=== PATIENT | male | born 1940 | race Caucasian/White ===

== ENCOUNTER 2024-09-07 09:26 | Inpatient (IN) | payer MEDICARE, OTHER, SELFPAY ==
[2024-09-07] VITALS (7 sets, daily range): BP systolic 99–132; BP diastolic 55–73; PULSE 74; O2SAT 100; BMI 19.0; BMI 18.2
--- NOTE | 2024-09-07 00:10 | ED.GENMED ---
History of Present Illness
General
Chief Complaint: Abdominal Symptoms
Time Seen by Provider: 09/07/24 00:09
History of Present Illness
History of Present Illness:
TIME OF INITIAL ENCOUNTER: 12:10 AM
HPI: I spoke to EMS with majority of history. The patient comes in from [facility] as staff at [facility] was concerned about the appearance of the vomitus. They were concerned about the appearance of coffee-ground emesis. He also
reported some vague abdominal discomfort earlier as well. The patient is on baby aspirin and subcu heparin
EXAM:
GENERAL: The patient is somewhat ill-appearing with brown vomitus on his gown, soft brown stool noted within his diaper
HEENT: Slightly dry oral mucosa
CARDIOVASCULAR: No murmurs, normal heart rate, regular rhythm, No chest wall tenderness
PULMONARY: No respiratory distress, breath sounds are clear and equal
ABDOMEN: Soft with no peritoneal signs, minimal distention with no abdominal tenderness
NEUROLOGIC: Fair strength all extremities, no coordination deficits
PSYCHIATRIC: Some mild cognitive deficits noted, reasonable insight and judgement
EXTREMITIES: Fistula noted left upper extremity with excellent thrill
SKIN: Small bandage noted to the left lower quadrant
NUMBER AND COMPLEXITY OF PROBLEMS ADDRESSED AT THE ENCOUNTER
� Chronic conditions affecting care: CKD on HD, atrial fibrillation, diverticular disease
� Acute Exacerbation and/or Progression of Chronic Illness: This is an acute problem
� Differential Diagnosis includes: Upper GI bleed, gastroenteritis, viral syndrome, diverticular disease, GERD
AMOUNT AND/OR COMPLEXITY OF DATA TO BE REVIEWED AND ANALYZED
� I performed an independent evaluation of and my interpretation is:
EKG:
CT: CT shows no clear acute cause for patient's vomiting however increase stool burden is noted. Patchy opacities noted at the left lung base with some concern for aspiration pneumonia
X-rays:
Laboratory Studies: White count 13.4, hemoglobin 9.1, potassium 5.6, creatinine 4.0, lipase 131, LFTs unremarkable
Other:
� Review of other/old records: I reviewed some of the notes from [facility] which indicates that the patient did have a diverticulitis with perforation in the past.
� Clinical information was obtained by an independent historian: I spoke to EMS upon arrival for history
� Prescriptions/Medications Considered but not given:
� Further testing considered but not performed:
RISK OF COMPLICATIONS AND/OR MORBIDITY OR MORTALITY OF PATIENT MANAGEMENT
� Social determinants of health affecting care: Resides at [facility]
� Discussion with other providers: Hospitalist for admission
� Escalation of care including admission/observation vs risk of discharge considered: Leukocytosis noted. He was given Zofran for nausea/vomiting. CT imaging suggest possibility of aspiration pneumonia at the left base. I have
placed him on antibiotics. Given the appearance of the vomitus initially, I did give a one-time dose of Protonix. However the patient has heme-negative brown stool. Given his overall somewhat ill appearance, recommend he stay in the hospital for
further evaluation.
ANY OTHER UPDATES:
Phy Exam
Physical Exam
Physical Exam:
See HPI
Course
Orders/Labs/Results
Orders:
Orders
09/07/24 00:09
Pantoprazole [Protonix IV] 80 mg IV NOW STA
09/07/24 00:16
CT Abd/pel Without Iv Or Oral Urgent
Comment:
Reason For Exam: vomiting; CKD on HD
09/07/24 00:35
CR Chest - 2 Views Urgent
Comment:
Reason For Exam: cough fever
09/07/24 00:40
Type+Screen Urgent
Complete Blood Count/With Diff Urgent
Comprehensive Metabolic Panel Urgent
Lipase Urgent
09/07/24 00:42
Ondansetron Injectable [Zofran] 4 mg .ROUTE .STK-MED ONE
Pantoprazole [Protonix IV] 40 mg .ROUTE .STK-MED ONE
09/07/24 00:44
0.9% Sodium Chloride [Nss (Preservative Free)] 20 ml IV NOW STA
09/07/24 00:45
Ondansetron Injectable [Zofran] 4 mg IV NOW STA
09/07/24 00:52
ABO2 Urgent
BBK Wristband Number:
Associate notified that ABO2 has been ordered: [id number]
Date: 09/07/24
Time: 00:47
Church History Teacher ID: [id number]
09/07/24 02:45
CefTRIAXone [Rocephin] 1,000 mg .ROUTE .STK-MED ONE
09/07/24 02:46
Azithromycin 500 mg/250 ml [Zithromax Infusion] 500 mg in 250 ml .ROUTE .STK-MED
Abnormal Lab Results
09/07/24
00:40
WBC 13.4 H 10^3/uL
(4.8-10.8)
RBC 2.97 L 10^6/uL
(4.70-6.10)
Hgb 9.1 L g/dL
(13.0-18.0)
Hct 27.5 L %
(39.0-52.0)
RDW 15.3 H %
(11.5-14.5)
Abs Immat Gran (auto) 0.1 H 10^3/uL
(0-0.05)
Absolute Neuts (auto) 10.8 H 10^3/uL
(1.4-6.5)
Absolute Monos (auto) 0.8 H 10^3/uL
(0.1-0.6)
Neutrophils % 80.6 H %
(42.2-75.2)
Lymphocytes % 10.6 L %
(20.5-51.1)
Sodium 131 L mmol/L
(135-145)
Potassium 5.6 H mmol/L
(3.5-5.1)
Chloride 91 L mmol/L
(98-107)
BUN 53 H mg/dl
(9-20)
Creatinine 4.0 H mg/dL
(0.7-1.3)
Glucose 118 H mg/dl
(70-99)
09/07/24 00:40
09/07/24 00:40
Vital Signs
Initial and Last Documented VS:
Initial Vital Signs
Temp Pulse Resp BP Pulse Ox
38.1 C H 105 38 125/66 96
09/07/24 00:31 09/07/24 00:31 09/07/24 00:31 09/07/24 00:31 09/07/24 00:31
Last Documented Vital Signs
Temp Pulse Resp BP Pulse Ox
38.1 C H 105 38 125/66 98
09/07/24 00:31 09/07/24 00:31 09/07/24 00:31 09/07/24 00:31 09/07/24 00:57
*Critical Care Note
Total Time (30-74mins, 75-104mins- exclusive of procedures): Not Applicable
ED Attending Note
-
Portions of this chart may have been created with voice recognition software.� Occasional wrong word or��sound alike� substitutions may have occurred due to the inherent limitations of voice recognition software.
Discharge Plan
Departure
Patient Disposition: Admit
Date of Disposition: 09/07/24
Time of Disposition: 04:01
Presentation/result/management discussed w/ accepting MD/DO: Hospitalist
Discharge Problem:
Pneumonia
Referrals:
Babar Bruner MD [Family Provider] -
Interventions
Interventions:
*Neglect/Abuse Screening Last Done: 09/07/24 00:57
ED- Fall Risk Assessment Last Done: 09/07/24 00:57
*ED COVID-19 Vaccine History Last Done: 09/07/24 00:57
CR-Nrbhou-Sfzvphndbg Assessment Last Done: 09/07/24 00:57
ED- Pulmonary Assessment Last Done: 09/07/24 00:57
Discharge Date and Time
Print Language: DANISH
[2024-09-07] MEDS: ZOFRAN 4 MG IV (00:45)
[2024-09-07] MEDS: PROTONIX IV 80 MG IV (00:45)
[2024-09-07 00:50] LABS: % Basophils 0.6 % (0-2); % Eosinophils 2.1 % (0-6); % Immature Granulocytes 0.4 % (0-0.5); % Lymphocytes 10.6 % (20.5-51.1); % Monocytes 5.7 % (1.7-9.3); % Neutrophils 80.6 % (42.2-75.2); Absolute Basophils 0.1 10^3/uL (0-0.2); Absolute Eosinophils 0.3 10^3/uL (0-0.7); Absolute Immature Granulocytes 0.1 10^3/uL (0-0.05); Absolute Lymphocytes 1.4 10^3/uL (1.2-3.4); Absolute Monocytes 0.8 10^3/uL (0.1-0.6); Absolute Neutrophils 10.8 10^3/uL (1.4-6.5); Hematocrit 27.5 % (39.0-52.0); Hemoglobin 9.1 g/dL (13.0-18.0); Mean Corp Hgb Conc. 33.1 g/dL (33.0-37.0); Mean Corpuscular Hgb 30.6 pg (27.0-31.0); Mean Corpuscular Volume 92.6 fL (80.0-94.0); Nucleated Red Blood Cells % 0 % (-); Platelet Count 322 10^3/uL (130-400); Red Blood Cell Count 2.97 10^6/uL (4.70-6.10); Red Cell Dist. Width 15.3 % (11.5-14.5); White Blood Cell Count 13.4 10^3/uL (4.8-10.8)
[2024-09-07] MEDS: NSS (PRESERVATIVE FREE) 20 ML IV (00:53)
[2024-09-07 01:09] LABS: ALT (SGPT) 15 U/L (0-50); AST (SGOT) 19 U/L (17-59); Albumin 4.1 g/dl (3.5-5.0); Alkaline Phosphatase 126 U/L (38-126); Blood Urea Nitrogen 53 mg/dl (9-20); Calcium 9.9 mg/dl (8.4-10.2); Carbon Dioxide 22 mmol/L (22-30); Chloride 91 mmol/L (98-107); Estimated Creatinine Clearance 11 ml/min; Glucose 118 mg/dl (70-99); Lipase 131 U/L (23-300); Potassium 5.6 mmol/L (3.5-5.1); Sodium 131 mmol/L (135-145); Total Bilirubin 0.4 mg/dl (0.2-1.3); Total Protein 6.9 g/dl (6.3-8.2); eGFR 14.15
--- NOTE | 2024-09-07 03:58 | DOWNTIME ---
There was a [employer] Client [employer] Downtime on 09/07/2024 from 0100 to 09/07/2024 at 0350. Downtime documentation of patient's care, including medication administrations, has been reconciled in the electronic record per guidelines. Refer to the
patient's paper chart under the miscellaneous tab to see printed paper medication records and downtime forms.
--- NOTE | 2024-09-07 07:07 | HPS.HSE ---
Family Physician
-
Family Physician: Babar Bruner MD
Chief Complaint
-
Cough, SOB.
History of Present Illness
Patient with episode of nausea vomiting and diarrhea while been coughing since then
This is an 84-year-old who has past medical history significant for end-stage renal disease on hemodialysis Thursday, chronic urinary retention status post suprapubic catheter, anemia, oropharyngeal dysphagia, generalized weakness,
prior diverticulitis with perforation and abscess, atrial fibrillation presenting to the emergency department with cough after having an episode of nausea vomiting and diarrhea today. Apparently ordered and members of the facility had similar
symptoms.
Patient stated that symptoms began today. Apparently after attempting breakfast he vomited and then started coughing. His cough is unable to bring up any sputum. He reports mild shortness of breath. He attempted lunch and he vomited again. It
was nonbloody and nonbilious. There was some concern for coffee-ground's but in the ED noted not to have any coffee-ground's. Patient has not had any measured fevers at home but had a temp of 100.5 in the ED. No further diarrhea thus far. Mild
abdominal discomfort.
T 100.5, BP 100/60. Notable labs in the ED where a white count of 13.4, hemoglobin of 9.1. There was a CT of the abdomen and pelvis without contrast showing prominent stool burden with possible fecal impaction and rectosigmoid dilation, no bowel
obstruction or bowel wall thickening. He has been having BMs in ED.
Medical History
Past Medical History
Past Medical History: Reports Renal Failure (dialysis M/W/F)
Additional Past Medical History:
Chronic urinary retention s/p suprapubic catheter
Dysphagia
AFIB
Past Surgical History: Reports Other
Social History
Tobacco: Non-smoker
Alcohol: None
Drug: None
Living: Snf
Employment: Retired
Family History
Family History: Not pertinent
Allergies / Home Medications
Allergies reflects when Allergies were last updated in [facility].
Home Medications with original date entered in [facility]
Allergy/Medication List:
Allergies
Allergy/AdvReac Type Severity Reaction Status Date / Time
No Known Allergies Allergy Verified 09/07/24 00:43
Home Medications
Zofran ODT 4 mg PO Q8H PRN nausea 09/07/24
aspirin See Rx Instructions .Route .COMPLEX 09/07/24
bisacodyl 10 mg CA DAILY PRN constipation 09/07/24
heparin (porcine) 5,000 unit SC TID 09/07/24
levalbuterol HCl 0.63 mg inhalation Q6H PRN wheezing 09/07/24
midodrine 5 mg tablet See Rx Instructions .Route .COMPLEX 09/07/24
mirtazapine 7.5 mg tablet 7.5 mg PO HS 09/07/24
polyethylene glycol 3350 17 gram oral powder packet (Miralax) 17 g PO HS 09/07/24
vitamin B complex 500 mg PO DAILY 09/07/24
Review of Systems
-
History Source: Patient
Constitutional: Reports No Symptoms
Respiratory: Reports Cough
Cardiac: Reports No Symptoms
Abdomen/GI: Reports Vomiting
: Reports No Symptoms
Musculoskeletal: Reports No Symptoms
Skin: Reports No Symptoms
Neurological: Reports No Symptoms
Endocrine: Reports No Symptoms
Psych: Reports No Symptoms
Physical Exam
Vital Signs
Vital Signs
Temp Pulse Resp BP Pulse Ox
97.8 F 88 19 99/55 98
09/07/24 06:07 09/07/24 06:07 09/07/24 06:07 09/07/24 06:07 09/07/24 06:28
Physical Exam
General: Appears Chronically Ill
HEENT: NormoCephalic, Anicteric, Moist mucous membranes and Atraumatic
Respiratory: Clear
Cardiac: S1/S2, Regular Rhythm and Murmur (high pitched systolic murmur heard throughout the precordium)
Breast: Deferred by me
GI: Soft, Non Tender, Non Distended and Normal Bowel Sounds
Rectal: Deferred by Provider
Genito-urinary: Suprapubic Tube
Musculoskeletal: No Clubbing, No Cyanosis and No Edema
Skin: Warm
Neuro: AO x 3
Hematologic/Lymphatic: No Lymphadenopathy
Psych: Calm
Laboratory Results
-
09/07/24 00:40
09/07/24 00:40
Laboratory Results
Total Bilirubin 0.4 mg/dl (0.2-1.3) 09/07/24 00:40
AST 19 U/L (17-59) 09/07/24 00:40
ALT 15 U/L (0-50) 09/07/24 00:40
Alkaline Phosphatase 126 U/L (38-126) 09/07/24 00:40
Lipase 131 U/L (23-300) 09/07/24 00:40
Data Reviewed
-
Diagnostic Radiology: Image Personally Visualized and interpreted
Medical Tests (Nuc Med, Echo, EKG etc): Image Personally Visualized and interpreted
Lab Data: Labs Reviewed by me
Impression/Plan
-
IMPRESSION:
1. N/V - No obvious peritonitis, cannot rule out diverticulitis entirely but appeared to be related to a communicable infection so likley a viral gastroenteritis. No current diarrhea. HD stable.
- admit to med/surg
- ceftriaxone/flagyl for now
- antiemetics
- given gentle fluids 250 ml bolus in ED
- ppi, diet as tolerated,nectar thickened pureed.
2. Fever - Low grade temps 100.5 with patch LLL opacity concerning for aspiration vs pna.
- check covid/influenza
- check procal
- ceftriaxone/flagyl for now
- respiratory tx and supportive care for the cough
3. ESRD - HD M/W/F. No indiction for acute HD
- plan for HD in am, nephrology consult
DVT PPX heparin sq
Code Status full Code
--- NOTE | 2024-09-07 09:43 | W.PN.HOSP.TC ---
Today's Communication/Plan
-
Renal and ID consult
follow up CXR and obstruction series in AM
Assessment / Plan
Assessment / Plan
1. N/V - No obvious peritonitis, cannot rule out diverticulitis entirely but appeared to be related to a communicable infection so likley a viral gastroenteritis. No current diarrhea. HD stable.
exam appears benign. CT scan, my read with significant stool burden and bowel distention, await radiologist read
- admit to med/surg
- ceftriaxone/flagyl for now
- antiemetics
- given gentle fluids 250 ml bolus in ED
- ppi, diet as tolerated,nectar thickened pureed.
2. Fever - Low grade temps 100.5 with patch LLL opacity concerning for aspiration vs pna.
WBC 13.4k
- check covid/influenza
- check procal
- ceftriaxone/flagyl for now
- respiratory tx and supportive care for the cough
inf disease consult
3. ESRD - HD M/W/F. No indiction for acute HD
- plan for HD in am, nephrology consulted
DVT PPX heparin sq
Code Status full Code
Anticipated Discharge: > 48 hours
Subjective/Interval History
-
Date of Service: September 07, 2024
Appears comfortable
Objective Data
-
Labs:
Laboratory Results
09/07/24
00:40
WBC 13.4 H
Hgb 9.1 L
Hct 27.5 L
Plt Count 322
Sodium 131 L
Potassium 5.6 H
Chloride 91 L
Carbon Dioxide 22
BUN 53 H
Creatinine 4.0 H
Glucose 118 H
Calcium 9.9
Total Bilirubin 0.4
AST 19
ALT 15
Alkaline Phosphatase 126
Vital Signs:
Vital Signs
Temp Pulse Resp BP Pulse Ox
97.8 F 88 19 99/55 98
09/07/24 07:05 09/07/24 07:05 09/07/24 07:05 09/07/24 07:05 09/07/24 07:05
I&O
09/06/24 09/07/24 09/08/24
06:59 06:59 06:59
Intake Total 300 / 300
Output Total 250 / 250
Balance 50 / 50
Review of Systems
-
History Source: Patient and Coordinated Provider
Constitutional: Reports Fever (100.5)
Respiratory: Reports Cough
Cardiac: Reports No Symptoms
Abdomen/GI: Reports Vomiting (prior to admission)
Physical Exam
-
General: Well Developed, Well Nourished, No Apparent Distress and Appears Chronically Ill
HEENT: Normocephalic, Atraumatic and Moist Mucous Membranes
Respiratory: Clear to Auscultation; Negative Wheezes, Rales or Rhonchi
Cardiac: Regular Rhythm and S1/S2
GI: Soft, Nontender, Nondistended and Normal Bowel Sounds
Musculoskeletal: No Clubbing, No Cyanosis and No Edema
Neuro: Awake, Alert and Oriented
--- NOTE | 2024-09-07 10:54 | WOUNDNOTE ---
LEFT LOWER ABDOMEN
--- NOTE | 2024-09-07 11:00 | WOUNDNOTE ---
WON RN note: Patient admitted with pneumonia and vomiting.
See H&P for complete history. From [facility].
PMH: diverticulitis with perforation and abscess,RF-hemodialysis, A Fib, lumbar fractures, ambulatory dysfunction, suprapubic tube, anemia.
Wound Location and type/assessment: Patient admitted with: L lower abdomen full thickness opening, suspect old suprapubic tube site vs developing abscess. Undermines and tunnels with purulent foul smelling drainage. Lateral to opening, skin is red
with a suspected evolving ulcer. Abdominal ulcer is painful to touch, not indurated. CT of Abdomen results pending. Patient has Calvin in use. Turned to sides on own, minimal assist. Mid spine with stage 3 PI, base yellow/ red and blanchable redness
surrounding, scant drainage. Heels are non blanchable red.
Appetite: Poor recently due to nausea and vomiting.
Pressure redistribution devices in place: On Accumax, air overlay added to bed. Air cushion with pillow under calves.
Plan: Discussed the above ulcers with Dr. Guzman who said CT of abdomen pending. Confirmed ok to send wound culture done at bedside, dressings changed. Today Mesalt strips packed into tunnel and undermined area of abdominal wound then dry dressing
and local wound care to back ulcer. Possible surgical consult for abdomen wound depending on results of CT scan per Dr. Guzman. Called [facility] for iodoform packing strips and honey gel.
Confirmed orders with hospitalist and updated nurse Yarelis who will send culture to lab.
Updated care plan and will follow as needed.
Note to case management of equipment requested for discharge:Air mattress
Recommend follow up at wound care center upon discharge.
[2024-09-07] MEDS: LOW STRENGTH ASPIRIN 81 MG PO (11:39)
[2024-09-07] MEDS: ProAmatine 5 MG PO ×2 (11:39→17:14)
--- NOTE | 2024-09-07 11:55 | CON.ID ---
Consultation
-
Date/Time Consultation Requested: 09/07/2024 0946
Date/Time Consultation Performed: 09/07/2024 1151
Requesting Provider: Dr. Guzman
Performing Provider: Dr. Medina
Reason for Consultation: Aspiration pneumonia
Chief Complaint / Past History
History of Present Illness
Rashard Matos is an 84-year-old male being evaluated at the request of Dr. Guzman in regards to suspected aspiration pneumonia. History is obtained from chart review.
The patient presented to [facility] earlier this morning after being sent from the facility where he resides for evaluation of nausea and vomiting.
Per reviewed notes, the patient ate breakfast yesterday and developed coughing with subsequent episode of vomiting. This resolved, but when he ate lunch he again developed coughing, with subsequent emesis. Per EMS report, the admitted to feeling
nauseated all day, although he denied this to me. Additionally, there was some concern for coffee-ground emesis, which appears to have prompted transfer to the hospital for further evaluation.
Workup in the ER revealed leukocytosis, and patient was started on empiric antibiotics.
At present, patient reports improved cough. He denies any nausea. He denies any current sputum production. He denies any abdominal pain.
Past History
Additional Past Medical History:
ESRD�HD
Chronic urinary retention
Anemia
Dysphagia
Diverticulitis
A-fib
Additional Past Surgical History:
Suprapubic catheter
Allergy History:
No Known Allergies Allergy (Verified 09/07/24 00:43)
Medications Reviewed: Yes
Current Antibiotics:
Ceftriaxone 1 g IV every 24 hours
Social History
Tobacco: Non-Smoker
Alcohol: None
Drug: None
Living: Jail
Employment: Not Employed
Family History
Family History: Not Pertinent
Review of Systems
Vital Signs
Temp Pulse Resp BP Pulse Ox
97.8 F 80 16 132/73 98
09/07/24 07:05 09/07/24 11:39 09/07/24 10:54 09/07/24 11:39 09/07/24 10:54
Physical Exam
Physical Exam
Constitutional: No Acute Distress, Comfortable, Chronically Ill, Non-toxic and Cachetic (Mild)
Eyes: Pupils Equal, No Conjunctival Hemorrhage and Sclera Anicteric
Oral: No Thrush and No Ulcers
Cardiovascular: Regular Rate and S1/S2; Negative S3/S4
Pulmonary: Coarse and Non Labored; Negative Wheezes, Rales or Rhonchi
Gastrointestinal: Soft, Non Tender and Non Distended
Extremities: Negative Edema, Cyanosis or Erythema
Neurological: Awake and Alert
Psychological: Calm
Lab / Diagnostic Study Results
09/07/24 00:40
09/07/24 00:40
Abs Immat Gran (auto) 0.1 10^3/uL (0-0.05) H 09/07/24 00:40
Absolute Neuts (auto) 10.8 10^3/uL (1.4-6.5) H 09/07/24 00:40
Absolute Lymphs (auto) 1.4 10^3/uL (1.2-3.4) 09/07/24 00:40
Absolute Monos (auto) 0.8 10^3/uL (0.1-0.6) H 09/07/24 00:40
Absolute Basos (auto) 0.1 10^3/uL (0-0.2) 09/07/24 00:40
Immature Gran % 0.4 % (0-0.5) 09/07/24 00:40
Neutrophils % 80.6 % (42.2-75.2) H 09/07/24 00:40
Lymphocytes % 10.6 % (20.5-51.1) L 09/07/24 00:40
Monocytes % 5.7 % (1.7-9.3) 09/07/24 00:40
Eosinophils % 2.1 % (0-6) 09/07/24 00:40
Basophils % 0.6 % (0-2) 09/07/24 00:40
Microbiology Results
Micro:
09/07/24 06:50 MRSA Screen - Pending
Nose
Imaging:
09/07/2024 CXR (2 view):There is no significant focal parenchymal opacification or vascular congestion. The cardiomediastinal silhouettes are within the limits of normal. Calcific atherosclerotic changes of the thoracic aortic arch are noted. There
is no pneumothorax, pleural effusion or mediastinal shift.
Assessment / Plan
Nausea/vomiting
Leukocytosis
Fever
ESRD�HD
Chronic urinary retention
Anemia
Dysphagia
Diverticulitis
A-fib
Recommendations:
Continue ceftriaxone for today.
Follow CXR, white count and temperature curve.
If no infiltrate develops, and clinical parameters remain normal over next 24 hours, discontinue further antibiotics with close clinical observation.
Care Review
Plan reviewed with: Physician (Hospitalist)
--- NOTE | 2024-09-07 13:03 | W.CON.NEPH ---
Consultation
-
Date/Time Consultation Requested: 09/07/24 0946
Date/Time Consultation Performed: 09/07/24 1500
Requesting Provider: Kofi Varner
Performing Provider: Gerri Hobson
Reason for Consultation: ESRD
Medical History
-
Chief Complaint: cough, sob
History of Present Illness:
84-year-old who has past medical history significant for end-stage renal disease on hemodialysis Thursday at [facility](previously at [facility] for last 8yrs through left UE AVF), chronic urinary retention status post
suprapubic catheter, anemia, oropharyngeal dysphagia, generalized weakness, prior diverticulitis with perforation and abscess, atrial fibrillation on ASA presenting to the emergency department with cough after having an episode of nausea vomiting
and diarrhea yesterday. Apparently members of the facility had similar symptoms. He had poor po tolerance since then. There was question of coffee ground emesis, mild abd discomfort. He has low grade fever 100.5 on admit. K elevated 5.6, sodium
131. BPs are soft. CT abd shows constipation. He is due for HD today.
Reportedly he is [facility] since last 1-2weeks post recent hospitalization which I do not have details currently.
Past Medical History
ESRD
Chronic urinary retention s/p suprapubic catheter
Dysphagia
AFIB
Social History
Tobacco: Non-Smoker
Alcohol: None
Drug: None
Living: Prison
Employment: Retired
Family History
Family History: Not Pertinent
Allergies / Home Medications
Allergy/AdvReac Type Severity Reaction Status Date / Time
No Known Allergies Allergy Verified 09/07/24 00:43
�Medication �Instructions �Recorded �Confirmed �Type
Zofran ODT 4 mg PO Q8H PRN nausea 09/07/24 09/07/24 History
aspirin See Rx Instructions .Route .COMPLEX 09/07/24 09/07/24 History
bisacodyl 10 mg [place] DAILY PRN constipation 09/07/24 09/07/24 History
heparin (porcine) 5,000 unit SC TID 09/07/24 09/07/24 History
levalbuterol HCl 0.63 mg inhalation Q6H PRN wheezing 09/07/24 09/07/24 History
midodrine 5 mg tablet See Rx Instructions .Route .COMPLEX 09/07/24 09/07/24 History
mirtazapine 7.5 mg tablet 7.5 mg PO HS 09/07/24 09/07/24 History
polyethylene glycol 3350 17 gram 17 g PO HS 09/07/24 09/07/24 History
oral powder packet (Miralax)
vitamin B complex 500 mg PO DAILY 09/07/24 09/07/24 History
Review of Systems
-
All complete 12 point ROS have been inquired and found negative other than stated in HPI
Physical Exam
Vital Signs
Vital Signs
Temp Pulse Resp BP Pulse Ox
97.8 F 80 16 132/73 98
09/07/24 07:05 09/07/24 11:39 09/07/24 10:54 09/07/24 11:39 09/07/24 10:54
Lab Results
WBC 13.4 10^3/uL (4.8-10.8) H 09/07/24 00:40
RBC 2.97 10^6/uL (4.70-6.10) L 09/07/24 00:40
Hgb 9.1 g/dL (13.0-18.0) L 09/07/24 00:40
Hct 27.5 % (39.0-52.0) L 09/07/24 00:40
Plt Count 322 10^3/uL (130-400) 09/07/24 00:40
Sodium 131 mmol/L (135-145) L 09/07/24 00:40
Potassium 5.6 mmol/L (3.5-5.1) H 09/07/24 00:40
Chloride 91 mmol/L (98-107) L 09/07/24 00:40
Carbon Dioxide 22 mmol/L (22-30) 09/07/24 00:40
BUN 53 mg/dl (9-20) H 09/07/24 00:40
Creatinine 4.0 mg/dL (0.7-1.3) H 09/07/24 00:40
eGFR 14.15 09/07/24 00:40
Glucose 118 mg/dl (70-99) H 09/07/24 00:40
Calcium 9.9 mg/dl (8.4-10.2) 09/07/24 00:40
Albumin 4.1 g/dl (3.5-5.0) 09/07/24 00:[address]
CT abd/pelvis:
IMPRESSION:
1. Examination significantly limited by artifacts as above.
2. No definitive acute intra-abdominal process identified. There is a large volume of stool within the colon.
3. 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 Very small bilateral pleural effusions.
4. Atrophic of bilateral kidneys. Very small bilateral nephroliths. Mild dilation of the right renal pelvis as above, no obstructing calculus identified.
5. Subacute fracture of left parasymphyseal pubic bone extending into left superior pubic ramus. Subacute fracture left inferior pubic ramus. Bilateral sacral probable insufficiency fractures. Multiple bilateral old rib fractures. Severe chronic
compression deformity L2.
CXR:
No focal parenchymal opacification to suggest pneumonia.
Physical Exam
General: Awake, Alert, Oriented, AOx3, No Distress and Nontoxic
HEENT: EOMI, Anicteric and Conjunctivae Clear
Respiratory: Clear, Normal Excursion and Nonlabored Respirations
Cardiac: S1/S2, Regular Rate/Rhythm and Murmur
Breast: Deferred by me
Abdomen: Soft, Nontender and Nondistended
Musculoskeletal: No Cyanosis and No Edema
Skin: No Rash
Neuro: Nonfocal/Grossly Intact
Psych: Mood/afflect pleasant, Insight/judgement good and Appropriate
Vascular Access: AVF
Assessment/Plan
-
IMP:
N/V/D.
Fever
ESRD - HD M/W/F. kirit mejia, previously [facility] unit at [facility] [place]
Anemia of CKD
Leucocytosis
Hyperkalemia
HYponatremia
Left UE AVF
heart murmur
constipation noted on CT
ON CT :
Subacute fracture of left parasymphyseal pubic bone extending into left superior pubic ramus.
Subacute fracture left inferior pubic ramus.
Bilateral sacral probable insufficiency fractures.
Multiple bilateral old rib fractures.
Severe chronic compression deformity L2.
Plan:
A/w n/v/d. low grade fever -symp resolved
HD today per schedule
midodrine pre HD for soft BPs
JO for anemia
renal diet and FR
surg-no intervention for severe constipation
abx per ID
--- NOTE | 2024-09-07 14:09 | PTOTSP ---
Speech Therapy Evaluation:
Pt exhibits clinical signs of oropharyngeal dysphagia, likely chronic in nature related to modified diet at baseline. Pt also with risks of esophageal dysphagia as characterized by hiatal hernia. Pt demonstrated no overt s/sx of aspiration across
trials of pureed solids and mildly thick liquids. OCEANOGRAPHY PROFESSOR later called Cheri Jacob, who confirmed baseline diet of minced and moist solids and mildly thick liquids, however unable to provide further information if pt still being followed by OCEANOGRAPHY PROFESSOR
services at facility.
Recommend:
1. IDDSI Level 4 (puree) solids and mildly thick liquids
2. Medications whole verus crushed in puree as tolerated
3. General aspiration and reflux precautions
4. Oral care 3x/daily
5. OCEANOGRAPHY PROFESSOR to continue to follow at acute care level to assess ability to upgrade diet and determine if instrumental assessment warranted.
--- NOTE | 2024-09-07 14:23 | CM ---
Reviewed the chart notes and spoke with the patient at the bedside and patient's brother Hubert via telephone. Patient is currently a patient at [facility] where he received HD --. CM spoke with Hattie at [facility]. Per Hattie, the
patient is wheelchair bound and is an assist of one with transfers. Listed in our system, as well as, Hines's patient's insurance is commercial insurance. Patient denies commercial, claims he has Medicare and HOP, patient's brother confirmed and
provided numbers. Patient's insurance cards were lost while hospitalized at [facility].
Medicare A&B # [id number]
HOP # [id number]
Plan: Discharge back to [facility] when medically stable. No precert required.
--- NOTE | 2024-09-07 15:04 | CON.CRS ---
Consultation
-
Date/Time Consultation Requested: 09/07/2024, 12:12
Date/Time Consultation Performed: 09/07/2024, 15:05
Requesting Provider: Kofi Merino MD
Performing Provider: Damion Chris MD
Reason for Consultation: constipation
Medical History
-
Chief Complaint: abdominal pain and vomiting
History of Present Illness:
84-year-old male, with a past medical history of end-stage renal disease on hemodialysis and status post suprapubic catheter, presents to [facility] early this morning complaining of vomiting and abdominal pain. He had a temperature of 100.5
in the emergency department. He has not had any diarrhea. His white count was 13.4 on admission. His vitals have remained otherwise normal. CT of the abdomen and pelvis showed no acute intra-abdominal process identified. There is a large volume
of stool in the colon. Given the above we have been consulted for further surgical recommendation.
Past Medical History
Past Medical History: Other (Renal Failure (dialysis M/W/F))
Past Surgical History: Other (urinary retention, s/p suprapubic catheter , Dysphagia, AFIB )
Social History
Tobacco: Non-Smoker
Alcohol: None
Drug: None
Family History
Family History: Reviewed & Not Pertinent
Allergies / Home Medications
Allergy/AdvReac Type Severity Reaction Status Date / Time
No Known Allergies Allergy Verified 09/07/24 00:43
�Medication �Instructions �Recorded �Confirmed �Type
Zofran ODT 4 mg PO Q8H PRN nausea 09/07/24 09/07/24 History
aspirin See Rx Instructions .Route .COMPLEX 09/07/24 09/07/24 History
bisacodyl 10 mg [place] DAILY PRN constipation 09/07/24 09/07/24 History
heparin (porcine) 5,000 unit SC TID 09/07/24 09/07/24 History
levalbuterol HCl 0.63 mg inhalation Q6H PRN wheezing 09/07/24 09/07/24 History
midodrine 5 mg tablet See Rx Instructions .Route .COMPLEX 09/07/24 09/07/24 History
mirtazapine 7.5 mg tablet 7.5 mg PO HS 09/07/24 09/07/24 History
polyethylene glycol 3350 17 gram 17 g PO HS 09/07/24 09/07/24 History
oral powder packet (Miralax)
vitamin B complex 500 mg PO DAILY 09/07/24 09/07/24 History
Review of Systems
-
History Source: Other (hospital record)
Abdomen/GI: Abdominal Pain and Vomiting
A 10 point review of systems was completed, and was negative except as per HPI.
Physical Exam
Vital Signs
Temp 97.8 F 09/07/24 07:05
Pulse 80 09/07/24 11:39
Resp Rate 16 09/07/24 10:54
Blood pressure 132/73 09/07/24 11:39
SaO2 98 09/07/24 10:54
09/06/24 09/07/24 09/08/24
06:59 06:59 06:59
Actual Weight 52.707 kg
Body Mass Index (BMI) 18.2
Lab Results / Allergies
09/07/24 00:40
09/07/24 00:40
WBC 13.4 10^3/uL (4.8-10.8) H 09/07/24 00:40
Hgb 9.1 g/dL (13.0-18.0) L 09/07/24 00:40
Hct 27.5 % (39.0-52.0) L 09/07/24 00:40
Plt Count 322 10^3/uL (130-400) 09/07/24 00:40
Abs Immat Gran (auto) 0.1 10^3/uL (0-0.05) H 09/07/24 00:40
Neutrophils % 80.6 % (42.2-75.2) H 09/07/24 00:40
Allergy/AdvReac Type Severity Reaction Status Date / Time
No Known Allergies Allergy Verified 09/07/24 00:43
Physical Exam
General: Well Developed, Well Nourished and No Apparent Distress
GI: Soft, Non Distended and Tender (mildly tender)
Rectal: Other (intact but decreased tone, no blood, soft stool in the vault (so disimpaction not possible))
Data Reviewed
-
CT Scan: Image Personally Visualized and interpreted, Report Reviewed by me and Discussed with Patient
Labs: Labs Reviewed by me, Discussed with Physician and Discussed with Patient
Old Records: Reviewed
Assessment / Plan
-
Assessment: 84-year-old male presents to the emergency room with lower abdominal pain and vomiting and found to have severe constipation on CT, disimpaction not possible on exam
Plan:
No plans for surgery at this time. Unable to perform a disimpaction at bedside due to soft stool in the vault. Recommend aggressive bowel regiment.
[2024-09-07] MEDS: HEPARIN 500 UNITS IV (16:35)
[2024-09-07] MEDS: FLEXBUMIN 25% FOR HEMODIALYSIS 12.5 GRAMS IV (16:49)
[2024-09-07] MEDS: MANNITOL 25% 12.5 GRAMS IV (16:49)
--- NOTE | 2024-09-07 17:31 | W.PN.NEPH.HD ---
Assessment
-
pt seen during HD
vitals noted, SBP 86, just got midodrine
ok to use extra dose if needed
no UF at this time
JO for anemia
AVF functions fine
Progress Note - Hemodialysis
-
Date of Service: September 07, 2024
Duration: 30 minutes and 3 hours
Potassium Bath: 2
Calcium Bath: 2.5
Opti-Dialyzer: 160
Ultrafiltration: Other (0)
Blood Flow: 400
Dialysate Flow: 600
Heparin: yesx2
EPO: 6000
[2024-09-07] MEDS: RETACRIT 6000 UNITS IV (18:25)
[2024-09-07] MEDS: HEPARIN 5000 UNITS SC (20:35)
[2024-09-07] MEDS: CITROMA 300 ML PO (20:35)
[2024-09-07] MEDS: MIRALAX 17 GRAMS PO (21:30)
[2024-09-07] MEDS: REMERON 7.5 MG PO (21:30)
[2024-09-08 04:58] VITALS: BMI 19.2
[2024-09-08 06:11] LABS: Hematocrit 23.1 % (39.0-52.0); Hemoglobin 7.4 g/dL (13.0-18.0); Mean Corpuscular Volume 93.5 fL (80.0-94.0); Mean Platelet Volume 9.3 fL (7.4-10.4); Platelet Count 264 10^3/uL (130-400); Red Blood Cell Count 2.47 10^6/uL (4.70-6.10); Red Cell Dist. Width 15.5 % (11.5-14.5)
[2024-09-08 06:42] LABS: Blood Urea Nitrogen 23 mg/dl (9-20); Calcium 9.6 mg/dl (8.4-10.2); Carbon Dioxide 31 mmol/L (22-30); Chloride 96 mmol/L (98-107); Estimated Creatinine Clearance 19 ml/min; Glucose 89 mg/dl (70-99); Potassium 4.2 mmol/L (3.5-5.1); Sodium 136 mmol/L (135-145); eGFR 27.49
[2024-09-08 07:27] VITALS: BP 91/51
[2024-09-08] MEDS: NSS (PRESERVATIVE FREE) 10 ML IV (08:16)
[2024-09-08] MEDS: PROTONIX IV 40 MG IV (08:16)
[2024-09-08] MEDS: B COMPLEX w/VITAMIN C 1 CAPLET PO (08:17)
[2024-09-08] MEDS: HEPARIN 5000 UNITS SC ×2 (08:17→20:10)
[2024-09-08] MEDS: MIRALAX 17 GRAMS PO ×2 (08:17→21:21)
--- NOTE | 2024-09-08 08:32 | PTCARENOTE ---
BP this AM is 91/51, pt resting comfortably in bed at this time. Primary RN made aware.
[2024-09-08] MEDS: STERILE WATER FOR INJECTION 10 ML IV (09:33)
[2024-09-08] MEDS: ROCEPHIN 1000 MG IV (09:34)
--- NOTE | 2024-09-08 10:47 | W.PN.HOSP.TC ---
Today's Communication/Plan
-
recheck Hgb in AM, consider transfusion
Assessment / Plan
Assessment / Plan
1. N/V - No obvious peritonitis, cannot rule out diverticulitis entirely but appeared to be related to a communicable infection so likley a viral gastroenteritis. No current diarrhea. HD stable.
exam appears benign. CT scan of abd:1. Examination significantly limited by artifacts as above.
2. No definitive acute intra-abdominal process identified. There is a large volume of stool within the colon.
3. 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 Very small bilateral pleural effusions.
4. Atrophic of bilateral kidneys. Very small bilateral nephroliths. Mild dilation of the right renal pelvis as above, no obstructing calculus identified.
5. Subacute fracture of left parasymphyseal pubic bone extending into left superior pubic ramus. Subacute fracture left inferior pubic ramus. Bilateral sacral probable insufficiency fractures. Multiple bilateral old rib fractures. Severe chronic
compression deformity L2.
- ceftriaxone for now
ID consult appreciated
- antiemetics
- given gentle fluids 250 ml bolus in ED
- ppi, diet as tolerated,nectar thickened pureed.
Large stool burden
consult placed to CRS, passing frequent stools since laxative regimen started
Abd X-Ray: 09/08 Large amount of fecal material throughout the colon. No evidence of intestinal obstruction. Progressed
Severe bony mineralization. Stable
Severe atherosclerotic vascular disease. Stable
2. Fever - Low grade temps 100.5 with patch LLL opacity concerning for aspiration vs pna.
CXR 09/08: No acute disease of the chest
WBC 13.4k
- check covid/influenza
would be very unlikely, but will check
- ceftriaxone for now
- respiratory tx and supportive care for the cough
inf disease consult
3. ESRD - HD M/W/F. No indiction for acute HD
- plan for HD in am, nephrology consulted
old suprapubic tract noted, draining blood
will request Urology input
Chest congestion most likely aspiration bronchitis
doing better, continue abx
anemia
Hgb 9.1-->7.4
will recheck Hgb and obtain T&S in AM
permission to transfusion obtained from pt and confirmed with PEPE davey by phone, witnessed by KAMILAH Bishop
DVT PPX heparin sq
Code Status full Code
call placed and discussed fully with Hubert davey [phone]
extensive complex visit
Anticipated Discharge: > 48 hours
Subjective/Interval History
-
Date of Service: September 08, 2024
Much more awake, alert, answering basic questions
Objective Data
-
Labs:
Laboratory Results
09/08/24
05:47
WBC 7.0
Hgb 7.4 L
Hct 23.1 L
Plt Count 264
Sodium 136
Potassium 4.2
Chloride 96 L
Carbon Dioxide 31 H
BUN 23 H
Creatinine 2.3 H
Glucose 89
Calcium 9.6
Vital Signs:
Vital Signs
Temp Pulse Resp BP Pulse Ox
97.5 F 80 18 91/51 99
09/08/24 07:27 09/08/24 07:27 09/08/24 07:27 09/08/24 07:27 09/08/24 08:00
I&O
09/07/24 09/08/24 09/09/24
06:59 06:59 06:59
Intake Total 300 / 300 720 / 720
Output Total 250 / 250 1200 / 1200
Balance 50 / 50 -480 / -480
Review of Systems
-
History Source: Patient and Coordinated Provider
Constitutional: Reports Fever (100.5, afebrile >24 hrs)
Respiratory: Reports Cough (better, has lessened)
Cardiac: Reports No Symptoms
Abdomen/GI: Reports Vomiting (prior to admission, none since)
Physical Exam
-
General: Well Developed, Well Nourished, No Apparent Distress and Appears Chronically Ill
HEENT: Normocephalic, Atraumatic and Moist Mucous Membranes
Respiratory: Clear to Auscultation; Negative Wheezes, Rales or Rhonchi
Cardiac: Regular Rhythm, S1/S2 and Murmur (4/6sem)
GI: Soft, Nontender, Nondistended and Normal Bowel Sounds
Musculoskeletal: No Clubbing, No Cyanosis and No Edema
Neuro: Awake, Alert and Oriented
--- NOTE | 2024-09-08 10:52 | PTCARENOTE ---
MD on floor and made aware of BP this AM of 91/51 HR 80; patient resting in bed and states no complaints at this time. No new orders per MD. MD at bedside to assess LLQ wound with moderate amount of sanguinous drainage; wound care provided per order
by this RN, no new orders at this time per MD.
[2024-09-08 12:23] LABS: COVID-19 Antigen Negative (Negative)
[2024-09-08 12:54] VITALS: BP 98/48
--- NOTE | 2024-09-08 13:45 | W.PN.NEPH.PH ---
Addendum entered and electronically signed by Gerri Lakhani MD 09/08/24 15:51:
he has significant murmur-would get echo if possible tomorrow
Original Note:
Today's Communication / Plan
-
HD tomorrow
Assessment/Plan
-
IMP:
N/V/D.
Fever
ESRD - HD M/W/F. kirit mejia, previously [facility] unit at [facility]
Anemia of CKD
Leucocytosis
Hyperkalemia
HYponatremia
Left UE AVF
heart murmur
constipation noted on CT
ON CT :
Subacute fracture of left parasymphyseal pubic bone extending into left superior pubic ramus.
Subacute fracture left inferior pubic ramus.
Bilateral sacral probable insufficiency fractures.
Multiple bilateral old rib fractures.
Severe chronic compression deformity L2.
Plan:
A/w n/v/d. low grade fever -symp resolved
midodrine pre HD for soft BPs
JO for anemia, hb decreasing
renal diet and FR
abx per ID
may need eval for bleeding from SP tract-d/w primary
-
-
Date of Service: September 08, 2024
CC / HPI / ROS
-
Chief Complaint:
ESRD
History of Present Illness:
tolerated HD yesterday
BP soft
hb low 7.4
Review of Systems:
no complaints
sleeping during visit
no fever
Labs
-
Labs:
WBC 7.0 10^3/uL (4.8-10.8) 09/08/24 05:47
RBC 2.47 10^6/uL (4.70-6.10) L 09/08/24 05:47
Hgb 7.4 g/dL (13.0-18.0) L 09/08/24 05:47
Hct 23.1 % (39.0-52.0) L 09/08/24 05:47
Plt Count 264 10^3/uL (130-400) 09/08/24 05:47
Sodium 136 mmol/L (135-145) 09/08/24 05:47
Potassium 4.2 mmol/L (3.5-5.1) 09/08/24 05:47
Chloride 96 mmol/L (98-107) L 09/08/24 05:47
Carbon Dioxide 31 mmol/L (22-30) H 09/08/24 05:47
BUN 23 mg/dl (9-20) H 09/08/24 05:47
Creatinine 2.3 mg/dL (0.7-1.3) H 09/08/24 05:47
eGFR 27.49 09/08/24 05:47
Glucose 89 mg/dl (70-99) 09/08/24 05:47
Calcium 9.6 mg/dl (8.4-10.2) 09/08/24 05:47
Albumin 4.1 g/dl (3.5-5.0) 09/07/24 00:40
Physical Exam
-
Vital Signs:
Vital Signs
Temp Pulse Resp BP Pulse Ox
97.5 F 82 18 98/48 99
09/08/24 07:27 09/08/24 12:54 09/08/24 07:27 09/08/24 12:54 09/08/24 10:43
Cardiovascular:: Regular rate and rhythm
Respiratory:: Bilateral: CTA
Lung Excursion:: Normal
Abdomen:: Nontender and Soft
Extremity Edema:: None: Bilateral:
Calvin Catheter: No
[2024-09-08 15:23] VITALS: BP 118/59
[2024-09-08] MEDS: REMERON 7.5 MG PO (21:21)
[2024-09-08 23:06] VITALS: BP 132/75
[2024-09-09 05:32] VITALS: BMI 19.2
[2024-09-09 06:25] LABS: Hematocrit 24.3 % (39.0-52.0); Hemoglobin 7.9 g/dL (13.0-18.0); Mean Corp Hgb Conc. 32.5 g/dL (33.0-37.0); Mean Corpuscular Hgb 31.1 pg (27.0-31.0); Mean Corpuscular Volume 95.7 fL (80.0-94.0); Mean Platelet Volume 9.3 fL (7.4-10.4); Platelet Count 295 10^3/uL (130-400); Red Blood Cell Count 2.54 10^6/uL (4.70-6.10); Red Cell Dist. Width 15.9 % (11.5-14.5); White Blood Cell Count 7.2 10^3/uL (4.8-10.8)
[2024-09-09 06:56] LABS: Blood Urea Nitrogen 47 mg/dl (9-20); Carbon Dioxide 30 mmol/L (22-30); Chloride 93 mmol/L (98-107); Estimated Creatinine Clearance 13 ml/min; Glucose 89 mg/dl (70-99); Potassium 5.7 mmol/L (3.5-5.1); Sodium 135 mmol/L (135-145)
[2024-09-09 07:35] VITALS: BP 99/52
[2024-09-09] MEDS: HEPARIN 5000 UNITS SC ×2 (07:42→20:56)
[2024-09-09] MEDS: MIRALAX 17 GRAMS PO ×2 (07:42→21:11)
[2024-09-09] MEDS: ProAmatine 5 MG PO ×4 (07:42→17:48)
[2024-09-09] MEDS: PROTONIX IV 40 MG IV (07:42)
[2024-09-09] MEDS: NSS (PRESERVATIVE FREE) 10 ML IV (07:42)
[2024-09-09] MEDS: LOW STRENGTH ASPIRIN 81 MG PO (07:45)
[2024-09-09] MEDS: B COMPLEX w/VITAMIN C 1 CAPLET PO (07:45)
[2024-09-09] MEDS: FLEXBUMIN 25% FOR HEMODIALYSIS 12.5 GRAMS IV ×2 (08:24→10:22)
[2024-09-09] MEDS: MANNITOL 25% 12.5 GRAMS IV ×2 (08:24→10:24)
[2024-09-09] MEDS: RETACRIT 10000 UNITS IV (08:28)
--- NOTE | 2024-09-09 08:40 | W.PN.HOSP.TC ---
Today's Communication/Plan
-
Echocardiogram
dialysis today
continue Rocephin
await culture of suprapubic tract drainage
urology consult
Assessment / Plan
Assessment / Plan
1. N/V stopped- Possibly due to stool burden, has been moving bowels regularly. 2 yesterday, [address] scan of abd:1. Examination significantly limited by artifacts as above.
2. No definitive acute intra-abdominal process identified. There is a large volume of stool within the colon.
3. 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 Very small bilateral pleural effusions.
4. Atrophic of bilateral kidneys. Very small bilateral nephroliths. Mild dilation of the right renal pelvis as above, no obstructing calculus identified.
5. Subacute fracture of left parasymphyseal pubic bone extending into left superior pubic ramus. Subacute fracture left inferior pubic ramus. Bilateral sacral probable insufficiency fractures. Multiple bilateral old rib fractures. Severe chronic
compression deformity L2.
- ceftriaxone for now
ID consult appreciated
- antiemetics
- given gentle fluids 250 ml bolus in ED
- ppi, diet nectar thickened pureed.
Large stool burden
consult placed to CRS, passing frequent stools since laxative regimen started
Abd X-Ray: 09/08 Large amount of fecal material throughout the colon. No evidence of intestinal obstruction. Progressed
Severe bony mineralization. Stable
Severe atherosclerotic vascular disease. Stable
2. Fever - Low grade temps 100.5 with patch LLL opacity concerning for aspiration vs pna on admission. Lungs today significantly clearer. Most consistent with aspiration bronchitis, which appears to be improving
CXR 09/08: No acute disease of the chest
WBC 13.4k
- check covid neg/influenza Neg
- ceftriaxone for now
- respiratory tx and supportive care for the cough
inf disease consult
3. ESRD - HD M/W/F.
- nephrology consulted
old suprapubic tract noted, draining blood yesterday, today with pus. Gm stain WBC no organisms seen
will request Urology input, discussed with Dr. Thomas
Chest congestion most likely aspiration bronchitis
doing better, continue abx
anemia
Hgb 9.1-->7.4-->7.9
discussed with nephro, Dr. Lakhani rec is to hold off on transfusion for now
permission to transfusion obtained from pt and confirmed with PEPE davey by phone, witnessed by KAMILAH Bishop
Systolic murmur noted
consistent with aortic stenosis, nephro requests Echo as may have effect on ability to dialyze adequately
DVT PPX heparin sq
Code Status full Code
call placed and discussed fully with Hubert davey [phone]
Anticipated Discharge: 24 - 48 hours
Subjective/Interval History
-
Date of Service: September 09, 2024
Generally looks better today
Objective Data
-
Labs:
Laboratory Results
09/09/24
05:20
WBC 7.2
Hgb 7.9 L
Hct 24.3 L
Plt Count 295
Sodium 135
Potassium 5.7 H D
Chloride 93 L
Carbon Dioxide 30
BUN 47 H
Creatinine 3.4 H
Glucose 89
Calcium 10.0
Vital Signs:
Vital Signs
Temp Pulse Resp BP Pulse Ox
97.8 F 78 17 99/52 95
09/09/24 07:35 09/09/24 07:42 09/09/24 07:35 09/09/24 07:42 09/09/24 07:35
I&O
09/08/24 09/09/24 09/10/24
06:59 06:59 06:59
Intake Total 720 / 720 1170 / 1170
Output Total 1200 / 1200 1974
Balance -480 / -480 -805 / -805
Review of Systems
-
History Source: Patient and Coordinated Provider (KAMILAH Bishop)
Constitutional: Reports Fever (100.5 on admission, afebrile since)
Respiratory: Reports Cough (better, has lessened, continues to cough on deep breaths)
Cardiac: Reports No Symptoms
Abdomen/GI: Reports Vomiting (prior to admission, none since)
Physical Exam
-
General: Well Developed, Well Nourished, No Apparent Distress and Appears Chronically Ill
HEENT: Normocephalic, Atraumatic and Moist Mucous Membranes
Respiratory: Clear to Auscultation; Negative Wheezes, Rales or Rhonchi
Cardiac: Regular Rhythm, S1/S2 and Murmur (4/6sem)
GI: Soft, Nontender, Nondistended and Normal Bowel Sounds
Musculoskeletal: No Clubbing, No Cyanosis and No Edema
Neuro: Awake, Alert and Oriented
[2024-09-09] MEDS: ROCEPHIN 1000 MG IV (09:51)
[2024-09-09] MEDS: STERILE WATER FOR INJECTION 10 ML IV (09:52)
--- NOTE | 2024-09-09 10:23 | W.PN.NEPH.HD ---
Assessment
-
pt seen during HD
SBP 70-80 despite midodrine, give additional dose
no UF as seem to be non oliguric with pratt
hb relatively stable , high dose JO, prn transfusion
echo pending, also check cortisol level
AVF functions well
d/w pt
Progress Note - Hemodialysis
-
Date of Service: September 09, 2024
Duration: 30 minutes and 3 hours
Potassium Bath: 2
Calcium Bath: 2.5
Opti-Dialyzer: 160
Ultrafiltration: Other (0)
Blood Flow: 400
Dialysate Flow: 600
Heparin: no
EPO: [id number]
--- NOTE | 2024-09-09 10:54 | CM ---
Reviewed the chart notes. Echo pending. Receiving HD today. CM continues to be available to patient/family and is monitoring medical plan for needs at discharge.
Plan: Discharge back to [facility] when medically stable. No precert required.
Call report to: [phone]
Fax report to: [phone]
--- NOTE | 2024-09-09 11:39 | W.PN.ID1 ---
Date of Service
Date of Service: September 09, 2024
Today's Communication
Wound cx's x 2 pending.
Can continue ceftriaxone for now pending cx data.
Assessment / Plan
# LLQ Abd wound with reported pus, present on admission
Review of SNF records, pt with hx diverticulitis with bowel perf s/p surgery 04/2024
Suspect wound is from previous BRIANNA drain site.
CT a/p: no intra-ab abscess.
Wound cx's x 2 pending.
Can continue ceftriaxone for now pending cx data.
#Suspect aspiration pneumonitis without pneumonia
Nausea/vomiting
Leukocytosis - resolved
Fever -resolved
No need for abx.
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
Chronic urinary retention
Anemia
Dysphagia
Diverticulitis
A-fib
Chief Complaint
-: Other (cough)
Subjective / Review of Systems
No coughing at this time.
Vital Signs / Physical Exam
Vital Signs
Vital Signs
Temp Pulse Resp BP Pulse Ox
97.8 F 78 17 87/48 95
09/09/24 07:35 09/09/24 07:42 09/09/24 07:35 09/09/24 09:51 09/09/24 11:15
Physical Exam
Constitutional: No Acute Distress and Comfortable
Cardiovascular: Regular Rate and S1/S2
Pulmonary: Clear
Gastrointestinal: Soft, Non Tender, Non Distended and Normal Bowel Sounds
Genito-Urinary: Calvin; Negative CVA Tenderness
Extremities: Negative Edema
Wound: Other (left lower abdomen wound with packing in place, no surrounding erythema)
Objective Data
Lab Data
Lab Results
09/09/24 05:20
09/09/24 05:20
Estimated Creat Clear 13 ml/min 09/09/24 05:20
Total Bilirubin 0.4 mg/dl (0.2-1.3) 09/07/24 00:40
AST 19 U/L (17-59) 09/07/24 00:40
ALT 15 U/L (0-50) 09/07/24 00:40
Alkaline Phosphatase 126 U/L (38-126) 09/07/24 00:40
Most recent labs reviewed.
Micro Results:
09/09/24 10:17 Wound Culture - Pending
Abdomen Gram Stain - Pending
09/07/24 16:31 Wound Culture - Preliminary
Abdomen Gram Stain - Preliminary
09/08/24 11:46 Influenza Types A & B ([facility]) - Final
Nasal Swab Negative for Influenza A & B, NAAT
Negative results must be combined with clinical observations
and patient history.
Nucleic Acid Amplification test (NAAT)performed on the
[employer] platform.
09/07/24 06:50 MRSA Screen - Final
Nose No Methicillin Resistant Staphylococcus aureus isolated.
Imaging:
09/07/2024 CXR (2 view):There is no significant focal parenchymal opacification or vascular congestion. The cardiomediastinal silhouettes are within the limits of normal. Calcific atherosclerotic changes of the thoracic aortic arch are noted. There
is no pneumothorax, pleural effusion or mediastinal shift.
09/07/2024 CT a/p: Examination significantly limited by artifacts as above. No definitive acute intra-abdominal process identified. There is a large volume of stool within the colon. Changes of bronchiolitis with mild bronchiectasis at bilateral
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 Very small bilateral pleural effusions. Subacute fracture of left parasymphyseal pubic bone extending into left superior pubic ramus. Subacute fracture left inferior pubic ramus.
Bilateral sacral probable insufficiency fractures. Multiple bilateral old rib fractures. Severe chronic compression deformity L2.
--- NOTE | 2024-09-09 12:14 | PN.CDI ---
CDI
- -
CDI:
Physician Documentation Request
Admit Date: 09/07/24 09:26
Dear Doctor Thomas,
Please review the following and provide your response in the progress notes.
Clinical Indicators:
Pt admitted with aspiration pneumonia.
H&P note Atrial Fibrillation in pt's history.
If possible, please provide further specificity regarding atrial fibrillation, such as:
Paroxysmal atrial fibrillation - terminates spontaneously or with intervention within 7 days of onset
Persistent atrial fibrillation - episodes of continuous AF that last more than 7 days and do not self-terminate
Other - please specify
Use of terms such as suspected, likely, concern for, or probable (associated with a specific diagnosis that is being evaluated, monitored, or treated as if it exists) are acceptable and can be coded in the inpatient setting, when documented at the
time of discharge.
Thank you,
Zeynep Martinez RN, BSN
CDI Specialist
Available via [place]
Please use your independent medical judgment in providing your response.
--- NOTE | 2024-09-09 12:20 | PN.CDI ---
CDI
- -
CDI:
Physician Documentation Request
Admit Date: 09/07/24 09:26
Dear Doctor Thomas,
Please review the following and provide your response in the progress notes.
Clinical Indicators:
Pt admitted with aspiration pneumonia.
09/07 Registered Dietitian note: 'RD visited pt and was able to observe appearance of some depression temples (moderate), some protrusion of clavicle (moderate), visible ribs (moderate), calves (moderate).... Due to observations of multiple-site
fat/muscle loss, pt meeting criteria for moderate protein/calorie malnutrition (ASPEN/AND guidelines, chronic illness).'
Based on the above information and your assessment, which of the following most accurately represents the patient's nutritional status?
Moderate Protein Malnutrition (specify if mild, moderate or severe)
Other (please specify)
[place] Criteria (ACP Hospitalist 2017)
2 or more criteria must be present for either
non severe or severe malnutrition
Note that the criteria differs related to the
presence of an acute or chronic illness
Chronic Illness
Energy Intake Non Severe: <75% for >1 month
Severe: <75% for >1 month
Weight Loss Non Severe: 5% over 1 month
7.5% over 3 months
10% over 6 months
20% over 1 year
Severe: >5% over 1 month
>7.5% over 3 months
>10% over 6 months
>20% over 1 year
Body Fat Non Severe: Mild Loss
Severe: Severe Loss
Muscle Mass Non Severe: Mild Loss
Severe: Severe Loss
Additional criteria that can be used to Determine if Mild or Moderate Malnutrition (Merck Manual 2018)
Use of terms such as suspected, likely, concern for, or probable (associated with a specific diagnosis that is being evaluated, monitored, or treated as if it exists) are acceptable and can be coded in the inpatient setting, when documented at the
time of discharge.
Thank you,
Zeynep Martinez RN, BSN
CDI Specialist
Available via [employer]
Please use your independent medical judgment in providing your response.
--- NOTE | 2024-09-09 12:29 | PN.CDI ---
CDI
- -
CDI:
Physician Documentation Request
Admit Date: 09/07/24 09:26
Dear Doctor Thomas,
Please review the following and provide your response in the progress notes.
Clinical Indicators:
Pt admitted with aspiration pneumonia.
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
09/07 WON RN note:'Mid spine with stage 3 PI, base yellow/ red and blanchable redness surrounding, scant drainage. Heels are non blanchable red.'
Physician documentation of the type and location of wounds is required for compliant documentation. Based on the above clinical findings and your assessment, please provide the following in your progress note:
1. Location of the ulcer/wound, including laterality.
2. Type (etiology) of ulcer/wound:
Stage 3 mid spine pressure injury and stage 1 bilateral heels pressure injury POA
Non-pressure wound of the mid spine and bilateral heels
Other
Use of terms such as suspected, likely, concern for, or probable (associated with a specific diagnosis that is being evaluated, monitored, or treated as if it exists) are acceptable and can be coded in the inpatient setting, when documented at the
time of discharge.
Thank you,
Zeynep Martinez RN, BSN
CDI Specialist
Available via [place] Text
Please use your independent medical judgment in providing your response.
*Source: National Pressure Ulcer Advisory Panel (NPUAP)
[2024-09-09 15:00] VITALS: BP 105/53; PULSE 78; O2SAT 100
[2024-09-09 15:25] VITALS: BP 95/49
--- NOTE | 2024-09-09 16:28 | PTOTSP ---
Dysphagia Therapy
Patient appropriate to advance back to reported baseline diet (L5 minced and moist, L2 mildly thick liquid diet.) History of oral/pharyngeal dysphagia noted in H&P. Reason for baseline dysphagia diet unknown. Video swallow study should be
considered to objectively assess swallow function prior to liquid advancement.
Recommend:
1. IDDSI Level 5 (minced) solids and IDDSI Level 2 mildly thick liquids
2. Medications whole or crushed in puree
3. General aspiration and reflux precautions
4. Oral care 3x/daily
5. HYDROCHLORIC AREA SUPERVISOR to continue to follow at acute care level to assess tolerance and determine if instrumental assessment warranted.
[2024-09-09] MEDS: REMERON 7.5 MG PO (21:11)
[2024-09-09 23:09] VITALS: BP 102/54
[2024-09-10 05:43] LABS: % Eosinophils 12.3 % (0-6); % Immature Granulocytes 0.4 % (0-0.5); % Lymphocytes 18.4 % (20.5-51.1); % Monocytes 9.1 % (1.7-9.3); % Neutrophils 58.8 % (42.2-75.2); Absolute Basophils 0.1 10^3/uL (0-0.2); Absolute Eosinophils 0.9 10^3/uL (0-0.7); Absolute Lymphocytes 1.3 10^3/uL (1.2-3.4); Absolute Monocytes 0.6 10^3/uL (0.1-0.6); Absolute Neutrophils 4.1 10^3/uL (1.4-6.5); Hematocrit 24.1 % (39.0-52.0); Hemoglobin 7.8 g/dL (13.0-18.0); Mean Corp Hgb Conc. 32.4 g/dL (33.0-37.0); Mean Corpuscular Volume 95.6 fL (80.0-94.0); Mean Platelet Volume 9.1 fL (7.4-10.4); Nucleated Red Blood Cells % 0 % (-); Platelet Count 280 10^3/uL (130-400); Red Blood Cell Count 2.52 10^6/uL (4.70-6.10); Red Cell Dist. Width 15.9 % (11.5-14.5)
[2024-09-10 05:58] VITALS: BMI 19.4
[2024-09-10 06:01] LABS: Blood Urea Nitrogen 30 mg/dl (9-20); Calcium 9.9 mg/dl (8.4-10.2); Carbon Dioxide 30 mmol/L (22-30); Chloride 94 mmol/L (98-107); Estimated Creatinine Clearance 20 ml/min; Glucose 85 mg/dl (70-99); Potassium 5.8 mmol/L (3.5-5.1); Sodium 135 mmol/L (135-145); eGFR 28.99
[2024-09-10 07:50] VITALS: BP 99/62
--- NOTE | 2024-09-10 08:48 | W.PN.HOSP.TC ---
Today's Communication/Plan
-
cardio consult
continue abx for now
Assessment / Plan
Assessment / Plan
1. N/V stopped- Possibly due to stool burden, has been moving bowels regularly. 2 yesterday, [address] scan of abd:1. Examination significantly limited by artifacts as above.
2. No definitive acute intra-abdominal process identified. There is a large volume of stool within the colon.
3. 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 Very small bilateral pleural effusions.
4. Atrophic of bilateral kidneys. Very small bilateral nephroliths. Mild dilation of the right renal pelvis as above, no obstructing calculus identified.
5. Subacute fracture of left parasymphyseal pubic bone extending into left superior pubic ramus. Subacute fracture left inferior pubic ramus. Bilateral sacral probable insufficiency fractures. Multiple bilateral old rib fractures. Severe chronic
compression deformity L2.
- ceftriaxone for now
ID consult appreciated
- antiemetics
- given gentle fluids 250 ml bolus in ED
- ppi, diet nectar thickened pureed.
Large stool burden
consult placed to CRS, passing frequent stools since laxative regimen started
Abd X-Ray: 09/08 Large amount of fecal material throughout the colon. No evidence of intestinal obstruction. Progressed
Severe bony mineralization. Stable
Severe atherosclerotic vascular disease. Stable
2. Fever - Low grade temps 100.5 with patch LLL opacity concerning for aspiration vs pna on admission. Lungs today significantly clearer. Most consistent with aspiration bronchitis, which appears to be improving
CXR 09/08: No acute disease of the chest
WBC 13.4-->7.0-->7.2-->7.0k
- covid neg/influenza Neg
- ceftriaxone for now
- respiratory tx and supportive care for the cough
inf disease consult
3. ESRD - HD M/W/F.
- nephrology consulted
LLQ abd wound (pt states was never a suprapubic site, also tells me it was not a drain, he believes it just appeared years ago) draining blood originally, then with pus. Drainage has decreased, but not resolved. Gm stain WBC no organisms seen
discussed with Dr. Thomas
Chest congestion most likely aspiration bronchitis
doing markedly better, continue abx
anemia
Hgb 9.1-->7.4-->7.9-->7.8
discussed with nephro, Dr. Lakhani rec is to hold off on transfusion for now
permission to transfusion obtained from pt and confirmed with brothPEPE oscar by phone, witnessed by KAMILAH Bishop
Aortic Stenosis
discussed with nephrology, concern could affect ability to do dialysis. Nephro is requesting cardio input as to options. Pt states never saw cardio in past
Echo: Normal left ventricular size.
Moderate concentric left ventricular hypertrophy.
Hyperdynamic left ventricular systolic function.
LV ejection fraction is 75-80% by Duong's method of discs.
Mitral annular calcification.
Mild mitral stenosis.
Peak/mean gradients across the mitral valve are 10/4 mmHg.
Trace mitral regurgitation.
Thickened aortic valve with restricted leaflet motion.
Severe aortic stenosis.
Peak/mean gradients across the aortic valve are 71/41 mmHg.
The aortic valve by the Continuity equation is calculated at 0.7 cm sq.
Mild tricuspid regurgitation.
Normal pericardium without effusion.
The IVC is of normal size and demonstrates normal respiratory variation.
No prior echocardiogram is available for review
DVT PPX heparin sq
Code Status full Code
call placed and discussed fully with Hubert davey [phone] on 09/08
Anticipated Discharge: > 48 hours
Subjective/Interval History
-
Date of Service: September 10, 2024
Awake, alert, conversant
Objective Data
-
Labs:
Laboratory Results
09/10/24
04:30
WBC 7.0
Hgb 7.8 L
Hct 24.1 L
Plt Count 280
Sodium 135
Potassium 5.8 H
Chloride 94 L
Carbon Dioxide 30
BUN 30 H
Creatinine 2.2 H
Glucose 85
Calcium 9.9
Vital Signs:
Vital Signs
Temp Pulse Resp BP Pulse Ox
97.7 F 78 18 99/62 95
09/10/24 07:50 09/10/24 07:50 09/10/24 07:50 09/10/24 07:50 09/10/24 07:50
I&O
09/09/24 09/10/24 09/11/24
06:59 06:59 06:59
Intake Total 1170 / 1170 1050 / 1050
Output Total 1974 / 1964
Balance -805 / -805 -915 / -915
Review of Systems
-
History Source: Patient
Constitutional: Reports Fever (100.5 on admission, afebrile since)
Respiratory: Reports Cough (better, has lessened, continues to cough on deep breaths); Denies Trouble Breathing
Cardiac: Reports No Symptoms
Abdomen/GI: Reports Vomiting (prior to admission, none since)
Physical Exam
-
General: Well Developed, Well Nourished, No Apparent Distress and Appears Chronically Ill
HEENT: Normocephalic, Atraumatic and Moist Mucous Membranes
Respiratory: Clear to Auscultation; Negative Wheezes, Rales or Rhonchi
Cardiac: Regular Rhythm, S1/S2 and Murmur (4/6sem)
GI: Soft, Nontender, Nondistended and Normal Bowel Sounds
Musculoskeletal: No Clubbing, No Cyanosis and No Edema
Neuro: Awake, Alert and Oriented
[2024-09-10] MEDS: ProAmatine 5 MG PO ×3 (09:02→18:08)
[2024-09-10] MEDS: MIRALAX 17 GRAMS PO ×2 (09:03→21:20)
[2024-09-10] MEDS: STERILE WATER FOR INJECTION 10 ML IV (09:03)
[2024-09-10] MEDS: B COMPLEX w/VITAMIN C 1 CAPLET PO (09:03)
[2024-09-10] MEDS: PROTONIX IV 40 MG IV (09:03)
[2024-09-10] MEDS: ROCEPHIN 1000 MG IV (09:03)
[2024-09-10] MEDS: HEPARIN 5000 UNITS SC ×2 (09:03→20:26)
[2024-09-10] MEDS: NSS (PRESERVATIVE FREE) 10 ML IV (09:04)
--- NOTE | 2024-09-10 10:15 | W.PN.UPDATE ---
Update Note
Progress Note Update
ESRD on HD
Chronic urinary retention - indwelling catheter
LLQ abdominal wound w/ drainage
Exam: LLQ site left of midline not c/w suprapubic catheter insertion site.
Possible prior BRIANNA drain site vs. new drainage site.
Calvin catheter w/ crystal clear UOP.
CT imaging reviewed - Calvin catheter w/n decompressed bladder, enlarged prostate gland, punctate bilateral renal stones, likely chronic mild right UPJ obstruction, no overt hydronephrosis bilaterally.
- LLQ wound site does no appear to be from prior SPT (based on exam and history)
- CT imaging w/o suprapubic or abdominal fluid collection/abscess/fistula
- IV abx and wound Cx per ID
- Wound care per WOCN
Urology will sign off, please call w/ questions.
--- NOTE | 2024-09-10 10:38 | W.PN.NEPH.PH ---
Today's Communication / Plan
-
Dialysis Thursday
Assessment/Plan
-
IMP:
N/V/D.
Fever
ESRD - HD M/W/F. kirit mejia, previously [facility] unit at [facility]
Anemia of CKD
Leucocytosis
Hyperkalemia
HYponatremia
Left UE AVF
heart murmur
constipation noted on CT
ON CT :
Subacute fracture of left parasymphyseal pubic bone extending into left superior pubic ramus.
Subacute fracture left inferior pubic ramus.
Bilateral sacral probable insufficiency fractures.
Multiple bilateral old rib fractures.
Severe chronic compression deformity L2.
Plan:
A/w n/v/d. low grade fever -symp resolved
midodrine pre HD for soft BPs
JO for anemia, hgb decreasing
renal diet and FR
abx per ID
may need evaluation for bleeding from SP tract-d/w primary
Patient with noted significant aortic stenosis on echo
Aortic stenosis likely complicating ultrafiltration on dialysis with hemodynamic collapse
Cardiology will eventually see patient but I am not sure he is a candidate for valve replacement
Patient remains on midodrine [id number] and with extra midodrine provided on dialysis
Next dialysis will be scheduled for Thursday
-
-
Date of Service: September 10, 2024
CC / HPI / ROS
-
Chief Complaint:
ESRD
History of Present Illness:
tolerated HD yesterday
BP soft
hgb low 7.8
Review of Systems:
no complaints
sleeping during visit
no fever
Labs
-
Labs:
WBC 7.0 10^3/uL (4.8-10.8) 09/10/24 04:30
RBC 2.52 10^6/uL (4.70-6.10) L 09/10/24 04:30
Hgb 7.8 g/dL (13.0-18.0) L 09/10/24 04:30
Hct 24.1 % (39.0-52.0) L 09/10/24 04:30
Plt Count 280 10^3/uL (130-400) 09/10/24 04:30
Sodium 135 mmol/L (135-145) 09/10/24 04:30
Potassium 5.8 mmol/L (3.5-5.1) H 09/10/24 04:30
Chloride 94 mmol/L (98-107) L 09/10/24 04:30
Carbon Dioxide 30 mmol/L (22-30) 09/10/24 04:30
BUN 30 mg/dl (9-20) H 09/10/24 04:30
Creatinine 2.2 mg/dL (0.7-1.3) H 09/10/24 04:30
eGFR 28.99 09/10/24 04:30
Glucose 85 mg/dl (70-99) 09/10/24 04:30
Calcium 9.9 mg/dl (8.4-10.2) 09/10/24 04:30
Albumin 4.1 g/dl (3.5-5.0) 09/07/24 00:40
Physical Exam
-
Vital Signs:
Vital Signs
Temp Pulse Resp BP Pulse Ox
97.7 F 78 18 99/62 95
09/10/24 07:50 09/10/24 07:50 09/10/24 07:50 09/10/24 09:02 09/10/24 07:50
Cardiovascular:: Regular rate and rhythm
Respiratory:: Bilateral: CTA
Lung Excursion:: Normal
Abdomen:: Nontender and Soft
Extremity Edema:: None: Bilateral:
Calvin Catheter: Yes
--- NOTE | 2024-09-10 12:08 | CON.CAR ---
Addendum entered and electronically signed by Haily Draper DO 09/10/24 14:16:
I saw and examined the patient.
The Campus Monitor's note was reviewed and I agree with the note.
Comment: I had the pleasure to meet Ross Matos and speak with his brother Kurt. Hawkins is an 84-year-old gentleman who resides at [facility] with a past medical history significant for end-stage renal disease on dialysis
Thursday/Thursday/Thursday, chronic urinary tension with history of suprapubic catheter, chronic anemia, dysphagia, prior diverticulitis with perforation and abscess, reported history of atrial fibrillation on nondaily aspirin, and generalized
weakness/deconditioning. Diagnosis of paroxysmal atrial fibrillation is unclear but he denies a history of prior stroke/TIA. He denies outpatient cardiology care. Ross presented to the emergency department 09/07/2024 with cough, having a few
episodes of nausea and vomiting that occurred after eating. At nursing facility there was also concern for ongoing diarrhea and possible coffee ground emesis with mild abdominal discomfort. Patient was found to have low-grade fever with
leukocytosis with elevated potassium, low sodium on arrival. There was concern of aspiration pneumonia and patient was placed on antibiotics. CT abdomen/ pelvis showedNo acute intra-abdominal process but constipation. Additionally there were
subacute fracture of the left parasymphyseal pubic bone extending into the left superior pubic ramus, subacute fracture of the left inferior pubic ramus, bilateral sacral fractures, multiple bilateral old rib fractures and chronic deformity of L2.
Abdominal aorta was not aneurysmal however had severe calcific atherosclerotic changes.Patient was found to have a significant cardiac murmur on examination and underwent an echocardiogram which showed severe aortic stenosis as well as mild mitral
stenosis. Patient had been having hypotension limiting dialysis and nephrology requesting cardiac consultation regarding if aortic stenosis could be contributing factor.
General: Frail 84-year-old gentleman, room air in no acute distress
Neck: Positive carotid bruit
Heart: Regular. Positive S1. Diminished S2. 3/6 systolic ejection murmur radiates throughout the precordium and in the neck
Lungs: Bronchovesicular breath sounds with coarse rhonchi, decreased at the bases
Abd: Positive BS, NT/ND, neg rebound/rigidity/guarding
Ext: No edema. Left upper extremity AV fistula
Neuro: nonfocal
Echo 09/09/2024: EF 75 to 80%, hyperdynamic LV. Moderate concentric LVH. Mild MS with peak/mean gradient 10/4 mmHg. Severe aortic stenosis with peak/mean gradient 71/41 mmHg. SEBASTIÁN 0.7 cm�. Mild TR.
Plan:
Presented 09/07/2024 with cough, nausea, vomiting and diarrhea.
-CT abdomen pelvis as well as chest/abdomen x-rays noting constipation.
-Antibiotics per ID
Newly recognized severe aortic stenosis
-Discussed aortic stenosis pathophysiology, potential symptoms, natural progression and possible options for replacement including SAVR and TAVR
-Would avoid hypotension. Continue daily midodrine 5 mg 3 times daily with increased dose on dialysis days
-Given comorbidities and frailty he is not a SAVR candidate and I also doubt he is a TAVR candidate.
-Extensive discussion with Ross in his room and later with his brother Hubert over the phone regarding this diagnosis and they are leaning towards a more conservative approach.
-I also initiated end-of-life discussion and he is leaning towards DNR/DNI
End-stage renal disease on hemodialysis Thursday, Thursday, Thursday
-Concern for ongoing hypotension requiring midodrine prior to initiation of dialysis limiting sessions
-Anemia of chronic disease with slowly drifting downward hemoglobin since admission. Nephrology recommending JO for anemia. If patient should become hemodynamically unstable could consider transfusion
Diagnosis of paroxysmal atrial fibrillation noted in patient's chart, Unconfirmed and denied per patient.
-Patient was found to have sinus tachycardia with right bundle branch block on admission EKG. No old EKGs for comparison.
-Patient is not currently on telemetry; will place on telemetry
-Currently not on anticoagulation but is on aspirin 81 mg Thursday, Thursday, Thursday.
Updated nephrology and hospitalist
Original Note:
Consultation
Consultation Request
Date/Time Consultation Requested: 09/10/2024
Date/Time Consultation Performed: 09/10/2024
Requesting Provider: Dr. Guzman
Performing Provider: Luz Elena Kruger PA-C for Dr. Haily Draper
Reason for Consultation: Aortic stenosis
Medical History
-
History of Present Illness:
Patient is an 84-year-old who resides at [facility] with past medical history significant for end-stage renal disease on hemodialysis Thursday, Thursday, Thursday, chronic urinary retention, status post suprapubic catheter, anemia,
oropharyngeal dysphagia, generalized weakness, prior diverticulitis with perforation and abscess, paroxysmal atrial fibrillation who presented to the emergency department 09/07/2024 with cough, having a few episodes of nausea and vomiting that
occurred after eating. At nursing facility there was also concern for ongoing diarrhea and possible coffee ground emesis with mild abdominal discomfort. Patient was found to have low-grade fever with leukocytosis with elevated potassium, low
sodium on arrival. There was concern of aspiration pneumonia and patient was placed on antibiotics. Patient was found to have a significant cardiac murmur on examination and underwent an echocardiogram which showed severe aortic stenosis as well
as mild mitral stenosis. Patient had been having hypotension limiting dialysis and nephrology requesting cardiac consultation regarding if aortic stenosis could be contributing factor.
Patient denies ever having seen a boilermaker welder in the past or having a cardiac history. When asked about atrial fibrillation he denies it but is somewhat poor historian. He is not on any anticoagulation and is maintained on aspirin. His EKG
showed sinus tachycardia on admission. He currently is not on telemetry. Patient reports he is rather nonambulatory but can ambulate with assistance using rolling walker. He notes chronic dyspnea on exertion but denies chest pain.
PMH:
ESRD - HD M/W/F
Anemia of CKD
Aortic stenosis
Mitral stenosis
Chronic urinary retention with suprapubic catheter/Calvin
Dysphagia
RBBB
Paroxysmal atrial fibrillation?
History of diverticulitis with perforation and abscess
Past Medical History
Past Medical History: Other (See HPI)
Past Surgical History: Urological (Suprapubic catheter) and Other (Left upper extremity AV fistula)
Social History
Tobacco: Non-Smoker
Alcohol: None
Drug: None
Living: Intermediate ([facility])
Family History
Family History: Reviewed & Not Pertinent
Allergies / Home Medications
Allergy/AdvReac Type Severity Reaction Status Date / Time
No Known Allergies Allergy Verified 09/07/24 00:43
�Medication �Instructions �Recorded �Confirmed �Type
Zofran ODT 4 mg PO Q8H PRN nausea 09/07/24 09/07/24 History
aspirin See Rx Instructions .Route 09/07/24 09/07/24 History
.COMPLEX Blood Clot Prevention/Tx
bisacodyl 10 mg OR DAILY PRN constipation 09/07/24 09/07/24 History
heparin (porcine) 5,000 unit SC TID Blood Clot 09/07/24 09/07/24 History
Prevention/Tx
levalbuterol HCl 0.63 mg inhalation Q6H PRN wheezing 09/07/24 09/07/24 History
midodrine 5 mg tablet See Rx Instructions .Route 09/07/24 09/07/24 History
.COMPLEX low blood pressure
mirtazapine 7.5 mg tablet 7.5 mg PO HS depression/sleep 09/07/24 09/07/24 History
polyethylene glycol 3350 17 gram 17 g PO HS constipation 09/07/24 09/07/24 History
oral powder packet (Miralax)
vitamin B complex 500 mg PO DAILY Supplement 09/07/24 09/07/24 History
Review of Systems
-
History Source: Patient
All other systems: Negative unless noted
Physical Exam
Vital Signs
Temp Pulse Resp BP Pulse Ox
97.7 F 78 18 99/62 95
09/10/24 07:50 09/10/24 07:50 09/10/24 07:50 09/10/24 09:02 09/10/24 11:21
GEN: No distress, awake, Ox3, lying in bed, chronically ill and thin appearing
HEENT: supple, anicteric, mucous membranes dry
LUNGS: Faint crackles at bases otherwise CTA, no wheezes/rales
CV: Reg, S1/S2, harsh 3/6 radiating murmur
ABD: soft, BS+, NT/ND
EXT: No edema, clubbing or cyanosis
NEURO: Gross non-focal
SKIN: No rash, warm, dry, pink
Lab Results
09/10/24 04:30
09/10/24 04:30
Impression / Plan
-
Family Physician: Babar Bruner MD
Compressor Stations Superintendent: None prior to admission, initial consultation Dr. Haily Draper
Impression:
Presented 09/07/2024 with cough, nausea, vomiting, diarrhea
Fever
Aspiration pneumonia/bronchitis
Hyperkalemia
Hyponatremia
Constipation on CT
RBBB
ESRD - HD M/W/F
Anemia of CKD
Aortic stenosis
Mitral stenosis
Chronic urinary retention with suprapubic catheter/Calvin
Dysphagia
Paroxysmal atrial fibrillation?
History of diverticulitis with perforation and abscess
Echo 09/09/2024: EF 75 to 80%, hyperdynamic LV. Moderate concentric LVH. Mild MS with peak/mean gradient 10/4 mmHg. Severe aortic stenosis with peak/mean gradient 71/41 mmHg. SEBASTIÁN 0.7 cm�. Mild TR.
Plan:
Presented 09/07/2024 with cough, nausea, vomiting and diarrhea.
-Concern for constipation on imaging of abdomen however patient has been passing stool without difficulty.
Patient was found to have low-grade fever and concern for aspiration pneumonia/bronchitis and placed on empiric antibiotics.
-COVID and flu negative
-Leukocytosis has improved with antibiotics
-evaluated by speech ppi, diet nectar thickened pureed.
End-stage renal disease on hemodialysis Thursday, Thursday, Thursday
-Concern for ongoing hypotension requiring midodrine prior to initiation of dialysis limiting sessions
-Now found to have severe aortic stenosis on echocardiogram with concern that aortic stenosis may be complicating ultrafiltration resulting in hemodynamic collapse
-Anemia of chronic disease with slowly drifting downward hemoglobin since admission. Nephrology recommending JO for anemia. If patient should become hemodynamically unstable could consider transfusion
Severe aortic stenosis noted on echocardiogram with peak/mean gradient 71/41 mmHg and SEBASTIÁN 0.7 cm�
-Given gradients and valve area aortic stenosis possibly could be contributing to ongoing hypotension limiting dialysis
-Discussed progression of aortic stenosis with patient. Discussed treatment of aortic stenosis with patient. He is unsure if he would want to move forward with any surgical evaluation. Discussed could consider TAVR which would be less invasive.
Patient would like to think about it. May need to get family involved as patient somewhat poor historian
Diagnosis of paroxysmal atrial fibrillation noted in patient's chart.
-Patient was found to have sinus tachycardia with right bundle branch block on admission EKG. No old EKGs for comparison. Patient currently is not on telemetry.Would monitor on telemetry
-When asked about history of atrial fibrillation patient denied having atrial fibrillation but he is rather poor historian
-Currently not on anticoagulation but is on aspirin 81 mg Thursday, Thursday, Thursday. If patient were found to have atrial fibrillation would need initiation of anticoagulation.
HPI 09/10/2024:
Patient is an 84-year-old who resides at [facility] with past medical history significant for end-stage renal disease on hemodialysis Thursday, Thursday, Thursday, chronic urinary retention, status post suprapubic catheter, anemia,
oropharyngeal dysphagia, generalized weakness, prior diverticulitis with perforation and abscess, paroxysmal atrial fibrillation who presented to the emergency department 09/07/2024 with cough, having a few episodes of nausea and vomiting that
occurred after eating. At nursing facility there was also concern for ongoing diarrhea and possible coffee ground emesis with mild abdominal discomfort. Patient was found to have low-grade fever with leukocytosis with elevated potassium, low
sodium on arrival. There was concern of aspiration pneumonia and patient was placed on antibiotics. Patient was found to have a significant cardiac murmur on examination and underwent an echocardiogram which showed severe aortic stenosis as well
as mild mitral stenosis. Patient had been having hypotension limiting dialysis and nephrology requesting cardiac consultation regarding if aortic stenosis could be contributing factor.
Patient denies ever having seen a boilermaker welder in the past or having a cardiac history. When asked about atrial fibrillation he denies it but is somewhat poor historian. He is not on any anticoagulation and is maintained on aspirin. His EKG
showed sinus tachycardia on admission. He currently is not on telemetry. Patient reports he is rather nonambulatory but can ambulate with assistance using rolling walker. He notes chronic dyspnea on exertion but denies chest pain.
Data Reviewed
-
EKG: Report Reviewed by me, Discussed with Physician and Discussed with Nurse
Radiology: Report Reviewed by me and Discussed with Physician
CT Scan: Report Reviewed by me, Discussed with Physician and Discussed with Patient
Medical Tests (Nuc Med, Echo etc): Report Reviewed by me, Discussed with Physician and Discussed with Patient
Labs: Labs Reviewed by me and Discussed with Physician
[2024-09-10 13:14] VITALS: BP 96/54
[2024-09-10] MEDS: SENOKOT-S 1 TABLET PO (13:18)
[2024-09-10 15:45] VITALS: BP 93/50
[2024-09-10 18:03] VITALS: BP 122/61
[2024-09-10] MEDS: REMERON 7.5 MG PO (21:20)
[2024-09-10 23:11] VITALS: BP 113/76
[2024-09-11 06:00] VITALS: BMI 19.8
[2024-09-11 07:40] VITALS: BP 108/60
--- NOTE | 2024-09-11 08:26 | W.PN.HOSP.TC ---
Today's Communication/Plan
-
await decision on Aortic Stenosis as relates to dialysis
Assessment / Plan
Assessment / Plan
1. N/V stopped- Possibly due to stool burden, has been moving bowels regularly. 2 yesterday, 3 [address] scan of abd:1. Examination significantly limited by artifacts as above.
2. No definitive acute intra-abdominal process identified. There is a large volume of stool within the colon.
3. 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 Very small bilateral pleural effusions.
4. Atrophic of bilateral kidneys. Very small bilateral nephroliths. Mild dilation of the right renal pelvis as above, no obstructing calculus identified.
5. Subacute fracture of left parasymphyseal pubic bone extending into left superior pubic ramus. Subacute fracture left inferior pubic ramus. Bilateral sacral probable insufficiency fractures. Multiple bilateral old rib fractures. Severe chronic
compression deformity L2.
Large stool burden
consult placed to CRS, passing frequent stools since laxative regimen started
Abd X-Ray: 09/08 Large amount of fecal material throughout the colon. No evidence of intestinal obstruction. Progressed
Severe bony mineralization. Stable
Severe atherosclerotic vascular disease. Stable
Obstruction Series 09/10: [facility], severe fecal material throughout colon
- ceftriaxone for now
ID consult appreciated
- antiemetics
- given gentle fluids 250 ml bolus in ED
- ppi, diet nectar thickened Minced and Moist.
2. Fever - Low grade temps 100.5 with patch LLL opacity concerning for aspiration vs pna on admission. Lungs today totally clear. Most consistent with aspiration bronchitis, which appears to be improving
CXR 09/08: No acute disease of the chest
WBC 13.4-->7.0-->7.2-->7.0k
- covid neg/influenza Neg
- ceftriaxone for now
- respiratory tx and supportive care for the cough
inf disease consult, they believe it was pneumonitis, not PNA
3. ESRD - HD M/W/F.
- nephrology consulted. Dialysis will be complicated by Aortic Stenosis
4. LLQ abd wound (pt states was never a suprapubic site, also tells me it was not a drain, he believes it just appeared years ago) draining blood originally, then with pus. Drainage has decreased, but not resolved. Gm stain WBC , most likely
previous BRIANNA drain site
discussed with Dr. Thomas
Culture demonstrates E. Coli, Proteus, Enterococcus and Gm Neg B. Continue Ceftriaxone for now
5.Chest congestion most likely aspiration bronchitis
doing markedly better, continue abx
6.anemia
Hgb 9.1-->7.4-->7.9-->7.8
discussed with nephro, Dr. Lkahani rec is to hold off on transfusion for now
permission to transfusion obtained from pt and confirmed with brother, PEPE by phone, witnessed by KAMILAH Bishop
7.Aortic Stenosis
discussed with nephrology, concern could affect ability to do dialysis. Nephro is requesting cardio input as to options. Pt states never saw cardio in past
Echo: Normal left ventricular size.
Moderate concentric left ventricular hypertrophy.
Hyperdynamic left ventricular systolic function.
LV ejection fraction is 75-80% by Duong's method of discs.
Mitral annular calcification.
Mild mitral stenosis.
Peak/mean gradients across the mitral valve are 10/4 mmHg.
Trace mitral regurgitation.
Thickened aortic valve with restricted leaflet motion.
Severe aortic stenosis.
Peak/mean gradients across the aortic valve are 71/41 mmHg.
The aortic valve by the Continuity equation is calculated at 0.7 cm sq.
Mild tricuspid regurgitation.
Normal pericardium without effusion.
The IVC is of normal size and demonstrates normal respiratory variation.
No prior echocardiogram is available for review
Stage 3 mid spine pressure injury and stage 1 bilateral heels pressure injury POA
Paroxysmal atrial fibrillation
by hx, currently in NSR
Moderate Protein Malnutrition,as per dietary, concern was raised by nutrition, pt admitted with albumin of 4.1, but does have temporal muscle wasting with visible ribs, thus would be considered moderate
DVT PPX heparin sq
Code Status full Code
call placed and discussed fully with brotherHubert [phone] on 09/08
complex situation
Anticipated Discharge: > 48 hours
Subjective/Interval History
-
Date of Service: September 11, 2024
Awake, alert
Objective Data
-
Vital Signs:
Vital Signs
Temp Pulse Resp BP Pulse Ox
97.6 F 75 18 108/60 100
09/11/24 07:40 09/11/24 07:40 09/11/24 07:40 09/11/24 07:40 09/11/24 07:40
I&O
09/10/24 09/11/24 09/12/24
06:59 06:59 06:59
Intake Total 1050 / 1050 1260 / 1260
Output Total 1965 / 1965 1650 / 1650
Balance -915 / -915 -390 / -390
Review of Systems
-
History Source: Patient
Constitutional: Reports Fever (100.5 on admission, afebrile since)
Respiratory: Reports Cough (better, has lessened, continues to cough on deep breaths); Denies Trouble Breathing
Cardiac: Reports No Symptoms
Abdomen/GI: Reports Vomiting (prior to admission, none since)
Physical Exam
-
General: Well Developed, Well Nourished, No Apparent Distress and Appears Chronically Ill
HEENT: Normocephalic, Atraumatic and Moist Mucous Membranes
Respiratory: Clear to Auscultation; Negative Wheezes, Rales or Rhonchi
Cardiac: Regular Rhythm, S1/S2 and Murmur (4/6sem)
GI: Soft, Nontender, Nondistended, Normal Bowel Sounds and Other (leftlower abd with 'tract' still draining serosanginous, but nonbloody)
Musculoskeletal: No Clubbing, No Cyanosis and No Edema
Neuro: Awake, Alert and Oriented
[2024-09-11] MEDS: ProAmatine 5 MG PO ×3 (08:43→17:13)
[2024-09-11] MEDS: HEPARIN 5000 UNITS SC ×2 (08:43→21:58)
[2024-09-11] MEDS: B COMPLEX w/VITAMIN C 1 CAPLET PO (08:43)
[2024-09-11] MEDS: PROTONIX IV 40 MG IV (08:44)
[2024-09-11] MEDS: NSS (PRESERVATIVE FREE) 10 ML IV (08:44)
[2024-09-11] MEDS: MIRALAX 17 GRAMS PO ×2 (08:44→21:36)
[2024-09-11] MEDS: ROCEPHIN 1000 MG IV (08:46)
[2024-09-11] MEDS: STERILE WATER FOR INJECTION 10 ML IV (08:47)
--- NOTE | 2024-09-11 14:13 | W.PN.NEPH.PH ---
Today's Communication / Plan
-
Dialysis tomorrow
Assessment/Plan
-
IMP:
N/V/D.
Fever
ESRD - HD M/W/F. kirit mejia, previously [facility] unit at [facility]
Anemia of CKD
Leucocytosis
Hyperkalemia
HYponatremia
Left UE AVF
heart murmur
constipation noted on CT
ON CT :
Subacute fracture of left parasymphyseal pubic bone extending into left superior pubic ramus.
Subacute fracture left inferior pubic ramus.
Bilateral sacral probable insufficiency fractures.
Multiple bilateral old rib fractures.
Severe chronic compression deformity L2.
Plan:
A/w n/v/d. low grade fever -symp resolved
midodrine pre HD for soft BPs
JO for anemia, hgb decreasing
renal diet and FR
abx per ID
Patient with noted significant aortic stenosis on echo
Aortic stenosis likely complicating ultrafiltration on dialysis with hemodynamic collapse
Cardiology does not think he is a TAVR candidate
Patient remains on midodrine [id number] and with extra midodrine provided on dialysis
Next dialysis will be scheduled for Thursday
-
-
Date of Service: September 11, 2024
CC / HPI / ROS
-
Chief Complaint:
ESRD
History of Present Illness:
tolerated HD yesterday
BP soft
hgb low 7.8
Review of Systems:
no complaints
sleeping during visit
no fever
Weights up 2 kg since Thursday
Labs
-
Labs:
WBC 7.0 10^3/uL (4.8-10.8) 09/10/24 04:30
RBC 2.52 10^6/uL (4.70-6.10) L 09/10/24 04:30
Hgb 7.8 g/dL (13.0-18.0) L 09/10/24 04:30
Hct 24.1 % (39.0-52.0) L 09/10/24 04:30
Plt Count 280 10^3/uL (130-400) 09/10/24 04:30
Sodium 135 mmol/L (135-145) 09/10/24 04:30
Potassium 5.8 mmol/L (3.5-5.1) H 09/10/24 04:30
Chloride 94 mmol/L (98-107) L 09/10/24 04:30
Carbon Dioxide 30 mmol/L (22-30) 09/10/24 04:30
BUN 30 mg/dl (9-20) H 09/10/24 04:30
Creatinine 2.2 mg/dL (0.7-1.3) H 09/10/24 04:30
eGFR 28.99 09/10/24 04:30
Glucose 85 mg/dl (70-99) 09/10/24 04:30
Calcium 9.9 mg/dl (8.4-10.2) 09/10/24 04:30
Albumin 4.1 g/dl (3.5-5.0) 09/07/24 00:40
Physical Exam
-
Vital Signs:
Vital Signs
Temp Pulse Resp BP Pulse Ox
97.6 F 75 18 108/60 100
09/11/24 07:40 09/11/24 07:40 09/11/24 07:40 09/11/24 07:40 09/11/24 07:40
Cardiovascular:: Regular rate and rhythm
Respiratory:: Bilateral: CTA
Lung Excursion:: Normal
Abdomen:: Nontender and Soft
Extremity Edema:: None: Bilateral:
Calvin Catheter: Yes
--- NOTE | 2024-09-11 14:18 | W.PN.ID1 ---
Date of Service
Date of Service: September 11, 2024
Today's Communication
Fever and leukocytosis resolved - stopped systemic antibiotics, can plan topical mupirocin
Assessment / Plan
# LLQ Abd wound with reported pus, present on admission -
Review of SNF records, pt with hx diverticulitis with bowel perf s/p surgery 04/2024
Suspect wound is from previous BRIANNA drain site.
CT a/p: no intra-ab abscess.
Fever and leukocytosis resolved - stopped systemic antibiotics, can plan topical mupirocin
#Suspect aspiration pneumonitis without pneumonia
Nausea/vomiting
Leukocytosis - resolved
Fever -resolved
No need for abx.
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
ESRD�HD
Chronic urinary retention
Anemia
Dysphagia
Diverticulitis
A-fib
Chief Complaint
-: Other (cough)
Subjective / Review of Systems
afebrile
bp stable
no events overnight
Vital Signs / Physical Exam
Vital Signs
Vital Signs
Temp Pulse Resp BP Pulse Ox
97.6 F 75 18 108/60 100
09/11/24 07:40 09/11/24 07:40 09/11/24 07:40 09/11/24 07:40 09/11/24 07:40
Physical Exam
Constitutional: No Acute Distress
Cardiovascular: Regular Rate and S1/S2; Negative Murmur or Rub
Pulmonary: Clear and Symmetric; Negative Wheezes or Rales
Gastrointestinal: Soft, Non Tender, Non Distended and Normal Bowel Sounds
Skin: Warm and Dry; Negative Rash or Jaundice
Wound: Other (drain site with some purulent drainage)
Objective Data
Lab Data
Lab Results
09/10/24 04:30
09/10/24 04:30
Estimated Creat Clear 20 ml/min 09/10/24 04:30
Total Bilirubin 0.4 mg/dl (0.2-1.3) 09/07/24 00:40
AST 19 U/L (17-59) 09/07/24 00:40
ALT 15 U/L (0-50) 09/07/24 00:40
Alkaline Phosphatase 126 U/L (38-126) 09/07/24 00:40
Most recent labs reviewed.
Micro Results:
09/07/24 16:31 Wound Culture - Final
Abdomen Escherichia coli
Proteus mirabilis
Enterococcus species
Gram negative bacilli
Gram Stain - Final
09/09/24 10:17 Wound Culture - Preliminary
Abdomen No growth
Gram Stain - Preliminary
09/08/24 11:46 Influenza Types A & B (CORY) - Final
Nasal Swab Negative for Influenza A & B, NAAT
Negative results must be combined with clinical observations
and patient history.
Nucleic Acid Amplification test (NAAT)performed on the
[employer] platform.
09/07/24 06:50 MRSA Screen - Final
Nose No Methicillin Resistant Staphylococcus aureus isolated.
Imaging:
09/07/2024 CXR (2 view):There is no significant focal parenchymal opacification or vascular congestion. The cardiomediastinal silhouettes are within the limits of normal. Calcific atherosclerotic changes of the thoracic aortic arch are noted. There
is no pneumothorax, pleural effusion or mediastinal shift.
09/07/2024 CT a/p: Examination significantly limited by artifacts as above. No definitive acute intra-abdominal process identified. There is a large volume of stool within the colon. Changes of bronchiolitis with mild bronchiectasis at bilateral
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 Very small bilateral pleural effusions. Subacute fracture of left parasymphyseal pubic bone extending into left superior pubic ramus. Subacute fracture left inferior pubic ramus.
Bilateral sacral probable insufficiency fractures. Multiple bilateral old rib fractures. Severe chronic compression deformity L2.
[2024-09-11 14:25] VITALS: BP 138/65; PULSE 69; O2SAT 100
--- NOTE | 2024-09-11 14:40 | W.PN.CARDCBS ---
Today's Communication / Plan
-
See above plan
Impression / Plan
-
Family Physician: Babar Bruner MD
Customer Sales Consultant: None prior to admission, initial consultation Dr. Haily Draper
Impression:
Presented 09/07/2024 with cough, nausea, vomiting, diarrhea
Fever
Aspiration pneumonia/bronchitis
Hyperkalemia
Hyponatremia
Constipation on CT
RBBB
ESRD - HD M/W/F
Anemia of CKD
Aortic stenosis
Mitral stenosis
Chronic urinary retention with suprapubic catheter/Calvin
Dysphagia
Paroxysmal atrial fibrillation?
History of diverticulitis with perforation and abscess
Echo 09/09/2024: EF 75 to 80%, hyperdynamic LV. Moderate concentric LVH. Mild MS with peak/mean gradient 10/4 mmHg. Severe aortic stenosis with peak/mean gradient 71/41 mmHg. SEBASTIÁN 0.7 cm�. Mild TR.
Plan:
Presented 09/07/2024 with cough, nausea, vomiting and diarrhea.
-CT abdomen pelvis as well as chest/abdomen x-rays noting severe constipation.
-Bowel regimen
-Antibiotics per ID
Newly recognized severe aortic stenosis
-Discussed aortic stenosis pathophysiology, potential symptoms, natural progression and possible options for replacement including SAVR and TAVR
-Would avoid hypotension. Continue daily midodrine 5 mg 3 times daily with increased dose on dialysis days- Next dialysis planned 09/12/2024
-Given comorbidities and frailty he is not a SAVR candidate and I also doubt he is a TAVR candidate with discussions with Ross in his room and his brother Hubert on the phone.
-Ross has stated that he does not wish to proceed with any procedures and would prefer a conservative approach
-I also initiated end-of-life discussion; at this time he is indicated he is full code but I have encouraged him to continue to think and discuss with his brother as he also wishes for more conservative approach
End-stage renal disease on hemodialysis Thursday, Thursday, Thursday
-Concern for ongoing hypotension requiring midodrine prior to initiation of dialysis limiting sessions
-Anemia of chronic disease with JO for anemia. Will discuss with nephrology possible transfusion with dialysis
Diagnosis of paroxysmal atrial fibrillation noted in patient's chart, Unconfirmed and denied per patient.
-Patient was found to have sinus tachycardia with right bundle branch block on admission EKG. No old EKGs for comparison.
-Patient is not currently on telemetry; will place on telemetry
-Currently not on anticoagulation but is on aspirin 81 mg Thursday, Thursday, Thursday.
Updated nephrology and hospitalist
HPI 09/10/2024:
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
suprapubic catheter, anemia, oropharyngeal dysphagia, generalized weakness, prior diverticulitis with perforation and abscess, paroxysmal atrial fibrillation who presented to the emergency department 09/07/2024 with cough, having a few episodes of
nausea and vomiting that occurred after eating. At nursing facility there was also concern for ongoing diarrhea and possible coffee ground emesis with mild abdominal discomfort. Patient was found to have low-grade fever with leukocytosis with
elevated potassium, low sodium on arrival. There was concern of aspiration pneumonia and patient was placed on antibiotics. Patient was found to have a significant cardiac murmur on examination and underwent an echocardiogram which showed severe
aortic stenosis as well as mild mitral stenosis. Patient had been having hypotension limiting dialysis and nephrology requesting cardiac consultation regarding if aortic stenosis could be contributing factor.
Patient denies ever having seen a deputy prosecuting attorney in the past or having a cardiac history. When asked about atrial fibrillation he denies it but is somewhat poor historian. He is not on any anticoagulation and is maintained on aspirin. His EKG
showed sinus tachycardia on admission. He currently is not on telemetry. Patient reports he is rather nonambulatory but can ambulate with assistance using rolling walker. He notes chronic dyspnea on exertion but denies chest pain.
Progress Note - Customer Sales Consultant
Subjective
Date of Service: September 11, 2024
Seen and examined with nursing at bedside. Patient offers no new complaints. Denies chest pain or pressure. No dizziness.
Objective
Labs:
09/10/24 04:30
09/10/24 04:30
Labs
Hgb 7.8 g/dL (13.0-18.0) L 09/10/24 04:30
Hct 24.1 % (39.0-52.0) L 09/10/24 04:30
Plt Count 280 10^3/uL (130-400) 09/10/24 04:30
Sodium 135 mmol/L (135-145) 09/10/24 04:30
Potassium 5.8 mmol/L (3.5-5.1) H 09/10/24 04:30
BUN 30 mg/dl (9-20) H 09/10/24 04:30
Creatinine 2.2 mg/dL (0.7-1.3) H 09/10/24 04:30
Glucose 85 mg/dl (70-99) 09/10/24 04:30
Vital Signs and I&O:
Vital Signs
Temp Pulse Resp BP Pulse Ox
97.6 F 75 18 108/60 100
09/11/24 07:40 09/11/24 07:40 09/11/24 07:40 09/11/24 07:40 09/11/24 07:40
Vital Signs
Temp Pulse Resp BP Pulse Ox
97.6 F 75 18 108/60 100
09/11/24 07:40 09/11/24 07:40 09/11/24 07:40 09/11/24 07:40 09/11/24 07:40
Intake & Output
09/09/24 09/10/24 09/11/24 09/12/24
06:59 06:59 06:59 06:59
Intake Total 1170 / 1170 1050 / 1050 1260 / 1260
Output Total 1974 / 1964 1650 / 1650
Balance -805 / -805 -915 / -915 -390 / -390
Physical Exam
Physical Exam
General: Frail 84-year-old gentleman, room air in no acute distress
Neck: Positive carotid bruit
Heart: Regular. Positive S1. Diminished S2. 3/6 systolic ejection murmur radiates throughout the precordium and in the neck
Lungs: Bronchovesicular breath sounds with coarse rhonchi, decreased at the bases
Abd: Positive BS, NT/ND, neg rebound/rigidity/guarding
Ext: No edema. Left upper extremity AV fistula
Neuro: nonfocal
[2024-09-11 15:40] VITALS: BP 108/65
[2024-09-11] MEDS: BACTROBAN 2% OINTMENT 1 APPLIC TOPICAL ×2 (17:13→21:38)
[2024-09-11] MEDS: REMERON 7.5 MG PO (21:36)
[2024-09-11 23:36] VITALS: BP 115/75
[2024-09-12] MEDS: BENADRYL 25 MG PO (00:02)
[2024-09-12 05:41] VITALS: BMI 19.1
[2024-09-12 06:39] LABS: % Basophils 0.9 % (0-2); % Eosinophils 16.1 % (0-6); % Immature Granulocytes 0.5 % (0-0.5); % Lymphocytes 22.6 % (20.5-51.1); % Monocytes 9.7 % (1.7-9.3); % Neutrophils 50.2 % (42.2-75.2); Absolute Basophils 0.1 10^3/uL (0-0.2); Absolute Eosinophils 0.9 10^3/uL (0-0.7); Absolute Lymphocytes 1.3 10^3/uL (1.2-3.4); Absolute Monocytes 0.5 10^3/uL (0.1-0.6); Absolute Neutrophils 2.8 10^3/uL (1.4-6.5); Hematocrit 25.8 % (39.0-52.0); Hemoglobin 8.4 g/dL (13.0-18.0); Mean Corp Hgb Conc. 32.6 g/dL (33.0-37.0); Mean Corpuscular Hgb 31.3 pg (27.0-31.0); Mean Corpuscular Volume 96.3 fL (80.0-94.0); Mean Platelet Volume 9.3 fL (7.4-10.4); Nucleated Red Blood Cells % 0 % (-); Platelet Count 323 10^3/uL (130-400); Red Blood Cell Count 2.68 10^6/uL (4.70-6.10); Red Cell Dist. Width 15.9 % (11.5-14.5); White Blood Cell Count 5.5 10^3/uL (4.8-10.8)
[2024-09-12 07:04] LABS: Blood Urea Nitrogen 68 mg/dl (9-20); Calcium 10.1 mg/dl (8.4-10.2); Carbon Dioxide 29 mmol/L (22-30); Chloride 92 mmol/L (98-107); Estimated Creatinine Clearance 9 ml/min; Glucose 86 mg/dl (70-99); Potassium 6.4 mmol/L (3.5-5.1); Sodium 135 mmol/L (135-145); eGFR 11.37
[2024-09-12] MEDS: ProAmatine 10 MG PO (07:43)
[2024-09-12] MEDS: ProAmatine 5 MG PO ×2 (07:44→17:18)
[2024-09-12] MEDS: NSS (PRESERVATIVE FREE) 10 ML IV (07:45)
[2024-09-12] MEDS: BACTROBAN 2% OINTMENT 1 APPLIC TOPICAL ×2 (07:46→21:27)
[2024-09-12] MEDS: MIRALAX 17 GRAMS PO ×2 (07:46→21:23)
[2024-09-12] MEDS: PROTONIX IV 40 MG IV (07:46)
[2024-09-12] MEDS: B COMPLEX w/VITAMIN C 1 CAPLET PO (07:47)
[2024-09-12] MEDS: HEPARIN 5000 UNITS SC ×2 (07:47→21:23)
[2024-09-12] MEDS: LOW STRENGTH ASPIRIN 81 MG PO (08:02)
[2024-09-12] MEDS: ProAmatine PO ×2 (08:17→13:27)
[2024-09-12 08:19] VITALS: BP 116/60
--- NOTE | 2024-09-12 08:22 | W.PN.HOSP.TC ---
Addendum entered and electronically signed by Mele Escalona MD 09/12/24 15:37:
Sepsis due to possible gastroenteritis, POA-resolved.
Original Note:
Today's Communication/Plan
-
HD per nephrology. Midodrine.
Assessment / Plan
Assessment / Plan
Physical exam:
General: Chronically ill
HEENT: Normocephalic, Atraumatic and Moist Mucous Membranes
Respiratory: Clear to Auscultation; Negative Wheezes, Rales or Rhonchi
Cardiac: Regular Rhythm and S1/S2, systolic ejection murmur
GI: Soft, Nontender and Nondistended
Musculoskeletal: No Clubbing, No Cyanosis and No Edema. Left upper extremity fistula present
Neuro: Awake, Alert and Oriented
Psych: Calm
A/P:
Fever and nausea and vomiting/abdominal wound:
Antibiotics discontinued
ID on board
Polymicrobial wound cultures from 09/07 and no growth on 09/09
Recommended topical mupirocin by ID
Change Protonix to oral
Aspiration pneumonitis/dysphagia:
No need for antibiotic
Diet per speech therapy
Monitor respiratory status
Hypotension:
Continue on midodrine
Severe aortic stenosis/mild mitral stenosis:
Patient not interested in valve repair but also cardiology noticed poor candidate but will follow-up with cardiology as outpatient
Sinus tachycardia:
Improved
Per cardiology no evidence of A-fib
End-stage renal disease on hemodialysis:
Nephrology following
Hemodialysis per nephrology
Chronic urinary retention:
History of suprapubic catheter in place
Anemia:
No signs of active bleeding
Hemoglobin 8.4 today
Continue to monitor hemoglobin
Constipation:
Continue bowel regimen
Depression:
Continue mirtazapine
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
Moderate protein calorie malnutrition
DVT prophylaxis:
Heparin SQ
CODE STATUS:
Full code
Anticipated Discharge: 24 - 48 hours
Subjective/Interval History
-
Date of Service: September 12, 2024
Patient blood pressure on the soft side with dialysis today. Afebrile
Objective Data
-
Labs:
Laboratory Results
09/12/24
05:18
WBC 5.5
Hgb 8.4 L
Hct 25.8 L
Plt Count 323
Sodium 135
Potassium 6.4 H*
Chloride 92 L
Carbon Dioxide 29
BUN 68 H
Creatinine 4.8 H*
Glucose 86
Calcium 10.1
Vital Signs:
Vital Signs
Temp Pulse Resp BP Pulse Ox
97.5 F 76 16 123/63 99
09/12/24 08:19 09/11/24 23:36 09/11/24 23:36 09/12/24 07:44 09/12/24 08:19
I&O
09/11/24 09/12/24 09/13/24
06:59 06:59 06:59
Intake Total 1260 / 1260 1140 / 1140
Output Total 1650 / 1650 2024
Balance -390 / -390 -885 / -885
[2024-09-12] MEDS: RETACRIT 10000 UNITS IV (09:11)
[2024-09-12] MEDS: MANNITOL 25% 12.5 GRAMS IV (09:11)
[2024-09-12] MEDS: FLEXBUMIN 25% FOR HEMODIALYSIS 12.5 GRAMS IV (09:12)
[2024-09-12] MEDS: FLEXBUMIN 25% FOR HEMODIALYSIS IV (10:53)
--- NOTE | 2024-09-12 10:59 | W.PN.NEPH.HD ---
Assessment
-
pt seen during HD
BPs soft post midodirne
limit UF, below EDW and non oliguric with pratt
reviewed with pt about severe and unlikely candidate for intervention
he understands
k is high persistently-start LOkelam on no HD days
AVF functions well
Progress Note - Hemodialysis
-
Date of Service: September 12, 2024
Duration: 30 minutes and 3 hours
Potassium Bath: 2
Calcium Bath: 2.5
Opti-Dialyzer: 160
Ultrafiltration: Other (0.5kg)
Blood Flow: 400
Dialysate Flow: 600
Heparin: no
EPO: [id number]
--- NOTE | 2024-09-12 11:06 | W.PN.UPDATE ---
Update Note
Progress Note Update
Patient with severe as a new finding this admission. Patient is not interested in any SAVR/TAVR eval. Patient told cardiology he would like to be conservative. From a cardiac standpoint would recommend avoiding hypotension using a higher dose
midodrine started this admission. Will arrange for cardiology f/u as an outpatient. Patient lives at [facility] and they mange his HD schedule on MWF usually.
[2024-09-12 13:27] VITALS: BP 115/58
--- NOTE | 2024-09-12 13:29 | CM ---
Patient seen at bedside.
HD today
LTC resident at [facility]
PLAN: Discharge when medically stable to [facility] LT
--- NOTE | 2024-09-12 14:31 | WOUNDNOTE ---
L LOWER ABDOMEN WITH FLASH LIGHT
--- NOTE | 2024-09-12 14:32 | WOUNDNOTE ---
WON RN NOTE: Asked to see patient by nurse Rodriguez for increased drainage with pus from L abdominal old suspected BRIANNA site. Dressing changed using mupirocin and packing with iodoform strip. Base clean pink, no purulence noted, no odor or complaint of
pain from patient. Increased drainage reported by nursing. Recommend continue same dressing, do BID instead of daily and prn drainage. Reviewed Dr. Alegre's and Dr. Montemayor reports. Middle back PI smaller and healing nicely, will continue honey
gel adaptic and dry dressing. Patient is on an air overlay, palm check done with adequate inflation, patient assists with turns. Repositioned patient onto R semi side lying position. Foam adhesives remain on heels to protect and pillow under calves.
Updated nurse Rodriguez and will update wound care orders.
--- NOTE | 2024-09-12 14:55 | WOUNDNOTE ---
JESIKA RN NOTE ADDENDUM: Clarified with Dr. Montemayor wound care order with mupirocin use, ok to apply bid with iodoform packing. Will update wound care orders and care plan.
--- NOTE | 2024-09-12 15:08 | PN.CDI ---
CDI
- -
CDI:
Physician Documentation Request
Admit Date: 09/07/24 09:26
Dear Doctor Iqra,
Please review the following and provide your response in the progress notes.
Clinical Indicators:
Pt admitted with nausea, vomiting and aspiration pneumonitis.
09/08 Progress note: N/V - No obvious peritonitis, cannot rule out diverticulitis entirely but appeared to be related to a communicable infection so likley a viral gastroenteritis.
Selected Entries
09/07/24
00:31
Temp 100.5 F H
Pulse 105
Resp Rate 38
Laboratory Tests
09/07/24
00:40
WBC 13.4 H
Please clarify which most accurately describes the patient:
Sepsis
Systemic manifestations of infection, with 2 or more SIRS criteria which include:
Fever > 100.4 degrees F or hypothermia < 96.8 degrees F
Leukocytosis - WBC > 12,000 or leukopenia, WBC < 4,000 or > 10% bands
Tachycardia - > 90 beats per minute
Tachypnea - RR > 20 breaths per minute or PaCO2 < 32 mmHg
Source: Merck Manual 2013
Indicate the known or suspected underlying infection, such as UTI, pneumonia or cellulitis
SIRS due to a non-infectious source
Indicate the known or suspected etiology
Gastroenteritis only
Other
Use of terms such as suspected, likely, concern for, or probable (associated with a specific diagnosis that is being evaluated, monitored, or treated as if it exists) are acceptable and can be coded in the inpatient setting, when documented at the
time of discharge.
Thank you,
Zeynep Martinez RN, BSN
CDI Specialist
Available via [place] [facility]
Please use your independent medical judgment in providing your response.
[2024-09-12 15:21] VITALS: BP 113/59
--- NOTE | 2024-09-12 16:17 | W.PN.ID1 ---
Date of Service
Date of Service: September 12, 2024
Today's Communication
Local care to the anterior abdominal wound.
Assessment / Plan
# LLQ Abd wound with reported pus, present on admission -
Review of SNF records, pt with hx diverticulitis with bowel perf s/p surgery 04/2024
Suspect wound is from previous BRIANNA drain site.
CT a/p: no intra-ab abscess.
Fever and leukocytosis resolved - stopped systemic antibiotics, can plan topical mupirocin and local care to the area.
#Suspect aspiration pneumonitis without pneumonia
Nausea/vomiting
Leukocytosis - resolved
Fever -resolved
No need for abx.
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
ESRD�HD
Chronic urinary retention
Anemia
Dysphagia
Diverticulitis
A-fib
Chief Complaint
-: Other (cough)
Subjective / Review of Systems
Review of Systems: No Fever and No Chills
Vital Signs / Physical Exam
Vital Signs
Vital Signs
Temp Pulse Resp BP Pulse Ox
98.1 F 84 18 113/59 98
09/12/24 15:21 09/12/24 15:21 09/12/24 15:21 09/12/24 15:21 09/12/24 15:21
Physical Exam
Constitutional: No Acute Distress
Cardiovascular: Regular Rate and S1/S2
Pulmonary: Clear, Symmetric and Non Labored
Gastrointestinal: Soft, Non Tender, Non Distended and Normal Bowel Sounds
Skin: Warm and Dry; Negative Rash or Jaundice
Wound: Other (Midline lower abdominal wound with packing in place. No periwound erythema.)
Objective Data
Lab Data
Lab Results
09/12/24 05:18
09/12/24 05:18
Estimated Creat Clear 9 ml/min 09/12/24 05:18
Total Bilirubin 0.4 mg/dl (0.2-1.3) 09/07/24 00:40
AST 19 U/L (17-59) 09/07/24 00:40
ALT 15 U/L (0-50) 09/07/24 00:40
Alkaline Phosphatase 126 U/L (38-126) 09/07/24 00:40
Most recent labs reviewed.
Micro Results:
09/09/24 10:17 Wound Culture - Final
Abdomen No growth
Gram Stain - Final
09/07/24 16:31 Wound Culture - Final
Abdomen Escherichia coli
Proteus mirabilis
Enterococcus species
Gram negative bacilli
Gram Stain - Final
09/08/24 11:46 Influenza Types A & B (CORY) - Final
Nasal Swab Negative for Influenza A & B, NAAT
Negative results must be combined with clinical observations
and patient history.
Nucleic Acid Amplification test (NAAT)performed on the
[employer] platform.
09/07/24 06:50 MRSA Screen - Final
Nose No Methicillin Resistant Staphylococcus aureus isolated.
Imaging:
09/07/2024 CXR (2 view):There is no significant focal parenchymal opacification or vascular congestion. The cardiomediastinal silhouettes are within the limits of normal. Calcific atherosclerotic changes of the thoracic aortic arch are noted. There
is no pneumothorax, pleural effusion or mediastinal shift.
09/07/2024 CT a/p: Examination significantly limited by artifacts as above. No definitive acute intra-abdominal process identified. There is a large volume of stool within the colon. Changes of bronchiolitis with mild bronchiectasis at bilateral
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 Very small bilateral pleural effusions. Subacute fracture of left parasymphyseal pubic bone extending into left superior pubic ramus. Subacute fracture left inferior pubic ramus.
Bilateral sacral probable insufficiency fractures. Multiple bilateral old rib fractures. Severe chronic compression deformity L2.
[2024-09-12] MEDS: REMERON 7.5 MG PO (21:23)
[2024-09-12 23:00] VITALS: BP 119/66
[2024-09-13 06:00] VITALS: BMI 19.3
--- NOTE | 2024-09-13 07:40 | W.PN.HOSP.TC ---
Today's Communication/Plan
-
Discharge planning today
Assessment / Plan
Assessment / Plan
Physical exam:
General: Chronically ill
HEENT: Normocephalic, Atraumatic and Moist Mucous Membranes
Respiratory: Clear to Auscultation; Negative Wheezes, Rales or Rhonchi
Cardiac: Regular Rhythm and S1/S2, systolic ejection murmur
GI: Soft, Nontender and Nondistended
Musculoskeletal: No Clubbing, No Cyanosis and No Edema. Left upper extremity fistula present
Neuro: Awake, Alert and Oriented
Psych: Calm
A/P:
Fever and nausea and vomiting/abdominal wound:
Antibiotics discontinued
ID on board
Polymicrobial wound cultures from 09/07 and no growth on 09/09
Recommended topical mupirocin by ID
Change Protonix to oral but can discontinue upon discharge
Plan to discharge today
Aspiration pneumonitis/dysphagia:
No need for antibiotic
Diet per speech therapy
Monitor respiratory status
Hypotension:
Continue on midodrine
Severe aortic stenosis/mild mitral stenosis:
Patient not interested in valve repair but also cardiology noticed poor candidate but will follow-up with cardiology as outpatient
Sinus tachycardia:
Improved
Per cardiology no evidence of A-fib
End-stage renal disease on hemodialysis:
Nephrology following
Hemodialysis per nephrology
Chronic urinary retention:
History of suprapubic catheter in place
Anemia:
No signs of active bleeding
Hemoglobin 8.3 today
Continue to monitor hemoglobin
Constipation:
Continue bowel regimen
Depression:
Continue mirtazapine
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
Moderate protein calorie malnutrition
DVT prophylaxis:
Heparin SQ
CODE STATUS:
Full code
Anticipated Discharge: Today
Subjective/Interval History
-
Date of Service: September 13, 2024
No new complaints
Objective Data
-
Labs:
Laboratory Results
09/13/24
06:25
WBC Pending
Hgb Pending
Hct Pending
Plt Count Pending
Sodium Pending
Potassium Pending
Chloride Pending
Carbon Dioxide Pending
BUN Pending
Creatinine Pending
Glucose Pending
Calcium Pending
Vital Signs:
Vital Signs
Temp Pulse Resp BP Pulse Ox
98.0 F 91 18 119/66 99
09/12/24 23:00 09/12/24 23:00 09/12/24 23:00 09/12/24 23:00 09/13/24 00:07
I&O
09/12/24 09/13/24 09/14/24
06:59 06:59 06:59
Intake Total 1140 / 1140 840 / 840
Output Total 2024 1650 / 1650
Balance -885 / -885 -810 / -810
[2024-09-13 07:50] VITALS: BP 103/62
[2024-09-13] MEDS: B COMPLEX w/VITAMIN C 1 CAPLET PO (07:53)
[2024-09-13] MEDS: ProAmatine 5 MG PO (07:53)
[2024-09-13] MEDS: BACTROBAN 2% OINTMENT 1 APPLIC TOPICAL (07:53)
[2024-09-13] MEDS: PROTONIX 40 MG PO (07:54)
[2024-09-13] MEDS: HEPARIN 5000 UNITS SC (07:54)
[2024-09-13] MEDS: MIRALAX 17 GRAMS PO (07:55)
[2024-09-13 08:28] LABS: Blood Urea Nitrogen 40 mg/dl (9-20); Calcium 9.9 mg/dl (8.4-10.2); Carbon Dioxide 31 mmol/L (22-30); Chloride 94 mmol/L (98-107); Estimated Creatinine Clearance 14 ml/min; Glucose 80 mg/dl (70-99); Potassium 5.2 mmol/L (3.5-5.1); Sodium 136 mmol/L (135-145); eGFR 19.21
[2024-09-13 08:38] LABS: Hemoglobin 8.3 g/dL (13.0-18.0); Mean Corp Hgb Conc. 31.9 g/dL (33.0-37.0); Mean Corpuscular Hgb 31.3 pg (27.0-31.0); Mean Corpuscular Volume 98.1 fL (80.0-94.0); Mean Platelet Volume 9.2 fL (7.4-10.4); Platelet Count 296 10^3/uL (130-400); Red Blood Cell Count 2.65 10^6/uL (4.70-6.10); Red Cell Dist. Width 16.1 % (11.5-14.5); White Blood Cell Count 5.6 10^3/uL (4.8-10.8)
--- NOTE | 2024-09-13 09:42 | CM ---
Addendum entered by Leila Durán RN 09/13/24 15:28:
Left voice message on patient's brother's phone regarding discharge today.
Addendum entered by Leila Durán RN 09/13/24 10:19:
IMM reviewed with the patient.
Original Note:
Reviewed the chart notes. Sent updated clinicals to [facility]. CM continues to be available to patient/family and is monitoring medical plan for needs at discharge.
Plan: Discharge back to [facility] when medically stable. No precert required.
Call report to: [phone]
Fax report to: [phone]
--- NOTE | 2024-09-13 10:00 | W.DCSUMMARY ---
Discharge Summary
Discharge Data
Date of Admission: 09/07/24
Date of Discharge: 09/13/24
-
Pending Results: No
Hospital Course
Patient 83 years old with end-stage renal disease on hemodialysis, chronic urinary retention with suprapubic catheter, anemia, dysphagia, diverticulitis with perforation and abscess in the past, came into the hospital with nausea vomiting and fever
and some discharge secretion from abdominal wound. He was started on broad-spectrum antibiotics. It appears that he had some sepsis that resolved. ID consulted. ID did not recommend to continue antibiotics. ID recommended topical cream and felt
that the wound was probably from prior BRIANNA drain. Patient remained afebrile.
Patient also had some hypotension mainly associated with hemodialysis and also had a murmur for which cardiology was consulted. Echocardiogram revealed severe aortic stenosis. Cardiology evaluated the patient and would like to follow-up with him
as outpatient. He was started on midodrine and he responded well. There was a question if A-fib was present but there was no evidence of A-fib during this hospital stay. Otherwise, patient feels symptomatically back to his baseline and he is
relatively stable for discharge back to skilled facility.
Discharge duration: 34 minutes
Discharge Plan
-
Patient Disposition: [facility]/SNF
Discharge Diagnosis/Procedures: Sepsis, resolved. Abdominal wound likely from drain. Aspiration pneumonitis. Hypotension. End-stage renal disease on hemodialysis. Chronic urinary retention.
Condition: Fair
Diet: Other diet
Additional Diets: Renal diet
Activity: As tolerated
Blood Work: Please PCP to order CBC, BMP within 1 week
Specialty Instructions: Weigh Daily- Call MD for wt gain/loss 3 lbs overnight/5 lbs in 1 week
Activity Restrictions/Additional Instructions:
Wound Care Instructions
L lower Abdomen: clean with saline, 1/2' iodoform packing strips,(*place smear of mupirocin at tail end of strip and place into wound) cover with 2x2 gauze then folded 4x4 gauze and paper tape. Change twice a day and prn drainage.
mid back: clean with saline, skin prep periwound, smear of honey gel, adaptic and silicone foam change q day and prn drainage.
sacrum: clean with soap and water, silicone foam change q 3 days and prn soilage
air mattress if SNF
air chair cushion when sitting
increase protein in diet
Follow up at wound care center call for an appointment.
Referrals:
Babar Bruner MD [Family Provider] - in less than 1 week
Haily Draper DO [Active] - 09/26/24 9:40 am (You have an appt to follow up with the cardiology team at the [place] office on 09/26/24 at 9:40 AM. Please call [phone] if you need to reschedule.)
Gerri Lakhani MD [Active] - in one to two weeks
Prescriptions:
New
mupirocin 2 % Ointment
1 applic topical BID Qty: 15 0RF
Rx Instructions:
Apply to local abdominal area
midodrine 5 mg Tablet
5 mg PO TID@0800,1300,1800 30 Days Qty: 90 0RF
Continued
polyethylene glycol 3350 [Miralax] 17 gram Powder In Packet
17 g PO HS
midodrine 5 mg Tablet
See Rx Instructions .ROUTE .COMPLEX
Rx Instructions:
5 mg orally before dialysis
mirtazapine 7.5 mg Tablet
7.5 mg PO HS
Zofran ODT
4 mg PO Q8H PRN (Reason: nausea)
aspirin
See Rx Instructions .ROUTE .COMPLEX
Rx Instructions:
81 mg orally on dialysis day
bisacodyl
10 mg WI DAILY PRN (Reason: constipation)
heparin (porcine)
5,000 unit SC TID
levalbuterol HCl
0.63 mg inhalation Q6H PRN (Reason: wheezing)
vitamin B complex
500 mg PO DAILY
Discharge Orders:
Discharge Patient (As Directed); Ordered 09/13/24
Ordered By: Mele Escalona
Discharge Date and Time
Discharge Date/Time: 09/13/24 14:07
Print Language: PRYDEINIG
--- NOTE | 2024-09-13 11:41 | W.PN.NEPH.PH ---
Today's Communication / Plan
-
cont midodrine and HD tomorrow
Assessment/Plan
-
IMP:
N/V/D.
Fever
ESRD - HD M/W/F. kirit mejia, previously [facility] unit at [facility]
Anemia of CKD
Leucocytosis
Hyperkalemia
HYponatremia
Left UE AVF
heart murmur
constipation noted on CT
ON CT :
Subacute fracture of left parasymphyseal pubic bone extending into left superior pubic ramus.
Subacute fracture left inferior pubic ramus.
Bilateral sacral probable insufficiency fractures.
Multiple bilateral old rib fractures.
Severe chronic compression deformity L2.
Plan:
A/w n/v/d. low grade fever -symp resolved
midodrine pre HD for soft BPs
JO for anemia, hgb low
hyperkalemia-on lokelma on non HD days
renal diet and FR
pratt catheter and non oliguric fortunately not needing UF with HD
Patient with noted significant aortic stenosis on echo
Aortic stenosis likely complicating with hemodynamic collapse on dialysis
Cardiology does not think he is a TAVR candidate
Patient remains on midodrine [id number] and with extra midodrine provided on dialysis
Next dialysis will be scheduled tomorrow
Pt understands no surgical interventions
-
-
Date of Service: September 13, 2024
CC / HPI / ROS
-
Chief Complaint:
ESRD
History of Present Illness:
tolerated HD yesterday
BP soft
hgb better at 8.3, k high 5.2
Review of Systems:
no complaints
no cp or sob
no n/v
no fever
Labs
-
Labs:
WBC 5.6 10^3/uL (4.8-10.8) 09/13/24 06:25
RBC 2.65 10^6/uL (4.70-6.10) L 09/13/24 06:25
Hgb 8.3 g/dL (13.0-18.0) L 09/13/24 06:25
Hct 26.0 % (39.0-52.0) L 09/13/24 06:25
Plt Count 296 10^3/uL (130-400) 09/13/24 06:25
Sodium 136 mmol/L (135-145) 09/13/24 06:25
Potassium 5.2 mmol/L (3.5-5.1) H 09/13/24 06:25
Chloride 94 mmol/L (98-107) L 09/13/24 06:25
Carbon Dioxide 31 mmol/L (22-30) H 09/13/24 06:25
BUN 40 mg/dl (9-20) H 09/13/24 06:25
Creatinine 3.1 mg/dL (0.7-1.3) H 09/13/24 06:25
eGFR 19.21 09/13/24 06:25
Glucose 80 mg/dl (70-99) 09/13/24 06:25
Calcium 9.9 mg/dl (8.4-10.2) 09/13/24 06:25
Albumin 4.1 g/dl (3.5-5.0) 09/07/24 00:40
Physical Exam
-
Vital Signs:
Vital Signs
Temp Pulse Resp BP Pulse Ox
97.8 F 83 16 103/62 98
09/13/24 07:50 09/13/24 07:53 09/13/24 07:50 09/13/24 07:53 09/13/24 10:17
Cardiovascular:: Regular rate and rhythm (murmur)
Respiratory:: Bilateral: CTA
Lung Excursion:: Normal
Abdomen:: Nontender and Soft
Extremity Edema:: None: Bilateral:
Pratt Catheter: No
[2024-09-13 13:07] VITALS: BP 118/62
--- NOTE | 2024-09-13 13:21 | PTCARENOTE ---
Report called to Cheri Jacob at [phone], no answer, message left with call back number and name/unit of this RN for report.
== END 2024-09-13 14:07 | DRG 871 ==
LOC: 2 NORTH 09:26
PROVIDERS: Internal Medicine; ADMITTING PHYSICIAN Internal Medicine; ATTENDING PHYSICIAN Hospitalist; CONSULT PHYSICIAN Internal Medicine; CONSULT PHYSICIAN Internal Medicine Cardiovascular Disease; CONSULT PHYSICIAN Internal Medicine Infectious Disease; EMERGENCY PHYSICIAN Emergency Medicine; FAMILY PHYSICIAN Internal Medicine; OTHER PHYSICIAN Surgery
DX: A41.9 Sepsis, unspecified organism (principal); J69.0 Pneumonitis due to inhalation of food and vomit; L89.893 Pressure ulcer of other site, stage 3; N18.6 End stage renal disease; E44.0 Moderate protein-calorie malnutrition; Z68.1 Body mass index [BMI] 19.9 or less, adult; R64 Cachexia; I95.9 Hypotension, unspecified; I08.0 Rheumatic disorders of both mitral and aortic valves; Z99.2 Dependence on renal dialysis; L89.611 Pressure ulcer of right heel, stage 1; L89.621 Pressure ulcer of left heel, stage 1; S31.134A Puncture wound of abdominal wall without foreign body, left lower quadrant without penetration into peritoneal cavity, initial encounter; Z11.52 Encounter for screening for COVID-19
CPT/HCPCS: 71046; 74018; 74022; 74176; 80048; 80053; 82533; 83690; 85025; 85027; 86850; 86900; 86901; 87070; 87071; 87077; 87205; 87502; 87811; 92526; 92610; 93005; 93306; 96374; 96375; 97110; 97116; 97162; 97167; 99285; G0257; P9047; Q5106

== ENCOUNTER 2024-12-08 03:42 | Inpatient (IN) | payer MEDICARE, OTHER, SELFPAY ==
[2024-12-08] VITALS (81 sets, daily range): BP systolic 69–135; BP diastolic 41–78; BMI 19.5; BMI 19.8
[2024-12-08 00:41] LABS: % Basophils 0.2 % (0-2); % Eosinophils 0.1 % (0-6); % Immature Granulocytes 0.6 % (0-0.5); % Lymphocytes 4.9 % (20.5-51.1); % Monocytes 3.8 % (1.7-9.3); % Neutrophils 90.4 % (42.2-75.2); Absolute Immature Granulocytes 0.1 10^3/uL (0-0.05); Absolute Lymphocytes 0.6 10^3/uL (1.2-3.4); Absolute Monocytes 0.4 10^3/uL (0.1-0.6); Absolute Neutrophils 10.3 10^3/uL (1.4-6.5); Hematocrit 27.4 % (39.0-52.0); Hemoglobin 9.1 g/dL (13.0-18.0); Mean Corp Hgb Conc. 33.2 g/dL (33.0-37.0); Mean Corpuscular Hgb 31.5 pg (27.0-31.0); Mean Corpuscular Volume 94.8 fL (80.0-94.0); Mean Platelet Volume 9.3 fL (7.4-10.4); Nucleated Red Blood Cells % 0 % (-); Platelet Count 227 10^3/uL (130-400); Red Blood Cell Count 2.89 10^6/uL (4.70-6.10); Red Cell Dist. Width 14.9 % (11.5-14.5); White Blood Cell Count 11.4 10^3/uL (4.8-10.8)
[2024-12-08 00:54] LABS: ALT (SGPT) 12 U/L (0-50); AST (SGOT) 19 U/L (17-59); Albumin 3.1 g/dl (3.5-5.0); Alkaline Phosphatase 85 U/L (38-126); Blood Urea Nitrogen 50 mg/dl (9-20); Calcium 9.4 mg/dl (8.4-10.2); Carbon Dioxide 24 mmol/L (22-30); Chloride 96 mmol/L (98-107); Estimated Creatinine Clearance 15 ml/min; Glucose 122 mg/dl (70-99); Potassium 3.8 mmol/L (3.5-5.1); Sodium 130 mmol/L (135-145); Total Protein 5.4 g/dl (6.3-8.2); eGFR 21.71
[2024-12-08 00:59] LABS: COVID-19 Antigen Negative (Negative)
[2024-12-08] MEDS: TYLENOL 650 MG PO (01:01)
[2024-12-08] MEDS: MAXIPIME 2000 MG IV (01:04)
[2024-12-08 01:06] LABS: Lactic Acid 1.4 mmol/L (0.7-2.0)
[2024-12-08] MEDS: ZOFRAN 4 MG IV (01:27)
[2024-12-08] MEDS: PROTONIX IV 40 MG IV (01:34)
--- NOTE | 2024-12-08 01:51 | ED.GENMED ---
History of Present Illness
General
Chief Complaint: Abdominal Symptoms
Source: patient and ambulance crew
Exam Limitations: dementia
Nursing documentation reviewed up to this point in time: agreed with
History of Present Illness
History of Present Illness:
84-year-old male ESRD chronic Calvin presents with lower abdominal pain fever nausea vomiting decreased urine output for 24 hours,
Blood pressure was in the 80s by EMS given some saline,
Here he is a high fever, occasional cough, lower abdominal pain, appears to have a clogged Calvin
Phy Exam
Physical Exam
Physical Exam:
Physical Exam
General: Ill-appearing male febrile hypotensive
Neck: Dry lip
Heart: tachycardia
Lungs: Crackles at the
Abdomen: Tender in the suprapubic region Calvin with decreased urinary
Neuro: alert and oriented. Globally
Skin: no rash
Psychiatric: Flat affect
Extremities: no edema.
Sepsis
Sepsis Screening
Sepsis Assessment: Sepsis
Sepsis Screen
Sepsis Screen: Sepsis
Date: 12/08/24
Time: :
Course
Orders/Labs/Results
Orders:
Orders
12/08/24 00:23
Electrocardiogram (*1) Urgent
Reason for Study: Other
Other Reason for Exam: Possible Sepsis
Cardiac Monitoring- Treatment ONCE
EKG- Treatment ONCE
IV Insert/Care/Rem.- Treatment PRN
O2 Therapy [RESP] Urgent
Titrate/Wean O2 to maintain O2 sat greater than (%): 93
Special Instructions: TO MAINTAIN CONTINUOUS O2 SATS > OR = 93%
Pulse Ox/cont/shift [RESP] Urgent
Quantity: 1
Special Instructions: CONTINUOUS
12/08/24 00:26
Complete Blood Count/With Diff Urgent
Comprehensive Metabolic Panel Urgent
Lactic Acid Q4H
Comment: ON ICE, CANCEL 2ND ORDER IF FIRST LACTIC ACID LEVEL <2
12/08/24 00:27
COVID-19 Antigen Urgent
Source: Nasal Swab
Influenza A+B Rapid Molecular Urgent
ARIANNA Source: Nasal Swab
Specimen Description:
12/08/24 00:43
Bladder Scan- Treatment ONCE
12/08/24 00:44
Acetaminophen [Tylenol] 650 mg PO NOW STA
Cefepime HCl [Maxipime] 2,000 mg IV NOW STA
12/08/24 00:59
Vancomycin [Vancocin] 1,500 mg 0.9% Sodium Chloride 500 ml [Nss] 500 ml IV NOW
12/08/24 01:14
Ondansetron Injectable [Zofran] 4 mg IV NOW STA
Pantoprazole [Protonix IV] 40 mg IV NOW STA
Chest (PA) Obstruct Series [CR Obstruct Series W/pa Chest] Urgent
Comment:
Reason For Exam: vomiting fever
12/08/24 01:21
Blood Culture Q30M
ARIANNA Source: Blood/Venous
Specimen Description:
12/08/24 01:30
Blood Culture Q30M
ARIANNA Source: Blood/Venous
Specimen Description:
12/08/24 01:34
Calvin Placement- Treatment ONCE
Reason for insertion: Acute Retention
12/08/24 02:00
Urinalysis Reflex To Culture Urgent
Date Specimen was Collected: 12/08/24
Time Specimen was Collected: 01:58
Urine Microscopic Reflex Cult Urgent
Urine Culture Urgent
ARIANNA Source: U
Specimen Description:
Date Specimen was Collected: 12/08/24
Time Specimen was Collected: 01:58
12/08/24 02:19
0.9% Sodium Chloride 1000 ml [Nss] 1,000 ml IV BOLUS
Abnormal Lab Results
12/08/24 12/08/24
00: 02:00
WBC 11.4 H 10^3/uL
(4.8-10.8)
RBC 2.89 L 10^6/uL
(4.70-6.10)
Hgb 9.1 L g/dL
(13.0-18.0)
Hct 27.4 L %
(39.0-52.0)
MCV 94.8 H fL
(80.0-94.0)
MCH 31.5 H pg
(27.0-31.0)
RDW 14.9 H %
(11.5-14.5)
Abs Immat Gran (auto) 0.1 H 10^3/uL
(0-0.05)
Absolute Neuts (auto) 10.3 H 10^3/uL
(1.4-6.5)
Absolute Lymphs (auto) 0.6 L 10^3/uL
(1.2-3.4)
Immature Gran % 0.6 H %
(0-0.5)
Neutrophils % 90.4 H %
(42.2-75.2)
Lymphocytes % 4.9 L %
(20.5-51.1)
Sodium 130 L mmol/L
(135-145)
Chloride 96 L mmol/L
(98-107)
BUN 50 H mg/dl
(9-20)
Creatinine 2.8 H mg/dL
(0.7-1.3)
Glucose 122 H mg/dl
(70-99)
Total Protein 5.4 L g/dl
(6.3-8.2)
Albumin 3.1 L g/dl
(3.5-5.0)
Ur Occult Blood Reflex 4+ A
(Negative)
Leukocyte Esterase Rfl 3+ A
(Negative)
Urine WBC (Reflex) >100 A /HPF
(0-5)
Urine Bacteria (Reflex) Many A
(Negative)
Urine Albumin (Reflex) 3+ A
(Neg - Trace)
12/08/24 00:26
12/08/24 00:26
Vital Signs
Initial and Last Documented VS:
Initial Vital Signs
Temp Pulse Resp BP Pulse Ox
103.2 F H 109 32 83/56 93
12/08/24 00:01 12/08/24 00:01 12/08/24 00:01 12/08/24 00:01 12/08/24 00:01
Last Documented Vital Signs
Temp Pulse Resp BP Pulse Ox
103.2 F H 100 24 103/61 96
12/08/24 00:01 12/08/24 01:45 12/08/24 01:45 12/08/24 01:00 12/08/24 01:45
MDM/Problems Addressed
Differential Diagnosis Includes:
Clogged Calvin urosepsis bacteremia pneumonia aspiration bowel obstruction viral syndrome
MDM/Problems Addressed:
Fever vomiting Calvin catheter
Chronic conditions affecting care:
ESRD
Chronic conditions affecting care: HTN, Neurological disorder and Kidney disease
Acute Exacerbation and/or Progression of Chronic Illness: HTN, Neurological disorder and Kidney disease
*Radiology
Radiology exam reviewed: preliminary read by ED provider
*Pulse Oximetry
Patient hypoxic: no
*EKG
Interpreted by ED Provider?: Yes
Interpretation: abnormal
Comparison EKG: no comparison EKG present
Heart Rate: 78
Rate: normal
Rhythm: sinus
Ischemia: non-specific ST changes
*Cook Apprentice Interpretation
Rate: normal
Interpretation: normal
Heart Rate: 78
Rhythm: sinus
*Critical Care Note
Total Time (30-74mins, 75-104mins- exclusive of procedures): 33
Update Note
Update Note:
Update suspect symptoms related to clogged Calvin urinary retention, UTI possible bacteremia Calvin been replaced by nursing, cultures have been ordered, antibiotics have been ordered obstruction series has been ordered
ED Attending Note
-
Portions of this chart may have been created with voice recognition software.� Occasional wrong word or��sound alike� substitutions may have occurred due to the inherent limitations of voice recognition software.
Discharge Plan
Departure
Patient Disposition: Admit
Date of Disposition: 12/08/24
Time of Disposition: 02:18
Admit to: Med/Surg
Presentation/result/management discussed w/ accepting MD/DO: Hospitalist
Patient with high blood pressure during this ER visit?: No
Condition: Serious
Covid-19: Not Applicable
Discharge Problem:
Sepsis, unspecified organism, End stage renal disease
Prescriptions:
No Action
polyethylene glycol 3350 [Miralax] 17 gram Powder In Packet
17 g PO HS
midodrine 5 mg Tablet
See Rx Instructions .ROUTE .COMPLEX
Rx Instructions:
5 mg orally before dialysis
mirtazapine 7.5 mg Tablet
7.5 mg PO HS
Zofran ODT
4 mg PO Q8H PRN (Reason: nausea)
aspirin
See Rx Instructions .ROUTE .COMPLEX
Rx Instructions:
81 mg orally on dialysis day
bisacodyl
10 mg RI DAILY PRN (Reason: constipation)
heparin (porcine)
5,000 unit SC TID
levalbuterol HCl
0.63 mg inhalation Q6H PRN (Reason: wheezing)
vitamin B complex
500 mg PO DAILY
mupirocin 2 % Ointment
1 applic topical BID Qty: 15 0RF
Rx Instructions:
Apply to local abdominal area
midodrine 5 mg Tablet
5 mg PO TID@0800,1300,1800 30 Days Qty: 90 0RF
Referrals:
Babar Bruner MD [Family Provider] -
Interventions
Interventions:
*Risk Screen - Suicide Last Done: 12/08/24 00:08
*General Assessment Last Done: 12/08/24 00:08
*Neglect/Abuse Screening Last Done: 12/08/24 00:08
ED- Fall Risk Assessment Last Done: 12/08/24 00:20
*ED COVID-19 Vaccine History Last Done: 12/08/24 00:08
QK-Qewwtf-Vfavleqiht Assessment Last Done: 12/08/24 00:10
Discharge Date and Time
Print Language: MALAGASY
[2024-12-08] MEDS: VANCOCIN 530 MG IV (01:53)
[2024-12-08 02:08] LABS: Urine Albumin 3+ (Neg - Trace); Urine Bilirubin Negative (Negative); Urine Color Yellow; Urine Glucose Negative (Negative); Urine Ketone Negative (Negative); Urine Leukocyte 3+ (Negative); Urine Nitrite Negative (Negative); Urine Occult Blood 4+ (Negative); Urine Specific Gravity 1.015 (<1.030); Urine Urobilinogen Negative (Neg - 1+)
[2024-12-08 02:09] LABS: Urine Character Very Cloudy (Clear)
[2024-12-08 02:14] LABS: Urine Mucus Many
[2024-12-08 02:15] LABS: Urine Amorphous Seen; Urine Bacteria Many (Negative); Urine Squamous Cell SEEN /LPF (Few); Urine White Cell >100 /HPF (0-5)
[2024-12-08] MEDS: NSS 1000 IV ×3 (02:37→14:43)
[2024-12-08] MEDS: NSS 600 IV (02:46)
--- NOTE | 2024-12-08 03:25 | HPS.HSE ---
Family Physician
-
Family Physician: Babar Bruner MD
Chief Complaint
-
Fever, Abd Pain
History of Present Illness
Patient is an 84y M with PMH significant for complicated diverticulitis, ESRD on HD and chronic urinary retention who presents to ED for evaluation of abdominal pain, fever and decreased Calvin output. Patient with complaints of abdominal
discomfort for a few days. Today at [place] noted to have fever and decreased urine output and sent to the ED for evaluation.
At the time of my examination in the ED, patent will open eyes to vocal stimuli, but does not answer questions or follow commands.
Calvin was exchanged in the ED for drainage of grossly purulent and then bloody urine.
Medical History
Past Medical History
Past Medical History: Reports Other
Additional Past Medical History:
Complicated Diverticular Disease
Chronic Urinary Retention / Chronic Calvin
ESRD on HD
Severe
Anemia of CKD
Anxiety / Depression
Skin Breakdown
Pelvic Fracture
Chronic Constipation
Past Surgical History: Reports Other
Additional Past Surgical History:
Diverticular Abscess Drainage (04/2024)
Social History
Unable to obtain full social history at this time due to: Patient Non-verbal
Family History
Family History: Unable to Obtain
Allergies / Home Medications
Allergies reflects when Allergies were last updated in [facility].
Home Medications with original date entered in [facility]
Allergy/Medication List:
Allergies
Allergy/AdvReac Type Severity Reaction Status Date / Time
No Known Allergies Allergy Verified 12/08/24 00:07
Home Medications
midodrine 5 mg tablet 5 mg PO TID low blood pressure 09/07/24
mirtazapine 7.5 mg tablet 7.5 mg PO HS depression/sleep 09/07/24
polyethylene glycol 3350 17 gram oral powder packet (Miralax) 17 g PO HS constipation 09/07/24
vitamin B complex 500 mcg PO SUTUTHSA Supplement 09/07/24
mupirocin 2 % topical ointment 1 applic topical BID #15 grams 09/13/24
acetaminophen 325 mg tablet (Tylenol) 650 mg PO Q6H PRN mild pain/temp>100 12/08/24
aspirin 81 mg capsule 81 mg PO MOWEFR 12/08/24
bisacodyl 10 mg rectal suppository 10 mg MD DAILY PRN constipation 12/08/24
calcitriol 0.25 mcg capsule 0.25 mcg PO MOWEFR 12/08/24
levalbuterol HCl 0.63 mg/3 mL solution for nebulization 0.63 mg inhalation Q6HPRN PRN wheezing 12/08/24
ondansetron 4 mg disintegrating tablet 4 mg PO Q8H PRN nausea 12/08/24
sevelamer HCl 800 mg tablet 800 mg PO TID 12/08/24
Review of Systems
-
Unable to obtain full review of systems at this time due to: Patient Non-verbal
Physical Exam
Vital Signs
Vital Signs
Temp Pulse Resp BP Pulse Ox
99.2 F 87 20 85/50 98
12/08/24 03:02 12/08/24 03:00 12/08/24 03:00 12/08/24 03:00 12/08/24 03:00
Physical Exam
General: Other (Frail, ill-appearing 84y M.)
HEENT: Other (Dry MM. Neck supple. Poor dentition.)
Respiratory: Other (Few rales at both bases. No wheezes.)
Cardiac: S1/S2, Regular Rhythm and Murmur (Harsh holosystolic murmur.)
GI: Other (Abdomen is softly distended. Dressing in place over the LLQ without surrounding erythema, bleeding / discharge. Pos tenderness LLQ / suprapubic region.)
Genito-urinary: Other (Calvin in place draining bloody, purulent urine.)
Musculoskeletal: No Clubbing, No Cyanosis and No Edema
Neuro: Other (Sleeping. Responds to voice. Answers some Y/N questions.)
Hematologic/Lymphatic: Other (Left UE AVF)
Laboratory Results
-
12/08/24 00:26
12/08/24 00:26
Laboratory Results
Lactic Acid Cancelled 12/08/24 04:30
Total Bilirubin 1.0 mg/dl (0.2-1.3) 12/08/24 00:26
AST 19 U/L (17-59) 12/08/24 00:26
ALT 12 U/L (0-50) 12/08/24 00:26
Alkaline Phosphatase 85 U/L (38-126) 12/08/24 00:26
Impression/Plan
-
A/P: Patient is an 84y M with PMH significant for ESRD on HD, complicated diverticulitis and chronic urinary retention who presents to ED for evaluation of fever and abdominal pain.
UTI
Septic Shock secondary to the above
- Admit for further evaluation and treatment.
- Patient presents with fever, leukocytosis, tachycardia, tachypnea and UA consistent with infection.
- UTI likely due to obstructed Calvin / malfunction.
- Replaced catheter in the ED for return of grossly purulent urine.
- Continue IV abx dosed for HD patient.
- Maintain Calvin drainage.
- Continue supportive care including antipyretics, IVFs +/- pressors for perfusion.
- Follow-up culture data.
Complicated Diverticulitis
LLQ Wound
- Prior h/o diverticulitis and BRIANNA drain at LLQ - has persistent wound at this site.
- Tenderness appreciated on exam and will check CT A/P to rule out underlying diverticulitis / recurrent abscess / etc.
- IV abx as noted above.
- Local care to persistent drain site. Follow for any changes.
ESRD on HD
Mild Hyponatremia
Chronic Hypotension
- Nephrology evaluation for HD needs during acute stay.
- Continue midodrine TID for hypotension - wean from other pressors as able.
- Follow for improvement in Na levels with adequate HD / UF.
Anemia of Chronic Disease
- Stable. Hgb is at / near known baseline.
- Follow for any changes.
Severe
- Murmur appreciated on exam.
- Patient not a candidate for intervention / replacement.
Skin Breakdown
- Multiple areas of skin breakdown (bilateral heels, sacrum, LLQ wound).
- Wound Care eval for local care recommendations.
DVT Prophylaxis: Subcut Heparin
Code Status: Full
[2024-12-08] MEDS: FLAGYL 500 MG 100 IV ×3 (04:07→20:09)
--- NOTE | 2024-12-08 04:35 | EDRN ---
TT to Анна POMPA to clarify levophed order parameter (sbp>90)
[2024-12-08] MEDS: LEVOPHED 250 IV ×2 (05:26→22:08)
--- NOTE | 2024-12-08 05:57 | EDRN ---
Went to draw morning labs after levophed started and noted second set blood cultures not drawn on previous shift. This RN attempted twice to obtain blood - able to obtain blood cultures (pt has had 3 abx already) but unable to obtain enough blood
for chem/cbc. Will need to be obtained by day shift phlebotomy.
--- NOTE | 2024-12-08 06:59 | W.PN.HOSP.TC ---
Today's Communication/Plan
-
Continue antibiotics, IV fluids, and pressors -- patient worsened this morning requiring increasing pressors and central line
Appreciate Communication Clerk
Assessment / Plan
Assessment / Plan
Physical Exam
General: Other (Frail, ill-appearing 84y M.)
HEENT: Normocephalic
Respiratory: Decreased breath sounds bilaterally
Cardiac: S1/S2, Regular Rhythm and Murmur (Harsh holosystolic murmur.)
GI: Other (Abdomen is softly distended. Dressing in place over the LLQ without surrounding erythema, bleeding / discharge. Pos tenderness LLQ / suprapubic region.)
Genito-urinary: Other (Calvin in place draining bloody, purulent urine.)
Musculoskeletal: No Cyanosis and No Edema
Neuro: Other (Sleeping. Responds to voice. Answers some Y/N questions.)
Hematologic/Lymphatic: Other (Left UE AVF)
Assessment/Plan
84 y/o male with past medical history significant for complicated diverticulitis, ESRD on HD and chronic urinary retention who presented to ED for evaluation of abdominal pain, fever and decreased Calvin output. Patient with complaints of
abdominal discomfort for a few days. On the day of presentation at [place] noted to have fever and decreased urine output and sent to the ED for evaluation. At time of admission in the ED, patient opened eyes to vocal stimuli, but did not answer
questions or follow commands. Calvin was exchanged in the ED for drainage of grossly purulent and then bloody urine.
Presentation with fever, abdominal pain and toxic metabolic encephalopathy
UTI
Septic Shock secondary to the above
- Patient presents with fever, leukocytosis, tachycardia, tachypnea and UA consistent with infection.
- UTI likely due to obstructed Calivn / malfunction.
- Replaced catheter in the ED for return of grossly purulent urine.
- Continue IV abx dosed for HD patient.
- CT Abdomen Pelvis noted
- Maintain Calvin drainage (per report, Calvin Catheter was exchanged in the ER)
- Continue supportive care including antipyretics, IVFs +/- pressors for perfusion.
- Follow-up culture data.
Complicated Diverticulitis
LLQ Wound
- Prior h/o diverticulitis and BRIANNA drain at LLQ - has persistent wound at this site.
- Tenderness appreciated on exam and will check CT A/P to rule out underlying diverticulitis / recurrent abscess / etc.
- IV abx as noted above.
- Local care to persistent drain site. Follow for any changes.
ESRD on HD
Mild Hyponatremia
Chronic Hypotension
- Nephrology evaluation for HD needs during acute stay.
- Continue midodrine TID for hypotension - wean from other pressors as able.
- Follow for improvement in Na levels with adequate HD / UF.
Anemia of Chronic Disease
- Stable. Hgb is at / near known baseline.
- Follow for any changes.
Severe
- Murmur appreciated on exam.
- Patient not a candidate for intervention / replacement.
- There were discussions last admission re: end-of-life / goals of care but patient remains Full Code at present.
Skin Breakdown
- Multiple areas of skin breakdown (bilateral heels, sacrum, LLQ wound).
- Wound Care eval for local care recommendations.
DVT Prophylaxis: Subcut Heparin
Diet/Speech: Swallow eval completed on this pt. On modified diet at baseline. Rec IDDSI Level 5 (minced/moist) and mildly thick liquids. May benefit from
VSE prior to discharge (he has never had one despite being on thickened liquids at baseline), but would wait until medically improved. We will
follow. Thanks
Code Status: Full
Septic shock is a high-risk encounter.
Anticipated Discharge: > 48 hours
Subjective/Interval History
-
Date of Service: December 08, 2024
Patient was seen and examined. He was drowsy but did not report much in the way of complaints. Per nurse, Levophed had to be increased overnight due to worsening blood pressures.
Objective Data
-
Labs:
Laboratory Results
12/08/24 12/08/24
00:26 06:00
WBC 11.4 H Pending
Hgb 9.1 L Pending
Hct 27.4 L Pending
Plt Count 227 Pending
Sodium 130 L Pending
Potassium 3.8 Pending
Chloride 96 L Pending
Carbon Dioxide 24 Pending
BUN 50 H Pending
Creatinine 2.8 H Pending
Glucose 122 H Pending
Calcium 9.4 Pending
Total Bilirubin 1.0
AST 19
ALT 12
Alkaline Phosphatase 85
Vital Signs:
Vital Signs
Temp Pulse Resp BP Pulse Ox
99.2 F 89 17 78/56 95
12/08/24 03:02 12/08/24 06:32 12/08/24 06:32 12/08/24 06:32 12/08/24 06:00
I&O
12/06/24 12/07/24 12/08/24
06:59 06:59 06:59
Intake Total 1730 / 1730
Output Total 425 / 425
Balance 1305 / 1305
--- NOTE | 2024-12-08 07:25 | EDRN ---
Spa Therapist in ED and this RN asked if she can draw blood in room #36 for AM labs.
--- NOTE | 2024-12-08 07:27 | EDRN ---
Rotary Shear Operator in room drawing AM labs.
--- NOTE | 2024-12-08 07:33 | EDRN ---
Dr. Trujillo in to see pt. Pt is at 6 mcg and IMU is maxed at 8 mcg. Pt's IVF and levophed are off during BPs and for blood draws. Pt is full code. This RN requested ICU bed and IRAD for central line. Dr. Monroe agreed and this RN informed
software engineer intern Bernie at this time.
[2024-12-08 07:55] LABS: Hematocrit 26.2 % (39.0-52.0); Hemoglobin 8.4 g/dL (13.0-18.0); Mean Corp Hgb Conc. 32.1 g/dL (33.0-37.0); Mean Corpuscular Hgb 31.2 pg (27.0-31.0); Mean Corpuscular Volume 97.4 fL (80.0-94.0); Mean Platelet Volume 9.3 fL (7.4-10.4); Platelet Count 234 10^3/uL (130-400); Red Blood Cell Count 2.69 10^6/uL (4.70-6.10); Red Cell Dist. Width 15.2 % (11.5-14.5); White Blood Cell Count 12.4 10^3/uL (4.8-10.8)
[2024-12-08 08:03] LABS: Blood Urea Nitrogen 60 mg/dl (9-20); Calcium 9.7 mg/dl (8.4-10.2); Carbon Dioxide 18 mmol/L (22-30); Chloride 99 mmol/L (98-107); Estimated Creatinine Clearance 14 ml/min; Glucose 96 mg/dl (70-99); Magnesium 1.9 mg/dl (1.6-2.3); Phosphorus 3.2 mg/dl (2.5-4.5); Potassium 4.2 mmol/L (3.5-5.1); Sodium 131 mmol/L (135-145); eGFR 19.98
--- NOTE | 2024-12-08 08:14 | CON.INTV ---
Addendum entered and electronically signed by Jay Michael MD 12/09/24 11:55:
Correction: Temperature 103.2 on admission
Original Note:
Consultation
Consultation Request
Date/Time Consultation Requested: 12/08/2024738
Date/Time Consultation Performed: 12/08/2024806
Requesting Provider: Dr. Monroe
Performing Provider: Dr. Michael
Reason for Consultation: Shock
Medical History
-
Chief Complaint: Coffee ground emesis
History of Present Illness:
84-year-old male with a past medical history of ESRD on HD MWF who presented with concern for GI bleed. At dialysis today he had coffee-ground emesis. Also diffuse abdominal pain. He has a history of A-fib but not on anticoagulants although he is
on aspirin M/W/F as an outpatient. Patient is a poor historian due to dementia. At the retirement, patient also was noted to have a fever with reduced urine output. The Calvin was exchanged in the ER for drainage of grossly purulent and then
bloody urine. In the ER he was febrile to 113.2 �F, pulse rate 109, respiratory rate 32, BP low at 83/56 and saturating 93% on room air. Initial labs showed WBC 11.4, Hb 9.1, serum sodium 130, and urinalysis with +3 leukocyte esterase and >100
urine WBC. Blood + urine cultures were collected. Chest/abdomen XR showed patchy bibasilar lung opacities suspicious for pneumonia with no intestinal obstruction or free air. CT abdomen/pelvis showed small bilateral pleural effusions with
bilateral lower lobe consolidations, with a small pericardial effusion and moderate volume widespread colonic stool. He was given cefepime/vancomycin, PPI, Tylenol and Zofran. Given his hypotension with SBP in the 70-80s, he was started on
Levophed and was admitted to the ICU for further care. [employer] Kit Assembler services consulted for additional management/recommendations.
When I saw the patient he was resting in bed in no acute distress. Patient is nonverbal. Currently on 6 of Levophed with BP 120/60, heart rate 85, and saturating 95% on room air.
PMHx: History of complicated diverticulitis, ESRD on HD MWF, chronic urinary retention, severe aortic stenosis, anemia of chronic kidney disease, anxiety/depression, history of pelvic fracture, chronic constipation
PSHx: Diverticular abscess drainage (April 2024)
Past Medical History
Past Medical History: Other (Above as per HPI)
Past Surgical History: Other (Above as per HPI)
Social History
Tobacco: Other (Unable to obtain (patient nonverbal))
Alcohol: Other (Unable to obtain (patient nonverbal))
Drug: Other (Unable to obtain (patient nonverbal))
Living: Prison
Family History
Family History: Unable to Obtain (Patient nonverbal)
Allergies / Home Medications
Allergies
Allergy/AdvReac Type Severity Reaction Status Date / Time
No Known Allergies Allergy Verified 12/08/24 00:07
Home Medications
�Medication �Instructions �Recorded �Confirmed �Last Taken �Type
midodrine 5 mg tablet 5 mg PO MOWEFR@0800,1700 low blood 09/07/24 12/08/24 Unknown History
pressure
mirtazapine 7.5 mg tablet 7.5 mg PO HS depression/sleep 09/07/24 12/08/24 Unknown History
polyethylene glycol 3350 17 gram 17 g PO DAILYPRN PRN constipation 09/07/24 12/08/24 Unknown History
oral powder packet (Miralax)
vitamin B complex 1 tab PO SUTUTHSA@1900 Supplement 09/07/24 12/08/24 Unknown History
##0
mupirocin 2 % topical ointment 1 applic topical BID #15 grams 09/13/24 12/08/24 Unknown Rx
acetaminophen 325 mg tablet 650 mg PO Q6HPRN PRN mild 12/08/24 12/08/24 Unknown History
(Tylenol) pain/temp>100
aspirin 81 mg tablet,delayed 81 mg PO MOWEFR 12/08/24 12/08/24 Unknown History
release
bisacodyl 10 mg rectal suppository 10 mg CO DAILYPRN PRN if no bm 12/08/24 12/08/24 Unknown History
aftr mom
calcitriol 0.25 mcg capsule 0.25 mcg PO MOWEFR 12/08/24 12/08/24 Unknown History
levalbuterol HCl 0.63 mg/3 mL 0.63 mg inhalation R Q6HPRN PRN 12/08/24 12/08/24 Unknown History
solution for nebulization wheezing
midodrine 5 mg tablet 5 mg PO DAILYPRN PRN hypotension 12/08/24 12/08/24 Unknown History
midodrine 5 mg tablet 5 mg PO SUTUTHSA@08,12,19 12/08/24 12/08/24 Unknown History
ondansetron 4 mg disintegrating 4 mg PO Q8HPRN PRN nausea 12/08/24 12/08/24 Unknown History
tablet
sevelamer HCl 800 mg tablet 800 mg PO TID 12/08/24 12/08/24 Unknown History
Review of Systems
-
Unable to Obtain full review of systems at this time due to: Patient Non Verbal
Vitals / Labs / Diagnostic Testing
Vital Signs
Temp Pulse Resp BP Pulse Ox
99.2 F 99 15 98/62 94
12/08/24 03:02 12/08/24 09:15 12/08/24 09:15 12/08/24 09:15 12/08/24 09:15
Lab Data
12/08/24 07:41
12/08/24 07:41
Microbiology
12/08/24 00:27 Nasal Swab Influenza Types A & B (CORY) - Final
Negative for Influenza A & B, NAAT
Negative results must be combined with clinical observations
and patient history.
Nucleic Acid Amplification test (NAAT)performed on the
[employer] platform.
Diagnostic Testing:
Physical Exam
-
HEENT: Normocephalic and Anicteric
Cardiovascular: S1/S2, Murmur (CARYL, grade III/, heard across precordium) and Peripheral Edema (negative)
Respiratory: Wheeze (negative), Rales (Bibasilar), Rhonchi (negative) and Non-Labored Respirations
GI: Soft, Non Distended, Non Tender and Normal Bowel Sounds
Neurology: Awake, Alert and Tremors (negative)
Skin: Warm and Dry
General: Respiratory Distress (negative), Comfortable, Fever (negative), Chills (negative) and Other (Nonverbal elderly male in no acute distress)
Assessment
-
Assessment: 84-year-old male with a past medical history of ESRD on HD MWF who presented with concern for GI bleed. At dialysis today he had coffee-ground emesis. Also diffuse abdominal pain. He has a history of A-fib but not on anticoagulants
although he is on aspirin M/W/ as an outpatient. Patient is a poor historian due to dementia. At the retirement, patient also was noted to have a fever with reduced urine output. The Calvin was exchanged in the ER for drainage of grossly
purulent and then bloody urine. In the ER he was febrile to 113.2 �F, pulse rate 109, respiratory rate 32, BP low at 83/56 and saturating 93% on room air. Initial labs showed WBC 11.4, Hb 9.1, serum sodium 130, and urinalysis with +3 leukocyte
esterase and >100 urine WBC. Blood + urine cultures were collected. Chest/abdomen XR showed patchy bibasilar lung opacities suspicious for pneumonia with no intestinal obstruction or free air. CT abdomen/pelvis showed small bilateral pleural
effusions with bilateral lower lobe consolidations, with a small pericardial effusion and moderate volume widespread colonic stool. He was given cefepime/vancomycin, PPI, Tylenol and Zofran. Given his hypotension with SBP in the 70-80s, he was
started on Levophed and was admitted to the ICU for further care. Deicer Kit Assembler services consulted for additional management/recommendations.
Chronic conditions SLOT OPERATIONS DIRECTOR: History of complicated diverticulitis, ESRD on HD MWF, chronic urinary retention, severe aortic stenosis, anemia of chronic kidney disease, anxiety/depression, history of pelvic fracture, chronic constipation
Impression:
#Septic shock due to UTI +/- bibasilar pneumonia
#Small bilateral lower lobe consolidations with bilateral pleural effusions - due to pneumonia versus compressive atelectasis from bilateral pleural effusions (effusions are chronic)
#Severe aortic stenosis with peak/mean gradients across AV of 71/41 mmHg, respectively via TTE from 09/09/2024
#Acute respiratory failure with hypoxia due to sepsis with acute organ dysfunction
#Anemia
#Hyponatremia
#Metabolic acidosis with increased anion gap
#Chronic constipation
#Chronic bilateral hydroureteronephrosis with renal atrophy
#Dementia/nonverbal
#ESRD on HD MWF
Plan:
- Continue with vasopressors with Levophed to maintain MAP >65 --> wean as tolerated
- Continue with broad-spectrum antibiotics, currently on cefepime + Flagyl
- Follow-up infectious workup, including blood cultures x 2 collected today and urine culture (all shows NGTD)
- Continue with crystalloids with NS 0.9% at 100 cc/h --> would minimize IVF given his small bilateral pleural effusions with history of severe aortic stenosis, as he is at risk of heart failure
- Continue with HD as per nephrology
- Maintain SpO2 >90-94%
- Continue aspiration precautions
- Compared to prior CT abdomen/pelvis from 09/07/2024, his pleural effusions are relatively the same size however he has worsening bibasilar opacification likely due to atelectasis; less likely pneumonia however this is not ruled out and
unfortunately given patient is nonverbal we are unable to assess for symptoms of pneumonia
- Maintain MAP>65
- Replete electrolytes with K>4, Mg>2
- Maintain euglycemia with goal BG 140-180
- Trend H/H and transfuse if needed to keep Hb>7g/dL; keep plt>20k, unless there is concern for bleeding then keep plt>50k
- prn nebulized bronchodilators - not currently bronchospastic
- DVT ppx: HSQ
Continue ICU level care for this critically ill patient.
Critical care statement: A total of 40 minutes of critical care time was provided for this patient today. This includes management of unstable vital signs, evaluation of the patient at bedside, reviewing the patient's pertinent medical records
including radiographs, microbiology, laboratory evaluations, and discussion with primary team, consultants, pharmacy, nutrition, physical therapy, case management, charge nurse, critical care nursing, and respiratory therapy.
--- NOTE | 2024-12-08 08:15 | EDRN ---
Coty Vazquez, Wound dye tub operator, was in to evaluate pt's skin at this time.
--- NOTE | 2024-12-08 08:24 | EDRN ---
IRAD in room placing a central line at this time.
--- NOTE | 2024-12-08 08:28 | EDRN ---
This RN TT'd Dr. Monroe for post insertion portable CXR to confirm placement of central line.
--- NOTE | 2024-12-08 08:43 | EDRN ---
IRAD has finished in room w/ xray called to get post procedural portable CXR.
--- NOTE | 2024-12-08 08:50 | WOUNDNOTE ---
WOC RN note: Patient admitted with sepsis, UTI. [facility] a [facility].
See H&P for complete history.
PMH: complicated diverticulitis with abscess drainage 04/2024, ESRD on HD, urinary retention, Calvin catheter, CKD, anemia, R hip pressure injury, pelvic fracture, constipation.
Wound Location and type/assessment: Patient admitted with: Deep dermal stage 2 R hip pressure injury. Stage 1 sacral/buttocks pressure injury. Mid spine stage 1 pressure injury. R back dry red abrasion. L heel small dry dull red scar suspect from
previous pressure injury. Scrotal redness/MASD. LLQ old drain site opening with moderate-large amount or yellow/valenzuela cloudy drainage. R side of nose dry punctate scabbed ulcer patient stated was from past skin cancer removal, no drainage, no
erythema. L bowen with several small scabbed abrasions.
Appetite: currently NPO. Patient very thin.
Pressure redistribution devices in place: ED stretcher. Patient does not turn self in bed.
Plan: Silicone border foam applied to R hip, spine, sacrum, heels. Air chair cushion placed under sacrum. Patient turned to R semi side lying position with help from [facility] RN assist Lashawn. Heels off bed with pillow.
Will confirm orders with Dr. Monroe and updated ED RN Christen Velásquez stated plan is ICU transfer.
Care plan to be updated and will follow as needed.
Note to case management of equipment requested for discharge: Air mattress at SNF if not already in place.
Recommend follow up with wound toddler caregiver or at wound care center upon discharge.
--- NOTE | 2024-12-08 08:50 | EDRN ---
Portable CXR completed at this time.
--- NOTE | 2024-12-08 08:52 | WOUNDNOTE ---
WO RN note: Patient admitted with sepsis, UTI. Patient resides at a senior care.
See H&P for complete history.
PMH: complicated diverticulitis with abscess drainage 04/2024, ESRD on HD, urinary retention, Calvin catheter, CKD, anemia, R hip pressure injury, pelvic fracture, constipation.
Wound Location and type/assessment: Patient admitted with: Deep dermal stage 2 R hip pressure injury. Stage 1 sacral/buttocks pressure injury. Mid spine stage 1 pressure injury. R back dry red abrasion. L heel dry callus. Scrotal redness/MASD. LLQ
old drain site small opening with moderate-large amount or yellow/valenzuela cloudy drainage.
Appetite: currently NPO. Patient very thin.
Pressure redistribution devices in place: ED stretcher. Patient does not turn self in bed.
Plan: Silicone border foam applied to R hip, spine, sacrum, heels. Air chair cushion placed under sacrum. Patient turned to R semi side lying position with help from [facility] RN miracle Hardin. Heels off bed with pillow.
Will confirm orders with Dr. Monroe and updated ED RN Christen Moura
Care plan to be updated and will follow as needed.
Note to case management of equipment requested for discharge: Air mattress at SNF if not already in place.
Recommend follow up with wound infant caregiver or at wound care center upon discharge.
--- NOTE | 2024-12-08 08:54 | WOUNDNOTE ---
LEFT LOWER ABDOMEN
--- NOTE | 2024-12-08 08:55 | WOUNDNOTE ---
LEFT LOWER ABDOMEN
--- NOTE | 2024-12-08 08:57 | WOUNDNOTE ---
LEFT LOWER ABDOMEN
--- NOTE | 2024-12-08 08:58 | WOUNDNOTE ---
BILATERAL LOWER LEGS
--- NOTE | 2024-12-08 08:59 | WOUNDNOTE ---
LEFT LOWER LEG
--- NOTE | 2024-12-08 09:04 | WOUNDNOTE ---
RIGHT HIP(POSTERIOR)
--- NOTE | 2024-12-08 09:30 | EDRN ---
Dr. Monroe and MANJU have confirmed placement of R Jugular central line at this time and I will transfer IV infusions to this line at this time.
--- NOTE | 2024-12-08 09:37 | EDRN ---
Levophed and IVF infusing through the Proximal lumin of R jugular triple lumen central line at this time.
--- NOTE | 2024-12-08 09:52 | W.CON.NEPH ---
Consultation
-
Date/Time Consultation Requested: 12/08/2024 8 AM
Date/Time Consultation Performed: 12/08/2024 10 AM
Requesting Provider: Dr. Armstrong
Performing Provider: Dr. Coburn
Reason for Consultation: ESRD
Medical History
-
Chief Complaint: Fever abdominal pain
History of Present Illness:
84-year-old who has end-stage renal disease on hemodialysis Thursday at [facility] (previously at [facility] for last 8yrs through left UE AVF), chronic urinary retention with suprapubic catheter, anemia, oropharyngeal
dysphagia, generalized weakness, diverticulitis with perforation and abscess, atrial fibrillation on ASA presenting to the emergency department with fever and abdominal pain over several days. This does not seem to have disrupted his dialysis
schedule. His urine output also decreased recently with worsening fevers and he was sent to the emergency room. In the emergency room Calvin catheter was exchanged with drainage of purulent and bloody urine. He remains lethargic. He was also
hypotensive requiring initiation of pressors. He is currently critically ill. We are asked to assist with management of his ESRD
Past Medical History
ESRD
Chronic urinary retention s/p suprapubic catheter
Dysphagia
AFIB
Left upper extremity AV fistula
Diverticulosis
Pelvic fracture
Diverticular abscess drainage
Social History
Tobacco: Non-Smoker
Alcohol: None
Drug: None
Living: Half-Way
Employment: Retired
Family History
Family History: Not Pertinent
Allergies / Home Medications
Allergy/AdvReac Type Severity Reaction Status Date / Time
No Known Allergies Allergy Verified 12/08/24 00:07
�Medication �Instructions �Recorded �Confirmed �Type
midodrine 5 mg tablet 5 mg PO MOWEFR@0800,1700 low blood 09/07/24 12/08/24 History
pressure
mirtazapine 7.5 mg tablet 7.5 mg PO HS depression/sleep 09/07/24 12/08/24 History
polyethylene glycol 3350 17 gram 17 g PO DAILYPRN PRN constipation 09/07/24 12/08/24 History
oral powder packet (Miralax)
vitamin B complex 1 tab PO SUTUTHSA@1900 Supplement 09/07/24 12/08/24 History
##0
mupirocin 2 % topical ointment 1 applic topical BID #15 grams 09/13/24 12/08/24 Rx
acetaminophen 325 mg tablet 650 mg PO Q6HPRN PRN mild 12/08/24 12/08/24 History
(Tylenol) pain/temp>100
aspirin 81 mg tablet,delayed 81 mg PO MOWEFR 12/08/24 12/08/24 History
release
bisacodyl 10 mg rectal suppository 10 mg MT DAILYPRN PRN if no bm 12/08/24 12/08/24 History
aftr mom
calcitriol 0.25 mcg capsule 0.25 mcg PO MOWEFR 12/08/24 12/08/24 History
levalbuterol HCl 0.63 mg/3 mL 0.63 mg inhalation R Q6HPRN PRN 12/08/24 12/08/24 History
solution for nebulization wheezing
midodrine 5 mg tablet 5 mg PO DAILYPRN PRN hypotension 12/08/24 12/08/24 History
midodrine 5 mg tablet 5 mg PO SUTUTHSA@08,12,19 12/08/24 12/08/24 History
ondansetron 4 mg disintegrating 4 mg PO Q8HPRN PRN nausea 12/08/24 12/08/24 History
tablet
sevelamer HCl 800 mg tablet 800 mg PO TID 12/08/24 12/08/24 History
Review of Systems
-
Unable to obtain full review of systems at this time due to: Patient Non Verbal
All other systems: Negative unless noted
Physical Exam
Vital Signs
Vital Signs
Temp Pulse Resp BP Pulse Ox
99.2 F 99 15 98/62 94
12/08/24 03:02 12/08/24 09:15 12/08/24 09:15 12/08/24 09:15 12/08/24 09:15
Lab Results
WBC 12.4 10^3/uL (4.8-10.8) H 12/08/24 07:41
RBC 2.69 10^6/uL (4.70-6.10) L 12/08/24 07:41
Hgb 8.4 g/dL (13.0-18.0) L 12/08/24 07:41
Hct 26.2 % (39.0-52.0) L 12/08/24 07:41
Plt Count 234 10^3/uL (130-400) 12/08/24 07:41
Sodium 131 mmol/L (135-145) L 12/08/24 07:41
Potassium 4.2 mmol/L (3.5-5.1) 12/08/24 07:41
Chloride 99 mmol/L (98-107) 12/08/24 07:41
Carbon Dioxide 18 mmol/L (22-30) L 12/08/24 07:41
BUN 60 mg/dl (9-20) H 12/08/24 07:41
Creatinine 3.0 mg/dL (0.7-1.3) H 12/08/24 07:41
eGFR 19.98 12/08/24 07:41
Glucose 96 mg/dl (70-99) 12/08/24 07:41
Calcium 9.7 mg/dl (8.4-10.2) 12/08/24 07:41
Phosphorus 3.2 mg/dl (2.5-4.5) 12/08/24 07:41
Albumin 3.1 g/dl (3.5-5.0) L 12/08/24 00:26
Laboratory Tests
09/13/24
06:25
WBC 5.6
Hgb 8.3 L
Carbon Dioxide 31 H
CIMPRESSION:
Small bilateral lower lobe consolidations with air bronchograms which could represent pneumonia and small bilateral pleural effusions.
Small pericardial effusion. Coronary artery calcifications and/or stents.
Moderate volume widespread colonic stool. Markedly limited evaluation of intestinal tract without oral or intravenous contrast, without findings to suggest intestinal obstruction. No free air.
Likely chronic bilateral hydroureteronephrosis with some renal atrophy.
Virtually completely empty/unopacified urinary bladder containing Calvin catheter. If there is a concern for cystitis, suggest correlation with urinalysis.
Old left pelvic fractures and stable chronic-appearing marked L2 vertebral compression fracture.
T abdomen pelvis 12/08/2024
Physical Exam
Patient is unresponsive. Mood and affect could not be assessed, insight and judgment could not be assessed. Pupils are equal round and reactive to light, extraocular movements could not be assessed, sclera were anicteric. Hearing could not be
assessed, ears and nose are intact. Oropharynx was clear. Neck was supple with trachea midline and no thyromegaly. Heart was regular rate and rhythm without rubs. Lower extremities without edema. Lungs were clear to auscultation bilaterally and
with normal excursion. Abdomen was soft, nontender, with normal active bowel sounds, and no hepatosplenomegaly. Skin was without rash and with normal turgor. Left upper extremity AV fistula with good thrill and bruit
Vascular Access: AVF
Data Reviewed
-
Radiology: Image Personally Visualized and interpreted (Chest x-ray 12/08/2024 by reading shows bilateral lower lobe infiltrate)
CT Scan: Report Reviewed by me
Medical Tests (Nuc Med, Echo etc): Image Personally Visualized and interpreted (EKG 12/08/2024 by my reading shows sinus tachycardia right bundle branch block)
Labs: Labs Reviewed by me
Old Records: Reviewed
Assessment/Plan
-
IMP:
Abdominal pain
Fever
ESRD - HD M/W/F. kirit mejia, previously [place] unit at [facility]
Anemia of CKD
Leucocytosis
Urinary tract infection
Left UE AVF
constipation noted on CT
Hypotension
Aortic stenosis not a TAVR candidate
Plan:
Pressors to keep mean arterial pressure greater than 65
Continue midodrine as allowed if oral intake may be maintained
JO for anemia, hgb low
Maintain chronic Calvin not replaced
Plan for dialysis tomorrow
Critical care time spent 31 minutes
[2024-12-08] MEDS: ProAmatine 5 MG PO ×3 (10:16→22:08)
[2024-12-08] MEDS: HEPARIN 5000 UNITS SC ×2 (10:16→20:09)
--- NOTE | 2024-12-08 10:40 | EDRN ---
On administering pt's proamatine w/ water pt had difficulty swallowing and seemed to be choking on pill and water. THis RN TT'd Dr. Monroe at this time to inform him of this and requested speech consult.
--- NOTE | 2024-12-08 10:41 | EDRN ---
Dr. Monroe responded and said will put in speech consult.
--- NOTE | 2024-12-08 11:31 | EDRN ---
Addendum entered by Christen Martinez RN 12/08/24 11:34:
wound on abdomen on L lower abdomen not RLQ.
Original Note:
Pt has foam dressings noted to following areas: R hip (stage 2 area), sacral and mid back redness, abrasion to L back, R Lower abdomen. Pictures were downloaded by Nichol Vazquez RN Wound Ostomy.
--- NOTE | 2024-12-08 12:20 | PTOTSP ---
Speech Language Pathology
Pt seen for clinical bedside swallow evaluation. Pt on diet equivalent to IDDSI Level 6/mildly thick liquids at baseline. No VSE completed at , pt does not believe he had one completed in the past. P.O. trials of puree, regular solids, and
mildly thick liquids provided. Attempted ice chips, but pt stated he does not like ice. Deferred trials of thin liquids given coughing with RN and history of modified diet. Prolonged mastication of regular solids noted with need for liquid wash
to clear residue. No overt signs of aspiration with consistencies trialed.
Recommend:
(1) IDDSI Level 5 (minced/moist) and mildly thick liquids
(2) Aspiration precautions: sit upright, slow rate
(3) Meds crushed in puree (this is pt's baseline per report, unsure if accurate)
(4) Will consider VSE prior to discharge from hospitalization to see if baseline modified diet indicated. Would wait until medically improved
(5) PANEL BUILDER to continue to follow
--- NOTE | 2024-12-08 12:26 | EDRN ---
Speech therapist was in to evaluate pt. Pt takes pills crushed in apple sauce and she will advised thickened liquids.
--- NOTE | 2024-12-08 13:00 | EDRN ---
THis RN TT'd Dr. Monroe at this time as started to slowly wean pt down off levophed. He asked about pt not going to ICU as of yet and this RN explained why as pts who need to transfer cannot get a bed.
--- NOTE | 2024-12-08 13:23 | CM ---
CM confirmed that patient is from [facility]. Patient has HD MWF. Plan to return to [facility] when medically stable.
PLAN: [facility].
--- NOTE | 2024-12-08 13:46 | EDRN ---
Brother in room visiting w/ pt at this time.
--- NOTE | 2024-12-08 14:52 | EDRN ---
Attempted to call report to ICU and RN unavailable to take report at this time.
--- NOTE | 2024-12-08 15:01 | EDRN ---
Attempting to give report again, was advised to ask for conveyor line battery charger to take report and was informed that she is w/ a pt and will call this RN back.
--- NOTE | 2024-12-08 15:29 | EDRN ---
This RN on phone w/ ICU attempting to give report at this time.
--- NOTE | 2024-12-08 15:30 | EDRN ---
Charge nurse in ICU and RN who will care for pt in ICU remain unavailable to take report at this time.
--- NOTE | 2024-12-08 16:13 | EDRN ---
Report called to Vanessa TRIANA in ICU at this time.
--- NOTE | 2024-12-08 18:29 | PTCARENOTE ---
Pt admitted to ICU for UTI sepsis. VSS. Levo off upon admission. NS at 100cc/hr. Pt lethargic but answers questions, KELSEY. Chronic pratt draining blood tinged urine with scant small clots. Wound dressings CDI-see wound RN note. LFA fistula with bruit
and thrill. Tolerated sips and apple sauce.
--- NOTE | 2024-12-08 20:00 | PTCARENOTE ---
Received pt resting in bed, oriented to self and place. Thought it was 2023 and unsure of month. Forgetful at times. Flat affect. COLE but gen. weak. NSR on tele, HR 70s-80s. + murmur. Levophed on and off low dose to maintain MAP>65- see worklist. On
RA. Lungs diminished. Occasional TILE HELPER cough. Hypoactive bowel sounds. NPO. Chronic pratt draining blood tinged urine. LUE fistula + B/T. R IJ TLC with levo and NSS. Turning q2. Call liz in reach
[2024-12-08] MEDS: DESENEX/MITRAZOL/ZEASORB 1 APPLIC TOPICAL (20:09)
[2024-12-09] VITALS (59 sets, daily range): BP systolic 79–110; BP diastolic 46–67; PULSE 96; BMI 19.8
[2024-12-09] MEDS: MAXIPIME 5.65 MG IV
--- NOTE | 2024-12-09 00:16 | PTCARENOTE ---
No changes in assessment. Pt resting. Currently on 2mcg levo.
[2024-12-09] MEDS: FLAGYL 500 MG 100 IV ×2 (04:55→12:15)
[2024-12-09 05:27] LABS: INR 1.41; PT 17.8 Sec (11.4-14.6)
[2024-12-09 05:28] LABS: APTT 40.1 Sec (23.4-35.0)
[2024-12-09] MEDS: ProAmatine 5 MG PO ×3 (07:13→22:30)
[2024-12-09] MEDS: HEPARIN 5000 UNITS SC ×2 (07:13→22:29)
[2024-12-09] MEDS: DESENEX/MITRAZOL/ZEASORB 1 APPLIC TOPICAL ×2 (07:14→22:36)
--- NOTE | 2024-12-09 07:33 | W.PN.INTV ---
Today's Communication / Plan
Recommendations
Antibiotics per ID
Check echo
Follow-up surveillance blood cultures for today
Up OOB as tolerated
Check wound culture from LLQ abdomen and consider surgical consult if blood cultures remain positive
Maintain MAP >65 and wean down off Levophed as tolerated
Continue midodrine
Continue ICU level care for this critically ill patient
Assessment
-
Assessment: 84-year-old male with a past medical history of ESRD on HD MWF who presented with concern for GI bleed. At dialysis today he had coffee-ground emesis. Also diffuse abdominal pain. He has a history of A-fib but not on anticoagulants
although he is on aspirin M/W/F as an outpatient. Patient is a poor historian due to dementia. At the long-term, patient also was noted to have a fever with reduced urine output. The Calvin was exchanged in the ER for drainage of grossly
purulent and then bloody urine. In the ER he was febrile to 103.2 �F, pulse rate 109, respiratory rate 32, BP low at 83/56 and saturating 93% on room air. Initial labs showed WBC 11.4, Hb 9.1, serum sodium 130, and urinalysis with +3 leukocyte
esterase and >100 urine WBC. Blood + urine cultures were collected. Chest/abdomen XR showed patchy bibasilar lung opacities suspicious for pneumonia with no intestinal obstruction or free air. CT abdomen/pelvis showed small bilateral pleural
effusions with bilateral lower lobe consolidations, with a small pericardial effusion and moderate volume widespread colonic stool. He was given cefepime/vancomycin, PPI, Tylenol and Zofran. Given his hypotension with SBP in the 70-80s, he was
started on Levophed and was admitted to the ICU for further care. Dumb Waiter Operator services consulted for additional management/recommendations.
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
Impression:
#Septic shock due to UTI +/- bibasilar pneumonia
#MRSA bacteremia - sources includes MRSA pneumonia vs UTI vs LLQ abdominal wall ulcerative lesion that is leaking pus
#Small bilateral lower lobe consolidations with bilateral pleural effusions - due to pneumonia versus compressive atelectasis from bilateral pleural effusions (effusions are chronic)
#Severe aortic stenosis with peak/mean gradients across AV of 71/41 mmHg, respectively via TTE from 09/09/2024
#Acute respiratory failure with hypoxia due to sepsis with acute organ dysfunction
#Anemia
#Hyponatremia
#Metabolic acidosis with increased anion gap
#Chronic constipation
#Chronic bilateral hydroureteronephrosis with renal atrophy
#Dementia/nonverbal
#ESRD on HD MWF
Plan:
- Continue with vasopressors with Levophed to maintain MAP >65 --> wean as tolerated
- Continue with broad-spectrum antibiotics, currently on cefepime + Flagyl; IV vanco resumed today and flagyl to be DC'd
- Follow-up infectious workup, including blood cultures x 2 collected 12/08 (1 set grew MRSA); follow up urine culture (all shows NGTD); MRSA swab also positive
- ID consulted - defer ABx to them; may need additional workup of his LLQ abdominal ulcer that is leaking pus; may need surgery consult
- Wound care
- Check echo to assess for endocarditis
- Repeat surveillance blood cultures today
- Would minimize IVF given his small bilateral pleural effusions with history of severe aortic stenosis, as he is at risk of heart failure
- Continue with HD as per nephrology
- Maintain SpO2 >90-94%
- Continue aspiration precautions
- Compared to prior CT abdomen/pelvis from 09/07/2024, his pleural effusions are relatively the same size however he has worsening bibasilar opacification likely due to atelectasis; less likely pneumonia however this is not ruled out and
unfortunately given patient is nonverbal we are unable to assess for symptoms of pneumonia
- Maintain MAP>65
- Replete electrolytes with K>4, Mg>2
- Maintain euglycemia with goal BG 140-180
- Trend H/H and transfuse if needed to keep Hb>7g/dL; keep plt>20k, unless there is concern for bleeding then keep plt>50k
- prn nebulized bronchodilators - not currently bronchospastic
- DVT ppx: HSQ
Continue ICU level care for this critically ill patient.
Critical care statement: A total of 38 minutes of critical care time was provided for this patient today. This includes management of unstable vital signs, evaluation of the patient at bedside, reviewing the patient's pertinent medical records
including radiographs, microbiology, laboratory evaluations, and discussion with primary team, consultants, pharmacy, nutrition, physical therapy, case management, charge nurse, critical care nursing, and respiratory therapy.
Subjective Dataa
Subjective Data
Date of Service:
Date of Service: December 09, 2024
Chief Complaint: Dumb Waiter Operator Follow Up
Subjective:
Patient seen and evaluated this morning. Underwent HD this morning and needed Levophed up to 3mcg/min. Blood culture from 12/08 growing MRSA. He is currently on room air, breathing comfortably and saturating 97%. Heart rate 91 and BP 110/56.
Review of Systems
General: Other (Unable to obtain given patient's acute clinical status/dementia)
Objective Data
Data Reviewed
Vital Signs / I&O / Oxygen:
Vital Signs
Temp Pulse Resp BP Pulse Ox
98.7 F 82 19 103/55 98
12/09/24 03:10 12/09/24 07:19 12/09/24 07:19 12/09/24 07:19 12/09/24 07:26
Intake and Output
12/08/24 12/09/24 12/10/24
06:59 06:59 06:59
Intake Total 1730 / 1730 560.2 / 564.0 3.8 / 3.8
Output Total 425 / 425 1625 / 1625
Balance 1305 / 1305 -1064.8 / -1061.0 3.8 / 3.8
SaO2 98
Nasal Cannula flow liters per 1
minute
Physical Exam
General: Respiratory Distress (negative), Comfortable, Chills (negative) and Sweats (negative)
HEENT: Normocephalic and Anicteric
Cardiovascular: S1-S2, Murmur (CARYL heard across precordium) and Peripheral Edema (negative)
Respiratory: Wheeze (negative), Crackles (negative), Rhonchi (negative) and Non-Labored Respirations
GI: Soft, Non Distended, Non Tender and Normal Bowel Sounds
Neurology: Awake, Alert, Tremors (negative) and Non Verbal
Skin: Warm, Dry, Cyanosis (negative), Jaundice (negative) and Other (Ulcerative lesion which is leaking purulent fluid from left lower quadrant of abdomen)
Labs/Micro/Reports
Laboratory Results
12/09/24
04:58
PT 17.8 H
INR 1.41
APTT 40.1 H
Microbiology
12/08/24 05:53 Blood/Venous Blood Culture - Preliminary
No Growth in 24 hours- Final report to follow
12/08/24 01:21 Blood/Venous Blood Culture - Preliminary
No Growth in 24 hours- Final report to follow
12/08/24 00:27 Nasal Swab Influenza Types A & B ([facility]ORY) - Final
Negative for Influenza A & B, NAAT
Negative results must be combined with clinical observations
and patient history.
Nucleic Acid Amplification test (NAAT)performed on the
[employer] platform.
--- NOTE | 2024-12-09 07:37 | PTCARENOTE ---
Assumed care of pt from night patrol inspector RN. AAOx2. Remains disoriented to time. Thought it was July when asked what month we are currently in. NSR on tele, HRs 70-80s. Remains on Levo at 1mcg/min for MAP goal > 65. Weaned off 1L nasal cannula to RA,
SpO2 96% on RA. LUE fistula + B/T. Calvin with maldonado/teal color urine in drainage bag. Oral care provided. Pt remains NPO until assessed by Speech. HD RN at bedside. Call liz in reach. Assessment documented.
--- NOTE | 2024-12-09 08:41 | W.PN.NEPH.HD ---
Assessment
-
Patient seen on dialysis
Systolic blood pressure 99 on Levophed pressor support titrated up on dialysis to support UF
Access left upper extremity AV fistula with good function
Progress Note - Hemodialysis
-
Date of Service: December 09, 2024
Duration: 30 minutes and 3 hours
Potassium Bath: 2
Calcium Bath: 2.5
Opti-Dialyzer: 160
Ultrafiltration: Other (1kg as hemodynamically tolerated)
Blood Flow: 400
Dialysate Flow: 600
Heparin: none
EPO: 10,000
--- NOTE | 2024-12-09 08:48 | W.PN.NEPH.PH ---
Today's Communication / Plan
-
HD
pressors
Assessment/Plan
-
IMP:
Abdominal pain
Fever
ESRD - HD M/W/F. kirit mejia, previously [facility] unit at [facility]
Suprapubic cath
History of diverticulitis with left lower abdominal wound patch
Gram-positive cocci bacteremia
Anemia of CKD
Leucocytosis
Urinary tract infection
Left UE AVF
constipation noted on CT
Atrial fibrillation
Severe aortic stenosis
Hypotension
Aortic stenosis not a TAVR candidate
Plan:
Pressors to keep mean arterial pressure greater than 65, Levophed titrated up to support UF on dialysis
Currently n.p.o.
JO for anemia, hgb low
Maintain chronic Pratt
Dialysis today
Metronidazole cefepime and vancomycin renally dosed for ESRD in setting of suspected pneumonia
Gram-positive cocci in clusters noted on initial blood culture
Patient critically ill with septic shock in setting of gram-positive bacteremia requiring pressor support and dialysis
Critical care time spent 31 minutes
-
-
Date of Service: December 09, 2024
CC / HPI / ROS
-
Chief Complaint:
ESRD Thursday
History of Present Illness:
ESRD Thursday schedule
Hemodynamically unstable on Levophed pressor support in setting of gram-positive bacteremia
Remains on vancomycin metronidazole cefepime for suspected pneumonia
Anemic
Review of Systems:
Complains of pain with breathing
Baseline dementia but does respond to questions
chronic pratt
Labs
-
Labs:
BUN 60 mg/dl (9-20) H 12/08/24 07:41
Creatinine 3.0 mg/dL (0.7-1.3) H 12/08/24 07:41
eGFR 19.98 02/27/25 07:41
Glucose 96 mg/dl (70-99) 12/08/24 07:41
Calcium 9.7 mg/dl (8.4-10.2) 12/08/24 07:41
Phosphorus 3.2 mg/dl (2.5-4.5) 12/08/24 07:41
Albumin 3.1 g/dl (3.5-5.0) L 12/08/24 00:26
Physical Exam
-
Vital Signs:
Vital Signs
Temp Pulse Resp BP Pulse Ox
98.7 F 83 15 99/58 97
12/09/24 03:10 12/09/24 08:30 12/09/24 08:30 12/09/24 08:30 12/09/24 08:30
Cardiovascular:: Irregular rate and rhythm (4 out of 6 systolic ejection murmur at right sternal base)
Respiratory:: Bilateral: Coarse
Lung Excursion:: Normal
Abdomen:: Nontender and Soft
Bowel Sounds:: Normal
Extremity Edema:: None: Bilateral:
Pratt Catheter: Yes
[2024-12-09 09:03] LABS: Carbon Dioxide 16 mmol/L (22-30); Chloride 103 mmol/L (98-107); Potassium 3.5 mmol/L (3.5-5.1); Sodium 131 mmol/L (135-145)
[2024-12-09] MEDS: RETACRIT 10000 UNITS IV (09:16)
[2024-12-09 09:18] LABS: % Basophils 0.6 % (0-2); % Eosinophils 5.2 % (0-6); % Immature Granulocytes 0.4 % (0-0.5); % Lymphocytes 8.1 % (20.5-51.1); % Monocytes 7.1 % (1.7-9.3); % Neutrophils 78.6 % (42.2-75.2); Absolute Basophils 0.1 10^3/uL (0-0.2); Absolute Eosinophils 0.4 10^3/uL (0-0.7); Absolute Lymphocytes 0.7 10^3/uL (1.2-3.4); Absolute Monocytes 0.6 10^3/uL (0.1-0.6); Absolute Neutrophils 6.3 10^3/uL (1.4-6.5); Hematocrit 22.6 % (39.0-52.0); Hemoglobin 7.7 g/dL (13.0-18.0); Mean Corp Hgb Conc. 34.1 g/dL (33.0-37.0); Mean Corpuscular Volume 91.1 fL (80.0-94.0); Mean Platelet Volume 9.5 fL (7.4-10.4); Nucleated Red Blood Cells % 0 % (-); Platelet Count 227 10^3/uL (130-400); Red Blood Cell Count 2.48 10^6/uL (4.70-6.10)
[2024-12-09 10:38] LABS: Hepatitis B Surface Antigen Negative (Negative)
--- NOTE | 2024-12-09 11:01 | PN.CDI ---
CDI
- -
CDI:
Physician Documentation Request
Admit Date: 12/08/24 03:42
Dear Doctor Mabel,
12/08 Wound care note: 'Deep dermal stage 2 R hip pressure injury. Stage 1 sacral/buttocks pressure injury. Mid spine stage 1 pressure injury.'
Physician documentation of the type and location of wounds is required for compliant documentation. Based on the above clinical findings and your assessment, please provide the following in your progress note:
1. Location of the ulcer/wound, including laterality.
2. Type (etiology) of ulcer/wound:
- Diabetic ulcer
- Arterial (ischemic) ulcer
- Traumatic wound
- Venous stasis ulcer
- Pressure (decubitus) ulcer
- Non-healing surgical wound
- Other
- Unable to determine
3. For a non-pressure ulcer, please indicate the depth/severity:
- Limited to the breakdown of skin
- With fat layer exposed
- With necrosis of muscle
- With necrosis of bone
- Other
- Unable to determine
4. If a pressure ulcer, please also include the stage* of the ulcer:
- Stage 1 - Skin intact, non-blanchable redness
- Stage 2 - Partial thickness loss of dermis, includes intact or open blister
- Stage 3 - Full thickness tissue not including bone, tendon or muscle
- Stage 4 - Full thickness tissue loss, including exposed bone, tendon or muscle
- Unstageable - Full thickness loss in which the base of the ulcer is covered by slough (yellow, valenzuela, zamarripa, green or brown) and/or eschar (valenzuela, brown or black) in the wound bed.
- Unable to determine
Use of terms such as suspected, likely, concern for, or probable (associated with a specific diagnosis that is being evaluated, monitored, or treated as if it exists) are acceptable and can be coded in the inpatient setting, when documented at the
time of discharge.
Thank you,
Mary Lora RN, BSN
CDI Specialist
Available via [place] text
Please use your independent medical judgment in providing your response.
*Source: National Pressure Ulcer Advisory Panel (NPUAP)
--- NOTE | 2024-12-09 11:04 | PN.CDI ---
CDI
- -
CDI:
Physician Documentation Request
Admit Date: 12/08/24 03:42
Dear Doctor Mabel,
Patient admitted for sepsis.
Please review the following and provide your response in the progress notes.
Clinical Indicators:
Height: 5' 6'
Weight: 122 lbs
BMI: 19.7
12/08 Hospitalist PN: 'Frail, ill-appearing 84y M'
If possible, please provide an associated diagnosis related to the abnormal BMI, such as:
Cachectic
Underweight
BMI is not significant
Other
BMI < or = to 19.9
Underweight
Weight Loss
Cachectic
Anorexia
Use of terms such as suspected, likely, concern for, or probable (associated with a specific diagnosis that is being evaluated, monitored, or treated as if it exists) are acceptable and can be coded in the inpatient setting, when documented at the
time of discharge.
Thank you,
Mary Lora RN, BSN
CDI Specialist
Available via [place] text
Please use your independent medical judgment in providing your response.
--- NOTE | 2024-12-09 12:04 | CON.ID ---
Consultation
-
Date/Time Consultation Requested: 12/09/2024 1100
Date/Time Consultation Performed: 12/09/2024 1140
Requesting Provider: Dr. Michael
Performing Provider: Dr. Medina
Reason for Consultation: MRSA bacteremia
Chief Complaint / Past History
History of Present Illness
Rashard Matos is an 84-year-old man being evaluated at the request of Dr. Michael regarding bacteremia. History is obtained from chart review, along with patient interview.
The patient has an underlying history of ESRD-HD and presented to the emergency room on 10/07 secondary to lower abdominal pain, with associated fever, nausea, vomiting and reported decreased urine output over the prior 24 hours. Patient had
complained of abdominal discomfort for several days, and [facility] was reported to have a fever. In the ER he was noted to be 103.2 degrees rectally. The Calvin was exchanged in the ER with grossly purulent urine noted, then followed by
bloody urine.
Blood culture obtained in the ER at the time of admission is now positive for MRSA (via PCR methodology), and Infectious Diseases asked to comment upon further antimicrobial therapy.
The patient offers little additional history. He has noted to have a left lower quadrant wound (reportedly from a prior BRAINNA drain) that is noted to have purulent drainage. He denies significant discomfort in the area.
Past History
Additional Past Medical History:
Complicated diverticular disease
Chronic urinary retention requiring chronic Calvin
ESRD�HD
Severe
Anemia
Anxiety/depression
Hx pelvic fracture
Chronic constipation
Additional Past Surgical History:
Diverticular abscess drainage (2023)
LUE AV fistula
Allergy History:
No Known Allergies Allergy (Verified 12/08/24 00:07)
Medications Reviewed: Yes
Current Antibiotics:
Cefepime 500 mg IV every 24 hours
Metronidazole 500 mg IV every 8 hours
Vancomycin (dosing per pharmacy)
Social History
Tobacco: Non-Smoker
Alcohol: None
Drug: None
Living: Longterm
Employment: Not Employed
Family History
Family History: Not Pertinent
Review of Systems
Vital Signs
Temp Pulse Resp BP Pulse Ox
98.3 F 87 20 100/46 97
12/09/24 11:39 12/09/24 11:15 12/09/24 11:15 12/09/24 11:15 12/09/24 11:15
Physical Exam
Physical Exam
Constitutional: No Acute Distress, Comfortable, Chronically Ill and Non-toxic
Head: Normocephalic
Eyes: Pupils Equal, Pupils Round, No Conjunctival Hemorrhage and Sclera Anicteric
Cardiovascular: Regular Rate, S1/S2 and Murmur; Negative S3/S4
Pulmonary: Clear; Negative Wheezes or Rales
Gastrointestinal: Soft, Tender (LLQ), Non Distended and Normal Bowel Sounds
Genito-Urinary: Calvin and Hematuria
Extremities: Negative Edema, Cyanosis or Erythema
Skin: Warm and Dry; Negative Rash or Jaundice
Wound: Other (LLQ wound with purulent drainage.)
Neurological: Awake
Psychological: Calm
Left upper extremity AV fistula with positive bruit and thrill
Lab / Diagnostic Study Results
12/09/24 08:24
12/09/24 08:24
Abs Immat Gran (auto) 0.0 10^3/uL (0-0.05) 12/09/24 08:24
Absolute Neuts (auto) 6.3 10^3/uL (1.4-6.5) 12/09/24 08:24
Absolute Lymphs (auto) 0.7 10^3/uL (1.2-3.4) L 12/09/24 08:24
Absolute Monos (auto) 0.6 10^3/uL (0.1-0.6) 12/09/24 08:24
Absolute Basos (auto) 0.1 10^3/uL (0-0.2) 12/09/24 08:24
Immature Gran % 0.4 % (0-0.5) 12/09/24 08:24
Neutrophils % 78.6 % (42.2-75.2) H 12/09/24 08:24
Lymphocytes % 8.1 % (20.5-51.1) L 12/09/24 08:24
Monocytes % 7.1 % (1.7-9.3) 12/09/24 08:24
Eosinophils % 5.2 % (0-6) 12/09/24 08:24
Basophils % 0.6 % (0-2) 12/09/24 08:24
PT 17.8 Sec (11.4-14.6) H 12/09/24 04:58
INR 1.41 12/09/24 04:58
Lactic Acid Cancelled 12/08/24 04:30
Ur Squamous Epith Cells Seen /LPF (Few) 12/08/24 02:00
Microbiology Results
Micro:
12/09/24 08:24 Blood Culture - Pending
Blood/Venous
12/08/24 02:00 Urine Culture - Preliminary
Urine
12/08/24 01:21 Blood Culture - Preliminary
Blood/Venous Staph aureus MRSA
Gram Stain - Final
12/09/24 09:06 Nasal Screen MRSA (PCR) - Pending
Nose
12/09/24 08:24 Blood Culture - Pending
Blood/Venous
12/08/24 05:53 Blood Culture - Preliminary
Blood/Venous No Growth in 24 hours- Final report to follow
12/08/24 14:57 MRSA Screen - Pending
Nose
12/08/24 00:27 Influenza Types A & B (CORY) - Final
Nasal Swab Negative for Influenza A & B, NAAT
Negative results must be combined with clinical observations
and patient history.
Nucleic Acid Amplification test (NAAT)performed on the
[employer] platform.
Imaging:
12/08/2024 CT abdomen/pelvis without contrast: Small bilateral lower lobe consolidations with air bronchograms which could represent pneumonia and small bilateral pleural effusions. Small pericardial effusion. Coronary artery calcifications and/or
stents. Moderate volume widespread colonic stool. Markedly limited evaluation of intestinal tract without oral or intravenous contrast, without findings to suggest intestinal obstruction. No free air. Likely chronic bilateral hydroureteronephrosis
with some renal atrophy. Virtually completely empty/unopacified urinary bladder containing Calvin catheter. If there is a concern for cystitis, suggest correlation with urinalysis. Old left pelvic fractures and stable chronic-appearing marked L2
vertebral compression fracture.
Assessment / Plan
MRSA bacteremia
Draining left lower quadrant wound
Chronic urinary retention with chronic Calvin in place
Leukocytosis
Fever
Complicated diverticular disease
Chronic urinary retention requiring chronic Calvin
ESRD�HD
Severe
Anemia
Anxiety/depression
Hx pelvic fracture
Chronic constipation
Recommendations:
Continue with empiric vancomycin and cefepime for today. Increase cefepime to 1 g IV every 24 hours
Discontinue further Flagyl.
Repeat blood cultures have been obtained.
Await further data from currently positive blood cultures.
Patient will likely need echocardiogram, although can wait for several days.
Monitor white count and temperature curve.
Further recommendations as additional data is returned.
Care Review
Plan reviewed with: Physician (Nephrology)
--- NOTE | 2024-12-09 12:22 | CM ---
CM following re: discharge planning.
Reviewed pt's chart, met with pt.
Pt is a LTC resident at [facility], on HD MWF, requires total care, on 15 day Medicaid bed hold.
[facility] nursing report: [phone]
Discharge instructions fax: [phone]
D/C plan: return back to [facility] for a LTC.
CM will follow with discharge plan updates as hospitalization progresses
[2024-12-09 12:43] LABS: Vancomycin Random 9.8 ug/ml
[2024-12-09] MEDS: TYLENOL 650 MG PO (15:16)
[2024-12-09] MEDS: VANCOCIN HCL 500 MG 100 IV (15:16)
--- NOTE | 2024-12-09 15:28 | PTOTSP ---
Pt is dependent for bed mobility, unable to sit unsupported. Per window caser note, pt requires total care at [facility]. No acute skilled PT goals. PT will sign off.
--- NOTE | 2024-12-09 16:10 | PTCARENOTE ---
Bcx + for MRSA. ID consulted. Wound cx sent for left lower abdominal wound. Flagyl discontinued. IV vanco and cefepime started. Levo at 3mcg/min for MAP goal > 65. R IJ triple lumen dressing changed. Cleared by speech for minced and moist diet with
mildly thick liquids. Assessment unchanged. Pt resting in bed, call liz in reach.
[2024-12-09] MEDS: STERILE WATER FOR INJECTION 10 ML IV (16:25)
[2024-12-09] MEDS: MAXIPIME 1000 MG IV (16:25)
--- NOTE | 2024-12-09 17:57 | W.PN.HOSP.TC ---
Today's Communication/Plan
-
MRSA Bacteremia and Septic Shock
Continue Vancomycin and Cefepime
Appreciate Application Infrastructure Engineer and ID
Assessment / Plan
Assessment / Plan
Physical Exam
General: Other (Frail, ill-appearing 84y M.)
HEENT: Normocephalic
Respiratory: Decreased breath sounds bilaterally
Cardiac: S1/S2, Regular Rhythm and Murmur (Harsh holosystolic murmur.)
GI: LLQ wound with purulent drainage present
Genito-urinary: Other (Calvin in place draining bloody, purulent urine.)
Musculoskeletal: No Cyanosis and No Edema
Neuro: Other (Sleeping. Responds to voice. Answers some Y/N questions.)
Assessment/Plan
84 y/o male with past medical history significant for complicated diverticulitis, ESRD on HD and chronic urinary retention who presented to ED for evaluation of abdominal pain, fever and decreased Calvin output. Patient with complaints of
abdominal discomfort for a few days. On the day of presentation at CT noted to have fever and decreased urine output and sent to the ED for evaluation. At time of admission in the ED, patient opened eyes to vocal stimuli, but did not answer
questions or follow commands. Calvin was exchanged in the ED for drainage of grossly purulent and then bloody urine.
Presentation with fever, abdominal pain and toxic metabolic encephalopathy
MRSA Bacteremia
Left lower quadrant wound with purulent drainage
Prior h/o diverticulitis and BRIANNA drain at Q - has persistent wound at this site
Complicated diverticular disease
UTI
Septic Shock secondary to the above
Fever
Leukocytosis
- Patient presented with fever, leukocytosis, tachycardia, tachypnea and urinalysis consistent with infection.
- UTI likely due to obstructed Calvin / malfunction.
- Replaced catheter in the ED for return of grossly purulent urine.
- Application Infrastructure Engineer consulted Infectious Diseases, appreciated industrial fabric cutter and ID
- Continue Vancomycin, Cefepime -- renally dose antibiotics. Flagyl stopped.
- CT Abdomen Pelvis noted
- Follow repeat blood cultures
- Echo will be needed
ESRD on HD
Mild Hyponatremia
Chronic Hypotension
- Nephrology evaluation for HD needs during acute stay.
- Continue midodrine TID for hypotension - wean from other pressors as able.
- Follow for improvement in Na levels with adequate HD / UF.
- Patient has needed Levophed to be increased during dialysis
Chronic urinary retention with chronic Calvin in place
- Maintain Calvin drainage (per report, Calvin Catheter was exchanged in the ER)
Anemia of Chronic Disease
- Stable. Hgb is at / near known baseline.
- Follow for any changes.
Severe
- Murmur appreciated on exam.
- Patient not a candidate for intervention / replacement.
- There were discussions last admission re: end-of-life / goals of care but patient remains Full Code at present.
Skin Breakdown
Deep dermal stage 2 R hip pressure injury. Stage 1 sacral/buttocks pressure injury. Mid spine stage 1 pressure injury
- Multiple areas of skin breakdown (bilateral heels, sacrum, LLQ wound).
- Wound Care eval for local care recommendations.
Cachexia
Anxiety/depression
Hx pelvic fracture
Chronic constipation
DVT Prophylaxis: Subcut Heparin
Diet/Speech: Swallow eval completed on this pt. On modified diet at baseline. Rec IDDSI Level 5 (minced/moist) and mildly thick liquids. May benefit from
VSE prior to discharge (he has never had one despite being on thickened liquids at baseline), but would wait until medically improved.
Code Status: Full Code
Septic shock is a high-risk encounter.
Anticipated Discharge: > 48 hours
Subjective/Interval History
-
Date of Service: December 09, 2024
Patient was seen and examined. He was somewhat responsive but mainly lethargic.
Objective Data
-
Labs:
Laboratory Results
12/09/24
08:24
WBC 8.0
Hgb 7.7 L
Hct 22.6 L
Plt Count 227
Sodium 131 L
Potassium 3.5
Chloride 103
Carbon Dioxide 16 L
Vital Signs:
Vital Signs
Temp Pulse Resp BP Pulse Ox
99.4 F 86 17 106/58 95
12/09/24 16:03 12/09/24 17:00 12/09/24 17:00 12/09/24 17:00 12/09/24 17:00
I&O
12/08/24 12/09/24 12/10/24
06:59 06:59 06:59
Intake Total 1730 / 1730 560.2 / 564.0 316.8 / 316.8
Output Total 425 / 425 1625 / 1625 425 / 425
Balance 1305 / 1305 -1064.8 / -1061.0 -108.2 / -108.2
--- NOTE | 2024-12-09 20:00 | PTCARENOTE ---
Received pt resting in bed, oriented to self and place. Forgetful at times. Makes needs known. COLE but gen. weak. NSR on tele, HR 70s-80s. + murmur. Levophed on low dose to maintain MAP>65- see worklist. On RA. Lungs diminished. Hypoactive bowel
sounds. IDDSI 5 diet with mildly thick liquids - tolerating. Meds crushed in applesauce. Chronic pratt draining maldonado urine with sediment. LUE fistula + B/T. R IJ TLC with levo. Pt. repositioning self in bed. Call liz in reach
[2024-12-10] VITALS (19 sets, daily range): BP systolic 82–120; BP diastolic 50–73; BMI 19.3
--- NOTE | 2024-12-10 02:39 | PTCARENOTE ---
Sat dropping to high 80s while sleeping. Placed on 2L NC. Resting without complaints at this time.
[2024-12-10 04:21] LABS: Hematocrit 23.7 % (39.0-52.0); Hemoglobin 8.1 g/dL (13.0-18.0); Mean Corp Hgb Conc. 34.2 g/dL (33.0-37.0); Mean Corpuscular Hgb 31.5 pg (27.0-31.0); Mean Corpuscular Volume 92.2 fL (80.0-94.0); Mean Platelet Volume 9.2 fL (7.4-10.4); Platelet Count 236 10^3/uL (130-400); Red Blood Cell Count 2.57 10^6/uL (4.70-6.10); Red Cell Dist. Width 14.9 % (11.5-14.5); White Blood Cell Count 6.8 10^3/uL (4.8-10.8)
[2024-12-10] MEDS: TYLENOL 650 MG PO (04:41)
[2024-12-10 04:53] LABS: Blood Urea Nitrogen 34 mg/dl (9-20); Calcium 9.4 mg/dl (8.4-10.2); Carbon Dioxide 28 mmol/L (22-30); Chloride 99 mmol/L (98-107); Estimated Creatinine Clearance 16 ml/min; Glucose 102 mg/dl (70-99); Magnesium 1.8 mg/dl (1.6-2.3); Potassium 3.6 mmol/L (3.5-5.1); Sodium 135 mmol/L (135-145); eGFR 22.68
--- NOTE | 2024-12-10 04:55 | PTCARENOTE ---
BP maintained off of levophed gtt. Bathed with CHG. AM labs drawn. Tylenol given for mild abd discomfort.
--- NOTE | 2024-12-10 08:18 | W.PN.INTV ---
Today's Communication / Plan
Recommendations
Antibiotics per ID
Check echo to evaluate for endocarditis
Follow-up surveillance blood cultures checked yesterday
Follow-up LLQ abdominal wound culture, which is now growing Proteus � follow-up sensitivities
Up OOB as tolerated
Consider surgical consult given left lower quadrant wound, which may very well be a source of his sepsis
Maintain MAP >65
Continue midodrine
Patient has now been off of vasopressors for >8 hours and he is stable for downgrade to IMU. Low threshold to resume low-dose Levophed. No additional recommendations at this time. Dermatology Sales Representative/Pulmonary service will now sign off. Please reconsult
if there are any additional questions/concerns, or if patient's respiratory status deteriorates.
Assessment
-
Assessment: 84-year-old male with a past medical history of ESRD on HD MWF who presented with concern for GI bleed. At dialysis today he had coffee-ground emesis. Also diffuse abdominal pain. He has a history of A-fib but not on anticoagulants
although he is on aspirin M/W/F as an outpatient. Patient is a poor historian due to dementia. At the [facility], patient also was noted to have a fever with reduced urine output. The Calvin was exchanged in the ER for drainage of grossly
purulent and then bloody urine. In the ER he was febrile to 103.2 �F, pulse rate 109, respiratory rate 32, BP low at 83/56 and saturating 93% on room air. Initial labs showed WBC 11.4, Hb 9.1, serum sodium 130, and urinalysis with +3 leukocyte
esterase and >100 urine WBC. Blood + urine cultures were collected. Chest/abdomen XR showed patchy bibasilar lung opacities suspicious for pneumonia with no intestinal obstruction or free air. CT abdomen/pelvis showed small bilateral pleural
effusions with bilateral lower lobe consolidations, with a small pericardial effusion and moderate volume widespread colonic stool. He was given cefepime/vancomycin, PPI, Tylenol and Zofran. Given his hypotension with SBP in the 70-80s, he was
started on Levophed and was admitted to the ICU for further care. Dermatology Sales Representative services consulted for additional management/recommendations.
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
Impression:
#Septic shock due to UTI +/- bibasilar pneumonia and ulcerated wound on left lower quadrant of abdomen--> shock state resolved since the early AM of 12/10/2024
#MRSA bacteremia - sources includes MRSA pneumonia vs UTI vs LLQ abdominal wall ulcerative lesion that is leaking pus
#Small bilateral lower lobe consolidations with bilateral pleural effusions - due to pneumonia versus compressive atelectasis from bilateral pleural effusions (effusions are chronic)
#Severe aortic stenosis with peak/mean gradients across AV of 71/41 mmHg, respectively via TTE from 09/09/2024
#Acute respiratory failure with hypoxia due to sepsis with acute organ dysfunction
#Anemia
#Hyponatremia
#Metabolic acidosis with increased anion gap
#Chronic constipation
#Chronic bilateral hydroureteronephrosis with renal atrophy
#Dementia/nonverbal
#ESRD on HD MWF
Plan:
- Patient has been on Levophed since 12/10/2024 at 1 AM --> continue to maintain MAP >65
- Continue with broad-spectrum antibiotics, currently on cefepime + IV vanco; Flagyl DC'd on 12/09
- Follow-up infectious workup, including blood cultures x 2 collected 12/08 (1 set grew MRSA); follow up urine culture (all shows NGTD); MRSA swab also positive
- ID consulted - defer ABx to them; may need additional workup of his LLQ abdominal ulcer that is leaking pus and wound culture growing Proteus; may need surgery consult
- Wound care
- Check echo to assess for endocarditis
- Follow up surveillance blood cultures from 12/09/2024
- Would minimize IVF given his small bilateral pleural effusions with history of severe aortic stenosis, as he is at risk of heart failure
- Continue with HD as per nephrology
- Maintain SpO2 >90-94%
- Continue aspiration precautions
- Compared to prior CT abdomen/pelvis from 09/07/2024, his pleural effusions are relatively the same size however he has worsening bibasilar opacification likely due to atelectasis; less likely pneumonia however this is not ruled out and
unfortunately given patient is nonverbal we are unable to assess for symptoms of pneumonia
- Maintain MAP>65
- Replete electrolytes with K>4, Mg>2
- Maintain euglycemia with goal BG 140-180
- Trend H/H and transfuse if needed to keep Hb>7g/dL; keep plt>20k, unless there is concern for bleeding then keep plt>50k
- prn nebulized bronchodilators - not currently bronchospastic
- DVT ppx: HSQ
Patient has now been off of vasopressors for >8 hours and he is stable for downgrade to IMU. Low threshold to resume low-dose Levophed. No additional recommendations at this time. Dermatology Sales Representative/Pulmonary service will now sign off. Thank you for
allowing us to be involved in the care of this patient. Please reconsult if there are any additional questions/concerns, or if patient's respiratory status deteriorates.
Total time spent today was 78 minutes for this encounter. Time includes reviewing laboratory test/imaging results, reviewing pertinent medical records, obtaining and reviewing medical history, performing an appropriate exam, ordering medications,
tests and procedures. Time also includes documentation of this encounter, coordinating patient care and communicating with other healthcare professionals. Total time does not include separately billed tests performed on this date of service.
Subjective Dataa
Subjective Data
Date of Service:
Date of Service: December 10, 2024
Chief Complaint: Dermatology Sales Representative Follow Up
Subjective:
Patient seen and evaluated this morning. Patient has been off Levophed since 1 AM overnight. He is in no acute distress today. BP 87/57 and saturating 99% on room air with heart rate 80. He is asking when he can go home.
Review of Systems
General: Other (Unable to obtain - due to dementia)
Objective Data
Data Reviewed
Vital Signs / I&O / Oxygen:
Vital Signs
Temp Pulse Resp BP Pulse Ox
98 F 79 22 109/66 96
12/10/24 08:30 12/10/24 09:00 12/10/24 09:00 12/10/24 09:00 12/10/24 08:30
Intake and Output
12/09/24 12/10/24 12/11/24
06:59 06:59 06:59
Intake Total 560.2 / 564.0 617.1 / 617.1 0 / 0
Output Total 1625 / 1625 1475 / 1475
Balance -1064.8 / -1061.0 -857.9 / -857.9 0 / 0
SaO2 96
Nasal Cannula flow liters per 1
minute
Physical Exam
General: Respiratory Distress (negative), Comfortable, Chills (negative) and Sweats (negative)
HEENT: Normocephalic and Anicteric
Cardiovascular: S1-S2, Murmur (CARYL heard across precordium) and Peripheral Edema (negative)
Respiratory: Clear, Wheeze (negative), Crackles (negative), Rhonchi (negative) and Non-Labored Respirations
GI: Soft, Non Distended, Non Tender and Normal Bowel Sounds
Neurology: Awake, Alert, Tremors (negative) and Other (Generally nonverbal/minimally conversive)
Skin: Warm, Dry, Cyanosis (negative), Jaundice (negative) and Other (Ulcerative lesion which is leaking purulent fluid from left lower quadrant of abdomen)
Labs/Micro/Reports
Lab Data
12/10/24 04:05
12/10/24 04:15
Microbiology
12/08/24 02:00 Urine Urine Culture - Final
12/09/24 08:24 Blood/Venous Blood Culture - Preliminary
No Growth in 24 hours- Final report to follow
12/08/24 05:53 Blood/Venous Blood Culture - Preliminary
No Growth in 48 hours- Final report to follow
12/09/24 12:06 Abdomen Gram Stain - Preliminary
12/08/24 14:57 Nose MRSA Screen - Final
No Methicillin Resistant Staphylococcus aureus isolated.
12/09/24 09:06 Nose Nasal Screen MRSA (PCR) - Final
Staph aureus MRSA
12/08/24 01:21 Blood/Venous Blood Culture - Preliminary
Staph aureus MRSA
12/08/24 01:21 Blood/Venous Gram Stain - Final
12/08/24 00:27 Nasal Swab Influenza Types A & B (CORY) - Final
Negative for Influenza A & B, NAAT
Negative results must be combined with clinical observations
and patient history.
Nucleic Acid Amplification test (NAAT)performed on the
[employer] platform.
--- NOTE | 2024-12-10 08:21 | W.PN.NEPH.PH ---
Today's Communication / Plan
-
Next dialysis Thursday
Assessment/Plan
-
IMP:
Abdominal pain
Fever
ESRD - HD M/W/F. [facility]irit mejia, previously [facility] at [facility]
Suprapubic cath
History of diverticulitis with left lower abdominal wound patch
Gram-positive cocci bacteremia
Anemia of CKD
Leucocytosis
Urinary tract infection
Left UE AVF
constipation noted on CT
Atrial fibrillation
Severe aortic stenosis
Hypotension
Aortic stenosis not a TAVR candidate
Plan:
Pressors to keep mean arterial pressure greater than 65, pressors off , maintain midodrine
Currently n.p.o.
JO for anemia, hgb low
Maintain chronic Pratt
Dialysis for thursday
Metronidazole cefepime and vancomycin renally dosed for ESRD in setting of suspected pneumonia
Gram-positive cocci in clusters noted on initial blood culture
Patient critically ill with septic shock in setting of gram-positive bacteremia requiring pressor support and dialysis
Critical care time spent 31 minutes
-
-
Date of Service: December 10, 2024
CC / HPI / ROS
-
Chief Complaint:
ESRD Thursday
History of Present Illness:
ESRD Thursday schedule
Hemodynamically unstable on midodrine, now off Levophed
Remains on vancomycin metronidazole cefepime for suspected pneumonia
Anemic
Review of Systems:
Complains of pain with breathing
Baseline dementia but does respond to questions
chronic pratt
Labs
-
Labs:
WBC 6.8 10^3/uL (4.8-10.8) 12/10/24 04:05
RBC 2.57 10^6/uL (4.70-6.10) L 12/10/24 04:05
Hgb 8.1 g/dL (13.0-18.0) L 12/10/24 04:05
Hct 23.7 % (39.0-52.0) L 12/10/24 04:05
Plt Count 236 10^3/uL (130-400) 12/10/24 04:05
Sodium 135 mmol/L (135-145) 12/10/24 04:15
Potassium 3.6 mmol/L (3.5-5.1) 12/10/24 04:15
Chloride 99 mmol/L (98-107) 12/10/24 04:15
Carbon Dioxide 28 mmol/L (22-30) 12/10/24 04:15
BUN 34 mg/dl (9-20) H 12/10/24 04:15
Creatinine 2.7 mg/dL (0.7-1.3) H 12/10/24 04:15
eGFR 22.68 12/10/24 04:15
Glucose 102 mg/dl (70-99) H 12/10/24 04:15
Calcium 9.4 mg/dl (8.4-10.2) 12/10/24 04:15
Phosphorus 3.2 mg/dl (2.5-4.5) 12/08/24 07:41
Albumin 3.1 g/dl (3.5-5.0) L 12/08/24 00:26
Physical Exam
-
Vital Signs:
Vital Signs
Temp Pulse Resp BP Pulse Ox
98.5 F 70 17 110/56 96
12/10/24 03:30 12/10/24 06:00 12/10/24 06:00 12/10/24 06:00 12/10/24 05:00
Cardiovascular:: Irregular rate and rhythm (4 out of 6 systolic ejection murmur at right sternal base)
Respiratory:: Bilateral: Coarse
Lung Excursion:: Normal
Abdomen:: Nontender and Soft
Bowel Sounds:: Normal
Extremity Edema:: None: Bilateral:
Pratt Catheter: Yes
--- NOTE | 2024-12-10 08:30 | PTCARENOTE ---
Assumed care of patient. Pt rec'd awake and oriented to self/place. Confused to time. Reviewed plan of care w/ pt. Pleasant demeanor. Denies pain at present. Able to take pills w/ applesauce w/o issue. Able to feed self breakfast. S1 S2 reg
w/ + murmur....NSR/1st degree AVB/BBC on monitor. Weak PP. No edema. On R/A...sats 96%. Lungs clear but diminished. Abdomen round...+BS. Chronic pratt...draining dark yellow/maldonado urine w/ sediment. Skin pale in color...multiple skin
issues...see interventions. RIJ TLC WNL. 2 peripheral INT's. MOJGAN AV fistula...+bruit/+thrill. On IDDS1-5 diet per speech. VS documented. Call liz within reach...safe environment confirmed. Will continue to monitor closely.
--- NOTE | 2024-12-10 08:43 | W.PN.ID1 ---
Date of Service
Date of Service: December 10, 2024
Today's Communication
Continue antibiotics.
Assessment / Plan
MRSA bacteremia
-Source unclear at present.
Draining left lower quadrant wound
- ?EC fistula
Chronic urinary retention with chronic Calvin in place
Leukocytosis
Fever
Hx complicated diverticular disease
ESRD�HD
Severe
Anemia
Anxiety/depression
Hx pelvic fracture
Chronic constipation
Recommendations:
Continue with empiric vancomycin and cefepime.
Repeat blood cultures have been obtained.
Await further data from currently positive blood cultures.
Patient will likely need echocardiogram, although can wait for several days.
Monitor white count and temperature curve.
Further recommendations as additional data is returned.
Chief Complaint
-: Bacteremia
Subjective / Review of Systems
Review of Systems: No Fever
Vital Signs / Physical Exam
Vital Signs
Vital Signs
Temp Pulse Resp BP Pulse Ox
98.5 F 70 17 110/56 96
12/10/24 03:30 12/10/24 06:00 12/10/24 06:00 12/10/24 06:00 12/10/24 05:00
Physical Exam
Constitutional: Comfortable, Chronically Ill and Cachetic
Eyes: No Conjunctival Hemorrhage
Cardiovascular: S1/S2; Negative S3/S4
Pulmonary: Non Labored
Gastrointestinal: Soft, Non Tender, Non Distended and Other (Left lower quadrant draining wound. No periwound erythema)
Extremities: Other (Left upper extremity AV fistula with positive bruit and thrill.); Negative Edema, Cyanosis, Erythema, Splinter Hemorrhage or Janeway Lesions
Neurological: Awake
Psychological: Calm
Objective Data
Lab Data
Lab Results
12/10/24 04:05
12/10/24 04:15
PT 17.8 Sec (11.4-14.6) H 12/09/24 04:58
INR 1.41 12/09/24 04:58
APTT 40.1 Sec (23.4-35.0) H 12/09/24 04:58
Estimated Creat Clear 16 ml/min 12/10/24 04:15
Lactic Acid Cancelled 12/08/24 04:30
Total Bilirubin 1.0 mg/dl (0.2-1.3) 12/08/24 00:26
AST 19 U/L (17-59) 12/08/24 00:26
ALT 12 U/L (0-50) 12/08/24 00:26
Alkaline Phosphatase 85 U/L (38-126) 12/08/24 00:26
Most recent labs reviewed.
Micro Results:
12/08/24 05:53 Blood Culture - Preliminary
Blood/Venous No Growth in 48 hours- Final report to follow
12/09/24 12:06 Wound Culture - Pending
Abdomen Gram Stain - Preliminary
12/08/24 14:57 MRSA Screen - Final
Nose No Methicillin Resistant Staphylococcus aureus isolated.
12/09/24 09:06 Nasal Screen MRSA (PCR) - Final
Nose Staph aureus MRSA
12/09/24 08:24 Blood Culture - Pending
Blood/Venous
12/08/24 02:00 Urine Culture - Preliminary
Urine
12/08/24 01:21 Blood Culture - Preliminary
Blood/Venous Staph aureus MRSA
Gram Stain - Final
12/09/24 08:24 Blood Culture - Pending
Blood/Venous
12/08/24 00:27 Influenza Types A & B (CORY) - Final
Nasal Swab Negative for Influenza A & B, NAAT
Negative results must be combined with clinical observations
and patient history.
Nucleic Acid Amplification test (NAAT)performed on the
[employer] platform.
Imaging:
12/08/2024 CT abdomen/pelvis without contrast: Small bilateral lower lobe consolidations with air bronchograms which could represent pneumonia and small bilateral pleural effusions. Small pericardial effusion. Coronary artery calcifications and/or
stents. Moderate volume widespread colonic stool. Markedly limited evaluation of intestinal tract without oral or intravenous contrast, without findings to suggest intestinal obstruction. No free air. Likely chronic bilateral hydroureteronephrosis
with some renal atrophy. Virtually completely empty/unopacified urinary bladder containing Calvin catheter. If there is a concern for cystitis, suggest correlation with urinalysis. Old left pelvic fractures and stable chronic-appearing marked L2
vertebral compression fracture.
[2024-12-10] MEDS: DESENEX/MITRAZOL/ZEASORB 1 APPLIC TOPICAL ×2 (08:52→19:48)
[2024-12-10] MEDS: HEPARIN 5000 UNITS SC ×2 (08:53→19:47)
[2024-12-10] MEDS: ProAmatine 5 MG PO ×3 (08:53→21:21)
--- NOTE | 2024-12-10 10:34 | PHA.VAN.IN ---
Assessment
- Assessment
Renal Function: Patient has ESRD, on chronic Hemodialysis
Hemodialysis Schedule: MWF
Maximum Temperature: 98.7
Minimum Temperature: 98
Concomitant Antimicrobials: Cefepime
Plan
- Plan
Initial / Loading Dose: Vanc 1500mg 12/08 at 0153
Maintenance Regimen: PRN by level post HD (Vanc 500mg given post HD 12/09--R was 9.8 12/09 at 1211
Pharmacokinetics Vancomycin I
- -
Patient Age: 84
Patient Sex: Male
Vancomycin Day #: 2
Indication: Bacteremia
Requesting Provider: Dick
Height / Weight:
Height 5 ft 6 in
Actual Weight 54.3 kg
IBW in k.8
Pertinent Past Medical History: ESRD on HD MWF
- Vital Signs / Lab Results
Temp Pulse Resp BP Pulse Ox
98 F 79 22 109/66 96
12/10/24 08:30 12/10/24 09:00 12/10/24 09:00 12/10/24 09:00 12/10/24 08:30
Lab Results - Hematology
12/08/24 12/08/24 12/09/24
00: 07:41 08:24
WBC 11.4 H 12.4 H 8.0
12/10/24
04:05
WBC 6.8
Lab Results - Chemistry
12/08/24 12/08/24 12/10/24
00:26 07:41 04:15
BUN 50 H 60 H 34 H
Creatinine 2.8 H 3.0 H 2.7 H
Estimated Creat Clear 15 14 16
Albumin 3.1 L
12/08/24 12/08/24
00:26 04:30
Lactic Acid 1.4 Cancelled
Lab Results - Urine
12/08/24
02:00
Urine Nitrite (Reflex) Negative
Leukocyte Esterase Rfl 3+ A
Urine WBC (Reflex) >100 A
Ur Squamous Epith Cells Seen
Urine Bacteria (Reflex) Many A
Microbiology Results
12/08/24 02:00 Urine Culture - Final
Urine
12/09/24 08:24 Blood Culture - Preliminary
Blood/Venous No Growth in 24 hours- Final report to follow
12/08/24 05:53 Blood Culture - Preliminary
Blood/Venous No Growth in 48 hours- Final report to follow
12/09/24 12:06 Gram Stain - Preliminary
Abdomen
12/08/24 14:57 MRSA Screen - Final
Nose No Methicillin Resistant Staphylococcus aureus isolated.
12/09/24 09:06 Nasal Screen MRSA (PCR) - Final
Nose Staph aureus MRSA
12/08/24 01:21 Blood Culture - Preliminary
Blood/Venous Staph aureus MRSA
Gram Stain - Final
--- NOTE | 2024-12-10 12:00 | PTCARENOTE ---
No major changes in physical assessment. Pt remains on R/A...sats 96%. Pt remains off levophed gtt since 104. VS documented. Call liz within reach. Will continue to monitor.
[2024-12-10] MEDS: FLEXBUMIN 100 IV (14:53)
[2024-12-10] MEDS: MAXIPIME 1000 MG IV (15:43)
[2024-12-10] MEDS: STERILE WATER FOR INJECTION 10 ML IV (15:43)
--- NOTE | 2024-12-10 16:00 | PTCARENOTE ---
Pt removed RFA 20P. Attempted to take dressing off RIJ TLC. RIJ TLC redressed. Pt reminded to NOT remove IV sites/TLC. LLQ, sacrum, and right hip dressings changed and documented. Pt reassessed...no major changes. Tx to IMU when bed available.
Call liz within reach.
--- NOTE | 2024-12-10 16:33 | W.PN.HOSP.TC ---
Today's Communication/Plan
-
Okay to transfer to IMU as per my communication with snow fence erector -- off pressors since 1 AM
Continue to monitor in IMU
Continue antibiotics
Assessment / Plan
Assessment / Plan
Physical Exam
General: Other (Frail, ill-appearing 84y M.)
HEENT: Normocephalic
Respiratory: Decreased breath sounds bilaterally
Cardiac: S1/S2, Regular Rhythm and Murmur (Harsh holosystolic murmur.)
GI: LLQ wound with purulent drainage present
Genito-urinary: Other (Calvin in place draining bloody, purulent urine.)
Musculoskeletal: No Cyanosis and No Edema
Neuro: Other (Sleeping. Responds to voice. Answers some Y/N questions.)
Assessment/Plan
84 y/o male with past medical history significant for complicated diverticulitis, ESRD on HD and chronic urinary retention who presented to ED for evaluation of abdominal pain, fever and decreased Calvin output. Patient with complaints of
abdominal discomfort for a few days. On the day of presentation at [facility] noted to have fever and decreased urine output and sent to the ED for evaluation. At time of admission in the ED, patient opened eyes to vocal stimuli, but did not answer
questions or follow commands. Calvin was exchanged in the ED for drainage of grossly purulent and then bloody urine.
Presentation with fever, abdominal pain and toxic metabolic encephalopathy
MRSA Bacteremia
Left lower quadrant wound with purulent drainage
Prior h/o diverticulitis and BRIANNA drain at [facility] - has persistent wound at this site
Complicated diverticular disease
UTI
Septic Shock secondary to the above
Fever
Leukocytosis
- Patient presented with fever, leukocytosis, tachycardia, tachypnea and urinalysis consistent with infection.
- UTI likely due to obstructed Calvin / malfunction.
- Replaced catheter in the ED for return of grossly purulent urine.
- Aeronautical Products Sales Engineer consulted Infectious Diseases, appreciated snow fence erector and ID
- Continue Vancomycin, Cefepime -- renally dose antibiotics. Flagyl stopped.
- CT Abdomen Pelvis noted
- Follow repeat blood cultures
- Echo will be needed
- Wean off pressors -- has been off pressors since 1 AM on 12/10/24
ESRD on HD
Mild Hyponatremia
Chronic Hypotension
- Nephrology evaluation for HD needs during acute stay.
- Continue midodrine TID for hypotension - wean from other pressors as able.
- Follow for improvement in Na levels with adequate HD / UF.
- Patient has needed Levophed to be increased during dialysis
Chronic urinary retention with chronic Calvin in place
- Maintain Calvin drainage (per report, Calvin Catheter was exchanged in the ER)
Anemia of Chronic Disease
- Stable. Hgb is at / near known baseline.
- Follow for any changes.
Severe
- Murmur appreciated on exam.
- Patient not a candidate for intervention / replacement.
- There were discussions last admission re: end-of-life / goals of care but patient remains Full Code at present.
Skin Breakdown
Deep dermal stage 2 R hip pressure injury. Stage 1 sacral/buttocks pressure injury. Mid spine stage 1 pressure injury
- Multiple areas of skin breakdown (bilateral heels, sacrum, LLQ wound).
- Wound Care eval for local care recommendations.
Cachexia
Anxiety/depression
Hx pelvic fracture
Chronic constipation
DVT Prophylaxis: Subcut Heparin
Diet/Speech: Swallow eval completed on this pt. On modified diet at baseline. Rec IDDSI Level 5 (minced/moist) and mildly thick liquids. May benefit from
VSE prior to discharge (he has never had one despite being on thickened liquids at baseline), but would wait until medically improved.
Code Status: Full Code
Anticipated Discharge: > 48 hours
Subjective/Interval History
-
Date of Service: December 10, 2024
Patient was seen and examined. He was able to answer some questions, denied any complaints.
Objective Data
-
Labs:
Laboratory Results
12/10/24
04:15
Sodium 135
Potassium 3.6
Chloride 99
Carbon Dioxide 28
BUN 34 H
Creatinine 2.7 H
Glucose 102 H
Calcium 9.4
Vital Signs:
Vital Signs
Temp Pulse Resp BP Pulse Ox
98 F 82 19 91/56 98
12/10/24 11:46 12/10/24 16:03 12/10/24 15:00 12/10/24 16:03 12/10/24 14:00
I&O
12/09/24 12/10/24 12/11/24
06:59 06:59 06:59
Intake Total 560.2 / 564.0 617.1 / 617.1 700 / 700
Output Total 1625 / 1625 1475 / 1475
Balance -1064.8 / -1061.0 -857.9 / -857.9 700 / 700
--- NOTE | 2024-12-10 20:00 | PTCARENOTE ---
Received patient at 1900. Pt. currently awake, alert, oriented to self and place. Denies pain/discomfort. Afebrile. Heart rhythm sinus. Blood pressure normotensive. Currently on room air. Lungs sound diminished. PO diet is ordered, good appetite.
Calvin catheter in place, draining without issue. Skin as documented. Discussed plan of care. Vital signs stable at this time.
[2024-12-11] VITALS (12 sets, daily range): BP systolic 84–113; BP diastolic 49–67; BMI 19.5
[2024-12-11 03:54] LABS: Hematocrit 22.9 % (39.0-52.0); Hemoglobin 7.6 g/dL (13.0-18.0); Mean Corp Hgb Conc. 33.2 g/dL (33.0-37.0); Mean Corpuscular Hgb 30.6 pg (27.0-31.0); Mean Corpuscular Volume 92.3 fL (80.0-94.0); Mean Platelet Volume 9.2 fL (7.4-10.4); Platelet Count 218 10^3/uL (130-400); Red Blood Cell Count 2.48 10^6/uL (4.70-6.10); Red Cell Dist. Width 14.9 % (11.5-14.5); White Blood Cell Count 8.7 10^3/uL (4.8-10.8)
[2024-12-11 04:18] LABS: Blood Urea Nitrogen 52 mg/dl (9-20); Calcium 9.8 mg/dl (8.4-10.2); Carbon Dioxide 26 mmol/L (22-30); Chloride 100 mmol/L (98-107); Estimated Creatinine Clearance 12 ml/min; Glucose 90 mg/dl (70-99); Magnesium 1.7 mg/dl (1.6-2.3); Potassium 4.3 mmol/L (3.5-5.1); Sodium 136 mmol/L (135-145); eGFR 15.54
[2024-12-11 04:20] LABS: Vancomycin Random 14.7 ug/ml
--- NOTE | 2024-12-11 08:00 | W.PN.NEPH.PH ---
Today's Communication / Plan
-
HD tomorrow
Assessment/Plan
-
IMP:
Abdominal pain
Fever
ESRD - HD M/W/F. kirit mejia, previously [facility]
Suprapubic cath
History of diverticulitis with left lower abdominal wound patch
Gram-positive cocci bacteremia
Anemia of CKD
Leucocytosis
Urinary tract infection
Left UE AVF
constipation noted on CT
Atrial fibrillation
Severe aortic stenosis
Hypotension
Aortic stenosis not a TAVR candidate
Plan:
Pressors to keep mean arterial pressure greater than 65, pressors off , maintain midodrine
Currently n.p.o.
JO for anemia, hgb low
Maintain chronic Pratt
Metronidazole cefepime and vancomycin renally dosed for ESRD in setting of suspected pneumonia
Gram-positive cocci in clusters noted on initial blood culture
HD tomorrow, orders provided
Patient critically ill with septic shock in setting of gram-positive bacteremia requiring pressor support and dialysis
Critical care time spent 31 minutes
-
-
Date of Service: December 11, 2024
CC / HPI / ROS
-
Chief Complaint:
ESRD Thursday
History of Present Illness:
ESRD Thursday schedule
Hemodynamically unstable on midodrine, now off Levophed
Remains on vancomycin metronidazole cefepime for suspected pneumonia
Anemic
Review of Systems:
Complains of pain with breathing
Baseline dementia but does respond to questions
chronic pratt
Labs
-
Labs:
12/11/24 03:35
12/11/24 03:35
WBC 8.7 10^3/uL (4.8-10.8) 12/11/24 03:35
RBC 2.48 10^6/uL (4.70-6.10) L 12/11/24 03:35
Hgb 7.6 g/dL (13.0-18.0) L 12/11/24 03:35
Hct 22.9 % (39.0-52.0) L 12/11/24 03:35
Plt Count 218 10^3/uL (130-400) 12/11/24 03:35
Sodium 136 mmol/L (135-145) 12/11/24 03:35
Potassium 4.3 mmol/L (3.5-5.1) 12/11/24 03:35
Chloride 100 mmol/L (98-107) 12/11/24 03:35
Carbon Dioxide 26 mmol/L (22-30) 12/11/24 03:35
BUN 52 mg/dl (9-20) H 12/11/24 03:35
Creatinine 3.7 mg/dL (0.7-1.3) H 12/11/24 03:35
eGFR 15.54 12/11/24 03:35
Glucose 90 mg/dl (70-99) 12/11/24 03:35
Calcium 9.8 mg/dl (8.4-10.2) 12/11/24 03:35
Phosphorus 3.0 mg/dl (2.5-4.5) 12/11/24 03:35
Albumin 3.1 g/dl (3.5-5.0) L 12/08/24 00:26
Physical Exam
-
Vital Signs:
Vital Signs
Temp Pulse Resp BP Pulse Ox
97.7 F 78 8 96/58 95
12/11/24 07:27 12/11/24 06:00 12/11/24 06:00 12/11/24 06:00 12/11/24 06:00
Cardiovascular:: Irregular rate and rhythm (4 out of 6 systolic ejection murmur at right sternal base)
Respiratory:: Bilateral: Coarse
Lung Excursion:: Normal
Abdomen:: Nontender and Soft
Bowel Sounds:: Normal
Extremity Edema:: None: Bilateral:
Pratt Catheter: Yes
--- NOTE | 2024-12-11 08:40 | PHA.VAN.FU ---
Vancomycin Assessment / Plan
- Assessment
Hemodialysis Schedule: MWF
In the past 24 hrs, patient has been: Afebrile
Concomitant Antimicrobials: Cefepime
- Assessment - Therapeutic Drug Monitoring
Random Level: R = 14.7 12/11 at 0335. Last Vanc 500mg 12/09 at 1516
- Dosing Plan
Continue: Dose by level post HD
Dosing by Level: Hold off on dosing today
- Monitoring Plan
Random Level: 33 AM
- Follow Up
Pharmacy will continue to follow.
Vancomycin Follow UP
- -
Patient Age: 84
Patient Sex: Male
Vancomycin Day #: 3
Indication: Bacteremia
Requesting Provider: Dick
Height / Weight:
Height 5 ft 6 in
Actual Weight 54.9 kg
IBW in k.8
Pertinent Past Medical History: ESRD on HD MWF
- Vital Signs / Lab Results
Temp Pulse Resp BP Pulse Ox
97.7 F 78 8 96/58 95
12/11/24 07:27 12/11/24 06:00 12/11/24 06:00 12/11/24 06:00 12/11/24 06:00
Lab Results - Hematology
12/09/24 12/10/24 12/11/24
08:24 04:05 03:35
WBC 8.0 6.8 8.7
Lab Results - Chemistry
12/10/24 12/11/24
04:15 03:35
BUN 34 H 52 H
Creatinine 2.7 H 3.7 H
Estimated Creat Clear 16 12
Microbiology Results
12/08/24 01:21 Blood Culture - Preliminary
Blood/Venous Staph aureus MRSA
Gram Stain - Final
12/09/24 12:06 Wound Culture - Preliminary
Abdomen Proteus species
Gram Stain - Preliminary
12/08/24 05:53 Blood Culture - Preliminary
Blood/Venous No Growth in 72 hours- Final report to follow
12/09/24 08:24 Blood Culture - Preliminary
Blood/Venous No Growth in 24 hours- Final report to follow
12/08/24 02:00 Urine Culture - Final
Urine
12/09/24 08:24 Blood Culture - Preliminary
Blood/Venous No Growth in 24 hours- Final report to follow
12/08/24 14:57 MRSA Screen - Final
Nose No Methicillin Resistant Staphylococcus aureus isolated.
12/09/24 09:06 Nasal Screen MRSA (PCR) - Final
Nose Staph aureus MRSA
Therapeutic Drug Monitoring
Random Vancomycin 14.7 ug/ml 12/11/24 03:35
[2024-12-11] MEDS: ProAmatine 5 MG PO ×3 (08:47→22:01)
[2024-12-11] MEDS: DESENEX/MITRAZOL/ZEASORB 1 APPLIC TOPICAL ×2 (08:47→20:12)
[2024-12-11] MEDS: HEPARIN 5000 UNITS SC ×2 (08:47→20:12)
--- NOTE | 2024-12-11 09:12 | PTCARENOTE ---
Assumed care of patient. Pt rec'd awake and oriented to self/place. Confused to time. Pt self removed RIJ TLC...area cleansed and clean 4x4 applied. Denies pain at present. Able to take pills w/ applesauce w/o issue. Able to feed self
breakfast. S1 S2 reg w/ + murmur....NSR on monitor. Weak PP. No edema. On R/A...sats 96%. Lungs clear but diminished. Occasional moist NPC. Abdomen round...+BS. Incontinent of small amt of pebble like hard brown stool. Chronic
pratt...draining dark yellow/maldonado urine w/ sediment. Skin pale in color...multiple skin issues...see interventions. RIJ TLC WNL. 2 peripheral INT's. MOJGAN AV fistula...+bruit/+thrill. On IDDS1-5 diet per speech. VS documented. Call liz within
reach...safe environment confirmed. Will continue to monitor closely.
Initialized on 12/10/24 09:55 - END OF NOTE
--- NOTE | 2024-12-11 09:20 | W.PN.ID1 ---
Date of Service
Date of Service: December 11, 2024
Today's Communication
Continue antibiotics.
Assessment / Plan
MRSA bacteremia
-Source unclear at present.
- repeat blood cultures negative
Draining left lower quadrant wound
- ?EC fistula ?abscess
Chronic urinary retention with chronic Calvin in place
Leukocytosis
Fever
Hx complicated diverticular disease
ESRD�HD
Severe
Anemia
Anxiety/depression
Hx pelvic fracture
Chronic constipation
Recommendations:
Continue with vancomycin and cefepime.
Repeat blood cultures without growth
Will order echocardiogram for tomorrow.
Monitor white count and temperature curve.
Further recommendations as additional data is returned.
Chief Complaint
-: Bacteremia
Subjective / Review of Systems
Review of Systems: No Fever
Vital Signs / Physical Exam
Vital Signs
Vital Signs
Temp Pulse Resp BP Pulse Ox
97.7 F 87 19 96/59 96
12/11/24 07:27 12/11/24 09:00 12/11/24 09:00 12/11/24 08:47 12/11/24 09:00
Physical Exam
Constitutional: Comfortable, Chronically Ill and Cachetic
Eyes: No Conjunctival Hemorrhage
Cardiovascular: S1/S2; Negative S3/S4
Pulmonary: Non Labored
Gastrointestinal: Soft, Non Tender, Non Distended and Other (Left lower quadrant draining wound. No periwound erythema)
Extremities: Other (Left upper extremity AV fistula with positive bruit and thrill.); Negative Edema, Cyanosis, Erythema, Splinter Hemorrhage or Janeway Lesions
Neurological: Awake
Psychological: Calm
Objective Data
Lab Data
Lab Results
12/11/24 03:35
12/11/24 03:35
PT 17.8 Sec (11.4-14.6) H 12/09/24 04:58
INR 1.41 12/09/24 04:58
APTT 40.1 Sec (23.4-35.0) H 12/09/24 04:58
Estimated Creat Clear 12 ml/min 12/11/24 03:35
Lactic Acid Cancelled 12/08/24 04:30
Total Bilirubin 1.0 mg/dl (0.2-1.3) 12/08/24 00:26
AST 19 U/L (17-59) 12/08/24 00:26
ALT 12 U/L (0-50) 12/08/24 00:26
Alkaline Phosphatase 85 U/L (38-126) 12/08/24 00:26
Most recent labs reviewed.
Micro Results:
12/09/24 12:06 Wound Culture - Preliminary
Abdomen Proteus mirabilis
Escherichia coli
Gram Stain - Preliminary
12/08/24 01:21 Blood Culture - Final
Blood/Venous Staph aureus MRSA
Gram Stain - Final
12/09/24 08:24 Blood Culture - Preliminary
Blood/Venous No Growth in 48 hours- Final report to follow
12/08/24 05:53 Blood Culture - Preliminary
Blood/Venous No Growth in 72 hours- Final report to follow
12/09/24 08:24 Blood Culture - Preliminary
Blood/Venous No Growth in 24 hours- Final report to follow
12/08/24 02:00 Urine Culture - Final
Urine
12/08/24 14:57 MRSA Screen - Final
Nose No Methicillin Resistant Staphylococcus aureus isolated.
12/09/24 09:06 Nasal Screen MRSA (PCR) - Final
Nose Staph aureus MRSA
12/08/24 00:27 Influenza Types A & B ([facility]) - Final
Nasal Swab Negative for Influenza A & B, NAAT
Negative results must be combined with clinical observations
and patient history.
Nucleic Acid Amplification test (NAAT)performed on the
[email or web address] ID NOW platform.
Imaging:
12/08/2024 CT abdomen/pelvis without contrast: Small bilateral lower lobe consolidations with air bronchograms which could represent pneumonia and small bilateral pleural effusions. Small pericardial effusion. Coronary artery calcifications and/or
stents. Moderate volume widespread colonic stool. Markedly limited evaluation of intestinal tract without oral or intravenous contrast, without findings to suggest intestinal obstruction. No free air. Likely chronic bilateral hydroureteronephrosis
with some renal atrophy. Virtually completely empty/unopacified urinary bladder containing Calvin catheter. If there is a concern for cystitis, suggest correlation with urinalysis. Old left pelvic fractures and stable chronic-appearing marked L2
vertebral compression fracture.
--- NOTE | 2024-12-11 14:46 | W.PN.HOSP.TC ---
Today's Communication/Plan
-
Continue Vancomycin and Cefepime
Echocardiogram tomorrow
Assessment / Plan
Assessment / Plan
Physical Exam
General: Other (Frail, ill-appearing 84y M.)
HEENT: Normocephalic
Respiratory: Decreased breath sounds bilaterally
Cardiac: S1/S2, Regular Rhythm and Murmur (Harsh holosystolic murmur.)
GI: LLQ wound with purulent drainage present
Genito-urinary: Other (Calvin in place draining bloody, purulent urine.)
Musculoskeletal: No Cyanosis and No Edema
Neuro: Other (Sleeping. Responds to voice. Answers some Y/N questions.)
Assessment/Plan
84 y/o male with past medical history significant for complicated diverticulitis, ESRD on HD and chronic urinary retention who presented to ED for evaluation of abdominal pain, fever and decreased Calvin output. Patient with complaints of
abdominal discomfort for a few days. On the day of presentation at [facility] noted to have fever and decreased urine output and sent to the ED for evaluation. At time of admission in the ED, patient opened eyes to vocal stimuli, but did not answer
questions or follow commands. Calvin was exchanged in the ED for drainage of grossly purulent and then bloody urine.
Presentation with fever, abdominal pain and toxic metabolic encephalopathy
MRSA Bacteremia
Left lower quadrant wound with purulent drainage
Prior h/o diverticulitis and BRIANNA drain at [facility] - has persistent wound at this site
Complicated diverticular disease
UTI
Septic Shock secondary to the above
Fever
Leukocytosis
- Patient presented with fever, leukocytosis, tachycardia, tachypnea and urinalysis consistent with infection.
- UTI likely due to obstructed Calvin / malfunction.
- Replaced catheter in the ED for return of grossly purulent urine.
- Ventilated Rib Fitter consulted Infectious Diseases, appreciated lead simulation modeling engineer and ID
- Continue Vancomycin and Cefepime -- renally dose antibiotics. Flagyl previously stopped.
- CT Abdomen Pelvis noted
- Follow repeat blood cultures
- Echo for tomorrow has been ordered
- Wean off pressors -- has been off pressors since 1 AM on 12/10/24
ESRD on HD
Mild Hyponatremia
Chronic Hypotension
- Nephrology evaluation for HD needs during acute stay.
- Continue midodrine TID for hypotension - wean from other pressors as able.
- Follow for improvement in Na levels with adequate HD / UF.
- Patient has needed Levophed to be increased during dialysis
Chronic urinary retention with chronic Calvin in place
- Maintain Calvin drainage (per report, Calvin Catheter was exchanged in the ER)
Anemia of Chronic Disease
- Stable. Hgb is at / near known baseline.
- Follow for any changes.
Severe
- Murmur appreciated on exam.
- Patient not a candidate for intervention / replacement.
- There were discussions last admission re: end-of-life / goals of care but patient remains Full Code at present.
Skin Breakdown
Deep dermal stage 2 R hip pressure injury. Stage 1 sacral/buttocks pressure injury. Mid spine stage 1 pressure injury
- Multiple areas of skin breakdown (bilateral heels, sacrum, LLQ wound).
- Wound Care eval for local care recommendations.
Cachexia
Anxiety/depression
Hx pelvic fracture
Chronic constipation
DVT Prophylaxis: Subcut Heparin
Diet/Speech: On modified diet at baseline. Rec IDDSI Level 5 (minced/moist) and mildly thick liquids. May benefit from
VSE prior to discharge (he has never had one despite being on thickened liquids at baseline), but would wait until medically improved.
Code Status: Full Code
Anticipated Discharge: > 48 hours
Subjective/Interval History
-
Date of Service: December 11, 2024
Patient was seen and examined. He denied any new symptoms or complaints.
Objective Data
-
Labs:
Laboratory Results
12/11/24
03:35
WBC 8.7
Hgb 7.6 L
Hct 22.9 L
Plt Count 218
Sodium 136
Potassium 4.3
Chloride 100
Carbon Dioxide 26
BUN 52 H
Creatinine 3.7 H
Glucose 90
Calcium 9.8
Vital Signs:
Vital Signs
Temp Pulse Resp BP Pulse Ox
98.4 F 87 19 96/59 94
12/11/24 11:58 12/11/24 09:00 12/11/24 09:00 12/11/24 08:47 12/11/24 11:54
I&O
12/10/24 12/11/24 12/12/24
06:59 06:59 06:59
Intake Total 617.1 / 617.1 700 / 700 360 / 360
Output Total 1475 / 1475 925 / 925
Balance -857.9 / -857.9 -225 / -225 360 / 360
[2024-12-11] MEDS: STERILE WATER FOR INJECTION 10 ML IV (16:32)
[2024-12-11] MEDS: MAXIPIME 1000 MG IV (16:32)
--- NOTE | 2024-12-11 16:45 | PTCARENOTE ---
Pt incontinent for moderate amt of soft brown stool. Sacral optifoam changed. Scheduled for echo and HD tmr. Call liz within reach.
--- NOTE | 2024-12-11 20:00 | PTCARENOTE ---
Rec'd pt resting in bed, oriented toperson, needs reorientation to time/place, cooperative, follows commands,bed alarm on,SR w/ BBB, weak distal pulses, RA, lungs decr in bases, sat 97, + bowel sounds, inc loose soft brown stool, no n/v, pratt
draining yellow urine w/ sediment
--- NOTE | 2024-12-11 23:40 | PTCARENOTE ---
Resting comf, no changes
[2024-12-12] VITALS (38 sets, daily range): BP systolic 72–131; BP diastolic 47–88; BMI 19.7; BMI 19.0
--- NOTE | 2024-12-12 00:05 | PTCARENOTE ---
CHG bath done, linens changed
[2024-12-12 03:43] LABS: Hematocrit 24.3 % (39.0-52.0); Mean Corp Hgb Conc. 32.9 g/dL (33.0-37.0); Mean Corpuscular Hgb 30.9 pg (27.0-31.0); Mean Corpuscular Volume 93.8 fL (80.0-94.0); Mean Platelet Volume 9.4 fL (7.4-10.4); Platelet Count 225 10^3/uL (130-400); Red Blood Cell Count 2.59 10^6/uL (4.70-6.10); Red Cell Dist. Width 14.8 % (11.5-14.5); White Blood Cell Count 9.6 10^3/uL (4.8-10.8)
[2024-12-12 04:11] LABS: Vancomycin Random 13.2 ug/ml
[2024-12-12 04:17] LABS: Blood Urea Nitrogen 62 mg/dl (9-20); Carbon Dioxide 27 mmol/L (22-30); Chloride 98 mmol/L (98-107); Estimated Creatinine Clearance 9 ml/min; Glucose 111 mg/dl (70-99); Magnesium 1.7 mg/dl (1.6-2.3); Phosphorus 3.1 mg/dl (2.5-4.5); Sodium 134 mmol/L (135-145); eGFR 11.66
--- NOTE | 2024-12-12 04:29 | PTCARENOTE ---
resting comf, no changes
--- NOTE | 2024-12-12 07:10 | W.PN.HOSP.TC ---
Today's Communication/Plan
-
Can go to tele after HD
f/w echo
Assessment / Plan
Assessment / Plan
Physical Exam
General: Other (Frail, ill-appearing 84y M.)
HEENT: Normocephalic
Respiratory: Decreased breath sounds bilaterally
Cardiac: S1/S2, murmur.
GI: LLQ wound with purulent drainage present
Genito-urinary: Other (Calvin in place)
Musculoskeletal: No joint swelling
Neuro: Awake,, alert and oriented to self and surroundings
Psych: calm
84 y/o male presented to ED for evaluation of abdominal pain, fever and decreased Calvin output.
Presentation with fever, abdominal pain and toxic metabolic encephalopathy
MRSA Bacteremia
Left lower quadrant wound with purulent drainage
Prior h/o diverticulitis and BRIANNA drain at [facility] - has persistent wound at this site
Complicated diverticular disease
UTI
Septic Shock POA secondary to the above
Fever
Leukocytosis
- Patient presented with fever, leukocytosis, tachycardia, tachypnea and urinalysis consistent with infection.
- UTI likely due to obstructed Calvin / malfunction.
- Replaced catheter in the ED for return of grossly purulent urine.
- Continue Vancomycin and Cefepime -- renally dose antibiotics. Flagyl previously stopped.
- CT Abdomen Pelvis noted
- Repeat blood culture no growth
- Echo today
- Weaned off pressors -- has been off pressors since 12/10/24
#ESRD on HD
Mild Hyponatremia
Chronic Hypotension
Nephrology evaluation for HD needs during acute stay.
- Continue midodrine TID for hypotension - wean from other pressors as able.
- Follow for improvement in Na levels with adequate HD / UF.
# Hyponatremia, mild
#Chronic urinary retention with chronic Calvin in place
- Maintain Calvin drainage (per report, Calvin Catheter was exchanged in the ER)
#Anemia of Chronic Disease
- Stable. Hgb is at / near known baseline.
- Follow for any changes.
#Severe
- Patient not a candidate for intervention / replacement.
- There were discussions last admission re: end-of-life / goals of care but patient remains Full Code at present.
#Skin Breakdown
Deep dermal stage 2 R hip pressure injury. Stage 1 sacral/buttocks pressure injury. Mid spine stage 1 pressure injury
- Multiple areas of skin breakdown (bilateral heels, sacrum, LLQ wound).
- Wound Care eval for local care recommendations.
#Cachexia
# Anxiety/depression
Hx pelvic fracture
Chronic constipation
DVT Prophylaxis: Subcut Heparin
Diet/Speech: On modified diet at baseline. Rec IDDSI Level 5 (minced/moist) and mildly thick liquids. May benefit from
VSE prior to discharge (he has never had one despite being on thickened liquids at baseline), but would wait until medically improved.
Code Status: Full Code
Total time spent to see the patient, examine the patient, review data and lab results, discuss treatment plan with patient and nursing staff around 55 minutes
Anticipated Discharge: 24 - 48 hours
Subjective/Interval History
-
Date of Service: December 12, 2024
No chest pain
No sob
No fevers
Objective Data
-
Labs:
Laboratory Results
12/12/24
03:12
WBC 9.6
Hgb 8.0 L
Hct 24.3 L
Plt Count 225
Sodium 134 L
Potassium 5.0
Chloride 98
Carbon Dioxide 27
BUN 62 H
Creatinine 4.7 H*
Glucose 111 H
Calcium 10.0
Vital Signs:
Vital Signs
Temp Pulse Resp BP Pulse Ox
98.8 F 75 15 110/51 96
12/12/24 04:00 12/12/24 06:00 12/12/24 06:00 12/12/24 06:00 12/12/24 06:00
I&O
12/11/24 12/12/24 12/13/24
06:59 06:59 06:59
Intake Total 700 / 700 600 / 600
Output Total 925 / 925 1500 / 1500
Balance -225 / -225 -900 / -900
[2024-12-12] MEDS: ProAmatine 5 MG PO ×4 (07:48→22:01)
[2024-12-12] MEDS: DESENEX/MITRAZOL/ZEASORB 1 APPLIC TOPICAL ×2 (07:51→22:02)
[2024-12-12] MEDS: HEPARIN 5000 UNITS SC ×2 (07:51→21:57)
[2024-12-12] MEDS: RETACRIT 12000 UNITS IV (08:14)
--- NOTE | 2024-12-12 09:15 | W.PN.NEPH.HD ---
Assessment
-
Seen on HD. no complaints. VSS, BP low, midodrine with HD. access ok
Progress Note - Hemodialysis
-
Date of Service: December 12, 2024
Duration: 30 minutes and 3 hours
Potassium Bath: 2
Calcium Bath: 2.5
Opti-Dialyzer: 160
Ultrafiltration: Other (kg)
Blood Flow: 400
Dialysate Flow: 600
Heparin: no
EPO: 03328 units
--- NOTE | 2024-12-12 10:08 | W.PN.ID1 ---
Date of Service
Date of Service: December 12, 2024
Today's Communication
Continue antibiotics.
Assessment / Plan
MRSA bacteremia (2 of 2 bottles from 12/08/2024 @ 0121
- Source unclear at present.
- Other set from same day and repeat blood cultures negative
Draining left lower quadrant wound
- ?EC fistula ?abscess
Chronic urinary retention with chronic Calvin in place
Leukocytosis
Fever
Hx complicated diverticular disease
ESRD�HD
Severe
Anemia
Anxiety/depression
Hx pelvic fracture
Chronic constipation
Recommendations:
Continue with vancomycin and cefepime.
Repeat blood cultures without growth
Echocardiogram pending.
Monitor white count and temperature curve.
Further recommendations as additional data is returned.
����������������������������������������������������������
Chief Complaint
-: Bacteremia
Subjective / Review of Systems
Patient seen and examined while on dialysis. Denies complaints. Denies fever. Denies pain.
Vital Signs / Physical Exam
Vital Signs
Vital Signs
Temp Pulse Resp BP Pulse Ox
97.8 F 84 19 96/52 97
12/12/24 07:00 12/12/24 09:30 12/12/24 09:30 12/12/24 09:30 12/12/24 09:30
Physical Exam
Constitutional: Comfortable, Chronically Ill and Cachetic
Eyes: No Conjunctival Hemorrhage
Cardiovascular: S1/S2 and Murmur; Negative S3/S4
Pulmonary: Clear and Non Labored; Negative Wheezes or Rales
Gastrointestinal: Soft, Non Tender, Non Distended and Other (Left lower quadrant draining wound. No periwound erythema)
Extremities: Other (Left upper extremity AV fistula with positive bruit and thrill.); Negative Edema, Cyanosis, Erythema, Splinter Hemorrhage or Janeway Lesions
Neurological: Awake
Psychological: Calm
Objective Data
Lab Data
Lab Results
12/12/24 03:12
12/12/24 03:12
PT 17.8 Sec (11.4-14.6) H 12/09/24 04:58
INR 1.41 12/09/24 04:58
APTT 40.1 Sec (23.4-35.0) H 12/09/24 04:58
Estimated Creat Clear 9 ml/min 12/12/24 03:12
Lactic Acid Cancelled 12/08/24 04:30
Total Bilirubin 1.0 mg/dl (0.2-1.3) 12/08/24 00:26
AST 19 U/L (17-59) 12/08/24 00:26
ALT 12 U/L (0-50) 12/08/24 00:26
Alkaline Phosphatase 85 U/L (38-126) 12/08/24 00:26
Most recent labs reviewed.
Micro Results:
12/09/24 12:06 Wound Culture - Preliminary
Abdomen Proteus mirabilis
Escherichia coli
Rare Proteus mirabilis
Rare Presumptive Escherichia coli
Organism 1 Proteus mirabilis
1. Proteus mirabilis
M.I.C. RX
--------- ---
Amoxicillin/Potas. Clavulanate <=8/4 S
Ampicillin <=8 S
Ampicillin/Sulbactam <=4/2 S
Aztreonam <=4 S
Cefazolin <=2 S
Ertapenem <=0.5 S
Ciprofloxacin <=0.25 S
Gentamicin <=2 S
Meropenem <=1 S
Piperacillin/Tazobactam <=8 S
Tetracycline >8 R
Tobramycin <=2 S
Trimethoprim/Sulfamethoxazole <=2/38 S
12/09/24 08:24 Blood Culture - Preliminary
Blood/Venous No Growth in 72 hours- Final report to follow
12/08/24 05:53 Blood Culture - Preliminary
Blood/Venous No Growth in 4 days- Final report to follow
12/09/24 08:24 Blood Culture - Preliminary
Blood/Venous No Growth in 48 hours- Final report to follow
12/08/24 01:21 Blood Culture - Final
Blood/Venous Staph aureus MRSA 2 of 2 bottles
Gram Stain - Final
12/08/24 02:00 Urine Culture - Final
Urine
12/08/24 14:57 MRSA Screen - Final
Nose No Methicillin Resistant Staphylococcus aureus isolated.
12/09/24 09:06 Nasal Screen MRSA (PCR) - Final
Nose Staph aureus MRSA
12/08/24 00:27 Influenza Types A & B ([facility]) - Final
Nasal Swab Negative for Influenza A & B, NAAT
Negative results must be combined with clinical observations
and patient history.
Nucleic Acid Amplification test (NAAT)performed on the
[employer] platform.
Imaging:
12/08/2024 CT abdomen/pelvis without contrast: Small bilateral lower lobe consolidations with air bronchograms which could represent pneumonia and small bilateral pleural effusions. Small pericardial effusion. Coronary artery calcifications and/or
stents. Moderate volume widespread colonic stool. Markedly limited evaluation of intestinal tract without oral or intravenous contrast, without findings to suggest intestinal obstruction. No free air. Likely chronic bilateral hydroureteronephrosis
with some renal atrophy. Virtually completely empty/unopacified urinary bladder containing Calvin catheter. If there is a concern for cystitis, suggest correlation with urinalysis. Old left pelvic fractures and stable chronic-appearing marked L2
vertebral compression fracture.
Care Review
Plan reviewed with: Physician (Critical Care)
--- NOTE | 2024-12-12 10:40 | PHA.VAN.FU ---
Vancomycin Assessment / Plan
- Assessment
Renal Function: SCR Increasing (4.7)
Hemodialysis Schedule: MWF
WBC's are: WNL
In the past 24 hrs, patient has been: Afebrile
Concomitant Antimicrobials: CEFEPIME
- Assessment - Therapeutic Drug Monitoring
Random Level: R=13.2
- Dosing Plan
Dosing by Level: Re-dose today (vancomycin 500 mg x 1 post HD)
- Monitoring Plan
Random Level: 3/5 @0600
- Follow Up
Pharmacy will continue to follow.
Vancomycin Follow UP
- -
Patient Age: 84
Patient Sex: Male
Vancomycin Day #: 4
Indication: Bacteremia
Requesting Provider: Dick
Height / Weight:
Height 5 ft 6 in
Actual Weight 55.4 kg
IBW in k.8
Pertinent Past Medical History: ESRD on HD MWF
- Vital Signs / Lab Results
Temp Pulse Resp BP Pulse Ox
97.8 F 84 19 96/52 97
12/12/24 07:00 12/12/24 09:30 12/12/24 09:30 12/12/24 09:30 12/12/24 09:30
Lab Results - Hematology
12/10/24 12/11/24 12/12/24
04:05 03:35 03:12
WBC 6.8 8.7 9.6
Lab Results - Chemistry
12/10/24 12/11/24 12/12/24
04:15 03:35 03:12
BUN 34 H 52 H 62 H
Creatinine 2.7 H 3.7 H 4.7 H*
Estimated Creat Clear 16 12 9
Microbiology Results
12/09/24 12:06 Wound Culture - Preliminary
Abdomen Proteus mirabilis
Escherichia coli
Gram Stain - Preliminary
12/09/24 08:24 Blood Culture - Preliminary
Blood/Venous No Growth in 72 hours- Final report to follow
12/08/24 05:53 Blood Culture - Preliminary
Blood/Venous No Growth in 4 days- Final report to follow
12/09/24 08:24 Blood Culture - Preliminary
Blood/Venous No Growth in 48 hours- Final report to follow
12/08/24 01:21 Blood Culture - Final
Blood/Venous Staph aureus MRSA
Gram Stain - Final
12/08/24 02:00 Urine Culture - Final
Urine
Therapeutic Drug Monitoring
Random Vancomycin 13.2 ug/ml 12/12/24 03:12
[2024-12-12] MEDS: MANNITOL 25% 12.5 GRAMS IV (11:38)
[2024-12-12] MEDS: MANNITOL 25% IV (11:38)
[2024-12-12] MEDS: VANCOCIN HCL 500 MG 100 IV (11:59)
--- NOTE | 2024-12-12 14:04 | PTCARENOTE ---
VSS post HD. Ate 100% of lunch. Hygiene and repositioning provided. Per Dr. Soto, patient okay to downgrade to telemetry, awaiting orders.
[2024-12-12] MEDS: MAXIPIME 1000 MG IV (16:12)
[2024-12-12] MEDS: STERILE WATER FOR INJECTION 10 ML IV (16:12)
--- NOTE | 2024-12-12 16:48 | PTCARENOTE ---
Pt. received as transfer from ICU. VSS. Pt. assessed and oriented to unit. AAO X2-disoriented to place. Plan of care ongoing.
[2024-12-13 03:00] VITALS: BP 95/47
[2024-12-13 06:00] VITALS: BMI 18.1
[2024-12-13 06:35] LABS: Hematocrit 25.6 % (39.0-52.0); Hemoglobin 8.5 g/dL (13.0-18.0); Mean Corp Hgb Conc. 33.2 g/dL (33.0-37.0); Mean Corpuscular Hgb 31.6 pg (27.0-31.0); Mean Corpuscular Volume 95.2 fL (80.0-94.0); Mean Platelet Volume 9.7 fL (7.4-10.4); Platelet Count 250 10^3/uL (130-400); Red Blood Cell Count 2.69 10^6/uL (4.70-6.10); Red Cell Dist. Width 14.8 % (11.5-14.5); White Blood Cell Count 7.3 10^3/uL (4.8-10.8)
[2024-12-13 06:58] LABS: Blood Urea Nitrogen 25 mg/dl (9-20); Calcium 9.9 mg/dl (8.4-10.2); Carbon Dioxide 30 mmol/L (22-30); Chloride 100 mmol/L (98-107); Estimated Creatinine Clearance 17 ml/min; Glucose 90 mg/dl (70-99); Magnesium 1.8 mg/dl (1.6-2.3); Potassium 4.2 mmol/L (3.5-5.1); Sodium 136 mmol/L (135-145); eGFR 22.68
[2024-12-13 07:48] VITALS: BP 118/70
[2024-12-13] MEDS: DESENEX/MITRAZOL/ZEASORB 1 APPLIC TOPICAL ×2 (08:08→20:27)
[2024-12-13] MEDS: ProAmatine 5 MG PO ×3 (08:08→22:00)
[2024-12-13] MEDS: HEPARIN 5000 UNITS SC ×2 (08:10→20:26)
--- NOTE | 2024-12-13 10:05 | W.PN.HOSP.TC ---
Today's Communication/Plan
-
f/w ID recommendations
Assessment / Plan
Assessment / Plan
Physical Exam
General: Other (Frail, ill-appearing 84y M.)
HEENT: Normocephalic
Respiratory: Decreased breath sounds bilaterally
Cardiac: S1/S2, murmur.
GI: LLQ wound with purulent drainage present
Genito-urinary: Other (Calvin in place)
Musculoskeletal: No joint swelling
Neuro: Awake,, alert and oriented to self and surroundings but forgetful, he follows simple commands.
Psych: calm
84 y/o male presented to ED for evaluation of abdominal pain, fever and decreased Calvin output.
Presentation with fever, abdominal pain and toxic metabolic encephalopathy
MRSA Bacteremia
Left lower quadrant wound with purulent drainage
Prior h/o diverticulitis and BRIANNA drain at LLQ - has persistent wound at this site
Complicated diverticular disease
UTI
Septic Shock POA secondary to the above
Fever
Leukocytosis
- Patient presented with fever, leukocytosis, tachycardia, tachypnea and urinalysis consistent with infection.
- UTI likely due to obstructed Calvin / malfunction.
- Replaced catheter in the ED for return of grossly purulent urine.
- Continue Vancomycin and Cefepime -- renally dose antibiotics. Flagyl previously stopped.
- CT Abdomen Pelvis noted
- Repeat blood culture no growth
- Echo no TTE evidence of vegetation
- Weaned off pressors -- has been off pressors since 12/10/24
#ESRD on HD
Mild Hyponatremia
Chronic Hypotension
Nephrology evaluation for HD needs during acute stay.
- Continue midodrine TID for hypotension - wean from other pressors as able.
- Follow for improvement in Na levels with adequate HD / UF.
# Hyponatremia, mild
#Chronic urinary retention with chronic Calvin in place
- Maintain Calvin drainage (per report, Calvin Catheter was exchanged in the ER)
#Anemia of Chronic Disease
- Stable. Hgb is at / near known baseline.
- Follow for any changes.
#Severe
- Patient not a candidate for intervention / replacement.
- There were discussions last admission re: end-of-life / goals of care but patient remains Full Code at present.
#Skin Breakdown
Deep dermal stage 2 R hip pressure injury. Stage 1 sacral/buttocks pressure injury. Mid spine stage 1 pressure injury
- Multiple areas of skin breakdown (bilateral heels, sacrum, LLQ wound).
- Wound Care eval for local care recommendations.
#Cachexia
# Anxiety/depression
Hx pelvic fracture
Chronic constipation
DVT Prophylaxis: Subcut Heparin
Diet/Speech: On modified diet at baseline. Rec IDDSI Level 5 (minced/moist) and mildly thick liquids. May benefit from
VSE prior to discharge (he has never had one despite being on thickened liquids at baseline), but would wait until medically improved.
Code Status: Full Code
Total time spent to see the patient, examine the patient, review data and lab results, discuss treatment plan with patient and nursing staff around 55 minutes
Anticipated Discharge: Within 24 hours
Subjective/Interval History
-
Date of Service: December 13, 2024
No chest pain
No sob
No fevers
Clear urine in catheter
Objective Data
-
Labs:
Laboratory Results
12/13/24
05:46
WBC 7.3
Hgb 8.5 L
Hct 25.6 L
Plt Count 250
Sodium 136
Potassium 4.2
Chloride 100
Carbon Dioxide 30
BUN 25 H
Creatinine 2.7 H
Glucose 90
Calcium 9.9
Vital Signs:
Vital Signs
Temp Pulse Resp BP Pulse Ox
97.4 F 86 16 118/70 99
12/13/24 07:48 03/04/25 07:48 12/13/24 07:48 12/13/24 07:48 12/13/24 07:48
I&O
12/12/24 12/13/24 12/14/24
06:59 06:59 06:59
Intake Total 600 / 600 120 / 120
Output Total 1500 / 1500 550 / 550 800 / 800
Balance -900 / -900 -550 / -550 -680 / -680
[2024-12-13 11:00] VITALS: BP 109/51
--- NOTE | 2024-12-13 11:19 | PHA.VAN.FU ---
Vancomycin Assessment / Plan
- Assessment
Hemodialysis Schedule: MWF
Last Hemodialysis performed: ThursdayDecember 12
WBC's are: WNL
In the past 24 hrs, patient has been: Afebrile
Concomitant Antimicrobials: cefepime
- Dosing Plan
Dosing by Level: Hold off on dosing today
- Monitoring Plan
Random Level: 12/14 0600
- Follow Up
Pharmacy will continue to follow.
Vancomycin Follow UP
- -
Patient Age: 84
Patient Sex: Male
Vancomycin Day #: 5
Indication: Bacteremia
Requesting Provider: Dr. Monroe
Pertinent Antimicrobial Allergies:
NKDA
Height / Weight:
Height 5 ft 8 in
Actual Weight 53.932 kg
IBW in k.8
Pertinent Past Medical History: ESRD on HD MWF, BMI ~18.1
- Vital Signs / Lab Results
Temp Pulse Resp BP Pulse Ox
97.6 F 94 16 109/51 98
12/13/24 11:00 12/13/24 11:00 12/13/24 11:00 12/13/24 11:00 12/13/24 11:00
Lab Results - Hematology
12/11/24 12/12/24 12/13/24
03:35 03:12 05:46
WBC 8.7 9.6 7.3
Lab Results - Chemistry
12/11/24 12/12/24 12/13/24
03:35 03:12 05:46
BUN 52 H 62 H 25 H
Creatinine 3.7 H 4.7 H* 2.7 H
Estimated Creat Clear 12 9 17
Microbiology Results
12/09/24 08:24 Blood Culture - Preliminary
Blood/Venous No Growth in 4 days- Final report to follow
12/09/24 08:24 Blood Culture - Preliminary
Blood/Venous No Growth in 4 days- Final report to follow
12/08/24 05:53 Blood Culture - Final
Blood/Venous No Growth - Final Report
12/09/24 12:06 Wound Culture - Preliminary
Abdomen Proteus mirabilis
Escherichia coli
Gram Stain - Preliminary
12/08/24 01:21 Blood Culture - Final
Blood/Venous Staph aureus MRSA
Gram Stain - Final
Therapeutic Drug Monitoring
Random Vancomycin 13.2 ug/ml 12/12/24 03:12
--- NOTE | 2024-12-13 14:55 | W.PN.ID1 ---
Date of Service
Date of Service: December 13, 2024
Today's Communication
Continue with vancomycin. Transition cefepime to cephalexin.
Assessment / Plan
MRSA bacteremia (2 of 2 bottles from 12/08/2024 @ 0121
- Source unclear at present.
- Other set from same day and repeat blood cultures negative
Draining left lower quadrant wound
- ?EC fistula ?abscess
Chronic urinary retention with chronic Calvin in place
Leukocytosis
Fever
Hx complicated diverticular disease
ESRD�HD
Severe
Anemia
Anxiety/depression
Hx pelvic fracture
Chronic constipation
Recommendations:
Repeat blood cultures without growth. Echocardiogram without vegetation
Continue with vancomycin through 12/23/24. D/C further cefepime and transition to keflex.
If LE drainage persists, may need further eval by surgery as an outpatient.
Monitor white count and temperature curve.
����������������������������������������������������������
Chief Complaint
-: Bacteremia
Subjective / Review of Systems
Review of Systems: No Fever and No Chills
Vital Signs / Physical Exam
Vital Signs
Vital Signs
Temp Pulse Resp BP Pulse Ox
97.6 F 94 16 109/51 98
12/13/24 11:00 12/13/24 11:00 12/13/24 11:00 12/13/24 11:00 12/13/24 11:00
Physical Exam
Constitutional: Comfortable, Chronically Ill and Cachetic
Eyes: No Conjunctival Hemorrhage
Cardiovascular: S1/S2 and Murmur; Negative S3/S4
Pulmonary: Clear and Non Labored; Negative Wheezes or Rales
Gastrointestinal: Soft, Non Tender, Non Distended and Other (Left lower quadrant draining wound. No periwound erythema)
Extremities: Other (Left upper extremity AV fistula with positive bruit and thrill.); Negative Edema, Cyanosis, Erythema, Splinter Hemorrhage or Janeway Lesions
Psychological: Calm
Objective Data
Lab Data
Lab Results
12/13/24 05:46
12/13/24 05:46
PT 17.8 Sec (11.4-14.6) H 12/09/24 04:58
INR 1.41 12/09/24 04:58
APTT 40.1 Sec (23.4-35.0) H 12/09/24 04:58
Estimated Creat Clear 17 ml/min 12/13/24 05:46
Lactic Acid Cancelled 12/08/24 04:30
Total Bilirubin 1.0 mg/dl (0.2-1.3) 12/08/24 00:26
AST 19 U/L (17-59) 12/08/24 00:26
ALT 12 U/L (0-50) 12/08/24 00:26
Alkaline Phosphatase 85 U/L (38-126) 12/08/24 00:26
Most recent labs reviewed.
Micro Results:
12/09/24 12:06 Wound Culture - Preliminary
Abdomen Proteus mirabilis
Escherichia coli
Gram Stain - Preliminary
12/09/24 08:24 Blood Culture - Preliminary
Blood/Venous No Growth in 4 days- Final report to follow
12/09/24 08:24 Blood Culture - Preliminary
Blood/Venous No Growth in 4 days- Final report to follow
12/08/24 05:53 Blood Culture - Final
Blood/Venous No Growth - Final Report
12/08/24 01:21 Blood Culture - Final
Blood/Venous Staph aureus MRSA
Gram Stain - Final
12/08/24 02:00 Urine Culture - Final
Urine
12/08/24 14:57 MRSA Screen - Final
Nose No Methicillin Resistant Staphylococcus aureus isolated.
12/09/24 09:06 Nasal Screen MRSA (PCR) - Final
Nose Staph aureus MRSA
12/08/24 00:27 Influenza Types A & B ([facility]) - Final
Nasal Swab Negative for Influenza A & B, NAAT
Negative results must be combined with clinical observations
and patient history.
Nucleic Acid Amplification test (NAAT)performed on the
[employer] platform.
Imaging:
12/08/2024 CT abdomen/pelvis without contrast: Small bilateral lower lobe consolidations with air bronchograms which could represent pneumonia and small bilateral pleural effusions. Small pericardial effusion. Coronary artery calcifications and/or
stents. Moderate volume widespread colonic stool. Markedly limited evaluation of intestinal tract without oral or intravenous contrast, without findings to suggest intestinal obstruction. No free air. Likely chronic bilateral hydroureteronephrosis
with some renal atrophy. Virtually completely empty/unopacified urinary bladder containing Calvin catheter. If there is a concern for cystitis, suggest correlation with urinalysis. Old left pelvic fractures and stable chronic-appearing marked L2
vertebral compression fracture.
[2024-12-13 14:59] VITALS: BP 100/55
--- NOTE | 2024-12-13 17:58 | W.PN.NEPH.PH ---
Today's Communication / Plan
-
HD tomorrow
Assessment/Plan
-
IMP:
Abdominal pain
Fever
ESRD - HD M/W/F. kirit mejia, previously [facility] at [facility]
Suprapubic cath
History of diverticulitis with left lower abdominal wound patch
Gram-positive cocci bacteremia
Anemia of CKD
Leucocytosis
Urinary tract infection
Left UE AVF
constipation noted on CT
Atrial fibrillation
Severe aortic stenosis
Hypotension
Aortic stenosis not a TAVR candidate
Plan:
HD plan tomorrow through AVF
BPs table on midodrine
JO for anemia, hgb low but stable
Maintain chronic Pratt
MRSA bacteremia-abx per ID-dose renally
-
-
Date of Service: December 13, 2024
CC / HPI / ROS
-
Chief Complaint:
ESRD Thursday
History of Present Illness:
ESRD Thursday schedule
Hemodynamically stable on midodrine,
Remains on vancomycin for MRSA in blood
Review of Systems:
no cp or sob at rest
Baseline dementia but does respond to questions
chronic pratt
Labs
-
Labs:
WBC 7.3 10^3/uL (4.8-10.8) 12/13/24 05:46
RBC 2.69 10^6/uL (4.70-6.10) L 12/13/24 05:46
Hgb 8.5 g/dL (13.0-18.0) L 12/13/24 05:46
Hct 25.6 % (39.0-52.0) L 12/13/24 05:46
Plt Count 250 10^3/uL (130-400) 12/13/24 05:46
Sodium 136 mmol/L (135-145) 12/13/24 05:46
Potassium 4.2 mmol/L (3.5-5.1) 12/13/24 05:46
Chloride 100 mmol/L (98-107) 12/13/24 05:46
Carbon Dioxide 30 mmol/L (22-30) 12/13/24 05:46
BUN 25 mg/dl (9-20) H 12/13/24 05:46
Creatinine 2.7 mg/dL (0.7-1.3) H 12/13/24 05:46
eGFR 22.68 12/13/24 05:46
Glucose 90 mg/dl (70-99) 12/13/24 05:46
Calcium 9.9 mg/dl (8.4-10.2) 12/13/24 05:46
Phosphorus 3.0 mg/dl (2.5-4.5) 12/13/24 05:46
Albumin 3.1 g/dl (3.5-5.0) L 12/08/24 00:26
Physical Exam
-
Vital Signs:
Vital Signs
Temp Pulse Resp BP Pulse Ox
97.9 F 87 16 100/55 98
12/13/24 14:59 12/13/24 14:59 12/13/24 14:59 12/13/24 14:59 12/13/24 14:59
Cardiovascular:: Irregular rate and rhythm (4 out of 6 systolic ejection murmur at right sternal base)
Respiratory:: Bilateral: CTA
Lung Excursion:: Normal
Abdomen:: Nontender and Soft
Bowel Sounds:: Normal
Extremity Edema:: None: Bilateral:
Pratt Catheter: Yes
[2024-12-13 19:00] VITALS: BP 98/64
[2024-12-13 23:00] VITALS: BP 108/59
[2024-12-14 03:00] VITALS: BP 98/54
[2024-12-14 05:59] VITALS: BMI 17.9
[2024-12-14 07:21] VITALS: BP 134/62
[2024-12-14] MEDS: DESENEX/MITRAZOL/ZEASORB 1 APPLIC TOPICAL ×2 (08:06→20:30)
[2024-12-14] MEDS: HEPARIN 5000 UNITS SC ×2 (08:11→20:27)
[2024-12-14] MEDS: KEFLEX 500 MG PO (08:11)
[2024-12-14] MEDS: ProAmatine 5 MG PO ×4 (08:11→21:11)
[2024-12-14 10:27] LABS: Hematocrit 25.7 % (39.0-52.0); Hemoglobin 8.5 g/dL (13.0-18.0); Mean Corp Hgb Conc. 33.1 g/dL (33.0-37.0); Mean Corpuscular Hgb 31.4 pg (27.0-31.0); Mean Corpuscular Volume 94.8 fL (80.0-94.0); Mean Platelet Volume 9.6 fL (7.4-10.4); Platelet Count 293 10^3/uL (130-400); Red Blood Cell Count 2.71 10^6/uL (4.70-6.10); Red Cell Dist. Width 15.3 % (11.5-14.5); White Blood Cell Count 7.6 10^3/uL (4.8-10.8)
[2024-12-14] MEDS: FLEXBUMIN 25% FOR HEMODIALYSIS 12.5 GRAMS IV ×2 (10:38→11:21)
--- NOTE | 2024-12-14 10:43 | WOUNDNOTE ---
WOC RN note: Jose Dumont re: recommend an air mattress at SNF if not already in place. He has a R hip stage 2 and a sacral stage 1 pressure injury.
[2024-12-14] MEDS: MANNITOL 25% 12.5 GRAMS IV ×2 (10:50→11:37)
--- NOTE | 2024-12-14 10:54 | W.PN.HOSP.TC ---
Today's Communication/Plan
-
dc planning
Will need vancomycin IV
Assessment / Plan
Assessment / Plan
Physical Exam
General: Other (Frail, ill-appearing 84y M.)
HEENT: Normocephalic
Respiratory: Decreased breath sounds bilaterally
Cardiac: S1/S2, murmur.
GI: LLQ wound with purulent drainage present
Genito-urinary: Other (Calvin in place)
Musculoskeletal: No joint swelling
Neuro: Awake,, alert and oriented to self and surroundings but forgetful, he follows simple commands.
Psych: calm
84 y/o male presented to ED for evaluation of abdominal pain, fever and decreased Calvin output.
Presentation with fever, abdominal pain and toxic metabolic encephalopathy
MRSA Bacteremia
Left lower quadrant wound with purulent drainage
Prior h/o diverticulitis and BRIANNA drain at LLQ - has persistent wound at this site
Complicated diverticular disease
UTI
Septic Shock POA secondary to the above
Fever
Leukocytosis
- Patient presented with fever, leukocytosis, tachycardia, tachypnea and urinalysis consistent with infection.
- UTI likely due to obstructed Calvin / malfunction.
- Replaced catheter in the ED for return of grossly purulent urine.
- s/p Vancomycin and Cefepime -- now on Keflex and Vancomycin. renally dose antibiotics. Flagyl previously stopped.
- CT Abdomen Pelvis noted
- Repeat blood culture no growth
- Echo no TTE evidence of vegetation
- Weaned off pressors -- has been off pressors since 12/10/24
Appreciate ID help
#ESRD on HD
Mild Hyponatremia
Chronic Hypotension
- Continue midodrine TID for hypotension - wean from other pressors as able.
- Follow for improvement in Na levels with adequate HD / UF.
# Hyponatremia, mild
#Chronic urinary retention with chronic Calvin in place
- Maintain Calvin drainage (per report, Calvin Catheter was exchanged in the ER)
#Anemia of Chronic Disease
- Stable. Hgb is at / near known baseline.
- Follow for any changes.
#Severe
- Patient not a candidate for intervention / replacement.
- There were discussions last admission re: end-of-life / goals of care but patient remains Full Code at present.
#Skin Breakdown
Deep dermal stage 2 R hip pressure injury. Stage 1 sacral/buttocks pressure injury. Mid spine stage 1 pressure injury
- Multiple areas of skin breakdown (bilateral heels, sacrum, LLQ wound).
- Wound Care eval for local care recommendations.
#Cachexia/ Moderate protein calorie malnutrition
# Anxiety/depression
Hx pelvic fracture
Chronic constipation
DVT Prophylaxis: Subcut Heparin
Diet/Speech: On modified diet at baseline. Rec IDDSI Level 5 (minced/moist) and mildly thick liquids. May benefit from
VSE prior to discharge (he has never had one despite being on thickened liquids at baseline), but would wait until medically improved.
Code Status: Full Code
Total time spent to see the patient, examine the patient, review data and lab results, discuss treatment plan with patient and nursing staff around 55 minutes
Anticipated Discharge: Within 24 hours
Subjective/Interval History
-
Date of Service: December 14, 2024
Objective Data
-
Labs:
Laboratory Results
12/14/24
10:18
WBC 7.6
Hgb 8.5 L
Hct 25.7 L
Plt Count 293
Sodium Pending
Potassium Pending
Chloride Pending
Carbon Dioxide Pending
BUN Pending
Creatinine Pending
Glucose Pending
Calcium Pending
Vital Signs:
Vital Signs
Temp Pulse Resp BP Pulse Ox
97.6 F 82 24 85/45 100
12/14/24 07:21 12/14/24 07:21 12/14/24 07:21 12/14/24 10:51 12/14/24 07:21
I&O
12/13/24 12/14/24 12/15/24
06:59 06:59 06:59
Intake Total 820 / 820
Output Total 550 / 550 2100 / 2100
Balance -550 / -550 -1280 / -1280
[2024-12-14 10:57] LABS: Blood Urea Nitrogen 37 mg/dl (9-20); Carbon Dioxide 25 mmol/L (22-30); Chloride 97 mmol/L (98-107); Estimated Creatinine Clearance 11 ml/min; Glucose 129 mg/dl (70-99); Magnesium 1.7 mg/dl (1.6-2.3); Phosphorus 3.6 mg/dl (2.5-4.5); Potassium 4.7 mmol/L (3.5-5.1); Sodium 133 mmol/L (135-145); eGFR 14.59
[2024-12-14 11:09] LABS: Vancomycin Random 9.1 ug/ml
[2024-12-14] MEDS: RETACRIT 10000 UNITS IV (11:13)
[2024-12-14 11:20] VITALS: BP 140/60
--- NOTE | 2024-12-14 12:01 | W.PN.ID1 ---
Date of Service
Date of Service: December 14, 2024
Today's Communication
Continue antibiotics. See below�
Assessment / Plan
MRSA bacteremia (2 of 2 bottles from 12/08/2024 @ 0121
- Source unclear at present.
- Other set from same day and repeat blood cultures negative
Draining left lower quadrant wound
- ?EC fistula ?abscess
Chronic urinary retention with chronic Calvin in place
Leukocytosis
Fever
Hx complicated diverticular disease
ESRD�HD
Severe
Anemia
Anxiety/depression
Hx pelvic fracture
Chronic constipation
Recommendations:
Repeat blood cultures without growth. Echocardiogram without vegetation
Continue with vancomycin through 12/23/24. Vanco may be administered on HD.
Continue keflex for an additional 7 days.
If LLQ drainage persists, may need further eval by surgery as an outpatient.
Monitor white count and temperature curve.
����������������������������������������������������������
Chief Complaint
-: Bacteremia
Subjective / Review of Systems
Review of Systems: No Fever and No Chills
Vital Signs / Physical Exam
Vital Signs
Vital Signs
Temp Pulse Resp BP Pulse Ox
97.8 F 74 16 140/60 97
12/14/24 11:20 12/14/24 11:20 12/14/24 11:20 12/14/24 11:20 12/14/24 11:20
Physical Exam
Constitutional: Comfortable, Chronically Ill and Cachetic
Eyes: No Conjunctival Hemorrhage
Cardiovascular: S1/S2 and Murmur; Negative S3/S4
Pulmonary: Clear and Non Labored; Negative Wheezes or Rales
Gastrointestinal: Soft, Non Tender, Non Distended and Other (Left lower quadrant draining wound. No periwound erythema)
Extremities: Other (Left upper extremity AV fistula with positive bruit and thrill.); Negative Edema, Cyanosis, Erythema, Splinter Hemorrhage or Janeway Lesions
Neurological: Awake and Alert
Psychological: Calm
Objective Data
Lab Data
Lab Results
12/14/24 10:18
12/14/24 10:18
PT 17.8 Sec (11.4-14.6) H 12/09/24 04:58
INR 1.41 12/09/24 04:58
APTT 40.1 Sec (23.4-35.0) H 12/09/24 04:58
Estimated Creat Clear 11 ml/min 12/14/24 10:18
Lactic Acid Cancelled 12/08/24 04:30
Total Bilirubin 1.0 mg/dl (0.2-1.3) 12/08/24 00:26
AST 19 U/L (17-59) 12/08/24 00:26
ALT 12 U/L (0-50) 12/08/24 00:26
Alkaline Phosphatase 85 U/L (38-126) 12/08/24 00:26
Most recent labs reviewed.
Micro Results:
12/09/24 08:24 Blood Culture - Final
Blood/Venous No Growth - Final Report
12/09/24 08:24 Blood Culture - Final
Blood/Venous No Growth - Final Report
12/09/24 12:06 Wound Culture - Final
Abdomen Proteus mirabilis
Escherichia coli - ESBL
Gram Stain - Final
12/08/24 05:53 Blood Culture - Final
Blood/Venous No Growth - Final Report
12/08/24 01:21 Blood Culture - Final
Blood/Venous Staph aureus MRSA
Gram Stain - Final
12/08/24 02:00 Urine Culture - Final
Urine
12/08/24 14:57 MRSA Screen - Final
Nose No Methicillin Resistant Staphylococcus aureus isolated.
12/09/24 09:06 Nasal Screen MRSA (PCR) - Final
Nose Staph aureus MRSA
12/08/24 00:27 Influenza Types A & B ([facility]) - Final
Nasal Swab Negative for Influenza A & B, NAAT
Negative results must be combined with clinical observations
and patient history.
Nucleic Acid Amplification test (NAAT)performed on the
[employer] platform.
Imaging:
12/08/2024 CT abdomen/pelvis without contrast: Small bilateral lower lobe consolidations with air bronchograms which could represent pneumonia and small bilateral pleural effusions. Small pericardial effusion. Coronary artery calcifications and/or
stents. Moderate volume widespread colonic stool. Markedly limited evaluation of intestinal tract without oral or intravenous contrast, without findings to suggest intestinal obstruction. No free air. Likely chronic bilateral hydroureteronephrosis
with some renal atrophy. Virtually completely empty/unopacified urinary bladder containing Calvin catheter. If there is a concern for cystitis, suggest correlation with urinalysis. Old left pelvic fractures and stable chronic-appearing marked L2
vertebral compression fracture.
--- NOTE | 2024-12-14 12:18 | PHA.VAN.FU ---
Vancomycin Assessment / Plan
- Assessment
Hemodialysis Schedule: MWF
Last Hemodialysis performed: Tuesday 12/12
Concomitant Antimicrobials: cephalexin
- Assessment - Therapeutic Drug Monitoring
Random Level: pre-HD = 9.1 (previous dose 500mg)
- Dosing Plan
Dosing by Level: Re-dose today (Vanc 750mg)
Dosing Comments: increase dosing
- Monitoring Plan
No level(s) ordered at this time: consider pre-HD level for Thursday, if remains admitted
- Follow Up
Pharmacy will continue to follow.
Vancomycin Follow UP
- -
Patient Age: 84
Patient Sex: Male
Vancomycin Day #: 6
Indication: Bacteremia
Requesting Provider: Dr. Monroe / Adam
Pertinent Antimicrobial Allergies:
NKDA
Height / Weight:
Height 5 ft 8 in
Actual Weight 53.342 kg
IBW in k.8
Pertinent Past Medical History: ESRD on HD MWF, BMI ~18.1
- Vital Signs / Lab Results
Temp Pulse Resp BP Pulse Ox
97.8 F 74 16 140/60 97
12/14/24 11:20 12/14/24 11:20 12/14/24 11:20 12/14/24 11:20 12/14/24 11:20
Lab Results - Hematology
12/12/24 12/13/24 12/14/24
03:12 05:46 10:18
WBC 9.6 7.3 7.6
Lab Results - Chemistry
12/12/24 12/13/24 12/14/24
03:12 05:46 10:18
BUN 62 H 25 H 37 H
Creatinine 4.7 H* 2.7 H 3.9 H
Estimated Creat Clear 9 17 11
Microbiology Results
12/09/24 08:24 Blood Culture - Final
Blood/Venous No Growth - Final Report
12/09/24 08:24 Blood Culture - Final
Blood/Venous No Growth - Final Report
12/09/24 12:06 Wound Culture - Final
Abdomen Proteus mirabilis
Escherichia coli - ESBL
Gram Stain - Final
12/08/24 05:53 Blood Culture - Final
Blood/Venous No Growth - Final Report
Therapeutic Drug Monitoring
Random Vancomycin 9.1 ug/ml 12/14/24 10:32
--- NOTE | 2024-12-14 12:56 | W.PN.NEPH.HD ---
Assessment
-
Patient seen on dialysis
Systolic blood pressure dropped to 114, UF was decreased to 0.5 kg
Progress Note - Hemodialysis
-
Date of Service: December 14, 2024
Duration: 30 minutes
Potassium Bath: 2
Calcium Bath: 2.5
Opti-Dialyzer: 160
Ultrafiltration: Other (0.5 kg as tolerated blood pressure has been dropping despite mannitol and albumin)
Blood Flow: 400
Dialysate Flow: 600
Heparin: None
EPO: 10,000
--- NOTE | 2024-12-14 13:05 | CM ---
Patient seen at bedside. Patient from [facility], CM sent updated clinicals to Liaison. CM will continue to follow for discharge planning needs.
Plan; return to SNF
[2024-12-14] MEDS: VANCOCIN 150 IV (14:06)
[2024-12-14 15:03] VITALS: BP 115/64
[2024-12-14 16:25] VITALS: BMI 17.9
[2024-12-14 19:00] VITALS: BP 110/61
[2024-12-14 23:00] VITALS: BP 107/61
[2024-12-15 03:00] VITALS: BP 114/67
[2024-12-15 06:00] VITALS: BMI 17.6
[2024-12-15 07:55] VITALS: BP 115/62
[2024-12-15] MEDS: DESENEX/MITRAZOL/ZEASORB 1 APPLIC TOPICAL ×2 (08:23→20:50)
[2024-12-15] MEDS: KEFLEX 500 MG PO (08:24)
[2024-12-15] MEDS: ProAmatine 5 MG PO ×2 (08:24→21:07)
[2024-12-15] MEDS: HEPARIN 5000 UNITS SC ×2 (08:24→20:49)
--- NOTE | 2024-12-15 09:25 | W.PN.HOSP.TC ---
Addendum entered and electronically signed by Glenys Soto MD 12/15/24 12:45:
Addendum
talked with brother Hubert (POA), pt is DNR, no heroic measure if arrest
also explained about wound and further testing, he verbalized understanding, will update him as I get more informations.
End
Addendum entered and electronically signed by Glenys Soto MD 12/15/24 11:21:
Addendum
Discussed with radiology, will order Fluoroscope exam to look into the wound, possible fistula.
End
Original Note:
Today's Communication/Plan
-
Will d/w IR
Possible discharge today
Assessment / Plan
Assessment / Plan
Physical Exam
General: Other (Frail, ill-appearing 84y M.)
HEENT: Normocephalic
Respiratory: Decreased breath sounds bilaterally
Cardiac: S1/S2, murmur.
GI: LLQ wound with purulent drainage present
Genito-urinary: Other (Calvin in place)
Musculoskeletal: No joint swelling
Neuro: Awake,, alert and oriented to self and surroundings but forgetful, he follows simple commands.
Psych: calm
84 y/o male presented to ED for evaluation of abdominal pain, fever and decreased Calvin output.
Presentation with fever, abdominal pain and toxic metabolic encephalopathy
MRSA Bacteremia
Left lower quadrant wound with purulent drainage
Prior h/o diverticulitis and BRIANNA drain at LLQ - has persistent wound at this site
Complicated diverticular disease
UTI
Septic Shock POA secondary to the above
Fever
Leukocytosis
- Patient presented with fever, leukocytosis, tachycardia, tachypnea and urinalysis consistent with infection.
- UTI likely due to obstructed Calvin / malfunction.
- Replaced catheter in the ED for return of grossly purulent urine.
- s/p Vancomycin and Cefepime -- now on Keflex and Vancomycin. renally dose antibiotics. Flagyl previously stopped.
- CT Abdomen Pelvis noted
- Repeat blood culture no growth
- Echo no TTE evidence of vegetation
- Weaned off pressors -- has been off pressors since 12/10/24
Appreciate ID help
# left lower abdominal wound
Chronic, on and off drainage
Will reach out to IR to ask if fistulogram is possible
#ESRD on HD
Mild Hyponatremia
Chronic Hypotension
- Continue midodrine TID for hypotension - wean from other pressors as able.
- Follow for improvement in Na levels with adequate HD / UF.
# Hyponatremia, mild
#Chronic urinary retention with chronic Calvin in place
- Maintain Calvin drainage (per report, Calvin Catheter was exchanged in the ER)
#Anemia of Chronic Disease
- Stable. Hgb is at / near known baseline.
- Follow for any changes.
#Severe
- Patient not a candidate for intervention / replacement.
- There were discussions last admission re: end-of-life / goals of care but patient remains Full Code at present.
#Skin Breakdown
Deep dermal stage 2 R hip pressure injury. Stage 1 sacral/buttocks pressure injury. Mid spine stage 1 pressure injury
- Multiple areas of skin breakdown (bilateral heels, sacrum, LLQ wound).
- Wound Care eval for local care recommendations.
#Cachexia/ Moderate protein calorie malnutrition
# Anxiety/depression
Hx pelvic fracture
Chronic constipation
DVT Prophylaxis: Subcut Heparin
Diet/Speech: On modified diet at baseline. Rec IDDSI Level 5 (minced/moist) and mildly thick liquids. May benefit from
VSE prior to discharge (he has never had one despite being on thickened liquids at baseline), but would wait until medically improved.
Code Status: Full Code
Total time spent to see the patient, examine the patient, review data and lab results, discuss treatment plan with patient and nursing staff around 55 minutes
Anticipated Discharge: Within 24 hours
Subjective/Interval History
-
Date of Service: December 15, 2024
No complaints
Feels ready to leave hospital
Objective Data
-
Vital Signs:
Vital Signs
Temp Pulse Resp BP Pulse Ox
97.7 F 88 17 115/62 98
12/15/24 07:55 12/15/24 08:24 12/15/24 07:55 12/15/24 08:24 12/15/24 07:55
I&O
12/14/24 12/15/24 12/16/24
06:59 06:59 06:59
Intake Total 820 / 820
Output Total 2099 / 2099
Balance -1280 / -1280 -2049
--- NOTE | 2024-12-15 10:42 | PN.CDI ---
Addendum entered and electronically signed by Glenys Soto MD 12/15/24 11:24:
Moderate protein calorie malnutrition'
Original Note:
CDI
- -
CDI:
Physician Documentation Request
Admit Date: 12/08/24 03:42
Dear Doctor Charles,
Patient admitted with sepsis.
Documentation includes the diagnosis of malnutrition. Other clinical indicators are:
12/15 Hospitalist PN: 'Frail, ill-appearing 84y M...Cachexia/ Moderate protein calorie malnutrition'
BMI: 17.6
To ensure the quality of the medical record, based on the above information and the recognized standards for malnutrition , could you please verify in your progress notes which of the following responses best reflects the patient's nutritional
status:
Moderate protein calorie malnutrition is/was present and is a clinical diagnosis (please provide additional support in the medical record)
Other level of malnutrition is present (Mild, Moderate or Severe)
No nutritional deficiency
Other (please specify)
[place] Criteria ([facility] Hospitalist 2017)
2 or more criteria must be present for either
non severe or severe malnutrition
Note that the criteria differs related to the
presence of an acute or chronic illness
Acute Illness Chronic Illness
Energy Intake Non Severe: <75% for >7 days Non Severe: <75% for >1 month
Severe: <50% for >5 days Severe: <75% for >1 month
Weight Loss Non Severe: 1-2% over 1 week Non Severe: 5% over 1 month
5% over 1 month 7.5% over 3 months
7.5% over 3 months 10% over 6 months
1 year N/A 20% over 1 year
Severe: >2% over 1 week Severe: >5% over 1 month
>5% over 1 month >7.5% over 3 months
>7.5% over 3 months >10% over 6 months
1 year N/A >20% over 1 year
Body Fat Non Severe: Mild Decrease Non Severe: Mild Loss
Severe: Moderate Decrease Severe: Severe Loss
Muscle Mass Non Severe: Mild Decrease Non Severe: Mild Loss
Severe: Moderate Decrease Severe: Severe Loss
Fluid Accumulation Non Severe: Mild Accumulation Non Severe: Mild Accumulation
Severe: Moderate to severe Severe: Moderate to severe
accumulation accumulation
Reduced Machine Wiper Strength Non Severe: N/A Non Severe: N/A
Severe: Measurably reduced Severe: Measurably reduced
Additional criteria that can be used to Determine if Mild or Moderate Malnutrition (Merck Manual 2018)
Mild Moderate Severe
Albumin gm/dl <3.0 gm/dl <2.5 gm/dl <2.0 gm/dl
Pre Albumin mg/dl <15 gm/dl <10 mg/dl <5.0 mg/dl
BMI <18.5 <17 <16
Use of terms such as suspected, likely, concern for, or probable (associated with a specific diagnosis that is being evaluated, monitored, or treated as if it exists) are acceptable and can be coded in the inpatient setting, when documented at the
time of discharge.
Thank you,
Mary Lora RN, BSN
CDI Specialist
Available via [place] text
Please use your independent medical judgment in providing your response.
[2024-12-15 11:36] VITALS: BP 113/59
--- NOTE | 2024-12-15 12:55 | CM ---
Patient for return to SNF when medically appropriate. CM will continue to follow for discharge planning needs.
Plan; return to SNF when medically appropriate.
--- NOTE | 2024-12-15 13:28 | PHA.VAN.FU ---
Vancomycin Assessment / Plan
- Assessment
Hemodialysis Schedule: MWF
WBC's are: WNL
In the past 24 hrs, patient has been: Afebrile
- Dosing Plan
Dosing by Level: Hold off on dosing today (Will re-dose after dialysis tomorrow)
- Monitoring Plan
Random Level: Pre-HD tomorrow 12/16
- Follow Up
Pharmacy will continue to follow.
Vancomycin Follow UP
- -
Patient Age: 84
Patient Sex: Male
Vancomycin Day #: 7
Indication: Bacteremia
Requesting Provider: Dr. Monroe / Adam
Pertinent Antimicrobial Allergies:
NKDA
Height / Weight:
Height 5 ft 8 in
Actual Weight 52.362 kg
IBW in k.8
Pertinent Past Medical History: ESRD on HD MWF, BMI ~18.1
- Vital Signs / Lab Results
Temp Pulse Resp BP Pulse Ox
97.8 F 84 16 113/59 98
12/15/24 11:36 12/15/24 11:36 12/15/24 11:36 12/15/24 11:36 12/15/24 11:36
Lab Results - Hematology
12/13/24 12/14/24
05:46 10:18
WBC 7.3 7.6
Lab Results - Chemistry
12/13/24 12/14/24
05:46 10:18
BUN 25 H 37 H
Creatinine 2.7 H 3.9 H
Estimated Creat Clear 17 11
Microbiology Results
12/09/24 08:24 Blood Culture - Final
Blood/Venous No Growth - Final Report
12/09/24 08:24 Blood Culture - Final
Blood/Venous No Growth - Final Report
12/09/24 12:06 Wound Culture - Final
Abdomen Proteus mirabilis
Escherichia coli - ESBL
Gram Stain - Final
Therapeutic Drug Monitoring
Random Vancomycin 9.1 ug/ml 12/14/24 10:32
--- NOTE | 2024-12-15 13:30 | WOUNDNOTE ---
WO RN note: Patient moving better and reports a good appetite. Sacral redness resolving. R hip stage 2 ulcer healed. LLQ dressing changed, moderate valenzuela/yellow mucoid drainage. Patient for a fistulogram today as per KAMLIAH Cortes. Patient incontinent of
small loose dark brown stool. Lana care given. Patient instructed pressure injury prevention measures. Protective foam dressing changed on heels. Heels intact without redness. Heels off bed with a pillow. Air chair cushion given. Discussed with PCT
Janette and KAMILAH Cortes. Will follow peripherally as needed.
--- NOTE | 2024-12-15 13:30 | WOUNDNOTE ---
LLQ near groin
--- NOTE | 2024-12-15 15:30 | W.PN.NEPH.PH ---
Today's Communication / Plan
-
Dialysis tomorrow
Assessment/Plan
-
IMP:
Abdominal pain
Fever
ESRD - HD M/W/F. kirit mejia, previously [facility] unit at [facility]
Suprapubic cath
History of diverticulitis with left lower abdominal wound patch
Gram-positive cocci bacteremia
Anemia of CKD
Leucocytosis
Urinary tract infection
Left UE AVF
constipation noted on CT
Atrial fibrillation
Severe aortic stenosis
Hypotension
Aortic stenosis not a TAVR candidate
Plan:
HD plan tomorrow through AVF
BPs table on midodrine
JO for anemia, hgb low but stable
Maintain chronic Pratt
MRSA bacteremia-abx per ID-dose renally
For imaging of abdominal fistulae
-
-
Date of Service: December 15, 2024
CC / HPI / ROS
-
Chief Complaint:
ESRD Thursday
History of Present Illness:
ESRD Thursday schedule
Hemodynamically stable on midodrine,
Remains on vancomycin for MRSA in blood
Review of Systems:
no cp or sob at rest
Baseline dementia but does respond to questions
chronic pratt
Labs
-
Labs:
WBC 7.6 10^3/uL (4.8-10.8) 12/14/24 10:18
RBC 2.71 10^6/uL (4.70-6.10) L 12/14/24 10:18
Hgb 8.5 g/dL (13.0-18.0) L 12/14/24 10:18
Hct 25.7 % (39.0-52.0) L 12/14/24 10:18
Plt Count 293 10^3/uL (130-400) 12/14/24 10:18
Sodium 133 mmol/L (135-145) L 12/14/24 10:18
Potassium 4.7 mmol/L (3.5-5.1) 12/14/24 10:18
Chloride 97 mmol/L (98-107) L 12/14/24 10:18
Carbon Dioxide 25 mmol/L (22-30) 12/14/24 10:18
BUN 37 mg/dl (9-20) H 12/14/24 10:18
Creatinine 3.9 mg/dL (0.7-1.3) H 12/14/24 10:18
eGFR 14.59 12/14/24 10:18
Glucose 129 mg/dl (70-99) H 12/14/24 10:18
Calcium 10.0 mg/dl (8.4-10.2) 12/14/24 10:18
Phosphorus 3.6 mg/dl (2.5-4.5) 12/14/24 10:18
Albumin 3.1 g/dl (3.5-5.0) L 12/08/24 00:26
Physical Exam
-
Vital Signs:
Vital Signs
Temp Pulse Resp BP Pulse Ox
97.8 F 84 16 113/59 98
12/15/24 11:36 12/15/24 11:36 12/15/24 11:36 12/15/24 11:36 12/15/24 11:36
Cardiovascular:: Irregular rate and rhythm (4 out of 6 systolic ejection murmur at right sternal base)
Respiratory:: Bilateral: CTA
Lung Excursion:: Normal
Abdomen:: Nontender and Soft
Bowel Sounds:: Normal
Extremity Edema:: None: Bilateral:
Pratt Catheter: Yes
--- NOTE | 2024-12-15 15:52 | W.PN.ID1 ---
Date of Service
Date of Service: December 15, 2024
Today's Communication
Continue current antibiotics.
Assessment / Plan
MRSA bacteremia (2 of 2 bottles from 12/08/2024 @ 0121
- Source unclear
- Other set from same day and repeat blood cultures negative
Draining left lower quadrant wound
- ?EC fistula ?abscess
Chronic urinary retention with chronic Calvin in place
Leukocytosis
Fever
Hx complicated diverticular disease
ESRD�HD
Severe
Anemia
Anxiety/depression
Hx pelvic fracture
Chronic constipation
Recommendations:
Repeat blood cultures without growth. Echocardiogram without vegetation
Continue with vancomycin through 12/23/24. Vanco may be administered on HD.
Continue keflex for an additional 6 days.
If LLQ drainage persists, may need further eval by surgery as an outpatient. Drainage has been minimal at present.
����������������������������������������������������������
Chief Complaint
-: Bacteremia
Subjective / Review of Systems
Review of Systems: No Fever and No Chills
Vital Signs / Physical Exam
Vital Signs
Vital Signs
Temp Pulse Resp BP Pulse Ox
97.8 F 84 16 113/59 98
12/15/24 11:36 12/15/24 11:36 12/15/24 11:36 12/15/24 11:36 12/15/24 11:36
Physical Exam
Constitutional: Comfortable, Chronically Ill and Cachetic
Eyes: No Conjunctival Hemorrhage
Cardiovascular: S1/S2 and Murmur; Negative S3/S4
Pulmonary: Clear and Non Labored; Negative Wheezes or Rales
Gastrointestinal: Soft, Non Tender, Non Distended and Other (Left lower quadrant draining wound. No periwound erythema)
Extremities: Other (Left upper extremity AV fistula with positive bruit and thrill.); Negative Edema, Cyanosis, Erythema, Splinter Hemorrhage or Janeway Lesions
Neurological: Awake and Alert
Psychological: Calm
Objective Data
Lab Data
Lab Results
12/14/24 10:18
12/14/24 10:18
PT 17.8 Sec (11.4-14.6) H 12/09/24 04:58
INR 1.41 12/09/24 04:58
APTT 40.1 Sec (23.4-35.0) H 12/09/24 04:58
Estimated Creat Clear 11 ml/min 12/14/24 10:18
Lactic Acid Cancelled 12/08/24 04:30
Total Bilirubin 1.0 mg/dl (0.2-1.3) 12/08/24 00:26
AST 19 U/L (17-59) 12/08/24 00:26
ALT 12 U/L (0-50) 12/08/24 00:26
Alkaline Phosphatase 85 U/L (38-126) 12/08/24 00:26
Most recent labs reviewed.
Micro Results:
12/09/24 08:24 Blood Culture - Final
Blood/Venous No Growth - Final Report
12/09/24 08:24 Blood Culture - Final
Blood/Venous No Growth - Final Report
12/09/24 12:06 Wound Culture - Final
Abdomen Proteus mirabilis
Escherichia coli - ESBL
Gram Stain - Final
12/08/24 05:53 Blood Culture - Final
Blood/Venous No Growth - Final Report
12/08/24 01:21 Blood Culture - Final
Blood/Venous Staph aureus MRSA
Gram Stain - Final
12/08/24 02:00 Urine Culture - Final
Urine
12/08/24 14:57 MRSA Screen - Final
Nose No Methicillin Resistant Staphylococcus aureus isolated.
12/09/24 09:06 Nasal Screen MRSA (PCR) - Final
Nose Staph aureus MRSA
12/08/24 00:27 Influenza Types A & B (CORY) - Final
Nasal Swab Negative for Influenza A & B, NAAT
Negative results must be combined with clinical observations
and patient history.
Nucleic Acid Amplification test (NAAT)performed on the
[employer] platform.
Imaging:
12/08/2024 CT abdomen/pelvis without contrast: Small bilateral lower lobe consolidations with air bronchograms which could represent pneumonia and small bilateral pleural effusions. Small pericardial effusion. Coronary artery calcifications and/or
stents. Moderate volume widespread colonic stool. Markedly limited evaluation of intestinal tract without oral or intravenous contrast, without findings to suggest intestinal obstruction. No free air. Likely chronic bilateral hydroureteronephrosis
with some renal atrophy. Virtually completely empty/unopacified urinary bladder containing Calvin catheter. If there is a concern for cystitis, suggest correlation with urinalysis. Old left pelvic fractures and stable chronic-appearing marked L2
vertebral compression fracture.
Care Review
Plan reviewed with: Physician (Hospitalist)
[2024-12-15 15:58] VITALS: BP 163/71
[2024-12-15] MEDS: ProAmatine PO (17:28)
[2024-12-15 18:43] VITALS: BP 133/72
[2024-12-16] VITALS (7 sets, daily range): BP systolic 96–125; BP diastolic 51–74; BMI 17.7
[2024-12-16] MEDS: ZOFRAN 4 MG IV (00:36)
--- NOTE | 2024-12-16 02:55 | PTCARENOTE ---
Pt w/ loose stools and vomited a small amount of bile. CONSULTING PROJECT DIRECTOR notified, 1x dose zofran ordered and given, and norovirus stool test ordered. Stool study sent. Plan of care ongoing.
[2024-12-16] MEDS: MANNITOL 25% 12.5 GRAMS IV ×2 (08:15→10:25)
[2024-12-16 08:20] LABS: Hematocrit 24.7 % (39.0-52.0); Hemoglobin 8.2 g/dL (13.0-18.0)
[2024-12-16] MEDS: FLEXBUMIN 25% FOR HEMODIALYSIS 12.5 GRAMS IV ×2 (08:20→10:25)
[2024-12-16 08:28] LABS: Carbon Dioxide 26 mmol/L (22-30); Chloride 97 mmol/L (98-107); Potassium 5.5 mmol/L (3.5-5.1); Sodium 132 mmol/L (135-145)
[2024-12-16 08:38] LABS: Vancomycin Random 16.2 ug/ml
--- NOTE | 2024-12-16 08:50 | PHA.VAN.FU ---
Vancomycin Assessment / Plan
- Assessment
Hemodialysis Schedule: MWF
Last Hemodialysis performed: 12/14
WBC's are: WNL
In the past 24 hrs, patient has been: Afebrile
Concomitant Antimicrobials: cephalexin
- Assessment - Therapeutic Drug Monitoring
Random Level: pre-HD = 16.2
- Dosing Plan
Adjust Regimen to: Vanc 750mg HD MWF
- Monitoring Plan
No level(s) ordered at this time: consider repeat random for Thursday prior to HD
Note: due to prolonged half-life with ESRD on HD, patient may not fully be at steady state and may require further dose adjustment
- Follow Up
Pharmacy will continue to follow.
Vancomycin Follow UP
- -
Patient Age: 84
Patient Sex: Male
Vancomycin Day #: 8
Indication: Bacteremia
Requesting Provider: Dr. Monroe / Adam
Pertinent Antimicrobial Allergies:
NKDA
Height / Weight:
Height 5 ft 8 in
Actual Weight 52.844 kg
IBW in k.8
Pertinent Past Medical History: ESRD on HD MWF, BMI ~18.1
- Vital Signs / Lab Results
Temp Pulse Resp BP Pulse Ox
97.9 F 91 18 113/60 98
12/16/24 07:28 12/16/24 07:28 12/16/24 07:28 12/16/24 07:28 12/16/24 07:28
Lab Results - Hematology
12/14/24
10:18
WBC 7.6
Lab Results - Chemistry
12/14/24
10:18
BUN 37 H
Creatinine 3.9 H
Estimated Creat Clear 11
Microbiology Results
12/09/24 08:24 Blood Culture - Final
Blood/Venous No Growth - Final Report
12/09/24 08:24 Blood Culture - Final
Blood/Venous No Growth - Final Report
12/09/24 12:06 Wound Culture - Final
Abdomen Proteus mirabilis
Escherichia coli - ESBL
Gram Stain - Final
Therapeutic Drug Monitoring
Random Vancomycin 16.2 ug/ml 12/16/24 07:40
[2024-12-16] MEDS: RETACRIT 10000 UNITS IV (09:12)
--- NOTE | 2024-12-16 10:00 | W.PN.NEPH.HD ---
Assessment
-
pt seen during HD
BP soft, no UF done
AVF functions well
abx per ID
Progress Note - Hemodialysis
-
Date of Service: December 16, 2024
Duration: 30 minutes and 3 hours
Potassium Bath: 2
Calcium Bath: 2.5
Opti-Dialyzer: 160
Ultrafiltration: Other (0)
Blood Flow: 350
Dialysate Flow: 600
Heparin: no
EPO: 33705
--- NOTE | 2024-12-16 10:18 | CM ---
Patient seen at bedside. Patient with HD currently and per nursing patient for CT scan today. Per chart review IV antibiotics through 12/23/24. CM will send updated clinicals to SNF. CM will continue to follow for discharge planning needs.
Plan; return to SNF; [facility]
[2024-12-16] MEDS: VANCOCIN 150 IV (10:44)
[2024-12-16] MEDS: OMNIPAQUE 50 ML PO (11:58)
[2024-12-16] MEDS: DESENEX/MITRAZOL/ZEASORB 1 APPLIC TOPICAL ×2 (12:01→20:28)
[2024-12-16] MEDS: KEFLEX 500 MG PO (12:01)
--- NOTE | 2024-12-16 13:40 | W.PN.HOSP.TC ---
Today's Communication/Plan
-
Plan for CT study with IV & Oral contrast
Assessment / Plan
Assessment / Plan
Physical Exam
General: Other (Frail, ill-appearing 84y M.)
HEENT: Normocephalic
Respiratory: Decreased breath sounds bilaterally
Cardiac: S1/S2, murmur.
GI: LLQ wound with purulent drainage present
Genito-urinary: Other (Calvin in place)
Musculoskeletal: No joint swelling
Neuro: Awake,, alert and oriented to self and surroundings but forgetful, he follows simple commands.
Psych: calm
84 y/o male presented to ED for evaluation of abdominal pain, fever and decreased Calvin output.
Presentation with fever, abdominal pain and toxic metabolic encephalopathy
MRSA Bacteremia
Left lower quadrant wound with purulent drainage, fistulogram no definitive conclusion, will do CT with oral and IV contrast
Prior h/o diverticulitis and BRIANNA drain at LLQ - has persistent wound at this site
Complicated diverticular disease
UTI
Septic Shock POA secondary to the above
Fever
Leukocytosis
- Patient presented with fever, leukocytosis, tachycardia, tachypnea and urinalysis consistent with infection.
- UTI likely due to obstructed Calvin / malfunction.
- Replaced catheter in the ED for return of grossly purulent urine.
- s/p Vancomycin and Cefepime -- now on Keflex and Vancomycin. renally dose antibiotics. Flagyl previously stopped.
- CT Abdomen Pelvis noted
- Repeat blood culture no growth
- Echo no TTE evidence of vegetation
- Weaned off pressors -- has been off pressors since 12/10/24
Appreciate ID help
# left lower abdominal wound
Chronic, on and off drainage
Will reach out to IR to ask if fistulogram is possible
#ESRD on HD
Mild Hyponatremia
Chronic Hypotension
- Continue midodrine TID for hypotension - wean from other pressors as able.
- Follow for improvement in Na levels with adequate HD / UF.
# Hyponatremia, mild
#Chronic urinary retention with chronic Calvin in place
- Maintain Calvin drainage (per report, Calvin Catheter was exchanged in the ER)
#Anemia of Chronic Disease
- Stable. Hgb is at / near known baseline.
- Follow for any changes.
#Severe
- Patient not a candidate for intervention / replacement.
- There were discussions last admission re: end-of-life / goals of care but patient remains Full Code at present.
#Skin Breakdown
Deep dermal stage 2 R hip pressure injury. Stage 1 sacral/buttocks pressure injury. Mid spine stage 1 pressure injury
- Multiple areas of skin breakdown (bilateral heels, sacrum, LLQ wound).
- Wound Care eval for local care recommendations.
#Cachexia/ Moderate protein calorie malnutrition
# Anxiety/depression
Hx pelvic fracture
Chronic constipation
DVT Prophylaxis: Subcut Heparin
Diet/Speech: On modified diet at baseline. Rec IDDSI Level 5 (minced/moist) and mildly thick liquids. May benefit from
VSE prior to discharge (he has never had one despite being on thickened liquids at baseline), but would wait until medically improved.
Code Status: d/w pt and brother, DNR
Total time spent to see the patient, examine the patient, review data and lab results, discuss treatment plan with patient and nursing staff around 55 minutes
Anticipated Discharge: Within 24 hours
Subjective/Interval History
-
Date of Service: December 16, 2024
No pain issues
Objective Data
-
Labs:
Laboratory Results
12/16/24
07:40
Hgb 8.2 L
Hct 24.7 L
Sodium 132 L
Potassium 5.5 H
Chloride 97 L
Carbon Dioxide 26
Vital Signs:
Vital Signs
Temp Pulse Resp BP Pulse Ox
97.6 F 80 18 101/59 99
12/16/24 10:46 12/16/24 10:46 12/16/24 10:46 12/16/24 10:46 12/16/24 10:46
I&O
12/15/24 12/16/24 12/17/24
06:59 06:59 06:59
Intake Total 540 / 540
Output Total 2049 / 2049 1600 / 1600
Balance -2049 / -2049 -0 / -0
[2024-12-16] MEDS: ProAmatine PO (15:58)
[2024-12-16] MEDS: HEPARIN SC (15:58)
[2024-12-16] MEDS: ProAmatine 5 MG PO ×2 (17:23→22:29)
[2024-12-16] MEDS: HEPARIN 5000 UNITS SC (20:26)
[2024-12-17 03:30] VITALS: BP 94/53
[2024-12-17 06:00] VITALS: BMI 17.7
[2024-12-17 07:45] VITALS: BP 94/49
[2024-12-17] MEDS: ProAmatine 5 MG PO ×2 (09:25→17:05)
[2024-12-17] MEDS: DULCOLAX 10 MG PO (09:25)
[2024-12-17] MEDS: KEFLEX 500 MG PO (09:33)
[2024-12-17] MEDS: HEPARIN 5000 UNITS SC (09:35)
[2024-12-17] MEDS: DESENEX/MITRAZOL/ZEASORB 1 APPLIC TOPICAL (09:36)
--- NOTE | 2024-12-17 09:37 | PHA.VAN.FU ---
Vancomycin Assessment / Plan
- Assessment
Hemodialysis Schedule: MWF
Last Hemodialysis performed: Thursday12/16/24
WBC's are: WNL
In the past 24 hrs, patient has been: Afebrile
Concomitant Antimicrobials: Cephalexin
- Dosing Plan
Continue: Vanco 750mg HD MWF
- Monitoring Plan
No level(s) ordered at this time: Consider repeat random level for Thursday (12/19/24) prior to HD
Due to prolonged half-life with ESRD on HD, patient may not fully be at steady state and may require further dose adjustment
- Follow Up
Pharmacy will continue to follow.
Vancomycin Follow UP
- -
Patient Age: 84
Patient Sex: Male
Vancomycin Day #: 9
Indication: Bacteremia
Requesting Provider: Dr. Monroe / Adam
Pertinent Antimicrobial Allergies:
NKDA
Height / Weight:
Height 5 ft 8 in
Actual Weight 52.815 kg
IBW in k.8
Pertinent Past Medical History: ESRD on HD MWF, BMI ~18.1
- Vital Signs / Lab Results
Temp Pulse Resp BP Pulse Ox
99.0 F 80 16 94/49 98
12/17/24 07:45 12/17/24 07:45 12/17/24 07:45 12/17/24 07:45 12/17/24 07:45
Lab Results - Hematology
12/14/24
10:18
WBC 7.6
Lab Results - Chemistry
12/14/24
10:18
BUN 37 H
Creatinine 3.9 H
Estimated Creat Clear 11
Microbiology Results
12/16/24 00:33 - Final
Feces/Stool Negative for Norovirus GI and GII.
Therapeutic Drug Monitoring
Random Vancomycin 16.2 ug/ml 12/16/24 07:40
--- NOTE | 2024-12-17 11:24 | W.PN.HOSP.TC ---
Today's Communication/Plan
-
Discharge
Assessment / Plan
Assessment / Plan
Physical Exam
General: Other (Frail, ill-appearing 84y M.)
HEENT: Normocephalic
Respiratory: Decreased breath sounds bilaterally
Cardiac: S1/S2, murmur.
GI: LLQ wound with no purulent drainage present
Genito-urinary: Other (Calvin in place)
Musculoskeletal: No joint swelling
Neuro: Awake,, alert and oriented to self and surroundings but forgetful, he follows simple commands.
Psych: calm
84 y/o male presented to ED for evaluation of abdominal pain, fever and decreased Calvin output.
Presentation with fever, abdominal pain and toxic metabolic encephalopathy
MRSA Bacteremia
Left lower quadrant wound with purulent drainage, fistulogram no definitive conclusion, will do CT with oral and IV contrast
Prior h/o diverticulitis and BRIANNA drain at LLQ - has persistent wound at this site
Complicated diverticular disease
UTI
Septic Shock POA secondary to the above
Fever
Leukocytosis
- Patient presented with fever, leukocytosis, tachycardia, tachypnea and urinalysis consistent with infection.
- UTI likely due to obstructed Calvin / malfunction.
- Replaced catheter in the ED for return of grossly purulent urine.
- s/p Vancomycin and Cefepime -- now on Keflex and Vancomycin. renally dose antibiotics. Flagyl previously stopped.
- CT Abdomen Pelvis noted
- Repeat blood culture no growth
- Echo no TTE evidence of vegetation
- Weaned off pressors -- has been off pressors since 12/10/24
Appreciate ID help
# left lower abdominal wound
Chronic, on and off drainage
fistulogram & CT A/P with IV & oral contrast could not confirm the presence of fistula.
#ESRD on HD
Mild Hyponatremia
Chronic Hypotension
- Continue midodrine TID for hypotension - wean from other pressors as able.
- Follow for improvement in Na levels with adequate HD / UF.
# Hyponatremia, mild
#Chronic urinary retention with chronic Calvin in place
- Maintain Calvin drainage (per report, Calvin Catheter was exchanged in the ER)
#Anemia of Chronic Disease
- Stable. Hgb is at / near known baseline.
- Follow for any changes.
#Severe
- Patient not a candidate for intervention / replacement.
- There were discussions last admission re: end-of-life / goals of care but patient remains Full Code at present.
#Skin Breakdown
Deep dermal stage 2 R hip pressure injury. Stage 1 sacral/buttocks pressure injury. Mid spine stage 1 pressure injury
- Multiple areas of skin breakdown (bilateral heels, sacrum, LLQ wound).
- Wound Care eval for local care recommendations.
#Cachexia/ Moderate protein calorie malnutrition
# Anxiety/depression
Hx pelvic fracture
Chronic constipation
DVT Prophylaxis: Subcut Heparin
Diet/Speech: On modified diet at baseline. Rec IDDSI Level 5 (minced/moist) and mildly thick liquids. May benefit from
VSE prior to discharge (he has never had one despite being on thickened liquids at baseline), but would wait until medically improved.
Code Status: d/w pt and brother, DNR
Total time spent to see the patient, examine the patient, review data and lab results, discuss treatment plan with patient and nursing staff around 55 minutes
Anticipated Discharge: Today
Subjective/Interval History
-
Date of Service: December 17, 2024
No pain in chest or abdomen
Objective Data
-
Vital Signs:
Vital Signs
Temp Pulse Resp BP Pulse Ox
99.0 F 80 16 94/49 98
12/17/24 07:45 12/17/24 07:45 12/17/24 07:45 12/17/24 09:25 12/17/24 07:45
I&O
0312/17/24 12/18/24
06:59 06:59 07:59
Intake Total 540 / 540 240 / 240
Output Total 1600 / 1600 1500 / 1500
Balance -1060 / -1060 -1260 / -1260
[2024-12-17 11:50] VITALS: BP 91/57
--- NOTE | 2024-12-17 12:07 | CM ---
Received notification that patient is medically cleared for discharge. Placed a call to patient's brother, left message to update. Met with patient who is agreeable to discharge. IMM reviewed. It is on chart.
Placed a call to [facility] and spoke with Jaspreet URIOSTEGUI, who confirmed that patient can return today. # For report [phone] fax [phone]
Completed medical necessity and transfer sheet for [facility] community engagement coordinator who arranged for transport.
Plan: Case management will continue to follow and assist with discharge planning. Back to [facility].
--- NOTE | 2024-12-17 14:00 | W.DCSUMMARY ---
Discharge Summary
Discharge Data
Date of Admission: 12/08/24
Date of Discharge: 12/17/24
-
Pending Results: No
Hospital Course
84 years old male was sent from residential for evaluation of fever, weakness and abdominal pain. Patient met the criteria of sepsis with fever, leukocytosis, tachycardia and abnormal urine. Patient was initially diagnosed with urosepsis
secondary to chronic indwelling catheter. Patient was admitted to the hospital. He received intravenous antibiotics. Interventional radiologist was consulted for central line using right internal jugular vein access. Chest radiography did not
show bibasilar opacities. Scan of the abdomen and pelvis showed small bilateral lower lobe consolidation suggesting pneumonia, moderate volume widespread colonic stool, chronic bilateral hydroureteronephrosis with renal atrophy, old left pelvic
fractures and stable chronic appearing marked L2 compression fracture. Patient had positive blood culture with MRSA bacteremia. ID doctor was consulted. Patient was treated with intravenous vancomycin. echocardiogram showed LVEF 70 to 75% with
mild mitral regurgitation, severe aortic stenosis. Echo showed peak/mean gradients are 75/44 mmHg. The valve area by continuity equation is
0.9 cm sq, using a LVOT of 2.0 cm, trace aortic insufficiency. Patient was diagnosed with complicated diverticular disease and chronic draining left lower quadrant abdominal wall. Imaging studies for the wound including fistulogram and repeat CAT
scan with IV and oral contrast did not confirm presence of colonic-cutaneous fistula. Repeat blood culture showed resolution of bacteremia. patient was followed by light armored reconnaissance officer and hemodialysis. Patient has history of anemia of chronic disease,
failure to thrive. CODE STATUS discussed with the patient and later with his brother, and CODE STATUS was changed to DNR/ DNI. ID doctor recommended to finish course of antibiotic with oral Keflex and IV vancomycin through hemodialysis upon
discharge. Overall, patient was able to tolerate diet. He remained hemodynamically stable and was discharged back to residential.
Discharge Plan
-
Patient Disposition: Skilled Nursing/SNF
Discharge Diagnosis/Procedures: -MRSA bacteremia/Septic Shock POA : Source unclear. Repeat blood culture remained negative.
-Draining left lower quadrant wound status post fistulogram and CAT scan with IV and oral contrast, no definitive conclusion to confirm colocutaneous fistula, continue wound care.
Code status: DNR/DNI
Diet: As tolerated
Activity Restrictions/Additional Instructions:
Wound Care Instructions
LLQ-clean with saline or soap and water, gauze pads, cover with silicone border foam or ABD pad, change daily and prn drainage.
R posterior hip ulcer-clean with saline or soap and water, silicone border foam, change q 2 days and prn drainage.
Spine/R back, sacrum-clean with saline, silicone border foam, change q 3 days and prn loosened dressing.
Air mattress
Turning schedule
Elevate heels off bed with pillow/s; soft heel relief boots if needed (i.e. Foot Waffle or TruVue lite boots).
Pressure redistributing chair cushion (i.e. Roho, Air chair cushion).
Follow up with a wound day care center director or at wound care center call for an appointment.
Referrals:
Babar Bruner MD [Family Provider] -
Prescriptions:
New
cephalexin 500 mg Capsule
500 mg PO DAILY Qty: 4 0RF
vancomycin in 0.9 % sodium chl 750 mg/150 mL Piggyback
750 mg IV HD-MOWEFR Qty: 3 0RF
Rx Instructions:
Continue with vancomycin through 12/23/24.
Continued
polyethylene glycol 3350 [Miralax] 17 gram Powder In Packet
17 g PO DAILYPRN PRN (Reason: constipation)
midodrine 5 mg Tablet
5 mg PO MOWEFR@0800,1700
Rx Instructions:
5 mg orally before dialysis Thursday, Thursday, Thursday; hold for sbp >160
vitamin B complex Tablet
1 tab PO SUTUTHSA@1900 Qty: 0
mirtazapine 7.5 mg Tablet
7.5 mg PO HS
acetaminophen [Tylenol] 325 mg Tablet
650 mg PO Q6HPRN PRN (Reason: mild pain/temp>100)
levalbuterol HCl 0.63 mg/3 mL Solution For Nebulization
0.63 mg INHALATION R Q6HPRN PRN (Reason: wheezing)
sevelamer HCl 800 mg Tablet
800 mg PO TID
bisacodyl 10 mg Suppository
10 mg MO DAILYPRN PRN (Reason: if no bm after mom)
calcitriol 0.25 mcg Capsule
0.25 mcg PO MOWEFR
ondansetron 4 mg Tablet,Disintegrating
4 mg PO Q8HPRN PRN (Reason: nausea)
midodrine 5 mg Tablet
5 mg PO SUTUTHSA@,,
midodrine 5 mg Tablet
5 mg PO DAILYPRN PRN (Reason: low blood pressure)
aspirin 81 mg Tablet,Delayed Release (Dr/Ec)
81 mg PO MOWEFR
Discontinued
mupirocin 2 % Ointment
1 applic topical BID Qty: 15 0RF
Rx Instructions:
Apply to local abdominal area
Discharge Orders:
Discharge Patient (As Directed); Ordered 12/17/24
Ordered By: Glenys Soto
Discharge Date and Time
Print Language: MALAY
--- NOTE | 2024-12-17 15:25 | PTCARENOTE ---
patient disoriented to time and forgetful, comfortable, tolerating diet, turns with assist x2, vss, for discharge back to [facility] today, will continue to monitor.
[2024-12-17 16:00] VITALS: BP 107/56
--- NOTE | 2024-12-17 17:12 | W.PN.NEPH.PH ---
Today's Communication / Plan
-
ok for d/c
Assessment/Plan
-
IMP:
Abdominal pain
Fever
ESRD - HD M/W/[facility]. [facility], previously [facility] unit at [facility] [place]
Suprapubic cath
History of diverticulitis with left lower abdominal wound patch
Gram-positive cocci bacteremia
Anemia of CKD
Leucocytosis
Urinary tract infection
Left UE AVF
constipation noted on CT
Atrial fibrillation
Severe aortic stenosis
Hypotension
Aortic stenosis not a TAVR candidate
Plan:
BPs table on midodrine
Maintain chronic Pratt
MRSA bacteremia-abx per ID
for d/c today to [facility]
-
-
Date of Service: December 17, 2024
CC / HPI / ROS
-
Chief Complaint:
ESRD Thursday
History of Present Illness:
ESRD Thursday schedule, tolerated yesterday
Hemodynamically stable on midodrine,
Remains on vancomycin for MRSA in blood
Review of Systems:
no cp or sob at rest
Baseline dementia but does respond to questions
chronic pratt
Labs
-
Labs:
WBC 7.6 10^3/uL (4.8-10.8) 12/14/24 10:18
RBC 2.71 10^6/uL (4.70-6.10) L 12/14/24 10:18
Hgb 8.2 g/dL (13.0-18.0) L 12/16/24 07:40
Hct 24.7 % (39.0-52.0) L 12/16/24 07:40
Plt Count 293 10^3/uL (130-400) 12/14/24 10:18
Sodium 132 mmol/L (135-145) L 12/16/24 07:40
Potassium 5.5 mmol/L (3.5-5.1) H 12/16/24 07:40
Chloride 97 mmol/L (98-107) L 12/16/24 07:40
Carbon Dioxide 26 mmol/L (22-30) 12/16/24 07:40
BUN 37 mg/dl (9-20) H 12/14/24 10:18
Creatinine 3.9 mg/dL (0.7-1.3) H 12/14/24 10:18
eGFR 14.59 12/14/24 10:18
Glucose 129 mg/dl (70-99) H 12/14/24 10:18
Calcium 10.0 mg/dl (8.4-10.2) 12/14/24 10:18
Phosphorus 3.6 mg/dl (2.5-4.5) 12/14/24 10:18
Albumin 3.1 g/dl (3.5-5.0) L 12/08/24 00:26
Physical Exam
-
Vital Signs:
Vital Signs
Temp Pulse Resp BP Pulse Ox
97.9 F 84 18 107/56 98
12/17/24 16:00 12/17/24 16:00 12/17/24 16:00 12/17/24 17:05 12/17/24 16:00
Cardiovascular:: Irregular rate and rhythm (4 out of 6 systolic ejection murmur at right sternal base)
Respiratory:: Bilateral: CTA
Lung Excursion:: Normal
Abdomen:: Nontender and Soft
Bowel Sounds:: Normal
Extremity Edema:: None: Bilateral:
Pratt Catheter: Yes
== END 2024-12-17 17:35 | DRG 698 ==
LOC: 3 WEST ACU 03:42
PROVIDERS: Hospitalist; Internal Medicine; Nurse Practitioner Primary Care; Radiology Diagnostic Radiology; Specialist; ADMITTING PHYSICIAN Hospitalist; ATTENDING PHYSICIAN Internal Medicine; CONSULT PHYSICIAN Internal Medicine Critical Care Medicine; CONSULT PHYSICIAN Internal Medicine Infectious Disease; CONSULT PHYSICIAN Specialist; EMERGENCY PHYSICIAN Emergency Medicine; FAMILY PHYSICIAN Internal Medicine
PROC: 02HV33Z Insertion of Infusion Device into Superior Vena Cava, Percutaneous Approach (ICD-10-PCS; 2024-12-08)
PROC: 5A1D70Z Performance of Urinary Filtration, Intermittent, Less than 6 Hours Per Day (ICD-10-PCS; 2024-12-09)
DX: T83.091A Other mechanical complication of indwelling urethral catheter, initial encounter (principal); A41.02 Sepsis due to Methicillin resistant Staphylococcus aureus; G92.8 Other toxic encephalopathy; J18.9 Pneumonia, unspecified organism; R65.21 Severe sepsis with septic shock; N18.6 End stage renal disease; J96.01 Acute respiratory failure with hypoxia; N13.6 Pyonephrosis; E87.1 Hypo-osmolality and hyponatremia; J90 Pleural effusion, not elsewhere classified; I31.39 Other pericardial effusion (noninflammatory); K57.20 Diverticulitis of large intestine with perforation and abscess without bleeding; F03.94 Unspecified dementia, unspecified severity, with anxiety; F03.93 Unspecified dementia, unspecified severity, with mood disturbance; E87.20 Acidosis, unspecified; R64 Cachexia; Z68.1 Body mass index [BMI] 19.9 or less, adult; E44.0 Moderate protein-calorie malnutrition; Z11.52 Encounter for screening for COVID-19; Y73.8 Miscellaneous gastroenterology and urology devices associated with adverse incidents, not elsewhere classified; Z99.2 Dependence on renal dialysis; I95.89 Other hypotension; I08.0 Rheumatic disorders of both mitral and aortic valves; D63.1 Anemia in chronic kidney disease; F32.A Depression, unspecified; K59.09 Other constipation; I48.91 Unspecified atrial fibrillation; Z66 Do not resuscitate; Z79.82 Long term (current) use of aspirin; Z79.899 Other long term (current) drug therapy; L89.212 Pressure ulcer of right hip, stage 2; L89.151 Pressure ulcer of sacral region, stage 1; L89.101 Pressure ulcer of unspecified part of back, stage 1; R62.7 Adult failure to thrive
CPT/HCPCS: 20501; 36556; 51702; 51798; 71045; 74022; 74176; 74177; 76080; 76937; 80048; 80051; 80053; 80202; 81003; 81015; 83605; 83735; 84100; 85014; 85018; 85025; 85027; 85610; 85730; 87040; 87070; 87077; 87086; 87150; 87186; 87205; 87340; 87502; 87641; 87798; 87811; 92526; 92610; 93005; 93306; 96365; 96366; 96367; 96375; 97163; 97167; 99291; G0257; P9047; Q5106; Q9967

== ENCOUNTER 2025-01-01 23:55 | Inpatient (IN) | payer MEDICARE, OTHER, SELFPAY ==
[2025-01-01] VITALS (9 sets, daily range): BP systolic 90–121; BP diastolic 59–78; BMI 19.0
--- NOTE | 2025-01-01 19:51 | ED.GENMED ---
History of Present Illness
General
Chief Complaint: Abdominal Symptoms
Source: patient
Time Seen by Provider: 01/01/25 19:44
History of Present Illness
History of Present Illness:
84-year-old Thursday dialysis patient on Eliquis presents complaining of abdominal pain from [facility]. Staff at [facility] noticed stool coming from a wound in his abdomen. No recent surgeries. Patient does not recall ever
having an ostomy. He does have a remote history of bowel perforation and sepsis. He has been vomiting as well.
Phy Exam
Physical Exam
Physical Exam:
General: Chronically ill-appearing male no acute respiratory distress
HEENT: Normocephalic mucosa dry neck is supple
Heart: Regular rate and rhythm
Lungs: Clear no wheeze
Abdomen slightly firm tender to the touch diffusely. There are 2 small wounds of the left lower quadrant that seem to be leaking stool.
Extremities: No cyanosis
Course
Orders/Labs/Results
Orders:
Orders
01/01/25 19:50
CT Abd/pelvis W Iv Cont Urgent
Comment:
Reason For Exam: abdominal pain, possible fistula, vomiting
01/01/25 19:53
Ondansetron Injectable [Zofran] 4 mg IV NOW STA
01/01/25 19:59
Complete Blood Count/With Diff Urgent
Comprehensive Metabolic Panel Urgent
Lactic Acid Urgent
Lipase Urgent
01/01/25 21:22
0.9% Sodium Chloride 1000 ml [Nss] 1,000 ml IV BOLUS
01/01/25 22:54
Piperacillin/Tazo 3.375 Gram [Zosyn] 3.375 gram in 50 ml IV NOW
Abnormal Lab Results
01/01/25
19:59
WBC 14.3 H 10^3/uL
(4.8-10.8)
RBC 2.99 L 10^6/uL
(4.70-6.10)
Hgb 9.6 L g/dL
(13.0-18.0)
Hct 29.6 L %
(39.0-52.0)
MCV 99.0 H fL
(80.0-94.0)
MCH 32.1 H pg
(27.0-31.0)
MCHC 32.4 L g/dL
(33.0-37.0)
RDW 16.1 H %
(11.5-14.5)
Abs Immat Gran (auto) 0.1 H 10^3/uL
(0-0.05)
Absolute Neuts (auto) 11.8 H 10^3/uL
(1.4-6.5)
Absolute Monos (auto) 0.9 H 10^3/uL
(0.1-0.6)
Immature Gran % 0.6 H %
(0-0.5)
Neutrophils % 82.7 H %
(42.2-75.2)
Lymphocytes % 9.6 L %
(20.5-51.1)
Sodium 132 L mmol/L
(135-145)
Chloride 90 L mmol/L
(98-107)
BUN 62 H mg/dl
(9-20)
Creatinine 4.1 H* mg/dL
(0.7-1.3)
Glucose 116 H mg/dl
(70-99)
Lactic Acid 2.4 H mmol/L
(0.7-2.0)
Calcium 10.5 H mg/dl
(8.4-10.2)
01/01/25 19:59
01/01/25 19:59
Vital Signs
Initial and Last Documented VS:
Initial Vital Signs
Temp Pulse Resp BP Pulse Ox
98.6 F 115 20 111/70 93
01/01/25 19:33 01/01/25 19:33 01/01/25 19:33 01/01/25 19:33 01/01/25 19:33
Last Documented Vital Signs
Temp Pulse Resp BP Pulse Ox
97.5 F 94 15 114/67 100
01/01/25 22:30 01/01/25 22:30 01/01/25 22:30 01/01/25 22:30 01/01/25 21:45
MDM/Problems Addressed
Differential Diagnosis Includes:
Abdominal pain with vomiting as well as stool leaking from the abdominal wall question possible enterocutaneous fistula. Patient does have a remote history of bowel perforation. Will check labs including lactic acid. CT pending. Patient is
vomiting he will not tolerate oral contrast
*Critical Care Note
Total Time (30-74mins, 75-104mins- exclusive of procedures): Not Applicable
Update Note
Update Note:
CT reviewed. larger collection in left lower abdomen. WBC is 14.3. Concern for infected collection in the left lower abdomen. Will order zosyn. Admit to hospital.
ED Attending Note
-
Portions of this chart may have been created with voice recognition software.� Occasional wrong word or��sound alike� substitutions may have occurred due to the inherent limitations of voice recognition software.
Discharge Plan
Departure
Patient Disposition: Admit
Date of Disposition: 01/01/25
Time of Disposition: 22:58
Presentation/result/management discussed w/ accepting MD/DO: Hospitalist
Discharge Problem:
Abdominal pain
Prescriptions:
No Action
polyethylene glycol 3350 [Miralax] 17 gram Powder In Packet
17 g PO DAILYPRN PRN (Reason: constipation)
midodrine 5 mg Tablet
5 mg PO MOWEFR@0800,1700
Rx Instructions:
5 mg orally before dialysis Thursday, Thursday, Thursday; hold for sbp >160
vitamin B complex Tablet
1 tab PO SUTUTHSA@1900 Qty: 0
mirtazapine 7.5 mg Tablet
7.5 mg PO HS
acetaminophen [Tylenol] 325 mg Tablet
650 mg PO Q6HPRN PRN (Reason: mild pain/temp>100)
levalbuterol HCl 0.63 mg/3 mL Solution For Nebulization
0.63 mg INHALATION R Q6HPRN PRN (Reason: wheezing)
sevelamer HCl 800 mg Tablet
800 mg PO TID
bisacodyl 10 mg Suppository
10 mg SC DAILYPRN PRN (Reason: if no bm after mom)
calcitriol 0.25 mcg Capsule
0.25 mcg PO MOWEFR
ondansetron 4 mg Tablet,Disintegrating
4 mg PO Q8HPRN PRN (Reason: nausea)
midodrine 5 mg Tablet
5 mg PO SUTUTHSA@,,
midodrine 5 mg Tablet
5 mg PO DAILYPRN PRN (Reason: low blood pressure)
aspirin 81 mg Tablet,Delayed Release (Dr/Ec)
81 mg PO MOWEFR
cephalexin 500 mg Capsule
500 mg PO DAILY Qty: 4 0RF
vancomycin in 0.9 % sodium chl 750 mg/150 mL Piggyback
750 mg IV HD-MOWEFR Qty: 3 0RF
Rx Instructions:
Continue with vancomycin through 12/23/24.
Referrals:
Babar Bruner MD [Family Provider] -
Interventions
Interventions:
*Risk Screen - Suicide Last Done: 01/01/25 19:43
*General Assessment Last Done: 01/01/25 19:56
*Neglect/Abuse Screening Last Done: 01/01/25 19:43
*ED- Fall Risk Assessment Last Done: 01/01/25 19:43
*ED COVID-19 Vaccine History Last Done: 01/01/25 19:43
JJ-Qslpft-Ytqgohgbhc Assessment Last Done: 01/01/25 19:43
Discharge Date and Time
Print Language: IRAQI
[2025-01-01] MEDS: ZOFRAN 4 MG IV (20:03)
[2025-01-01 20:06] LABS: % Basophils 0.4 % (0-2); % Eosinophils 0.8 % (0-6); % Immature Granulocytes 0.6 % (0-0.5); % Lymphocytes 9.6 % (20.5-51.1); % Monocytes 5.9 % (1.7-9.3); % Neutrophils 82.7 % (42.2-75.2); Absolute Basophils 0.1 10^3/uL (0-0.2); Absolute Eosinophils 0.1 10^3/uL (0-0.7); Absolute Immature Granulocytes 0.1 10^3/uL (0-0.05); Absolute Lymphocytes 1.4 10^3/uL (1.2-3.4); Absolute Monocytes 0.9 10^3/uL (0.1-0.6); Absolute Neutrophils 11.8 10^3/uL (1.4-6.5); Hematocrit 29.6 % (39.0-52.0); Hemoglobin 9.6 g/dL (13.0-18.0); Mean Corp Hgb Conc. 32.4 g/dL (33.0-37.0); Mean Corpuscular Hgb 32.1 pg (27.0-31.0); Mean Platelet Volume 9.3 fL (7.4-10.4); Nucleated Red Blood Cells % 0 % (-); Platelet Count 296 10^3/uL (130-400); Red Blood Cell Count 2.99 10^6/uL (4.70-6.10); Red Cell Dist. Width 16.1 % (11.5-14.5); White Blood Cell Count 14.3 10^3/uL (4.8-10.8)
[2025-01-01 20:19] LABS: Lactic Acid 2.4 mmol/L (0.7-2.0)
[2025-01-01 20:29] LABS: ALT (SGPT) 11 U/L (0-50); AST (SGOT) 18 U/L (17-59); Albumin 4.2 g/dl (3.5-5.0); Alkaline Phosphatase 97 U/L (38-126); Blood Urea Nitrogen 62 mg/dl (9-20); Calcium 10.5 mg/dl (8.4-10.2); Carbon Dioxide 26 mmol/L (22-30); Chloride 90 mmol/L (98-107); Estimated Creatinine Clearance 12 ml/min; Glucose 116 mg/dl (70-99); Lipase 72 U/L (23-300); Potassium 4.8 mmol/L (3.5-5.1); Sodium 132 mmol/L (135-145); Total Bilirubin 0.6 mg/dl (0.2-1.3); Total Protein 6.8 g/dl (6.3-8.2); eGFR 13.74
[2025-01-01] MEDS: NSS 1000 IV (21:41)
--- NOTE | 2025-01-01 23:57 | HPS.HSE ---
Family Physician
-
Family Physician: Babar Bruner MD
Chief Complaint
-
N/V, Abdominal Drainage
History of Present Illness
Patient is an 84y M with PMH significant for ESRD on HD and complicated diverticulitis who presents to ED from local [place] for evaluation of N/V and abdominal drainage. Patient had episode of nausea / 'spitting up' while at [facility] this evening. He
complained of some abdominal discomfort and staff noted drainage from his chronic LLQ wound which appeared consistent with stool. Patient was sent to the ED for further evaluation. Patient states that he has started with cough and mucus production
- it is unclear when this began and no mention of this was in [facility] record. He denies any fevers / chills, chest pain, etc.
He has had a chronic LLQ wound from prior BRIANNA drain placement - unclear when or where this initial episode took place.
He was evaluated during a prior stay here (12/08 - 12/17) for possible colocutaneous fistula and evaluation did not seem to suggest such.
Patient was treated for MRSA bacteremia during that stay.
Medical History
Past Medical History
Past Medical History: Reports Other
Additional Past Medical History:
Complicated Diverticular Disease
Chronic Urinary Retention / Chronic Calvin
ESRD on HD
Severe
Anemia of CKD
Anxiety / Depression
Skin Breakdown
Pelvic Fracture
Chronic Constipation
Past Surgical History: Reports Other
Additional Past Surgical History:
Diverticular Abscess Drainage (04/2024)
Social History
Tobacco: Non-smoker
Alcohol: None
Drug: None
Living: Intermediate
Family History
Family History: Not pertinent
Allergies / Home Medications
Allergies reflects when Allergies were last updated in [employer].
Home Medications with original date entered in [employer]
Allergy/Medication List:
Allergies
Allergy/AdvReac Type Severity Reaction Status Date / Time
No Known Allergies Allergy Verified 01/01/25 20:33
Home Medications
midodrine 5 mg tablet 5 mg PO MOWEFR@0800,1700 low blood pressure 09/07/24
mirtazapine 7.5 mg tablet 7.5 mg PO HS depression/sleep 09/07/24
polyethylene glycol 3350 17 gram oral powder packet (Miralax) 17 g PO DAILYPRN PRN constipation 09/07/24
vitamin B complex 1 tab PO SUTUTHSA@1900 Supplement ##0 09/07/24
acetaminophen 325 mg tablet (Tylenol) 650 mg PO Q6HPRN PRN mild pain/temp>100 12/08/24
aspirin 81 mg tablet,delayed release 81 mg PO Blood Clot Prevention/Tx 12/08/24
bisacodyl 10 mg rectal suppository 10 mg MI DAILYPRN PRN if no bm after mom 12/08/24
calcitriol 0.25 mcg capsule 0.25 mcg PO WEFR Kidney Disease 12/08/24
levalbuterol HCl 0.63 mg/3 mL solution for nebulization 0.63 mg inhalation R Q6HPRN PRN wheezing 12/08/24
midodrine 5 mg tablet 5 mg PO DAILYPRN PRN low blood pressure 12/08/24
midodrine 5 mg tablet 5 mg PO SUTUTHSA@08,12,19 low blood pressure 12/08/24
ondansetron 4 mg disintegrating tablet 4 mg PO Q8HPRN PRN nausea 12/08/24
sevelamer HCl 800 mg tablet 800 mg PO TID Kidney Disease 12/08/24
Review of Systems
-
History Source: Patient
A 12 point ROS was completed and negative except as noted: Yes
Constitutional: Reports Fatigue; Denies Fever or Chills
Respiratory: Reports Cough; Denies Trouble Breathing
Cardiac: Denies Chest Pain or Palpitations
Abdomen/GI: Reports Abdominal Pain, Nausea, Vomiting and Other (Fecal incontinence)
: Reports Calvin
Musculoskeletal: Denies Joint Pain or Edema
Neurological: Denies Dizzy or Headache
Psych: Denies Depression or Anxiety
Physical Exam
Vital Signs
Vital Signs
Temp Pulse Resp BP Pulse Ox
97.5 F 103 30 121/78 100
01/01/25 22:30 01/01/25 23:00 01/01/25 23:00 01/01/25 23:00 01/01/25 23:00
Physical Exam
General: Other (Frail, elderly 84y M with harsh / hacking cough productive of white mucus.)
HEENT: Moist mucous membranes and PERRLA
Respiratory: Other (Scattered coarse breath sounds - improves with cough. No rales / wheezing.)
Cardiac: S1/S2, Regular Rhythm and Murmur (III/ CARYL)
GI: Other (Abdomen is softly distended. Mildly / diffusely tender. Pos bowel sounds. LLQ wound with mild surrounding erythema. Pos malodorous flatus / bowel sounds from the wound with abdominal palpiation.)
Genito-urinary: Other (Calvin in place)
Musculoskeletal: No Clubbing, No Cyanosis and No Edema
Neuro: Awake, Alert and Nonfocal/grossly intact
Hematologic/Lymphatic: Other (LUE AVF with pos thrill / bruit.)
Laboratory Results
-
01/01/25 19:59
01/01/25 19:59
Laboratory Results
Lactic Acid 2.4 mmol/L (0.7-2.0) H 01/01/25 19:59
Total Bilirubin 0.6 mg/dl (0.2-1.3) 01/01/25 19:59
AST 18 U/L (17-59) 01/01/25 19:59
ALT 11 U/L (0-50) 01/01/25 19:59
Alkaline Phosphatase 97 U/L (38-126) 01/01/25 19:59
Lipase 72 U/L (23-300) 01/01/25 19:59
Impression/Plan
-
A/P: Patient is an 84y M with PMH significant for complicated diverticulitis, ESRD on HD and recent MRSA bacteremia who presents from [place] with cough, N/V and abdominal drainage.
Sepsis
- Admit for further evaluation and treatment.
- Patient presents with leukocytosis, tachycardia and tachypnea with potential pulmonary or intra-abdominal sources.
- IV abx with Zosyn and Vancomycin given recent MRSA bacteremia.
- Follow-up culture data and adjust as needed.
- Evaluate specific issues as noted below.
- BP mildly low in the ED - but consistent with patient's known baseline / on chronic midodrine.
- Follow for clinical improvement.
Cough / URI
- Check CXR, COVID, Flu now.
- Patient with harsh cough on exam with mucus production - seems his primary complaint at present.
- ? aspiration event given reported N/V at [place] prior to presentation?
- IV abx as noted above.
- Speech evaluation.
- Supportive care, O2, nebs, etc.
LLQ Wound
Complicated Diverticulitis
Stercoral Colitis
- CT results reviewed - some increase in size of LLQ collection - but still no definitive evidence of fistula.
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
- IV abx as noted above.
- Colorectal Surgery evaluation for additional recommendations.
- Rectal exam in the ED with only soft / liquid stool. Stool ball seen on CT too proximal for manual disimpaction.
- Bowel regimen and follow for results.
ESRD on HD
Mild Hyponatremia
Chronic Hypotension
- Nephrology evaluation for HD needs during acute stay.
- Continue midodrine for hypotension.
- Continue Sevelamer, calcitriol, etc.
Anemia of Chronic Disease
- Stable. Hgb is at / near known baseline.
- Follow for any changes.
Severe
- Murmur appreciated on exam.
- Patient not a candidate for intervention / replacement.
Skin Breakdown
- Multiple areas of skin breakdown (bilateral heels, sacrum, LLQ wound).
- Wound Care eval for local care recommendations.
DVT Prophylaxis: Subcut Heparin
Code Status: DNR
[2025-01-02] VITALS (7 sets, daily range): BP systolic 98–112; BP diastolic 56–70; BMI 16.6; BMI 16.7
[2025-01-02] MEDS: ZOSYN 50 IV ×3 (00:11→21:24)
[2025-01-02 01:21] LABS: COVID-19 Antigen Negative (Negative)
[2025-01-02] MEDS: VANCOCIN 530 MG IV (04:02)
--- NOTE | 2025-01-02 05:01 | PTCARENOTE ---
Patient arrived from the ED via stretcher at approximately 0130. Patient pulled over from stretcher to bed x3 assist. Patient AAOx2 - disoriented to time, [place]. Forgetful/mildly confused @ times. VSS as documented. Assessment as documented. Bed alarm
in place for patient safety. Patient oriented to room. Bed in lowest position. Call liz within reach.
[2025-01-02 08:23] LABS: Hematocrit 23.8 % (39.0-52.0); Mean Corp Hgb Conc. 33.6 g/dL (33.0-37.0); Mean Corpuscular Hgb 32.3 pg (27.0-31.0); Mean Platelet Volume 9.7 fL (7.4-10.4); Platelet Count 246 10^3/uL (130-400); Red Blood Cell Count 2.48 10^6/uL (4.70-6.10); Red Cell Dist. Width 16.3 % (11.5-14.5); White Blood Cell Count 9.6 10^3/uL (4.8-10.8)
[2025-01-02] MEDS: RENVELA PO ×3 (08:36→21:25)
[2025-01-02] MEDS: HEPARIN 5000 UNITS SC ×2 (08:54→21:23)
[2025-01-02 08:58] LABS: Blood Urea Nitrogen 69 mg/dl (9-20); Calcium 9.5 mg/dl (8.4-10.2); Carbon Dioxide 21 mmol/L (22-30); Chloride 95 mmol/L (98-107); Estimated Creatinine Clearance 10 ml/min; Glucose 80 mg/dl (70-99); Magnesium 1.9 mg/dl (1.6-2.3); Phosphorus 4.7 mg/dl (2.5-4.5); Potassium 4.6 mmol/L (3.5-5.1); Sodium 133 mmol/L (135-145); eGFR 12.97
--- NOTE | 2025-01-02 09:39 | PTOTSP ---
Speech Therapy Evaluation:
Pt with baseline diet of IDDSI Level 6/mildly thick liquids. No documented VSE. Pt accepted PO trials of ice chips, thin liquids via cup, mildly thick liquids, and puree. Oral phase appeared grossly WFL with trials assessed. No overt s/sx of
aspiration across trials, however cannot rule out silent aspiration given as reason for current modified diet including mildly thick liquid. Pt expressed dislike of thickened liquids. Given CXR from previous admission on 12/08 that revealed bibasilar
opacities suggesting PNA and current CXR with moderate RLL and mild LLL consolidations that suggest PNA, pt would benefit from instrumental assessment to further assess oropharyngeal swallow function and determine if baseline diet indicated. Pt in
verbal agreement, however not appropriate on this date given ongoing abdominal pain and likely HD (M,W,F). Given bedside performance, would initiate cautious oral diet with low threshold for NPO.
Recommend:
1. CAUTIOUS IDDSI Level 5 (minced and moist) solids and mildly thick liquids. Low threshold NPO if concerned for aspiration
2. Aspiration precautions: sit upright, slow rate
3. Meds crushed in puree (this is pt's baseline per report, unsure if accurate)
4. Will consider VSE prior to discharge from hospitalization to see if baseline modified diet indicated. Would wait until medically improved
5. SKID STRAPPER to continue to follow to monitor tolerance of diet and determine when pt appropriate for VSE
[2025-01-02] MEDS: ProAmatine 5 MG PO ×3 (10:03→17:08)
--- NOTE | 2025-01-02 10:44 | WOUNDNOTE ---
[facility] RN note: Patient admitted with sepsis, abdominal wound. Patient admitted from SNF.
See H&P for complete history.
PMH: ESRD on HD, diverticular abscess drainage 04/2024, LLQ wound from prior BRIANNA drain, Calvin for retention, anxiety, depression, pelvic fracture, constipation.
Wound Location and type/assessment: Patient admitted with: L anterior thigh red rash like skin with scabbed ulcers suspect from previous stat lock (KAMILAH Rodriguez stated the same stat lock was on his L thigh since discharge). LLQ fistula appearing
opening, moderate valenzuela cloudy drainage. Colorectal surgeon on consult.
Appetite: poor. ST saw patient.
Pressure redistribution devices in place: Waffle air overlay. He can turn self in bed.
Plan: Patient incontinent of large amount loose brown stool. Lana care given with help from KAMILAH Rodriguez and [facility] Ded[facility]. Protective foam maintained on R hip. Protective foam changed on heels and silicone border foam applied to sacrum. Heels off bed
with air chair cushion. Dressing changed on L thigh and LLQ.
Dr. Mendosa approved local wound care and was in during visit and discussed with KAMILAH Rodriguez.
Care plan to be updated and will follow as needed.
Note to case management of equipment requested for discharge:Air mattress if not already in place.
--- NOTE | 2025-01-02 12:12 | PHA.VAN.IN ---
Assessment
- Assessment
Renal Function: Patient has ESRD, on chronic Hemodialysis
Hemodialysis Schedule: MWF
Concomitant Antimicrobials: piperacillin/tazobactam
Plan
- Plan
Initial / Loading Dose: 1500mg - 01/02 04:02
Maintenance Regimen: dosing by level - HD planned for today
Monitoring: random 01/03 to ensure maintaing level post HD
Pharmacokinetics Vancomycin I
- -
Patient Age: 84
Patient Sex: Male
Vancomycin Day #: 1
Indication: Bacteremia
Requesting Provider: Dr. Armstrong
Pertinent Antimicrobial Allergies:
NKDA
Height / Weight:
Height 5 ft 10 in
Actual Weight 52.662 kg
IBW in k
Pertinent Past Medical History: BMI ~16.7, ESRD on HD MWF
- Vital Signs / Lab Results
Temp Pulse Resp BP Pulse Ox
98.0 F 84 16 109/60 98
01/02/25 11:48 01/02/25 11:48 01/02/25 11:48 01/02/25 11:48 01/02/25 11:48
Lab Results - Hematology
01/01/25 01/02/25
19:59 06:43
WBC 14.3 H 9.6
Lab Results - Chemistry
01/01/25 01/02/25
19:59 06:43
BUN 62 H 69 H
Creatinine 4.1 H* 4.3 H*
Estimated Creat Clear 12 10
Albumin 4.2
01/01/25
19:59
Lactic Acid 2.4 H
Microbiology Results
01/02/25 00:49 Influenza Types A & B ([facility]) - Final
Nasal Swab Negative for Influenza A & B, NAAT
Negative results must be combined with clinical observations
and patient history.
Nucleic Acid Amplification test (NAAT)performed on the
[employer] platform.
--- NOTE | 2025-01-02 12:38 | W.PN.HOSP.TC ---
Today's Communication/Plan
-
Continue with bowel regimen
Colorectal surgery evaluation
Restart modified diet
Continue with broad-spectrum antibiotics for now
Monitor blood pressure
Assessment / Plan
Assessment / Plan
General: Other (Frail, elderly 84y M with harsh / hacking cough productive of white mucus.)
HEENT: Moist mucous membranes and PERRLA
Respiratory: Other (Scattered coarse breath sounds - improves with cough. No rales / wheezing.)
Cardiac: S1/S2, Regular Rhythm and Murmur (III/ CARYL)
GI: Other (Abdomen is softly distended. Mildly / diffusely tender. Pos bowel sounds. LLQ wound with mild surrounding erythema. Pos malodorous flatus / bowel sounds from the wound with abdominal palpiation.)
Genito-urinary: Other (Calvin in place)
Musculoskeletal: No Clubbing, No Cyanosis and No Edema
Neuro: Awake, Alert and Nonfocal/grossly intact
Hematologic/Lymphatic: Other (LUE AVF with pos thrill / bruit.)
A/P: Patient is an 84y M with PMH significant for complicated diverticulitis, ESRD on HD and recent MRSA bacteremia who presents from [place] with cough, N/V and abdominal drainage.
Sepsis likely 2/2 mild stercoral colitis
- Patient presents with leukocytosis, tachycardia and tachypnea
- IV abx with Zosyn and Vancomycin given recent MRSA bacteremia.
- Follow-up culture data and adjust as needed.
- Evaluate specific issues as noted below.
- BP mildly low in the ED - but consistent with patient's known baseline / on chronic midodrine.
- Follow for clinical improvement.
Cough / URI
- Negative for influenza and COVID.
- ? aspiration event given reported N/V at [place] prior to presentation?
- IV abx as noted above.
- Speech evaluation.�Recommend to continue with modified diet. Can eventually consider VSE.
- Supportive care, O2, nebs, etc.
LLQ Wound
Complicated Diverticulitis
Stercoral Colitis
- CT results reviewed - some increase in size of LLQ collection - but still no definitive evidence of fistula.
- Seems evident that there is colocutaneous fistula? on exam with flatus and feculent material from LLQ wound appreciated.
- IV abx as noted above.
- Colorectal Surgery evaluation for additional recommendations.
- Bowel regimen and follow for results.
ESRD on HD
Mild Hyponatremia
Chronic Hypotension
- Nephrology evaluation for HD needs during acute stay.
- Continue midodrine for hypotension.
- Continue Sevelamer, calcitriol, etc.
Anemia of Chronic Disease
- Stable. Hgb is at / near known baseline.
- Follow for any changes.
Severe
- Murmur appreciated on exam.
- Patient not a candidate for intervention / replacement.
Skin Breakdown
- Multiple areas of skin breakdown (bilateral heels, sacrum, LLQ wound).
- Wound Care eval for local care recommendations.
DVT Prophylaxis: Subcut Heparin
Code Status: DNR
Anticipated Discharge: > 48 hours
Subjective/Interval History
-
Date of Service: January 02, 2025
states of abd discomfort
having bm
having drainage from LLQ -serosanginous and brown in color
Objective Data
-
Labs:
Laboratory Results
01/02/25
06:43
WBC 9.6
Hgb 8.0 L
Hct 23.8 L
Plt Count 246
Sodium 133 L
Potassium 4.6
Chloride 95 L
Carbon Dioxide 21 L
BUN 69 H
Creatinine 4.3 H*
Glucose 80
Calcium 9.5
Vital Signs:
Vital Signs
Temp Pulse Resp BP Pulse Ox
98.0 F 84 16 109/60 98
01/02/25 11:48 01/02/25 11:48 01/02/25 11:48 01/02/25 11:48 01/02/25 11:48
I&O
01/01/25 01/02/25 01/03/25
06:59 06:59 06:59
Intake Total 500 / 500
Output Total 650 / 650
Balance -150 / -150
Data Reviewed
-
Total Time Spent with Patient (in minutes): 55
--- NOTE | 2025-01-02 13:14 | CON.CRS ---
Consultation
-
Date/Time Consultation Requested: 01/02/2025, 01:24
Date/Time Consultation Performed: 01/02/2025, 10:30
Requesting Provider: Ton Armstrong DO
Performing Provider: Damion Chris MD
Reason for Consultation: constipation
Medical History
-
Chief Complaint: vomiting/constipation/wound drainage
History of Present Illness:
84-year-old male with a past medical history of end-stage renal disease on hemodialysis, atrial fibrillation, and severe aortic stenosis, custodial patient due to dementia, presents to [facility] due to left lower quadrant wound drainage,
vomiting, and constipation. The patient had stated last night per records that he had abdominal pain as well as cough and mucus. He had been recently admitted to [facility] from 12/08/2024 to 12/17/2024 due to MRSA bacteremia (no source found)
he as well as coffee-ground emesis. Prior to this he was here back in August 2024 due to constipation when he was seen in consult by colorectal surgery. There is no intervention at that time besides MiraLAX and magnesium citrate.
On arrival to the ER his WBC was 14.3 and is 9.6 today. He was placed on IV antibiotics. Workup was negative for influenza and COVID. CT of the abdomen and pelvis showed bilateral pleural effusions, a large amount of stool throughout the colon
with rectal distention and stool. Mild perirectal edema suggesting mild sterile coral colitis. No evidence of perforation or free air. There is a collection left lower anterior wall/groin that contains fluid and air and has a slightly increased
in size since December 16, 2024. Concern is raised for fistula.
I spoke to the patient's power of compliance attorney, his brother Hubert, who stated the patient never had a surgical drain nor has he ever had colorectal surgery. He states he believes that wound has been around for about 2 years and recently has actually
improved. He is not sure on a prior colonoscopy. There is no colonoscopy in our system. The only blood thinner the patient is on is an aspirin at this time. Given the above CT findings, we have been consulted for our surgical opinion.
Past Medical History
Past Medical History: Other (Chronic urinary retention, chronic Calvin, end-stage renal disease on hemodialysis, aortic stenosis, atrial fibrillation, CKD, anxiety, depression, history of a pelvic fracture, chronic constipation, dementia)
Past Surgical History: Other (unknown)
Social History
Tobacco: Non-Smoker
Alcohol: None
Living: [facility]
Family History
Family History: Reviewed & Noncontributory
Allergies / Home Medications
Allergy/AdvReac Type Severity Reaction Status Date / Time
No Known Allergies Allergy Verified 01/01/25 20:33
�Medication �Instructions �Recorded �Confirmed �Type
midodrine 5 mg tablet 5 mg PO MOWEFR@0800,1700 low blood 09/07/24 01/01/25 History
pressure
mirtazapine 7.5 mg tablet 7.5 mg PO HS depression/sleep 09/07/24 01/01/25 History
polyethylene glycol 3350 17 gram 17 g PO DAILYPRN PRN constipation 09/07/24 01/01/25 History
oral powder packet (Miralax)
vitamin B complex 1 tab PO SUTUTHSA@1900 Supplement 09/07/24 01/01/25 History
##0
acetaminophen 325 mg tablet 650 mg PO Q6HPRN PRN mild 12/08/24 01/01/25 History
(Tylenol) pain/temp>100
aspirin 81 mg tablet,delayed 81 mg PO MOWEFR Blood Clot 12/08/24 01/01/25 History
release Prevention/Tx
bisacodyl 10 mg rectal suppository 10 mg GA DAILYPRN PRN if no bm 12/08/24 01/01/25 History
after mom
calcitriol 0.25 mcg capsule 0.25 mcg PO MOWEFR Kidney Disease 12/08/24 01/01/25 History
levalbuterol HCl 0.63 mg/3 mL 0.63 mg inhalation R Q6HPRN PRN 12/08/24 01/01/25 History
solution for nebulization wheezing
midodrine 5 mg tablet 5 mg PO DAILYPRN PRN low blood 12/08/24 01/01/25 History
pressure
midodrine 5 mg tablet 5 mg PO SUTUTHSA@08,12,19 low 12/08/24 01/01/25 History
blood pressure
ondansetron 4 mg disintegrating 4 mg PO Q8HPRN PRN nausea 12/08/24 01/01/25 History
tablet
sevelamer HCl 800 mg tablet 800 mg PO TID Kidney Disease 12/08/24 01/01/25 History
Review of Systems
-
History Source: Patient, Family, [facility] and Transfer Record
Abdomen/GI: Nausea, Vomiting and Constipated
Skin: Other (drainage from LLQ wound)
A 10 point review of systems was completed, and was negative except as per HPI.
Physical Exam
Vital Signs
Temp 98.0 F 01/02/25 11:48
Pulse 84 01/02/25 11:48
Resp Rate 16 01/02/25 11:48
Blood pressure 109/60 01/02/25 11:48
SaO2 98 01/02/25 11:48
01/01/25 01/02/25 01/03/25
06:59 06:59 06:59
Actual Weight 52.662 kg
Body Mass Index (BMI) 16.7
Lab Results / Allergies
01/02/25 06:43
01/02/25 06:43
WBC 9.6 10^3/uL (4.8-10.8) 01/02/25 06:43
Hgb 8.0 g/dL (13.0-18.0) L 01/02/25 06:43
Hct 23.8 % (39.0-52.0) L 01/02/25 06:43
Plt Count 246 10^3/uL (130-400) 01/02/25 06:43
Abs Immat Gran (auto) 0.1 10^3/uL (0-0.05) H 01/01/25 19:59
Neutrophils % 82.7 % (42.2-75.2) H 01/01/25 19:59
Allergy/AdvReac Type Severity Reaction Status Date / Time
No Known Allergies Allergy Verified 01/01/25 20:33
Physical Exam
General: Well Developed, Well Nourished, No Apparent Distress and Comfortable
GI: Soft, Non Tender, Non Distended and Other (LLQ wound, small amount of valenzuela drainage - q tip placed underneath, bright red blood mixed with valenzuela drainage, covered with bandage)
Rectal: Other (stool in rectal vault, disimpacted at bedside, no gross blood)
Skin: Warm and Dry
Neuro: Awake and Alert
Psych: Calm
Data Reviewed
-
CT Scan: Image Personally Visualized and interpreted, Report Reviewed by me and Discussed with Patient
Labs: Labs Reviewed by me, Discussed with Physician and Discussed with Patient
Old Records: Reviewed
Assessment / Plan
-
Assessment:84-year-old male with a past medical history of dementia, end-stage renal disease on dialysis, chronic constipation, atrial fibrillation, and aortic stenosis presents to [facility] after complaining of abdominal pain, vomiting,
constipation, and left lower quadrant drainage from his abdominal wound. CT shows a large amount of constipation with mild stercoral colitis and a left lower quadrant wall and groin collection
Plan:
-Recommend NPO while nauseous
-Miralax increased to BID
-Disimpacted at bedside
-Spoke with brother, Hubert CANTU, who stated to me that patient is not interested in any surgery
-Daily wound dressing changes and as needed
-Wound RN consult
-No plans for surgery at this time
--- NOTE | 2025-01-02 13:39 | W.CON.NEPH ---
Consultation
-
Date/Time Consultation Requested: 01/02/25 0124
Date/Time Consultation Performed: 01/02/25 1300
Requesting Provider: Ton Bess
Performing Provider: Gerri Hobson
Reason for Consultation: ESRD
Medical History
-
Chief Complaint: n/v, abd drainage
History of Present Illness:
84-year-old who has end-stage renal disease [facility] at [facility] for last 8yrs through left UE AVF), chronic urinary retention with suprapubic catheter, anemia, oropharyngeal
dysphagia, generalized weakness, diverticulitis with perforation and abscess, atrial fibrillation on ASA who was evaluated during a prior stay here (12/08 - 12/17) for possible colocutaneous fistula and evaluation did not seem to suggest such. He was
treated for MRSA bacteremia presents to ED from local [place] for evaluation of N/V and abdominal drainage. Patient had episode of nausea / 'spitting up' while at [place] He complained of some abdominal discomfort and staff noted drainage from his
chronic LLQ wound which appeared consistent with stool. Patient was sent to the ED for further evaluation. Pt also had cough and mucus production, denies any fever or sob. No CP too. We are asked to assist with management of his ESR. He is
currently NPO and offers no active n/v. Abd pain and distension improving.
Past Medical History
ESRD
Chronic urinary retention s/p suprapubic catheter
Dysphagia
AFIB
Left upper extremity AV fistula
Diverticulosis
Pelvic fracture
Diverticular abscess drainage
Social History
Tobacco: Non-Smoker
Alcohol: None
Drug: None
Living: Alf
Employment: Retired
Family History
Family History: Not Pertinent
Allergies / Home Medications
Allergy/AdvReac Type Severity Reaction Status Date / Time
No Known Allergies Allergy Verified 01/01/25 20:33
�Medication �Instructions �Recorded �Confirmed �Type
midodrine 5 mg tablet 5 mg PO MOWEFR@0800,1700 low blood 09/07/24 01/01/25 History
pressure
mirtazapine 7.5 mg tablet 7.5 mg PO HS depression/sleep 09/07/24 01/01/25 History
polyethylene glycol 3350 17 gram 17 g PO DAILYPRN PRN constipation 09/07/24 01/01/25 History
oral powder packet (Miralax)
vitamin B complex 1 tab PO SUTUTHSA@1900 Supplement 09/07/24 01/01/25 History
##0
acetaminophen 325 mg tablet 650 mg PO Q6HPRN PRN mild 12/08/24 01/01/25 History
(Tylenol) pain/temp>100
aspirin 81 mg tablet,delayed 81 mg PO MOWEFR Blood Clot 12/08/24 01/01/25 History
release Prevention/Tx
bisacodyl 10 mg rectal suppository 10 mg NC DAILYPRN PRN if no bm 12/08/24 01/01/25 History
after mom
calcitriol 0.25 mcg capsule 0.25 mcg PO MOWEFR Kidney Disease 12/08/24 01/01/25 History
levalbuterol HCl 0.63 mg/3 mL 0.63 mg inhalation R Q6HPRN PRN 12/08/24 01/01/25 History
solution for nebulization wheezing
midodrine 5 mg tablet 5 mg PO DAILYPRN PRN low blood 12/08/24 01/01/25 History
pressure
midodrine 5 mg tablet 5 mg PO SUTUTHSA@08,12,19 low 12/08/24 01/01/25 History
blood pressure
ondansetron 4 mg disintegrating 4 mg PO Q8HPRN PRN nausea 12/08/24 01/01/25 History
tablet
sevelamer HCl 800 mg tablet 800 mg PO TID Kidney Disease 12/08/24 01/01/25 History
Review of Systems
-
All other systems: Negative unless noted
Physical Exam
Vital Signs
Vital Signs
Temp Pulse Resp BP Pulse Ox
98.0 F 84 16 109/60 98
01/02/25 11:48 01/02/25 11:48 01/02/25 11:48 01/02/25 11:48 01/02/25 11:48
Lab Results
WBC 9.6 10^3/uL (4.8-10.8) 01/02/25 06:43
RBC 2.48 10^6/uL (4.70-6.10) L 01/02/25 06:43
Hgb 8.0 g/dL (13.0-18.0) L 01/02/25 06:43
Hct 23.8 % (39.0-52.0) L 01/02/25 06:43
Plt Count 246 10^3/uL (130-400) 01/02/25 06:43
Sodium 133 mmol/L (135-145) L 01/02/25 06:43
Potassium 4.6 mmol/L (3.5-5.1) 01/02/25 06:43
Chloride 95 mmol/L (98-107) L 01/02/25 06:43
Carbon Dioxide 21 mmol/L (22-30) L 01/02/25 06:43
BUN 69 mg/dl (9-20) H 01/02/25 06:43
Creatinine 4.3 mg/dL (0.7-1.3) H* 01/02/25 06:43
eGFR 12.97 01/02/25 06:43
Glucose 80 mg/dl (70-99) 01/02/25 06:43
Calcium 9.5 mg/dl (8.4-10.2) 01/02/25 06:43
Phosphorus 4.7 mg/dl (2.5-4.5) H 01/02/25 06:43
Albumin 4.2 g/dl (3.5-5.0) 01/01/25 19:59
Physical Exam
General: Awake, Alert, Oriented, No Distress and Nontoxic
HEENT: EOMI, Anicteric, Conjunctivae Clear and Trachea Midline
Respiratory: Clear, Normal Excursion and Nonlabored Respirations
Cardiac: S1/S2 and Regular Rate/Rhythm
Breast: Deferred by me
Abdomen: Soft, Nontender and Nondistended
Genito-urinary: Clear Urine
Musculoskeletal: No Cyanosis and No Edema
Skin: No Rash
Neuro: Nonfocal/Grossly Intact
Psych: Appropriate
Vascular Access: AVF
Data Reviewed
-
Radiology: Image Personally Visualized and interpreted
Labs: Labs Reviewed by me and Discussed with Patient
Assessment/Plan
-
IMP:
Sepsis likely 2/2 mild stercoral colitis
Cough / URI
LLQ Wound
h/o Complicated Diverticulitis
Stercoral Colitis
ESRD - HD M/W/F. kirit mejia, previously [facility] unit at [facility]
Suprapubic cath
History of diverticulitis with left lower abdominal wound patch
Mild Hyponatremia
Chronic Hypotension
Anemia of Chronic Disease
Skin Breakdown
Anemia of CKD
Left UE AVF
Atrial fibrillation
Aortic stenosis not a TAVR candidate
Plan:
A/w n/v, abd drainage
for HD today per schedule
BPs table on midodrine
Maintain chronic Calvin
abx per primary, await surg eval
JO for anemia
CXR shows mild pulm edema but no sig change from old imaging
UF as tolerated
d/w pt
--- NOTE | 2025-01-02 13:42 | CM ---
Reviewed the chart notes and spoke with the patient at the bedside. 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 The patient is full care. Patient receives HD --. CM continues to be
available to patient/family and is monitoring medical plan for needs at discharge.
Plan: Discharge back to [facility] when medically stable.
[2025-01-02 16:14] LABS: Hepatitis B Surface Antigen Negative (Negative)
[2025-01-02 16:32] LABS: Hepatitis B Surface Antibody Negative
[2025-01-02] MEDS: MANNITOL 25% 12.5 GRAMS IV (18:34)
[2025-01-02] MEDS: FLEXBUMIN 25% FOR HEMODIALYSIS 12.5 GRAMS IV (18:53)
[2025-01-02] MEDS: RETACRIT 10000 UNITS IV (18:53)
--- NOTE | 2025-01-02 19:00 | W.PN.NEPH.HD ---
Assessment
-
pt evaluated during hd
vitals stable, soft leila
limited uf
avf funcrions fine
Progress Note - Hemodialysis
-
Date of Service: January 02, 2025
Duration: 3 hours
Potassium Bath: 3
Calcium Bath: 2.5
Opti-Dialyzer: 160
Ultrafiltration: Other (05kg)
Blood Flow: 400
Dialysate Flow: 600
Heparin: no
EPO: 62051
[2025-01-03] VITALS (7 sets, daily range): BP systolic 73–140; BP diastolic 39–65; BMI 16.5
[2025-01-03] MEDS: RENVELA PO (07:54)
[2025-01-03 08:25] LABS: Vancomycin Random 14.2 ug/ml
--- NOTE | 2025-01-03 08:56 | PHA.VAN.FU ---
Vancomycin Assessment / Plan
- Assessment
Hemodialysis Schedule: MWF
Last Hemodialysis performed: 01/02
WBC's are: WNL
In the past 24 hrs, patient has been: Afebrile
Concomitant Antimicrobials: piperacillin/tazobactam
- Assessment - Therapeutic Drug Monitoring
Random Level: 14.2 - received HD in between 1500mg dose and level
- Dosing Plan
Dosing by Level: Hold off on dosing today
Dosing Comments: appropriate for re-dosing tomorrow
- Monitoring Plan
No level(s) ordered at this time: will follow HD schedule
- Follow Up
Pharmacy will continue to follow.
Vancomycin Follow UP
- -
Patient Age: 84
Patient Sex: Male
Vancomycin Day #: 2
Indication: Bacteremia
Requesting Provider: Dr. Armstrong
Pertinent Antimicrobial Allergies:
NKDA
Height / Weight:
Height 5 ft 10 in
Actual Weight 52.2 kg
IBW in k
Pertinent Past Medical History: BMI ~16.7, ESRD on HD MWF
- Vital Signs / Lab Results
Temp Pulse Resp BP Pulse Ox
98.4 F 78 16 93/59 100
01/03/25 08:00 01/03/25 08:00 01/03/25 08:00 01/03/25 08:00 01/03/25 08:00
Lab Results - Hematology
01/01/25 01/02/25
19:59 06:43
WBC 14.3 H 9.6
Lab Results - Chemistry
01/01/25 01/02/25
19:59 06:43
BUN 62 H 69 H
Creatinine 4.1 H* 4.3 H*
Estimated Creat Clear 12 10
Albumin 4.2
01/01/25
19:59
Lactic Acid 2.4 H
Microbiology Results
01/02/25 00:49 Influenza Types A & B (CORY) - Final
Nasal Swab Negative for Influenza A & B, NAAT
Negative results must be combined with clinical observations
and patient history.
Nucleic Acid Amplification test (NAAT)performed on the
[employer] platform.
Therapeutic Drug Monitoring
Random Vancomycin 14.2 ug/ml 01/03/25 07:43
[2025-01-03] MEDS: RENVELA 800 MG PO ×3 (08:57→21:01)
[2025-01-03] MEDS: ZOSYN 50 IV (08:57)
[2025-01-03] MEDS: HEPARIN 5000 UNITS SC ×2 (08:57→21:01)
[2025-01-03] MEDS: ProAmatine 5 MG PO ×3 (08:57→15:52)
--- NOTE | 2025-01-03 10:46 | W.PN.HOSP.TC ---
Today's Communication/Plan
-
speech recs
HD per nephro
narrow abx
Assessment / Plan
Assessment / Plan
General: frail, not in distress
HEENT: Moist mucous membranes
Respiratory: Other (Scattered coarse breath sounds - improves with cough. No rales / wheezing.)
Cardiac: S1/S2, Regular Rhythm and Murmur (III/ CARYL)
GI: Other (Abdomen is soft. non tender, Pos bowel sounds. LLQ wound with mild surrounding erythema. Pos malodorous flatus / bowel sounds from the wound with abdominal palpation.)
Genito-urinary: Other (Calvin in place)
Musculoskeletal: No Clubbing, No Cyanosis and No Edema
Neuro: Awake, Alert and Nonfocal/grossly intact
Hematologic/Lymphatic: Other (LUE AVF with pos thrill / bruit.)
A/P: Patient is an 84y M with PMH significant for complicated diverticulitis, ESRD on HD and recent MRSA bacteremia who presents from [place] with cough, N/V and abdominal drainage.
Sepsis likely 2/2 mild stercoral colitis vs.possibility of aspiration pneumonia
- Patient presents with leukocytosis, tachycardia and tachypnea
- narrow abx to Unasyn. DC vancomycin/zosyn.
- BP mildly low in the ED - but consistent with patient's known baseline / on chronic midodrine.
- Follow for clinical improvement.
- Having bm. abdomen is soft.
Cough / URI
- Negative for influenza and COVID.
- ? aspiration event given reported N/V at [place] prior to presentation?
- IV abx as noted above.
- Speech evaluation.�Recommend to continue with modified diet. Can eventually consider VSE.
- Supportive care, O2, nebs, etc.
LLQ Wound
Complicated Diverticulitis
Stercoral Colitis
- CT results reviewed - some increase in size of LLQ collection - but still no definitive evidence of fistula.
- Seems evident that there is colocutaneous fistula? on exam with flatus and feculent material from LLQ wound appreciated.
- IV abx as noted above.
- Colorectal Surgery evaluation for additional recommendations. CRS D/W WITH POA-Plan for no surgery and conservative management.
- Bowel regimen and follow for results.
ESRD on HD
Mild Hyponatremia
Chronic Hypotension
Mild cardiogenic pulmonary edema
- Nephrology evaluation for HD needs during acute stay.
- Continue midodrine for hypotension.
- Continue Sevelamer, calcitriol, etc.
- Volume removal via HD should help. stable on room air.
Anemia of Chronic Disease
- Stable. Hgb is at / near known baseline.
- Follow for any changes.
Severe
- Murmur appreciated on exam.
- Patient not a candidate for intervention / replacement.
Skin Breakdown
- Multiple areas of skin breakdown (bilateral heels, sacrum, LLQ wound).
- Wound Care eval for local care recommendations.
DVT Prophylaxis: Subcut Heparin
Code Status: DNR
Anticipated Discharge: Within 24 hours
Subjective/Interval History
-
Date of Service: January 03, 2025
denies abd pain this morning
hungry and wants to eat
no nausea or vomiting
Objective Data
-
Vital Signs:
Vital Signs
Temp Pulse Resp BP Pulse Ox
98.4 F 78 16 93/59 100
01/03/25 08:00 01/03/25 08:57 01/03/25 08:00 01/03/25 08:57 01/03/25 08:00
I&O
01/02/25 01/03/25 01/04/25
06:59 06:59 06:59
Intake Total 500 / 500 80 / 80
Output Total 650 / 650 800 / 800
Balance -150 / -150 -720 / -720
Data Reviewed
-
Total Time Spent with Patient (in minutes): 55
--- NOTE | 2025-01-03 10:56 | CM ---
Reviewed the chart notes. CM continues to be available to patient/family and is monitoring medical plan for needs at discharge.
Plan: Discharge back to [facility] when medically stable. No precert required.
Call report to: [phone]
Fax report to: [phone]
--- NOTE | 2025-01-03 12:00 | PTOTSP ---
Speech Language Pathology
VIDEOFLUOROSCOPIC SWALLOWING EXAMINATION (VSE) completed. Pt presents with mod pharyngeal dysphagia with penetration/aspiration noted at times. Of note, aspiration was silent. Trace to moderate pharyngeal residue. Unknown etiology of dysphagia,
but suspect chronic.
Recommend:
(1) GOC discussion
(2) NPO vs IDDSI Level 6 (soft/bite-sized) solids and thin liquids if pt choosing diet with known aspiration risk
(3) Oral care 4x/day with suctioning as needed
(4) Meds whole with liquid
(5) CHILDREN'S TUTOR to continue to follow
[2025-01-03] MEDS: UNASYN IV ×2 (13:34→23:13)
--- NOTE | 2025-01-03 16:42 | PTCARENOTE ---
Addendum entered by Kaylee Chan RN 01/03/25 19:54:
Repeat BP taken for scheduled 10 mg midodrine at 1815 97/59 HR 80. Patient changed for mod loose brown BM, administered medications crushed in applesauce. Patient tolerating ordered diet, denies nausea or abd pain, states no concerns at this time.
Original Note:
Patient's BP at 1100 83/44, MD made aware, scheduled dose of 5 mg midodrine given, recheck by this RN one hour later 112/65. BP at 1500 83/47 HR 70, patient laying in bed stating no complaints. MD made aware, one time dose of 5 mg midodrine ordered,
scheduled midodrine dosing increased to 10 mg per MD. Patient on static overlay, bed alarm in place but patient ringing appropriately. Calvin draining cloudy yellow urine, patient inc of mod loose BM this shift. Bed bath provided, call liz within
reach.
--- NOTE | 2025-01-03 17:23 | W.PN.NEPH.PH ---
Today's Communication / Plan
-
HD tomorrow
Assessment/Plan
-
IMP:
Sepsis likely 2/2 mild stercoral colitis
Cough / URI
LLQ Wound
h/o Complicated Diverticulitis
Stercoral Colitis
ESRD - HD M/W/F. kirit mejia, previously [facility] unit at [facility]
Suprapubic cath
History of diverticulitis with left lower abdominal wound patch
Mild Hyponatremia
Chronic Hypotension
Anemia of Chronic Disease
Skin Breakdown
Anemia of CKD
Left UE AVF
Atrial fibrillation
Aortic stenosis not a TAVR candidate
Plan:
A/w n/v, abd drainage
for HD tomorrow
BPs soft on high dose of midodrine
Maintain chronic Pratt
abx per primary,no surg intervention
JO for anemia
Due to his severe he is at risk failing HD with poor hemodynamics
poor prgonosis
d/w pt
-
-
Date of Service: January 03, 2025
CC / HPI / ROS
-
Chief Complaint:
ESRD
History of Present Illness:
BP marginal
no fever
non oliguric with pratt
Review of Systems:
no cp or sob
Labs
-
Labs:
WBC 9.6 10^3/uL (4.8-10.8) 01/02/25 06:43
RBC 2.48 10^6/uL (4.70-6.10) L 01/02/25 06:43
Hgb 8.0 g/dL (13.0-18.0) L 01/02/25 06:43
Hct 23.8 % (39.0-52.0) L 01/02/25 06:43
Plt Count 246 10^3/uL (130-400) 01/02/25 06:43
Sodium 133 mmol/L (135-145) L 01/02/25 06:43
Potassium 4.6 mmol/L (3.5-5.1) 01/02/25 06:43
Chloride 95 mmol/L (98-107) L 01/02/25 06:43
Carbon Dioxide 21 mmol/L (22-30) L 01/02/25 06:43
BUN 69 mg/dl (9-20) H 01/02/25 06:43
Creatinine 4.3 mg/dL (0.7-1.3) H* 01/02/25 06:43
eGFR 12.97 01/02/25 06:43
Glucose 80 mg/dl (70-99) 01/02/25 06:43
Calcium 9.5 mg/dl (8.4-10.2) 01/02/25 06:43
Phosphorus 4.7 mg/dl (2.5-4.5) H 01/02/25 06:43
Albumin 4.2 g/dl (3.5-5.0) 01/01/25 19:59
Physical Exam
-
Vital Signs:
Vital Signs
Temp Pulse Resp BP Pulse Ox
97.8 F 70 20 83/47 100
01/03/25 15:00 01/03/25 15:52 01/03/25 15:00 01/03/25 15:52 01/03/25 15:00
Cardiovascular:: Regular rate and rhythm (murmur)
Lung Excursion:: Normal (decreased)
Abdomen:: Nontender and Soft
Extremity Edema:: None: Bilateral:
Pratt Catheter: Yes
[2025-01-03] MEDS: B COMPLEX w/VITAMIN C 1 CAPLET PO (18:07)
[2025-01-03] MEDS: ProAmatine 10 MG PO (18:07)
[2025-01-03] MEDS: ZOFRAN 4 MG IV (23:21)
[2025-01-04 03:36] VITALS: BP 117/78
[2025-01-04 04:57] VITALS: BMI 16.8
[2025-01-04 06:47] LABS: % Basophils 0.6 % (0-2); % Eosinophils 19.2 % (0-6); % Immature Granulocytes 0.5 % (0-0.5); % Lymphocytes 13.6 % (20.5-51.1); % Monocytes 6.3 % (1.7-9.3); % Neutrophils 59.8 % (42.2-75.2); Absolute Eosinophils 1.2 10^3/uL (0-0.7); Absolute Lymphocytes 0.8 10^3/uL (1.2-3.4); Absolute Monocytes 0.4 10^3/uL (0.1-0.6); Absolute Neutrophils 3.7 10^3/uL (1.4-6.5); Hemoglobin 8.2 g/dL (13.0-18.0); Mean Corp Hgb Conc. 32.8 g/dL (33.0-37.0); Mean Corpuscular Volume 97.7 fL (80.0-94.0); Mean Platelet Volume 9.3 fL (7.4-10.4); Nucleated Red Blood Cells % 0 % (-); Platelet Count 225 10^3/uL (130-400); Red Blood Cell Count 2.56 10^6/uL (4.70-6.10); Red Cell Dist. Width 16.2 % (11.5-14.5); White Blood Cell Count 6.2 10^3/uL (4.8-10.8)
[2025-01-04 06:55] LABS: Blood Urea Nitrogen 53 mg/dl (9-20); Calcium 9.7 mg/dl (8.4-10.2); Carbon Dioxide 26 mmol/L (22-30); Chloride 100 mmol/L (98-107); Estimated Creatinine Clearance 12 ml/min; Glucose 92 mg/dl (70-99); Potassium 3.9 mmol/L (3.5-5.1); Sodium 139 mmol/L (135-145)
[2025-01-04 07:45] VITALS: BP 95/55
[2025-01-04] MEDS: RENVELA 800 MG PO ×3 (08:18→21:49)
[2025-01-04] MEDS: ProAmatine 5 MG PO ×3 (08:19→16:26)
[2025-01-04] MEDS: HEPARIN 5000 UNITS SC ×2 (08:19→21:49)
[2025-01-04] MEDS: ASPIR LOW (ENTERIC COATED) 81 MG PO (08:22)
[2025-01-04] MEDS: ROCALTROL 0.25 MCG PO (08:24)
--- NOTE | 2025-01-04 09:51 | PN.CDI ---
CDI
- -
CDI:
Physician Documentation Request
Admit Date: 01/01/25 23:55
Dear Doctor Deondre,
Please review the following and provide your response in the progress notes.
Clinical Indicators:
Pt admitted with sepsis 2/2 stercoral colitis with colocutaneous fistula?/Aspiration Pneumonia
Documented per nutrition consult 01/02, ' Per current clinical data at admission pt with no weight loss; review of records shows weight of 116 lbs 7 oz from 12-17-2024; current wt 116 lbs 1.6 oz on 01-02-25 (no noted changes within this month).
Previous weights from records appear variable; 123 lbs 1.6 oz on 09-13-2024; 120 lbs 9.486 oz on 12-08-24. Using 123 lbs 1.6 oz (09-13-24) and current wt of 116 lbs 1.6 oz (01-02-25), pt appears to have lost 7 lbs (5.69% wt change, ~3.5 months)-not
significant however will monitor. With RN present, RD able to observe pt while resting to have appearance of fat/muscle loss including severe depression temples, orbital, clavicle, ribs, calves. Pt currently meeting criteria due to multiple-site
observations for severe protein/calorie malnutrition (ASPEN/AND guidelines, chronic illness). Follow-up planned per level of care during hospitalization....Assessment Subcutaneous loss over orbital severity Severe, rib cage Severity Severe ,
assessment muscle loss over calf severity severe ,clavicle severe,temporal severe ...'
BMI 16.5
Based on the above information and your assessment, which of the following most accurately represents the patient's nutritional status?
Severe Protein Calorie malnutrition
Other (please specify)
[place] Criteria (ACP Hospitalist 2017)
2 or more criteria must be present for either
non severe or severe malnutrition
Note that the criteria differs related to the
presence of an acute or chronic illness
Acute Illness Chronic Illness
Energy Intake Non Severe: <75% for >7 days Non Severe: <75% for >1 month
Severe: <50% for >5 days Severe: <75% for >1 month
Weight Loss Non Severe: 1-2% over 1 week Non Severe: 5% over 1 month
5% over 1 month 7.5% over 3 months
7.5% over 3 months 10% over 6 months
1 year N/A 20% over 1 year
Severe: >2% over 1 week Severe: >5% over 1 month
>5% over 1 month >7.5% over 3 months
>7.5% over 3 months >10% over 6 months
1 year N/A >20% over 1 year
Body Fat Non Severe: Mild Decrease Non Severe: Mild Loss
Severe: Moderate Decrease Severe: Severe Loss
Muscle Mass Non Severe: Mild Decrease Non Severe: Mild Loss
Severe: Moderate Decrease Severe: Severe Loss
Fluid Accumulation Non Severe: Mild Accumulation Non Severe: Mild Accumulation
Severe: Moderate to severe Severe: Moderate to severe
accumulation accumulation
Reduced Research And Development Researcher Strength Non Severe: N/A Non Severe: N/A
Severe: Measurably reduced Severe: Measurably reduced
Use of terms such as suspected, likely, concern for, or probable (associated with a specific diagnosis that is being evaluated, monitored, or treated as if it exists) are acceptable and can be coded in the inpatient setting, when documented at the
time of discharge.
Thank you,
Xin Hansen RN
CDI Specialist
[place] [facility]
Please use your independent medical judgment in providing your response.
--- NOTE | 2025-01-04 10:01 | PN.CDI ---
CDI
- -
CDI:
Physician Documentation Request
Admit Date: 01/01/25 23:55
Dear Doctor Deondre,
Please review the following and provide your response in the progress notes.
Clinical Indicators:
Pt admitted with sepsis 2/2 stercoral colitis with colocutaneous fistula?/Aspiration Pneumonia
Progress note 01/03, ' ESRD on HD...Mild cardiogenic pulmonary edema ... Volume removal via HD should help...'
CXR on admit, ' Mild acute interstitial cardiogenic pulmonary edema...'
Please Clarify which of the following accurately represents the acuity of the (Mild cardiogenic pulmonary edema ):
Acute Cardiogenic pulmonary edema
Acute on Chronic cardiogenic pulmonary edema
Chronic cardiogenic pulmonary edema
Other ( please specify)
Use of terms such as suspected, likely, concern for, or probable (associated with a specific diagnosis that is being evaluated, monitored, or treated as if it exists) are acceptable and can be coded in the inpatient setting, when documented at the
time of discharge.
Thank you,
Xin Hansen RN
CDI Specialist
[place] [facility]
Please use your independent medical judgment in providing your response.
[2025-01-04 11:03] VITALS: BP 99/53
--- NOTE | 2025-01-04 12:24 | W.CON.PAL ---
Consultation
-
Date/Time Consultation Requested: 01/03/2025
Date/Time Consultation Performed: 01/04/2025
Reason for Consult: Goals of Care Discussion
Primary Diagnosis: ESRD, Chronic wound
Consult Requested By: Patient's Physician
Reason for Admission
Illness Course/HPI
Euebe us a 84 y/o male with ESRD on HD, , Anemia, Chronic LLQ wound from prior BRIANNA drain who was readmitted to hospital with wound drainaige. palliative care consulted to discuss goals
Patient denied symptoms when asked. reports abdominal symptoms have resolved
Phone call to brother - await call back.
total floor time 40 mins
Functional Status
lives at [facility] now for skilled nursing
Goals of Care Discussion
Patient Goals
patient is able to participate in some discussion today
Reports his brother is his medical poa
confirms that he is not interested in surgical intervention for wound. He would want to continue treatments, antibiotics, and dialysis at this time.
Pain & Symptom Assessment
-
denies symptoms
Objective Data
-
Objective Data:
Vital Signs
Temp Pulse Resp BP Pulse Ox
98.3 F 77 16 99/53 100
01/04/25 11:03 01/04/25 12:09 01/04/25 11:03 01/04/25 12:09 01/04/25 11:03
Laboratory Results
01/04/25 05:55
01/04/25 05:55
Total Protein 6.8 g/dl (6.3-8.2) 01/01/25 19:59
Albumin 4.2 g/dl (3.5-5.0) 01/01/25 19:59
Palliative Performance Scale
Palliative Performance Scale:
PPS Level Ambulation Activity & Evidence of Disease Self Care Intake Conscious Level
100% Full Normal Activity & Work; Full Intake Full
No Evidence of Disease
90% Full Normal Activity & Work; Full Normal Full
Some Evidence of Disease
80% Full Normal Activity with Effort Full Normal or Full
Some Evidence of Disease Reduced
70% Reduced Unable Normal Job/Work Full Normal or Full
Significant Disease Reduced
60% Reduced Unable Hobby/Housework Occasional Normal or Full or Confusion
Significant Disease Assistance Reduced
50% Mainly Sit/Lie Unable to do Any Work Considerable Normal or Full or Confusion
Extensive Disease Assistance Req'd Reduced
40% Mainly in Bed Unable to do Most Activity Mainly Assistance Normal or Full or Drowsy;
Extensive Disease Reduced +/- Confusion
30% Totally Bed Unable to do Any Activity Total Care Normal or Full or Drowsy;
Bound Extensive Disease Reduced +/- Confusion
20% Totally Bed Bound Unable to do Any Activity Total Care Minimal to Full or Drowsy;
Extensive Disease Sips +/- Confusion
10% Totally Bed Bound Unable to do Any Activity Total Care Mouth Care Drowsy or Coma;
Extensive Disease Only +/- Confusion
0%
PPS Score Level:
Palliative Performance Score Response
Palliative Performance Score Response: 40%
Physical Exam
-
General: No Apparent Distress and Comfortable
Neuro: Awake and Alert
Psych: Calm
Assessment / Plan
-
Assessment/Plan:
Patient declines surgical interventions, but would want to continue medical management.
DNR code status noted.
patient high likliehood for readmission. recommend wound care follow up on discharge.
[2025-01-04] MEDS: HEPARIN 500 UNITS IV ×2 (12:25→13:25)
[2025-01-04] MEDS: MANNITOL 25% 12.5 GRAMS IV (12:41)
[2025-01-04] MEDS: FLEXBUMIN 25% FOR HEMODIALYSIS 12.5 GRAMS IV (12:41)
[2025-01-04] MEDS: RETACRIT 10000 UNITS IV (12:42)
--- NOTE | 2025-01-04 12:49 | CM ---
Addendum entered by Leila Durán RN 01/04/25 15:50:
IMM reviewed.
Original Note:
Reviewed the chart notes. Patient receiving HD today. CM continues to be available to patient/family and is monitoring medical plan for needs at discharge.
Plan: Discharge back to [facility] when medically stable. No precert required.
--- NOTE | 2025-01-04 13:35 | W.PN.HOSP.TC ---
Today's Communication/Plan
-
Palliative care eval
HD today
monitor BP
Po abx on dc
prognosis poor
start dispo to NH
Assessment / Plan
Assessment / Plan
General: frail, not in distress
HEENT: Moist mucous membranes
Respiratory: Other (Scattered coarse breath sounds - improves with cough. No rales / wheezing.)
Cardiac: S1/S2, Regular Rhythm and Murmur (III/ CARYL)
GI: Other (Abdomen is soft. non tender, Pos bowel sounds. LLQ wound with mild surrounding erythema. Pos malodorous flatus / bowel sounds from the wound with abdominal palpation.)
Genito-urinary: Other (Calvin in place)
Musculoskeletal: No Clubbing, No Cyanosis and No Edema
Neuro: Awake, Alert and Nonfocal/grossly intact
Hematologic/Lymphatic: Other (LUE AVF with pos thrill / bruit.)
A/P: Patient is an 84y M with PMH significant for complicated diverticulitis, ESRD on HD and recent MRSA bacteremia who presents from [place] with cough, N/V and abdominal drainage.
Sepsis likely 2/2 mild stercoral colitis vs.possibility of aspiration pneumonia
- Patient presents with leukocytosis, tachycardia and tachypnea
- narrow abx to Unasyn. DC vancomycin/zosyn.
- BP mildly low in the ED - but consistent with patient's known baseline / on chronic midodrine.
- Follow for clinical improvement.
- Having bm. abdomen is soft.
Cough / URI
- Negative for influenza and COVID.
- ? aspiration event given reported N/V at [place] prior to presentation?
- IV abx as noted above.
- Speech evaluation.�Recommend to continue with modified diet. Can eventually consider VSE.
- Supportive care, O2, nebs, etc.
LLQ Wound
Complicated Diverticulitis
Stercoral Colitis
- CT results reviewed - some increase in size of LLQ collection - but still no definitive evidence of fistula.
- Seems evident that there is colocutaneous fistula? on exam with flatus and feculent material from LLQ wound appreciated.
- IV abx as noted above.
- Colorectal Surgery evaluation for additional recommendations. CRS D/W WITH POA-Plan for no surgery and conservative management.
- Bowel regimen and follow for results.
ESRD on HD
Mild Hyponatremia
Chronic Hypotension
Mild acute cardiogenic pulmonary edema
- Nephrology evaluation for HD needs during acute stay.
- Continue midodrine for hypotension.
- Continue Sevelamer, calcitriol, etc.
- Volume removal via HD should help. stable on room air.
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
Anemia of Chronic Disease
- Stable. Hgb is at / near known baseline.
- Follow for any changes.
Severe
- Murmur appreciated on exam.
- Patient not a candidate for intervention / replacement.
Skin Breakdown
- Multiple areas of skin breakdown (bilateral heels, sacrum, LLQ wound).
- Wound Care eval for local care recommendations.
Severe protein calorie malnutrition
DVT Prophylaxis: Subcut Heparin
Code Status: DNR
Anticipated Discharge: Within 24 hours
Subjective/Interval History
-
Date of Service: January 04, 2025
Having bm
tolerating diet
Soft BP and midodrine increased
Objective Data
-
Labs:
Laboratory Results
01/04/25
05:55
WBC 6.2
Hgb 8.2 L
Hct 25.0 L
Plt Count 225
Sodium 139
Potassium 3.9
Chloride 100
Carbon Dioxide 26
BUN 53 H
Creatinine 3.4 H
Glucose 92
Calcium 9.7
Vital Signs:
Vital Signs
Temp Pulse Resp BP Pulse Ox
98.3 F 77 16 99/53 100
01/04/25 11:03 01/04/25 12:09 01/04/25 11:03 01/04/25 12:09 01/04/25 11:03
I&O
01/03/25 01/04/25 01/05/25
06:59 06:59 06:59
Intake Total 80 / 80 820 / 820
Output Total 800 / 800 1100 / 1100
Balance -720 / -720 -280 / -280
Data Reviewed
-
Total Time Spent with Patient (in minutes): 55
--- NOTE | 2025-01-04 14:07 | W.PN.NEPH.HD ---
Assessment
-
Seen on dialysis moderate hypotension ultrafiltration just 500 ml planned.
Progress Note - Hemodialysis
-
Date of Service: January 04, 2025
Duration: 3 hours
Potassium Bath: 3
Calcium Bath: 2.5
Opti-Dialyzer: 160
Ultrafiltration: Other (05kg)
Blood Flow: 400
Dialysate Flow: 600
Heparin: no
EPO: 53351
[2025-01-04] MEDS: UNASYN IV (15:00)
[2025-01-04 16:23] VITALS: BP 106/66
[2025-01-04] MEDS: AUGMENTIN 500 MG/125 MG 1 TABLET PO (17:20)
[2025-01-04 19:15] VITALS: BP 130/48
[2025-01-04 23:40] VITALS: BP 130/75
[2025-01-05 03:10] VITALS: BP 128/47
[2025-01-05 06:00] VITALS: BMI 16.2
[2025-01-05 07:36] VITALS: BP 94/55
[2025-01-05] MEDS: RENVELA 800 MG PO (08:32)
[2025-01-05] MEDS: HEPARIN 5000 UNITS SC (08:33)
[2025-01-05] MEDS: ProAmatine 10 MG PO ×2 (08:35→14:24)
--- NOTE | 2025-01-05 08:41 | CM ---
Reviewed the chart notes. CM continues to be available to patient/family and is monitoring medical plan for needs at discharge.
Plan: Discharge back to [facility] when medically stable. No precert required.
Call report to: [phone]
Fax report to: [phone]
Medical necessity and transport forms on chart.
--- NOTE | 2025-01-05 10:51 | W.PN.HOSP.TC ---
Today's Communication/Plan
-
DC to [facility]
Assessment / Plan
Assessment / Plan
General: frail, not in distress
HEENT: Moist mucous membranes
Respiratory: Other (Scattered coarse breath sounds - improves with cough. No rales / wheezing.)
Cardiac: S1/S2, Regular Rhythm and Murmur (III/ CARYL)
GI: Other (Abdomen is soft. non tender, Pos bowel sounds. LLQ wound with mild surrounding erythema. Pos malodorous flatus / bowel sounds from the wound with abdominal palpation.)
Genito-urinary: Other (Calvin in place)
Musculoskeletal: No Clubbing, No Cyanosis and No Edema
Neuro: Awake, Alert and Nonfocal/grossly intact
Hematologic/Lymphatic: Other (LUE AVF with pos thrill / bruit.)
A/P: Patient is an 84y M with PMH significant for complicated diverticulitis, ESRD on HD and recent MRSA bacteremia who presents from [place] with cough, N/V and abdominal drainage.
Sepsis likely 2/2 mild stercoral colitis vs.possibility of aspiration pneumonia
- Patient presents with leukocytosis, tachycardia and tachypnea
- narrow abx to Unasyn. DC vancomycin/zosyn. Transition to p.o. Augmentin on discharge.
- BP mildly low in the ED - but consistent with patient's known baseline / on chronic midodrine.
- Follow for clinical improvement.
- Having bm. abdomen is soft.
Cough / URI
- Negative for influenza and COVID.
- ? aspiration event given reported N/V at [place] prior to presentation?
- IV abx as noted above.
- Speech evaluation.�Recommend to continue with modified diet. Can eventually consider VSE.
- Supportive care, O2, nebs, etc.
LLQ Wound
Complicated Diverticulitis
Stercoral Colitis
- CT results reviewed - some increase in size of LLQ collection - but still no definitive evidence of fistula.
- Seems evident that there is colocutaneous fistula? on exam with flatus and feculent material from LLQ wound appreciated.
- IV abx as noted above.
- Colorectal Surgery evaluation for additional recommendations. CRS D/W WITH POA-Plan for no surgery and conservative management.
- Bowel regimen and follow for results.
ESRD on HD
Mild Hyponatremia
Chronic Hypotension midodrine dose adjusted
Mild acute cardiogenic pulmonary edema
- Nephrology evaluation for HD needs during acute stay.
- Continue midodrine for hypotension.
- Continue Sevelamer, calcitriol, etc.
- Volume removal via HD should help. stable on room air.
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
Anemia of Chronic Disease
- Stable. Hgb is at / near known baseline.
- Follow for any changes.
Severe
- Murmur appreciated on exam.
- Patient not a candidate for intervention / replacement.
Skin Breakdown
- Multiple areas of skin breakdown (bilateral heels, sacrum, LLQ wound).
- Wound Care eval for local care recommendations.
Severe protein calorie malnutrition
DVT Prophylaxis: Subcut Heparin
Code Status: DNR
update brother over the phone in details. Discussed about hospice as patient is approaching end-stage ESRD with soft BP, multiple hospitalization, severe protein nutrition, aspiration suspected EC fistula-prognosis poor. Brother to think about it
not ready to make decision.
More than 30 minutes spent in discharge including
Final examination of the patient
Summarizing hospital stay
Instructions for continuing care to all relevant caregivers
Preparation of discharge records, prescriptions, and referral forms
Total time spent (in minutes): 55
Anticipated Discharge: Today
Subjective/Interval History
-
Date of Service: January 05, 2025
tolerating diet
having bm
Objective Data
-
Vital Signs:
Vital Signs
Temp Pulse Resp BP Pulse Ox
98.3 F 74 16 94/55 99
01/05/25 07:36 01/05/25 08:35 01/05/25 07:36 01/05/25 08:35 01/05/25 07:36
I&O
01/04/25 01/05/25 01/06/25
06:59 06:59 06:59
Intake Total 820 / 820 720 / 720
Output Total 1100 / 1100 875 / 875
Balance -280 / -280 -155 / -155
--- NOTE | 2025-01-05 10:58 | W.DCSUMMARY ---
Discharge Summary
Discharge Data
Date of Admission: 01/01/25
Date of Discharge: 01/05/25
-
Pending Results: No
Hospital Course
84y M with PMH significant for complicated diverticulitis, ESRD on HD and recent MRSA bacteremia, anemia of chronic disease, severe aortic stenosis, severe protein caloric malnutrition who presents from [place] with cough, N/V and abdominal drainage.
Patient was evaluated by colorectal surgery. Surgery discussed with POA who stated patient does not want surgery and aggressive measures and recommended with conservative management. Patient on the CAT scan was also found to have a severe
stercoral colitis. Also with concern for aspiration pneumonia. IV Zosyn was transitioned to Unasyn to p.o. Augmentin. Patient was started on aggressive bowel regimen. Patient was having formed bowel movements. Patient abdominal distention
significantly improved. Patient was tolerating diet. Patient with dysphagia and underwent video swallow evaluation. Patient with risk of aspiration as a result patient was continued on IDDS5 diet for now. Patient underwent regularly scheduled
hemodialysis. Blood pressure was soft multiple times and midodrine dose was increased to 10 mg 3 times daily. Hypotension being the limiting factor during hemodialysis. Patient case was discussed with medical POA and explained patient multiple
comorbidities with poor prognosis and hospice was recommended. They want to continue with current management. Patient will be discharged back to [facility].
Discharge Plan
-
Patient Disposition: Snf/SNF
Discharge Diagnosis/Procedures: Sepsis likely 2/2 mild stercoral colitis vs.possibility of aspiration pneumonia
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
Dysphagia
Chronic hypo tension
Condition: Fair
Diet: 2 Gram Sodium, Restrict fluids to 48 oz and Other diet
Additional Diets: Recommend:
1. CAUTIOUS IDDSI Level 5 (minced and moist) solids and mildly thick liquids. Low threshold NPO if concerned for aspiration
2. Aspiration precautions: sit upright, slow rate
3. Meds crushed in puree (this is pt's baseline per report, unsure if accurate)
Activity: As tolerated
Driving Restrictions: Not until seen by your Dr
Activity Restrictions/Additional Instructions:
Wound Care Instructions
L anterior thigh-clean with saline, silicone border foam, change q 3 days and prn loosened dressing.
LLQ-clean with saline or soap and water, apply dry gauze pads, abd pad, change daily and prn drainage.
air mattress
turning schedule
Elevate heels off bed with pillow,s and/or air chair cushion
Pressure redistributing chair cushion (i.e. Air chair cushion)
Consider follow up with a wire strander for nose skin lesion.
Follow up at wound care center if needed call for an appointment.
Referrals:
Babar Bruner MD [Family Provider] - in less than 1 week
Prescriptions:
New
amoxicillin-pot clavulanate 500-125 mg Tablet
1 tab PO DAILY@1800 3 Days Qty: 3 0RF
Continued
vitamin B complex Tablet
1 tab PO SUTUTHSA@1900 Qty: 0
mirtazapine 7.5 mg Tablet
7.5 mg PO HS
acetaminophen [Tylenol] 325 mg Tablet
650 mg PO Q6HPRN PRN (Reason: mild pain/temp>100)
levalbuterol HCl 0.63 mg/3 mL Solution For Nebulization
0.63 mg INHALATION R Q6HPRN PRN (Reason: wheezing)
sevelamer HCl 800 mg Tablet
800 mg PO TID
bisacodyl 10 mg Suppository
[address] DAILYPRN PRN (Reason: if no bm after mom)
calcitriol 0.25 mcg Capsule
0.25 mcg PO MOWEFR
ondansetron 4 mg Tablet,Disintegrating
4 mg PO Q8HPRN PRN (Reason: nausea)
midodrine 5 mg Tablet
5 mg PO DAILYPRN PRN (Reason: low blood pressure)
aspirin 81 mg Tablet,Delayed Release (Dr/Ec)
81 mg PO MOWEFR
Changed
polyethylene glycol 3350 [Miralax] 17 gram Powder In Packet
17 g PO DAILY Qty: 0 0RF
midodrine 5 mg Tablet
10 mg PO 0800,1300,1900 Qty: 0 0RF
Discontinued
midodrine 5 mg Tablet
5 mg PO MOWEFR@0800,1700
Rx Instructions:
5 mg orally before dialysis Thursday, Thursday, Thursday; hold for sbp >160
Discharge Orders:
Discharge Patient (As Directed); Ordered 01/05/25
Ordered By: Roland Mendosa
Discharge Date and Time
Print Language: BRITISH
[2025-01-05 11:33] VITALS: BP 93/54
[2025-01-05] MEDS: FLUAD (65 yr+) 2024-2025 FORMULA 0.5 ML IM (14:25)
--- NOTE | 2025-01-05 15:00 | PTOTSP ---
Speech Language Pathology
Pt seen for dysphagia tx. Reviewed results/recommendations from VSE with aspiration at times. Discussed option of continuing P.O. diet with accepting risks vs NPO. Pt wants to continue eating/drinking despite risks. Discussed that if this is the
case, IDDSI Level 6/thin liquids would be recommendation. Wet voice noted at rest, which pt was able to clear with a cued throat clear/reswallow. Trialed puree, regular solids, and thin liquids. Slightly prolonged mastication noted, but this was
functional given additional time. Wet voice noted at times with P.O. intake, similar to at rest. Unsure if related to P.O. intake or not. Pt would like upgraded diet. He is to discharge back to SNF within 1 hour. Included VSE report in
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
Recommend:
(1) IDDSI Level 6 (soft/bite-sized) solids and thin liquids with pt choosing diet with known aspiration risk
(2) Oral care 4x/day with suctioning as needed
(3) Meds whole with liquid
(4) [employer]AC[employer] DEVEL[employer] to continue to follow while hospitalized
(5) [employer] DEVELOPER follow up after discharge at facility
--- NOTE | 2025-01-05 15:15 | W.PN.NEPH.PH ---
Today's Communication / Plan
-
Dialysis tomorrow outpatient
Assessment/Plan
-
IMP:
Sepsis likely 2/2 mild stercoral colitis
Cough / URI
LLQ Wound
h/o Complicated Diverticulitis
Stercoral Colitis
ESRD - HD M/W/F. kirit mejia, previously [facility] unit [facility]
Suprapubic cath
History of diverticulitis with left lower abdominal wound patch
Mild Hyponatremia
Chronic Hypotension
Anemia of Chronic Disease
Skin Breakdown
Anemia of CKD
Left UE AVF
Atrial fibrillation
Aortic stenosis not a TAVR candidate
Plan:
A/w n/v, abd drainage
for HD tomorrow
BPs soft on high dose of midodrine
Maintain chronic Pratt
abx per primary,no surg intervention
JO for anemia
Due to his severe he is at risk failing HD with poor hemodynamics
Patient will be discharged today with dialysis outpatient
poor prgonosis
d/w pt
-
-
Date of Service: January 05, 2025
CC / HPI / ROS
-
Chief Complaint:
ESRD
History of Present Illness:
BP marginal
no fever
non oliguric with pratt
Review of Systems:
no cp or sob
Labs
-
Labs:
WBC 6.2 10^3/uL (4.8-10.8) 01/04/25 05:55
RBC 2.56 10^6/uL (4.70-6.10) L 01/04/25 05:55
Hgb 8.2 g/dL (13.0-18.0) L 01/04/25 05:55
Hct 25.0 % (39.0-52.0) L 01/04/25 05:55
Plt Count 225 10^3/uL (130-400) 01/04/25 05:55
Sodium 139 mmol/L (135-145) 01/04/25 05:55
Potassium 3.9 mmol/L (3.5-5.1) 01/04/25 05:55
Chloride 100 mmol/L (98-107) 01/04/25 05:55
Carbon Dioxide 26 mmol/L (22-30) 01/04/25 05:55
BUN 53 mg/dl (9-20) H 01/04/25 05:55
Creatinine 3.4 mg/dL (0.7-1.3) H 01/04/25 05:55
eGFR 17.20 01/04/25 05:55
Glucose 92 mg/dl (70-99) 01/04/25 05:55
Calcium 9.7 mg/dl (8.4-10.2) 01/04/25 05:55
Phosphorus 4.7 mg/dl (2.5-4.5) H 01/02/25 06:43
Albumin 4.2 g/dl (3.5-5.0) 01/01/25 19:59
Physical Exam
-
Vital Signs:
Vital Signs
Temp Pulse Resp BP Pulse Ox
98.0 F 82 16 93/54 99
01/05/25 11:33 01/05/25 14:24 01/05/25 11:33 01/05/25 14:24 01/05/25 11:33
Cardiovascular:: Regular rate and rhythm (murmur)
Respiratory:: Bilateral: CTA
Lung Excursion:: Normal (decreased)
Abdomen:: Nontender and Soft
Extremity Edema:: None: Bilateral:
Pratt Catheter: Yes
[2025-01-05 15:29] VITALS: BP 98/44
== END 2025-01-05 16:59 | DRG 871 ==
LOC: 2 NORTH 23:55
PROVIDERS: Internal Medicine Nephrology; Physician Assistant; ADMITTING PHYSICIAN Hospitalist; ATTENDING PHYSICIAN Hospitalist; CONSULT PHYSICIAN Internal Medicine Hospice and Palliative Medicine; EMERGENCY PHYSICIAN Emergency Medicine; FAMILY PHYSICIAN Internal Medicine; OTHER PHYSICIAN Internal Medicine; OTHER PHYSICIAN Surgery
PROC: 5A1D70Z Performance of Urinary Filtration, Intermittent, Less than 6 Hours Per Day (ICD-10-PCS; 2025-01-02)
PROC: 3E02340 Introduction of Influenza Vaccine into Muscle, Percutaneous Approach (ICD-10-PCS; 2025-01-05)
DX: A41.9 Sepsis, unspecified organism (principal); E43 Unspecified severe protein-calorie malnutrition; N18.6 End stage renal disease; J69.0 Pneumonitis due to inhalation of food and vomit; E87.1 Hypo-osmolality and hyponatremia; K57.20 Diverticulitis of large intestine with perforation and abscess without bleeding; Z68.1 Body mass index [BMI] 19.9 or less, adult; K63.2 Fistula of intestine; Z99.2 Dependence on renal dialysis; I95.89 Other hypotension; I35.0 Nonrheumatic aortic (valve) stenosis; Z66 Do not resuscitate; K52.89 Other specified noninfective gastroenteritis and colitis; Z11.52 Encounter for screening for COVID-19; D63.1 Anemia in chronic kidney disease; I48.91 Unspecified atrial fibrillation; Z51.5 Encounter for palliative care; L98.8 Other specified disorders of the skin and subcutaneous tissue; Z23 Encounter for immunization; Z79.899 Other long term (current) drug therapy; Z86.14 Personal history of Methicillin resistant Staphylococcus aureus infection
CPT/HCPCS: 71046; 74177; 74230; 80048; 80053; 80202; 83605; 83690; 83735; 84100; 85025; 85027; 86706; 87340; 87502; 87811; 90662; 92526; 92610; 92611; 94667; 94668; 96361; 96374; 96375; 99285; G0008; G0257; P9047; Q5106; Q9967

== ENCOUNTER 2025-04-27 03:02 | Inpatient (IN) | payer MEDICARE, OTHER, SELFPAY ==
[2025-04-26] VITALS (9 sets, daily range): BP systolic 101–134; BP diastolic 55–68
[2025-04-26 16:16] LABS: Urine Character Slightly Cloudy (Clear)
[2025-04-26 16:28] LABS: Urine Red Blood Cell 80-90 /HPF (0-2); Urine Squamous Cell 0-2 /LPF (Few); Urine White Cell 50-60 /HPF (0-5)
--- NOTE | 2025-04-26 19:39 | ED.GENMED ---
History of Present Illness
General
Chief Complaint: Abdominal Symptoms
Source: patient
Time Seen by Provider: 04/26/25 15:51
History of Present Illness
History of Present Illness:
Note:
CHIEF COMPLAINT(S)
Urinary retention.
HISTORY OF PRESENT ILLNESS
The patient is an 85-year-old male who presented with urinary retention. Attempts to insert a urinary catheter were unsuccessful at the nursing facility. The patient has a significant medical history that includes interstitial pulmonary disease,
Methicillin-Resistant Staphylococcus aureus (MRSA) infection, atrial fibrillation, chronic kidney disease requiring dialysis, and adrenal disease. The patient attended dialysis today and is still able to produce urine.
PHYSICAL EXAM
General: Alert, awake, and oriented. Temporal wasting is noted.
Head: Normocephalic, atraumatic.
Respiratory: No respiratory distress.
Gastrointestinal: Abdomen is soft, non-tender, and non-distended.
Cardiovascular: A.V. fistula is present in the left upper extremity with a normal thrill; normal perfusion bilaterally in the upper extremities.
PROBLEM LIST
- Acute urinary retention
- Chronic conditions including interstitial pulmonary disease, MRSA, atrial fibrillation, and chronic kidney disease requiring dialysis
DIFFERENTIAL DIAGNOSIS
The Differential Diagnosis includes, in no particular order and is not limited to:
- Benign prostatic hyperplasia
- Bladder obstruction
- Neurologic disorders affecting bladder function
- Bladder stones
- Urinary tract infection
- Urethral stricture
- Medications causing urinary retention
- Prostate cancer
- Severe constipation impacting bladder function
- Post-operative effects related to anesthesia or surgical intervention
Disposition:
SUMMARY OF ENCOUNTER
The patient, an 85-year-old male on dialysis, presented with urinary retention. He has a significant medical history including interstitial pulmonary disease, Methicillin-Resistant Staphylococcus aureus (MRSA) infection, atrial fibrillation, chronic
kidney disease requiring dialysis, and adrenal disease. A urinalysis was performed which noted blood in the urine and the presence of leukocytes. Upon reassessment, the patient reported feeling better. Old records were reviewed, revealing previous
microbiological findings of Proteus and E. coli, and a urine culture from November 2024 showed mixed wiley but was negative for acute infection. The pratt catheter will be irrigated, and the patient will be discharged with a follow-up recommendation
for outpatient dialysis and urology.
DISPOSITION
Admit
REASSESSMENT
The patient reported feeling much better upon reassessment.
PLAN
Irrigate the pratt catheter. Discharge the patient with instructions to follow up with urology and continue outpatient dialysis. Await results from urine cultures. Advise the patient to return for any signs of infection, such as fever or changes in
urination.
PATIENT EDUCATION AND COUNSELING
The patient was educated on the symptoms to watch for, including signs of infection such as fever or changes in urination. They were advised to follow up with urology and to continue with outpatient dialysis.
FOLLOW-UP INSTRUCTIONS
The patient is advised to schedule a follow-up appointment with urology and to continue dialysis sessions as planned. Return to the emergency department if symptoms worsen or new symptoms arise.
MEDICAL DECISION MAKING
-Complexity of Data Reviewed: Chronic conditions affecting care including interstitial pulmonary disease, MRSA, atrial fibrillation, and chronic kidney disease requiring dialysis. Differential diagnosis includes benign prostatic hyperplasia, bladder
obstruction, neurologic disorders affecting bladder function, bladder stones, urinary tract infection, urethral stricture, medications causing urinary retention, prostate cancer, severe constipation impacting bladder function, and post-operative
effects related to anesthesia or surgical intervention.
-Data:
Category 1
Tests and documents reviewed: Urinalysis indicated blood and leukocytes. Old records reviewed included prior microbiology showing Proteus and E. coli, and a urine culture from November 2024 showing mixed wiley without acute infection.
-Risk:
Consideration of Admission/Observation: Escalation of care including admission/observation was considered given the complexity and risk of the patients presenting complaint, exam findings, and/or their underlying comorbidities. Given the
persistence of hematuria and findings, start CBI. Check labs. Plan for admission
DIAGNOSIS
- Urinary retention (R33.8)
- Chronic kidney disease (N18.9)
0010 update: Patient has had persistent hematuria. Await labs. Anticipate admission for continued monitoring and urology evaluation. Will place three-way and start CBI. Initially had punch colored urine and was hoping for outpatient management
but given the persistence of hematuria despite irrigation, admit
Phy Exam
Physical Exam
Physical Exam:
.
Course
Orders/Labs/Results
Orders:
Orders
04/26/25 16:07
Urinalysis Reflex To Culture Urgent
Date Specimen was Collected: 04/26/25
Time Specimen was Collected: 16:05
Urine Microscopic Reflex Cult Urgent
Urine Culture Urgent
ARIANNA Source: U
Specimen Description:
Date Specimen was Collected: 04/26/25
Time Specimen was Collected: 16:05
04/26/25 23:48
Complete Blood Count/With Diff Urgent
PTT Urgent
Prothrombin Time Urgent
04/26/25 23:51
BMP [Basic Metabolic Panel] Urgent
Comment: .
04/27/25 00:24
CBI- Treatment PRN
Solution: sterile water
Irrigate to Clear?: Yes
Abnormal Lab Results
04/26/25 04/27/25
16:07 00:00
RBC 3.48 L 10^6/uL
(4.70-6.10)
Hgb 10.8 L g/dL
(13.0-18.0)
Hct 32.5 L %
(39.0-52.0)
RDW 15.5 H %
(11.5-14.5)
Absolute Neuts (auto) 7.9 H 10^3/uL
(1.4-6.5)
Absolute Lymphs (auto) 1.1 L 10^3/uL
(1.2-3.4)
Neutrophils % 81.0 H %
(42.2-75.2)
Lymphocytes % 11.0 L %
(20.5-51.1)
PT 15.8 H Sec
(11.4-14.6)
APTT 46.0 H Sec
(23.4-35.0)
Ur Occult Blood Reflex 4+ A
(Negative)
Leukocyte Esterase Rfl 3+ A
(Negative)
Urine RBC 80-90 A /HPF
(0-2)
Urine WBC (Reflex) 50-60 A /HPF
(0-5)
Urine Bacteria (Reflex) Few A
(Negative)
Urine Albumin (Reflex) 3+ A
(Neg - Trace)
04/27/25 00:00
Vital Signs
Initial and Last Documented VS:
Initial Vital Signs
Temp Pulse Resp BP Pulse Ox
98.5 F 86 16 134/68 99
04/26/25 15:44 04/26/25 15:44 04/26/25 15:44 04/26/25 15:44 04/26/25 15:44
Last Documented Vital Signs
Temp Pulse Resp BP Pulse Ox
98.4 F 85 20 105/65 98
04/26/25 16:13 04/26/25 23:00 04/26/25 23:00 04/26/25 23:00 04/26/25 23:00
*Pulse Oximetry
SaO2: 98
Oxygen Mode of Delivery: Room air
Patient hypoxic: no
*Critical Care Note
Total Time (30-74mins, 75-104mins- exclusive of procedures): Not Applicable
Update Note
Update Note:
Hold off on antibiotics pending cultures. Hemoglobin above baseline. Continue to monitor. CBI to be initiated
ED Attending Note
-
Portions of this chart may have been created with voice recognition software.� Occasional wrong word or��sound alike� substitutions may have occurred due to the inherent limitations of voice recognition software.
Discharge Plan
Departure
Patient Disposition: Admit
Date of Disposition: 04/26/25
Time of Disposition: 19:43
Admit to: Med/Surg
Presentation/result/management discussed w/ accepting MD/DO: Hospitalist
Patient with high blood pressure during this ER visit?: No
Discharge Problem:
Acute urinary retention, Chronic renal failure, Hematuria
Prescriptions:
No Action
vitamin B complex Tablet
1 tab PO SUTUTHSA@1900 Qty: 0
mirtazapine 7.5 mg Tablet
7.5 mg PO HS
acetaminophen [Tylenol] 325 mg Tablet
650 mg PO Q6HPRN PRN (Reason: mild pain/temp>100)
levalbuterol HCl 0.63 mg/3 mL Solution For Nebulization
0.63 mg INHALATION R Q6HPRN PRN (Reason: wheezing)
sevelamer HCl 800 mg Tablet
800 mg PO TID
bisacodyl 10 mg Suppository
10 mg CA DAILYPRN PRN (Reason: if no bm after mom)
calcitriol 0.25 mcg Capsule
0.25 mcg PO MOWEFR
ondansetron 4 mg Tablet,Disintegrating
4 mg PO Q8HPRN PRN (Reason: nausea)
midodrine 5 mg Tablet
5 mg PO DAILYPRN PRN (Reason: low blood pressure)
aspirin 81 mg Tablet,Delayed Release (Dr/Ec)
81 mg PO MOWEFR
polyethylene glycol 3350 [Miralax] 17 gram Powder In Packet
17 g PO DAILY Qty: 0 0RF
amoxicillin-pot clavulanate 500-125 mg Tablet
1 tab PO DAILY@1800 3 Days Qty: 3 0RF
midodrine 5 mg Tablet
10 mg PO 0800,1300,1900 Qty: 0 0RF
Referrals:
Babar Bruner MD [Family Provider]
Sekou Kearney Jr., MD [Active, Urology]
Interventions
Interventions:
*Risk Screen - Suicide Last Done: 04/26/25 15:44
*General Assessment Last Done: 04/26/25 16:04
*Neglect/Abuse Screening Last Done: 04/26/25 15:44
*ED- Fall Risk Assessment Last Done: 04/26/25 16:04
*ED COVID-19 Vaccine History Last Done: 04/26/25 16:04
BQ-Pvcckl-Snnqgxlgji Assessment Last Done: 04/26/25 16:04
Discharge Date and Time
Print Language: VIETNAMESE
[2025-04-27] VITALS (7 sets, daily range): BP systolic 98–144; BP diastolic 57–86; BMI 16.9
[2025-04-27 00:11] LABS: Hematocrit 32.5 % (39.0-52.0); Hemoglobin 10.8 g/dL (13.0-18.0); Mean Corp Hgb Conc. 33.2 g/dL (33.0-37.0); Mean Corpuscular Volume 93.4 fL (80.0-94.0); Nucleated Red Blood Cells % 0 % (-); Platelet Count 225 10^3/uL (130-400); Red Cell Dist. Width 15.5 % (11.5-14.5)
[2025-04-27 00:19] LABS: INR 1.20; PT 15.8 Sec (11.4-14.6)
[2025-04-27 00:20] LABS: APTT 46.0 Sec (23.4-35.0)
[2025-04-27 00:32] LABS: Blood Urea Nitrogen 24 mg/dl (9-20); Calcium 10.5 mg/dl (8.4-10.2); Carbon Dioxide 27 mmol/L (22-30); Chloride 101 mmol/L (98-107); Glucose 98 mg/dl (70-99); Potassium 4.6 mmol/L (3.5-5.1); Sodium 131 mmol/L (135-145); eGFR 25.96
--- NOTE | 2025-04-27 02:36 | HPS.HSE ---
Family Physician
-
Family Physician: Babar Bruner MD
Chief Complaint
-
Hematuria
History of Present Illness
Patient is an 85y M with PMH significant for ESRD on HD and complicated diverticulitis who presents to ED complaining of gross hematuria. Patient has a chronic indwelling Calvin catheter. He produced urine despite being HD dependent. Patient
states that he has had bleeding from the catheter for the past 2 days or so. Staff has been flushing the catheter at the [facility], but today had difficulty doing so and patient was sent to the ED for further evaluation. Patient reports some mild lower
abdominal pressure intermittently. He has a chronic, loose, 'hacking' cough. He denies any chest pain or dyspnea.
Medical History
Past Medical History
Past Medical History: Reports Other
Additional Past Medical History:
Complicated Diverticular Disease
Chronic Urinary Retention / Chronic Calvin
ESRD on HD
Severe
Anemia of CKD
Anxiety / Depression
Skin Breakdown
Pelvic Fracture
Chronic Constipation
Past Surgical History: Reports Other
Additional Past Surgical History:
Diverticular Abscess Drainage (04/2024)
Social History
Tobacco: Non-smoker
Alcohol: None
Drug: None
Living: [facility]
Family History
Family History: Not pertinent
Allergies / Home Medications
Allergies reflects when Allergies were last updated in [facility].
Home Medications with original date entered in [facility]
Allergy/Medication List:
Allergies
Allergy/AdvReac Type Severity Reaction Status Date / Time
No Known Allergies Allergy Verified 04/26/25 15:48
Home Medications
mirtazapine 7.5 mg tablet 7.5 mg PO HS depression/sleep 09/07/24
vitamin B complex 1 tab PO SUTUTHSA@1900 Supplement ##0 09/07/24
acetaminophen 325 mg tablet (Tylenol) 650 mg PO Q6HPRN PRN mild pain/temp>100 12/08/24
aspirin 81 mg tablet,delayed release 81 mg PO MOWEFR Blood Clot Prevention/Tx 12/08/24
bisacodyl 10 mg rectal suppository 10 mg AK DAILYPRN PRN if no bm after mom 12/08/24
calcitriol 0.25 mcg capsule 0.25 mcg PO MOWEFR Kidney Disease 12/08/24
levalbuterol HCl 0.63 mg/3 mL solution for nebulization 0.63 mg inhalation R Q6HPRN PRN wheezing 12/08/24
midodrine 5 mg tablet 5 mg PO DAILYPRN PRN low blood pressure 12/08/24
ondansetron 4 mg disintegrating tablet 4 mg PO Q8HPRN PRN nausea 12/08/24
sevelamer HCl 800 mg tablet 800 mg PO TID Kidney Disease 12/08/24
polyethylene glycol 3350 17 gram oral powder packet (Miralax) 17 g PO DAILY constipation #0 ea 01/04/25
amoxicillin 500 mg-potassium clavulanate 125 mg tablet 1 tab PO DAILY@1800 3 days #3 tabs 01/05/25
midodrine 5 mg tablet 10 mg (2 x 5 mg) PO 0800,1300,1900 low blood pressure #0 tabs 01/05/25
Review of Systems
-
History Source: Patient
A 12 point ROS was completed and negative except as noted: Yes
Constitutional: Denies Fever or Chills
Respiratory: Reports Cough; Denies Trouble Breathing
Cardiac: Denies Chest Pain or Palpitations
Abdomen/GI: Reports Abdominal Pain; Denies Nausea, Vomiting or Diarrhea
: Reports Bleeding
Neurological: Denies Dizzy or Headache
Psych: Denies Depression or Anxiety
Physical Exam
Vital Signs
Vital Signs
Temp Pulse Resp BP Pulse Ox
98.4 F 85 20 105/65 98
04/26/25 16:13 04/26/25 23:00 04/26/25 23:00 04/26/25 23:00 04/26/25 23:00
Physical Exam
General: Other (85y M in no acute distress.)
HEENT: PERRLA and Other (Dry MM. Neck supple.)
Respiratory: Other (Coarse breath sounds that improve with cough. No wheezing / rales.)
Cardiac: S1/S2, Regular Rhythm and Murmur (III/ CARYL)
GI: Soft, Non Tender, Non Distended, Normal Bowel Sounds and Other (LLQ wound with dressing in place. No bleeding or discharge at present.)
Genito-urinary: Other (Calvin in place (3-way inserted in the ED) draining grossly bloody urine.)
Musculoskeletal: No Edema
Neuro: AO x 3
Hematologic/Lymphatic: Other (LUE AVF with pos thrill / bruit.)
Laboratory Results
-
04/27/25 00:00
04/27/25 00:00
Laboratory Results
PT 15.8 Sec (11.4-14.6) H 04/27/25 00:00
INR 1.20 04/27/25 00:00
APTT 46.0 Sec (23.4-35.0) H 04/27/25 00:00
Impression/Plan
-
A/P: Patient is an 85y M with PMH significant for ESRD on HD, chronic indwelling Calvin and chronic LLQ wound / fistula who presents to ED for evaluation of hematuria.
Gross Hematuria
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
- Admit for further evaluation and treatment.
- Unclear etiology at present.
- Maintain Calvin / CBI and adjust fluid to keep free of clots.
- Patient is on no anticoagulants per his most recent available med list (sent to [facility] for updated / current list).
- Follow H&H for any changes (currently higher than baseline).
- Urology consulted for additional recommendations.
- Cover with ceftriaxone for now pending urine culture.
ESRD on HD
- Stable. Patient receives HD -.
- Nephrology consulted for HD needs during acute stay.
Complicated Diverticulitis
Chronic LLQ Fistula / Wound
- Stable. Continue local care.
- Wound care evaluation.
Severe
Anemia of CKD
Anxiety / Depression
DVT Prophylaxis: SCDs
Code Status: DNR
[2025-04-27] MEDS: STERILE WATER FOR INJECTION 10 ML IV (05:22)
[2025-04-27] MEDS: ROCEPHIN 1000 MG IV (05:22)
--- NOTE | 2025-04-27 06:00 | PTCARENOTE ---
0407 Pt received from ED via stretcher; [employer] orders- VSS. No c/o pain. AAOx1 confused and forgetful, GULKANA. CBI bag #1 infusing with punch colored urine output.; Pt tolerating. Calvin care performed. Refer to worklist regarding wounds- static air
overlay in place. Plan of care discussed. Call liz within reach.
[2025-04-27 07:32] LABS: Hematocrit 30.1 % (39.0-52.0); Hemoglobin 10.2 g/dL (13.0-18.0); Mean Corp Hgb Conc. 33.9 g/dL (33.0-37.0); Mean Corpuscular Volume 95.3 fL (80.0-94.0); Platelet Count 214 10^3/uL (130-400); Red Cell Dist. Width 15.4 % (11.5-14.5)
[2025-04-27 08:01] LABS: Blood Urea Nitrogen 27 mg/dl (9-20); Calcium 10.4 mg/dl (8.4-10.2); Carbon Dioxide 25 mmol/L (22-30); Chloride 102 mmol/L (98-107); Glucose 90 mg/dl (70-99); Potassium 4.7 mmol/L (3.5-5.1); Sodium 132 mmol/L (135-145); eGFR 22.53
[2025-04-27] MEDS: RENVELA PO ×3 (08:24→12:24)
[2025-04-27] MEDS: MUCINEX PO ×2 (08:24→08:33)
--- NOTE | 2025-04-27 08:38 | W.PN.HOSP.TC ---
Today's Communication/Plan
-
see bold
Assessment / Plan
Assessment / Plan
85y M with PMH significant for ESRD on HD and complicated diverticulitis who presents to ED complaining of gross hematuria. Patient has a chronic indwelling Pratt catheter. He produced urine despite being HD dependent. Patient states that he
has had bleeding from the catheter for the past 2 days or so. Staff has been flushing the catheter at the [facility], but today had difficulty doing so and patient was sent to the ED for further evaluation. Patient reports some mild lower abdominal
pressure intermittently. He has a chronic, loose, 'hacking' cough. He denies any chest pain or dyspnea.
Gross Hematuria
Chronic Urinary Retention / Chronic Indwelling Pratt
-Recent ct 01/03- BPH/contracted bladder/massive impaction/bilateral hydro- no obvious tumor or mass
-Appreciate urology input, continue CBI, maintain Pratt
-Hold aspirin 81 mg daily, and hold heparin with dialysis
-Continue IV Rocephin, follow-up on urine cultures
Acute blood loss anemia due to hematuria superimposed on anemia of chronic kidney disease
-Trend hemoglobin
ESRD on HD
Secondary hyperparathyroidism
-Patient receives HD -.
-Continue dialysis as per nephrology, no heparin with dialysis per urology
-Continue calcitriol, Renvela
Chronic hypotension
-Continue midodrine 10 mg 3 times daily
Complicated Diverticulitis
Chronic LLQ Fistula / Wound
- Stable. Continue local care.
- Continue wound care
Anxiety / Depression
- Continue mirtazapine
Severe
DVT Prophylaxis: SCDs due to hematuria
Code Status: DNR
Physical Exam
General: No acute distress
HEENT: Normocephalic, Atraumatic, EOMI, MMM
Respiratory: Clear to Auscultation bilaterally
Cardiac: Normal S1/S2, Regular Rate and Rhythm
GI: Soft, Nontender, Nondistended, Normal Bowel Sounds, left lower quadrant wound noted
: +pratt w/ CBI and punch colored urine
Extremities: No Clubbing, Cyanosis, or Edema
Neuro: Nonfocal/Grossly Intact
Psych: Calm, Cooperative
Anticipated Discharge: 24 - 48 hours
Subjective/Interval History
-
Date of Service: April 27, 2025
Objective Data
-
Labs:
Laboratory Results
04/27/25 04/27/25
00:00 07:00
WBC 9.7 9.0
Hgb 10.8 L 10.2 L
Hct 32.5 L 30.1 L
Plt Count 225 214
PT 15.8 H
INR 1.20
APTT 46.0 H
Sodium 131 L 132 L
Potassium 4.6 4.7
Chloride 101 102
Carbon Dioxide 27 25
BUN 24 H 27 H
Creatinine 2.4 H 2.7 H
Glucose 98 90
Calcium 10.5 H 10.4 H
Vital Signs:
Vital Signs
Temp Pulse Resp BP Pulse Ox
97.9 F 79 16 98/61 99
04/27/25 07:10 04/27/25 08:24 04/27/25 07:10 04/27/25 08:24 04/27/25 07:10
I&O
04/26/25 04/27/25 04/28/25
06:59 06:59 06:59
Intake Total 500 / 500
Output Total 2450 / 2450
Balance -1949 / -1949
--- NOTE | 2025-04-27 09:54 | CM ---
CM following re: discharge planning.
Reviewed pt's chart, met with pt.
Pt is an 85 year old female, admitted with primary dx of Hematuria.
Pt is a LTC resident at [facility], on HD MWF, requires total care, on 15 day Medicaid bed hold. Pt has supportive brother Hubert.
[facility] nursing report: [phone]
Discharge instructions fax: [phone]
D/C plan: return back to [facility] for a LTC.
CM will follow with discharge plan updates as hospitalization progresses
--- NOTE | 2025-04-27 10:15 | W.CON.NEPH ---
Consultation
-
Date/Time Consultation Requested: 04/27/25 0408
Date/Time Consultation Performed: 04/27/25 1030
Requesting Provider: Ton Bess
Performing Provider: Gerri Abel
Reason for Consultation: ESRD
Medical History
-
Chief Complaint: Hematuria
History of Present Illness:
85-year-old who has end-stage renal disease on hemodialysis Thursday at [facility] since 2023 (previously at [facility] for last 8yrs through left UE AVF), chronic urinary retention with chr pratt, anemia, oropharyngeal
dysphagia, diverticulitis with h/o perforation and abscess, atrial fibrillation on ASA, severe , chr hypotension on midodrine who sent to ER for gross hematuria. Reportedly symp started few days ago. [facility] Staff has been flushing the catheter, but
04/26 had difficulty doing so and patient was sent to the ED for further evaluation. Patient reports some mild lower abdominal pressure intermittently. He has a chronic, loose, 'hacking' cough. He denies any chest pain or dyspnea. Offers no
fever. He still makes urine non oliguric. He is now on CBI per urology still hematuria. He reports no issues with HD, last one yesterday. Nephrology consulted for HD needs.
Past Medical History
Complicated Diverticular Disease
Chronic Urinary Retention / Chronic Pratt
ESRD on HD
Severe
Anemia of CKD
Anxiety / Depression
Skin Breakdown
Pelvic Fracture
Chronic Constipation
Past Surgical History: Other (Diverticular Abscess Drainage (04/2024), AVF)
Social History
Tobacco: Non-Smoker
Alcohol: None
Drug: None
Living: Snf
Employment: Retired
Family History
Family History: Not Pertinent
Allergies / Home Medications
Allergy/AdvReac Type Severity Reaction Status Date / Time
No Known Allergies Allergy Verified 04/26/25 15:48
�Medication �Instructions �Recorded �Confirmed �Type
mirtazapine 7.5 mg tablet 7.5 mg PO HS depression/sleep 09/07/24 04/27/25 History
vitamin B complex 1 tab PO SUTUTHSA@1900 Supplement 09/07/24 04/27/25 History
##0
acetaminophen 325 mg tablet 650 mg PO Q6HPRN PRN mild 12/08/24 04/27/25 History
(Tylenol) pain/temp>100
bisacodyl 10 mg rectal suppository 10 mg AK DAILYPRN PRN if no bm 12/08/24 04/27/25 History
after mom
calcitriol 0.25 mcg capsule 0.25 mcg PO MOWEFR Kidney Disease 12/08/24 04/27/25 History
levalbuterol HCl 0.63 mg/3 mL 0.63 mg inhalation R Q6HPRN PRN 12/08/24 04/27/25 History
solution for nebulization wheezing
ondansetron 4 mg disintegrating 4 mg PO Q8HPRN PRN nausea 12/08/24 04/27/25 History
tablet
sevelamer HCl 800 mg tablet 800 mg PO AC Kidney Disease 12/08/24 04/27/25 History
aspirin 81 mg tablet,delayed 81 mg PO MOWEFR 04/27/25 04/27/25 History
release
hydrocortisone 1 % topical cream 1 applic topical Q6HPRN PRN fistula 04/27/25 04/27/25 History
midodrine 5 mg tablet 5 mg PO DAILY give at hd 04/27/25 04/27/25 History
appointment
midodrine 5 mg tablet 5 mg PO DAILYPRN PRN sbp greater 04/27/25 04/27/25 History
then 160
midodrine 5 mg tablet 5 mg PO MOWEFR@0800,2000 04/27/25 04/27/25 History
midodrine 5 mg tablet 5 mg PO SUTUTHSA@08,12,20 04/27/25 04/27/25 History
mupirocin 2 % topical ointment 1 applic topical BID focal abd area 04/27/25 04/27/25 History
polyethylene glycol 3350 17 gram 17 g PO DAILYPRN PRN constipation 04/27/25 04/27/25 History
oral powder packet (Miralax)
sodium chloride 1 gram tablet 2,000 mg PO BID 04/27/25 04/27/25 History
Review of Systems
-
All other systems: Negative unless noted
Physical Exam
Vital Signs
Vital Signs
Temp Pulse Resp BP Pulse Ox
97.9 F 79 16 98/61 99
04/27/25 07:10 04/27/25 08:24 04/27/25 07:10 04/27/25 08:24 04/27/25 07:10
Lab Results
WBC 9.0 10^3/uL (4.8-10.8) 04/27/25 07:00
RBC 3.16 10^6/uL (4.70-6.10) L 04/27/25 07:00
Hgb 10.2 g/dL (13.0-18.0) L 04/27/25 07:00
Hct 30.1 % (39.0-52.0) L 04/27/25 07:00
Plt Count 214 10^3/uL (130-400) 04/27/25 07:00
Sodium 132 mmol/L (135-145) L 04/27/25 07:00
Potassium 4.7 mmol/L (3.5-5.1) 04/27/25 07:00
Chloride 102 mmol/L (98-107) 04/27/25 07:00
Carbon Dioxide 25 mmol/L (22-30) 04/27/25 07:00
BUN 27 mg/dl (9-20) H 04/27/25 07:00
Creatinine 2.7 mg/dL (0.7-1.3) H 04/27/25 07:00
eGFR 22.53 04/27/25 07:00
Glucose 90 mg/dl (70-99) 04/27/25 07:00
Calcium 10.4 mg/dl (8.4-10.2) H 04/27/25 07:00
Roa-E-Cskdpbrnffi Pept Cancelled 04/26/25 23:48
Physical Exam
General: Awake, Alert, Oriented, AOx3, No Distress and Nontoxic
HEENT: EOMI, Anicteric and Facial Symmetry
Respiratory: Normal Excursion, Nonlabored Respirations and Other (decreased BS)
Cardiac: S1/S2, Regular Rate/Rhythm and Murmur
Breast: Deferred by me
Abdomen: Soft, Nontender and Nondistended
Musculoskeletal: No Edema
Skin: No Rash
Neuro: Nonfocal/Grossly Intact
Psych: Appropriate
Vascular Access: AVF
Data Reviewed
-
Labs: Labs Reviewed by me and Discussed with Patient
Assessment/Plan
-
IMP:
Gross hematuria
Chronic Urinary Retention / Chronic Indwelling Pratt
h/o Complicated Diverticulitis
ESRD - HD M/W/F. kirit mejia
History of diverticulitis with left lower abdominal wound patch
Mild Hyponatremia
Chronic Hypotension
Anemia of Chronic Disease
Anemia of CKD
Left UE AVF
Atrial fibrillation
Aortic stenosis not a TAVR candidate
Plan:
A/w gross hematuria on CBI - follows
metabolic parameters and vol status seem stable
resume midodrine for chr hypotension
Due to his severe he is at risk failing HD with poor hemodynamics
HD tomorrow
renal diet and resume renvela
d/w pt
--- NOTE | 2025-04-27 12:00 | WOUNDNOTE ---
[facility] RN note: Patient admitted with hematuria. Patient admitted from SNF. Patient stated he has an air mattress at SNF.
See H&P for complete history.
PMH: ESRD on HD, Calvin catheter, diverticular disease, chronic LLQ draining wound/fistula (conservative management). Patient's prognosis poor from reviewing previous hospital stay physician documentation.
Wound Location and type/assessment: Patient admitted with: LLQ draining wound/fistula with large amount of cloudy green/valenzuela drainage. No surrounding erythema. Dressing gets changed at least twice a day as per patient. Sacral red stage 1 pressure
injury. R side of nose dry scabbed lesion suspect skin cancer.
Appetite: currently NPO. Patient very thin. Patient states he wants to eat.
Pressure redistribution devices in place: Waffle air overlay.
Plan: LLQ dressing changed. Sacral shaped silicone border foam maintained. Protective foam maintained on heels and spine. Patient turned to R semi side lying position with help from KAMILAH Colón. Heels off bed with pillow and air chair cushion.
Will confirm orders with Dr. Abreu and discussed with KAMILAH Colón.
Care plan to be updated and will follow peripherally as needed.
--- NOTE | 2025-04-27 12:33 | CON.MD ---
Consultation - Medical
-
see dictated note
pt can not provide any sig hx
at snif- on HD
DNR
chronic indwelling pratt
chronic lower abd wound
multiple ct's show contracted bladder with bilateral hydro c/w high pressure bladder/reflux
several days of hematuria at care facility- admitted with clot retention last night
now comfortable
[address]- irrigated- no sig clot
urine peach on high rate cbi
on rocephin- ucx pending
on asa only- on hold now
recent ct 01/03- BPH/contracted bladder/massive impaction/bilateral hydro- no obvious tumor or mass
plan
continue cbi
hold asa- no heparin with HD
on rocephin- await ucx
trend hematuria- wean cbi as able- trend hgb levels
npo after midnight- if no improvement would consider cysto if family desires
Consultation
-
Date/Time Consultation Requested: 04/27/25 at 6am
Date/Time Consultation Performed: 04/27/25at 8am
Requesting Provider: dr daniel
Performing Provider: dr coleman
Reason for Consultation: hematuria
[2025-04-27] MEDS: RENVELA 800 MG PO (18:00)
[2025-04-27] MEDS: MUCINEX 600 MG PO (21:00)
[2025-04-28] VITALS (37 sets, daily range): BP systolic 76–162; BP diastolic 48–87
[2025-04-28] MEDS: ROCEPHIN 1000 MG IV (05:27)
[2025-04-28] MEDS: STERILE WATER FOR INJECTION 10 ML IV (05:28)
[2025-04-28 06:24] LABS: Hematocrit 28.2 % (39.0-52.0); Hemoglobin 9.6 g/dL (13.0-18.0); Mean Corp Hgb Conc. 34.0 g/dL (33.0-37.0); Mean Corpuscular Volume 94.6 fL (80.0-94.0); Platelet Count 237 10^3/uL (130-400); Red Cell Dist. Width 15.5 % (11.5-14.5)
--- NOTE | 2025-04-28 06:56 | W.PN.URO.CBU ---
Today's Communication / Plan
-
OR today
Assessment / Plan
-
ESRD on HD
chronic urinary retention with pratt
BPH
gross hematuria
pt continues to have sig hematuria
reviewed with med team and nephrology yesterday
plan for OR today after HD for cysto/clot evac and fulguration
procedure is high risk given pt's co-morbidities
he has asked that I contact his brother for consent
Diagnosis
-
Date of Service: April 28, 2025
-
Patient Diagnosis:
chronic urinary retention with pratt
gross hematuria
Subjective
-
pt comfortable and stable- but continues to have sig hematuria requiring rapid CBI
Objective
-
Vital Signs
Temp Pulse Resp BP Pulse Ox
100.1 F 83 18 113/62 100
04/27/25 23:02 04/27/25 23:02 04/27/25 23:02 04/27/25 23:02 04/28/25 01:38
Intake and Output
04/26/25 04/27/25 04/28/25
06:59 06:59 06:59
Intake Total 500 / 500
Output Total 2450 / 2450 7600 / 7600
Balance -1950 / -1950 -7600 / -7600
Intake:
Pratt intermittent irrigation 500 / 500
Output:
Urine, Pratt 1600 / 1600
True Urine Output from CBI 850 / 850 7600 / 7600
Laboratory Results
04/28/25 05:44
Review of Systems
-
Constitutional: No Symptoms
Respiratory: No Symptoms
Cardiac: No Symptoms
Abdomen/GI: No Symptoms
Physical Exam
-
General - no acute distress
Abdomen - soft, non-tender
Genitalia - [address] way [address]
[2025-04-28 06:59] LABS: Blood Urea Nitrogen 42 mg/dl (9-20); Calcium 9.6 mg/dl (8.4-10.2); Carbon Dioxide 21 mmol/L (22-30); Chloride 102 mmol/L (98-107); Glucose 107 mg/dl (70-99); Potassium 4.7 mmol/L (3.5-5.1); Sodium 132 mmol/L (135-145); eGFR 15.96
[2025-04-28] MEDS: RENVELA PO ×3 (07:46→18:24)
--- NOTE | 2025-04-28 07:48 | W.PN.UPDATE ---
Update Note
Progress Note Update
spoke with OR/nephrology/ pt and his brother MONA at length
given degree of hematuria- plan for OR this morning for cysto/clot evac/fulguration- likely dr cardoso performing
will delay HD as chem relatively stable
did review continued observation (which has already failed with worsening hematuria) vs comfort measures
reviewed relatively high risk nature of procedure and potential complications
with brother's blessing- pt wants to proceed
for IMU post op
[2025-04-28] MEDS: MUCINEX PO ×2 (07:56→19:58)
[2025-04-28] MEDS: ROCALTROL PO (07:57)
--- NOTE | 2025-04-28 11:55 | PTCARENOTE ---
Pt sent to OR w/ CBI running, irrigation bags #32 & 33 up, and Calvin bag emptied. Next RN to take full credit for volume instilled. Report called to [facility] and IMU RN.
--- NOTE | 2025-04-28 12:06 | CM ---
Addendum entered by Jordan Ceja 04/28/25 15:42:
Per MD pt's brother is in agreement with hospice care.
Hospice consult noted. Pt referred to hospice for evaluation for inpatient hospice level of care. CM discussed it with hospice clinical marketer.
D/C plan: inpatient hospice with hospice GIP or return back to [facility] with hospice care.
Original Note:
CM following re: discharge planning.
Reviewed pt's chart, met with pt.
Per chart review, plan for OR this morning for cysto/clot evac/fulguration- likely dr Vasquez performing.
Pt is a LTC resident at [facility], on HD MWF, requires total care, on 15 day Medicaid bed hold. Pt has supportive brother Hubert.
[facility] nursing report: [phone]
Discharge instructions fax: [phone]
D/C plan: return back to [facility] for a LTC.
CM will follow with discharge plan updates as hospitalization progresses
[2025-04-28] MEDS: PROSCAR 5 MG PO (14:19)
--- NOTE | 2025-04-28 14:46 | W.PN.HOSP.TC ---
Today's Communication/Plan
-
Consult hospice
Assessment / Plan
Assessment / Plan
85y M with PMH significant for ESRD on HD and complicated diverticulitis who presents to ED complaining of gross hematuria. Patient has a chronic indwelling Pratt catheter. He produced urine despite being HD dependent. Patient states that he
has had bleeding from the catheter for the past 2 days or so. Staff has been flushing the catheter at the [place], but today had difficulty doing so and patient was sent to the ED for further evaluation. Patient reports some mild lower abdominal
pressure intermittently. He has a chronic, loose, 'hacking' cough. He denies any chest pain or dyspnea.
Gross Hematuria
Chronic Urinary Retention / Chronic Indwelling Pratt
-Recent ct 01/03- BPH/contracted bladder/massive impaction/bilateral hydro- no obvious tumor or mass
-Appreciate urology input, status post cystoscopy with left prostate fulguration 04/28
-Hold aspirin 81 mg daily, and hold heparin with dialysis
-Urine cultures growing MRSA, Pseudomonas, gram-negative bacilli
-Continue IV Rocephin, add doxycycline for MRSA
Dementia, unknown type
- Bedbound with no quality of life, from [facility]
- Discussed with brother, who agrees to hospice consult
- Consult hospice
Acute blood loss anemia due to hematuria superimposed on anemia of chronic kidney disease
-Trend hemoglobin
ESRD on HD
Secondary hyperparathyroidism
-Patient receives HD .
-Continue dialysis as per nephrology, no heparin with dialysis per urology
-Continue calcitriol, Renvela
Chronic hypotension
-Continue midodrine 10 mg 3 times daily
Complicated Diverticulitis
Chronic LLQ Fistula / Wound
- Stable. Continue local care.
- Continue wound care
Anxiety / Depression
- Continue mirtazapine
Severe
DVT Prophylaxis: SCDs due to hematuria
Code Status: DNR
Updated brother on phone 04/28
Total time spent to see the patient on the floor, examine the patient, review data and lab results, discuss treatment plan with patient, nursing staff around 51 minutes.
Physical Exam
General: No acute distress
HEENT: Normocephalic, Atraumatic, EOMI, MMM
Respiratory: Clear to Auscultation bilaterally
Cardiac: Normal S1/S2, Regular Rate and Rhythm
GI: Soft, Nontender, Nondistended, Normal Bowel Sounds, left lower quadrant wound noted
: +pratt w/ CBI with red-colored urine
Extremities: No Clubbing, Cyanosis, or Edema
Neuro: Pleasantly confused
Psych: Calm, Cooperative
Anticipated Discharge: 24 - 48 hours
Subjective/Interval History
-
Date of Service: April 28, 2025
Patient's hematuria has worsened. Denies shortness of breath, denies chest pain. No fever, no vomiting.
Objective Data
-
Labs:
Laboratory Results
04/28/25
05:44
WBC 10.6
Hgb 9.6 L
Hct 28.2 L
Plt Count 237
Sodium 132 L
Potassium 4.7
Chloride 102
Carbon Dioxide 21 L
BUN 42 H
Creatinine 3.6 H
Glucose 107 H
Calcium 9.6
Vital Signs:
Vital Signs
Temp Pulse Resp BP Pulse Ox
97.7 F 81 16 91/59 96
04/28/25 07:34 04/28/25 07:34 04/28/25 07:34 04/28/25 08:06 04/28/25 07:34
I&O
04/27/25 04/28/25 04/29/25
06:59 06:59 06:59
Intake Total 500 / 500
Output Total 2450 / 2450 7600 / 7600
Balance -1950 / -1950 -7600 / -7600
[2025-04-28] MEDS: MANNITOL 25% 12.5 GRAMS IV (15:10)
[2025-04-28] MEDS: RETACRIT 4000 UNITS IV (15:10)
--- NOTE | 2025-04-28 15:17 | W.PN.NEPH.HD ---
Assessment
-
Patient seen on dialysis
Systolic blood pressure 88 at even UF
Apparently plans are for hospice consultation so this may be his last dialysis
I concur with hospice as the patient is too hemodynamically unstable for outpatient dialysis
Progress Note - Hemodialysis
-
Date of Service: April 28, 2025
Duration: 30 minutes and 3 hours
Potassium Bath: 2
Calcium Bath: 2.5
Opti-Dialyzer: 160
Ultrafiltration: Other (Even ultrafiltration as patient has very low blood pressure)
Blood Flow: 400
Dialysate Flow: 600
Heparin: None
EPO: 4000
--- NOTE | 2025-04-28 15:28 | PN.CDI ---
CDI
- -
CDI:
Physician Documentation Request
Admit Date: 04/27/25 03:02
Dear Doctor Do,
Patient presented to ED with hematuria/ chronic pratt.
Urine culture was positive for Staph aureus MRSA, Pseudomonas aeruginosa, gram neg bacilli
UA results:
Laboratory Tests
04/26/25
16:07
Urine Color Red
Urine Clarity Slightly cloudy
Ur Occult Blood Reflex 4+ A
Urine Nitrite (Reflex) Negative
Leukocyte Esterase Rfl 3+ A
Urine WBC (Reflex) 50-60 A
Urine Bacteria (Reflex) Few A
Could you please provide a diagnosis that supports the above lab abnormalities and additional evaluation/ monitoring:
UTI
Asymptomatic bacteruria
Other
Use of terms such as suspected, likely, concern for, or probable (associated with a specific diagnosis that is being evaluated, monitored, or treated as if it exists) are acceptable and can be coded in the inpatient setting, when documented at the
time of discharge.
Thank you,
Julissa Alba RN, BSN
CDI Specialist
tiger text
Please use your independent medical judgment in providing your response.
--- NOTE | 2025-04-28 15:34 | PN.CDI ---
CDI
- -
CDI:
Physician Documentation Request
Admit Date: 04/27/25 03:02
Dear Doctor Do,
04/27 WOCN note states ' sacral red stage 1 pressure injury '
Physician documentation of the type and location of wounds is required for compliant documentation. Based on the above clinical findings and your assessment, please provide the following in your progress note:
1. Location of the ulcer/wound, including laterality.
2. Type (etiology) of ulcer/wound:
- Traumatic wound
- Pressure (decubitus) ulcer
- Other
Use of terms such as suspected, likely, concern for, or probable (associated with a specific diagnosis that is being evaluated, monitored, or treated as if it exists) are acceptable and can be coded in the inpatient setting, when documented at the
time of discharge.
Thank you,
Julissa Alba RN, BSN
CDI Specialist
tiger text
Please use your independent medical judgment in providing your response.
*Source: National Pressure Ulcer Advisory Panel (NPUAP)
--- NOTE | 2025-04-28 15:52 | HOSPNOTE ---
Reached the brother and was asked to call back at 3:30. Had to leave a message for a return call to discuss hospice and the philosophy. We will reach out over the weekend to discuss.
--- NOTE | 2025-04-28 16:11 | PTCARENOTE ---
Received patient on transfer from after OR/PACU via bed. Patient transferred to new bed x4 assist. CBI running; u/o clear. Patient Ox2; quiet/withdrawn. Currently receiving HD. Hospice consulted per Dr Abreu. Patient denies any c/o pain.
--- NOTE | 2025-04-28 16:17 | PTCARENOTE ---
Patient ordered vibramycin; will give after HD as HD RN states med will wash out with treatment.
--- NOTE | 2025-04-28 17:49 | PTCARENOTE ---
Received patient from PACU with O2 3l n/c; able to wean to RA with POx 100%.
[2025-04-28] MEDS: VIBRAMYCIN 100 MG PO ×2 (18:23→19:59)
[2025-04-29] VITALS (25 sets, daily range): BP systolic 86–127; BP diastolic 48–91
--- NOTE | 2025-04-29 03:22 | PTCARENOTE ---
Received pt at change of shift. CBI running and output is clear. Pt offers no complaints at this time. AAOx2. Flat affect. Not interested in any education. Pt turning regularly in bed. Hygiene care provided. Call liz within reach.
[2025-04-29] MEDS: ROCEPHIN 1000 MG IV (04:54)
[2025-04-29] MEDS: STERILE WATER FOR INJECTION 10 ML IV (04:54)
[2025-04-29 05:26] LABS: Hematocrit 25.2 % (39.0-52.0); Hemoglobin 8.4 g/dL (13.0-18.0); Mean Corp Hgb Conc. 33.3 g/dL (33.0-37.0); Mean Corpuscular Volume 96.2 fL (80.0-94.0); Platelet Count 237 10^3/uL (130-400); Red Cell Dist. Width 15.5 % (11.5-14.5)
[2025-04-29 05:50] LABS: Blood Urea Nitrogen 24 mg/dl (9-20); Calcium 9.9 mg/dl (8.4-10.2); Carbon Dioxide 31 mmol/L (22-30); Chloride 102 mmol/L (98-107); Glucose 99 mg/dl (70-99); Potassium 4.1 mmol/L (3.5-5.1); Sodium 137 mmol/L (135-145); eGFR 24.72
--- NOTE | 2025-04-29 06:25 | W.PN.URO.CBU ---
Today's Communication / Plan
-
will sign off
Assessment / Plan
-
ESRD on HD
chronic urinary retention with pratt
BPH
gross hematuria --> stopped s/p TURP
Diagnosis
-
Date of Service: April 29, 2025
-
Patient Diagnosis:
chronic urinary retention with pratt
gross hematuria due to prostatic hemorrhage s/p TURP
Subjective
-
asleep
Objective
-
Vital Signs
Temp Pulse Resp BP Pulse Ox
98.2 F 87 24 110/73 98
04/29/25 04:59 04/29/25 01:00 04/29/25 01:00 04/29/25 01:00 04/28/25 20:30
Intake and Output
04/27/25 04/28/25 04/29/25
06:59 06:59 06:59
Intake Total 500 / 500
Output Total 2450 / 2450 7600 / 7600 3150 / 3150
Balance -1950 / -1950 -7600 / -7600 -3150 / -3150
Intake:
Pratt intermittent irrigation 500 / 500
Output:
Urine, Pratt 1600 / 1600
True Urine Output from CBI 850 / 850 7600 / 7600 3150 / 3150
Laboratory Results
04/29/25 05:01
04/29/25 05:01
Physical Exam
-
Genitalia - Pratt with clear outflow
[2025-04-29] MEDS: MUCINEX PO ×2 (07:28→20:01)
[2025-04-29] MEDS: VIBRAMYCIN 100 MG PO ×2 (07:31→20:16)
[2025-04-29] MEDS: PROSCAR 5 MG PO (07:31)
[2025-04-29] MEDS: RENVELA 800 MG PO ×2 (07:31→12:48)
--- NOTE | 2025-04-29 08:40 | W.PN.HOSP.TC ---
Today's Communication/Plan
-
Discharge on hospice in the next 24 hours
Assessment / Plan
Assessment / Plan
85y M with PMH significant for ESRD on HD and complicated diverticulitis who presents to ED complaining of gross hematuria. Patient has a chronic indwelling Pratt catheter. He produced urine despite being HD dependent. Patient states that he
has had bleeding from the catheter for the past 2 days or so. Staff has been flushing the catheter at the [place], but today had difficulty doing so and patient was sent to the ED for further evaluation. Patient reports some mild lower abdominal
pressure intermittently. He has a chronic, loose, 'hacking' cough. He denies any chest pain or dyspnea.
Gross Hematuria
Chronic Urinary Retention / Chronic Indwelling Pratt
Catheter associated urinary tract infection
-Recent ct 01/03- BPH/contracted bladder/massive impaction/bilateral hydro- no obvious tumor or mass
-Appreciate urology input, status post cystoscopy with left prostate fulguration 04/28
-Hold aspirin 81 mg daily, and hold heparin with dialysis
-Urine cultures growing MRSA, Pseudomonas, gram-negative bacilli
-Continue IV Rocephin, added doxycycline for MRSA
Dementia, unknown type
- Bedbound with no quality of life, from [facility]
- Discussed with brother, who agrees to hospice
- Discharge on hospice in the next 24 hours
Acute blood loss anemia due to hematuria superimposed on anemia of chronic kidney disease
- Will stop checking blood work since patient will be signing onto hospice
ESRD on HD
Secondary hyperparathyroidism
-Patient receives HD -
-Continue calcitriol, Renvela
-Likely can stop dialysis as patient will be signing onto hospice
Chronic hypotension
-Continue midodrine 10 mg 3 times daily
Complicated Diverticulitis
Chronic LLQ Fistula / Wound
- Stable. Continue local care.
- Continue wound care
Anxiety / Depression
- Continue mirtazapine
sacral red stage 1 pressure injury
- Wound care, offloading
Severe
DVT Prophylaxis: SCDs due to hematuria
Code Status: DNR
Updated brother on phone 04/28
Total time spent to see the patient on the floor, examine the patient, review data and lab results, discuss treatment plan with patient, nursing staff around 41 minutes.
Physical Exam
General: No acute distress
HEENT: Normocephalic, Atraumatic, EOMI, MMM
Respiratory: Clear to Auscultation bilaterally
Cardiac: Normal S1/S2, Regular Rate and Rhythm
GI: Soft, Nontender, Nondistended, Normal Bowel Sounds, left lower quadrant wound noted
: +pratt w/ CBI with red-colored urine
Extremities: No Clubbing, Cyanosis, or Edema
Neuro: Pleasantly confused
Psych: Calm, Cooperative
Anticipated Discharge: Within 24 hours
Subjective/Interval History
-
Date of Service: April 28, 2025
Patient reports intermittent abdominal tenderness. No chest pain, no shortness of breath. No fever, no vomiting.
Objective Data
-
Labs:
Laboratory Results
04/28/25
05:44
WBC 10.6
Hgb 9.6 L
Hct 28.2 L
Plt Count 237
Sodium 132 L
Potassium 4.7
Chloride 102
Carbon Dioxide 21 L
BUN 42 H
Creatinine 3.6 H
Glucose 107 H
Calcium 9.6
Vital Signs:
Vital Signs
Temp Pulse Resp BP Pulse Ox
98.7 F 63 19 109/58 100
04/28/25 13:00 04/28/25 14:20 04/28/25 13:52 04/28/25 14:20 04/28/25 13:30
I&O
04/27/25 04/28/25 04/29/25
06:59 06:59 06:59
Intake Total 500 / 500
Output Total 2450 / 2450 7600 / 7600 950 / 950
Balance -1950 / -1950 -7600 / -7600 -950 / -950
--- NOTE | 2025-04-29 08:49 | W.PN.NEPH.PH ---
Today's Communication / Plan
-
observing
? continued HD
remains on CBI
Assessment/Plan
-
IMP:
Gross hematuria
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
h/o Complicated Diverticulitis
ESRD - HD M/W/F. kirit verase
History of diverticulitis with left lower abdominal wound patch
Mild Hyponatremia
Chronic Hypotension
Anemia of Chronic Disease
Anemia of CKD
Left UE AVF
Atrial fibrillation
Aortic stenosis not a TAVR candidate
Plan:
A/w gross hematuria on CBI - follows
metabolic parameters and vol status seem stable
resume midodrine for chr hypotension
Due to his severe he is at risk failing HD with poor hemodynamics
Patient for hospice course unsure if we are going to continue dialysis at this point will discuss with primary service
-
-
Date of Service: April 29, 2025
CC / HPI / ROS
-
Chief Complaint:
ESRD
History of Present Illness:
ESRD Thursday
Remains on CBI
Hemodynamically stable
Anemia worsening
Review of Systems:
CBI with Calvin
No reported chest pain or shortness of breath
Labs
-
Labs:
WBC 9.0 10^3/uL (4.8-10.8) 04/29/25 05:01
RBC 2.62 10^6/uL (4.70-6.10) L 04/29/25 05:01
Hgb 8.4 g/dL (13.0-18.0) L 04/29/25 05:01
Hct 25.2 % (39.0-52.0) L 04/29/25 05:01
Plt Count 237 10^3/uL (130-400) 04/29/25 05:01
Sodium 137 mmol/L (135-145) 04/29/25 05:01
Potassium 4.1 mmol/L (3.5-5.1) 04/29/25 05:01
Chloride 102 mmol/L (98-107) 04/29/25 05:01
Carbon Dioxide 31 mmol/L (22-30) H 04/29/25 05:01
BUN 24 mg/dl (9-20) H 04/29/25 05:01
Creatinine 2.5 mg/dL (0.7-1.3) H 04/29/25 05:01
eGFR 24.72 04/29/25 05:01
Glucose 99 mg/dl (70-99) 04/29/25 05:01
Calcium 9.9 mg/dl (8.4-10.2) 04/29/25 05:01
Fap-I-Lbncolylizl Pept Cancelled 04/26/25 23:48
Physical Exam
-
Vital Signs:
Vital Signs
Temp Pulse Resp BP Pulse Ox
98.2 F 86 24 106/59 98
04/29/25 04:59 04/29/25 07:29 04/29/25 01:00 04/29/25 07:29 04/28/25 20:30
Cardiovascular:: Regular rate and rhythm (murmur)
Respiratory:: Bilateral: CTA
Lung Excursion:: Normal (decreased)
Abdomen:: Nontender and Soft
Extremity Edema:: None: Bilateral:
Calvin Catheter: Yes
--- NOTE | 2025-04-29 09:51 | HOSPNOTE ---
Hospice continued to follow. Notes reviewed. Per CM note, brother is in agreement with hospice. Per Attending and my evaluation, patient is not inpatient appropriate. Updated CM that patient can return to [place] with hospice services and
that they have a preferred hospice agency. Asked CM to reach out to them to initiate. Hospice will sign off at this time.
--- NOTE | 2025-04-29 15:23 | PTCARENOTE ---
Assumed care of Pt at shift change; Pt resting comfortably in bed; CBI running slowly with light pink urine in pratt bag - drip rate increased; Noted that despite running CBI wide open, drip rate remained slow. Attempted to hand irrigate pratt
line with no improvement - no clots or blood noted; Tried flushing irrigation line and met with resistance. Pt's position adjusted and found that improved CBI flow. Pt denied pain/discomfort in pelvis region. Will continue to monitor and assess.
[2025-04-29] MEDS: RENVELA PO (16:53)
[2025-04-30] VITALS (14 sets, daily range): BP systolic 93–131; BP diastolic 49–86
[2025-04-30] MEDS: ROCEPHIN 1000 MG IV (05:28)
[2025-04-30] MEDS: STERILE WATER FOR INJECTION 10 ML IV (05:28)
[2025-04-30] MEDS: VIBRAMYCIN 100 MG PO (08:07)
[2025-04-30] MEDS: RENVELA PO ×3 (08:08→16:25)
[2025-04-30] MEDS: PROSCAR 5 MG PO (08:08)
[2025-04-30] MEDS: MUCINEX PO (08:08)
--- NOTE | 2025-04-30 09:38 | W.PN.HOSP.TC ---
Today's Communication/Plan
-
Transfer to [facility]
Discharge to [facility] on hospice once arrangements have been made
Assessment / Plan
Assessment / Plan
85y M with PMH significant for ESRD on HD and complicated diverticulitis who presents to ED complaining of gross hematuria. Patient has a chronic indwelling Pratt catheter. He produced urine despite being HD dependent. Patient states that he
has had bleeding from the catheter for the past 2 days or so. Staff has been flushing the catheter at the [place], but today had difficulty doing so and patient was sent to the ED for further evaluation. Patient reports some mild lower abdominal
pressure intermittently. He has a chronic, loose, 'hacking' cough. He denies any chest pain or dyspnea.
Gross Hematuria
Chronic Urinary Retention / Chronic Indwelling Pratt
Catheter associated urinary tract infection
-Recent ct 01/03- BPH/contracted bladder/massive impaction/bilateral hydro- no obvious tumor or mass
-Appreciate urology input, status post cystoscopy with left prostate fulguration 04/28
-Hold aspirin 81 mg daily, and hold heparin with dialysis
-Urine cultures growing MRSA, Pseudomonas, gram-negative bacilli
-Continue CBI while in the hospital, can stop upon discharge
-Stop antibiotics as patient will be discharged on hospice tomorrow
Dementia, unknown type
- Bedbound with no quality of life, from [facility] fdc
- Discussed with brother, who agrees to hospice
- Discharge on hospice in the next 24 hours
Acute blood loss anemia due to hematuria superimposed on anemia of chronic kidney disease
- Will stop checking blood work since patient will be signing onto hospice
ESRD on HD
Secondary hyperparathyroidism
-Patient receives HD
-Continue calcitriol, Renvela
-Stop dialysis as patient will be signing onto hospice
Chronic hypotension
-Continue midodrine 10 mg 3 times daily
Complicated Diverticulitis
Chronic LLQ Fistula / Wound
- Stable. Continue local care.
- Continue wound care
Anxiety / Depression
- Continue mirtazapine
sacral red stage 1 pressure injury
- Wound care, offloading
Severe
DVT Prophylaxis: SCDs due to hematuria
Code Status: DNR
Updated brother on phone 04/28
Total time spent to see the patient on the floor, examine the patient, review data and lab results, discuss treatment plan with patient, nursing staff around 40 minutes.
Physical Exam
General: No acute distress
HEENT: Normocephalic, Atraumatic, EOMI, MMM
Respiratory: Clear to Auscultation bilaterally
Cardiac: Normal S1/S2, Regular Rate and Rhythm
GI: Soft, Nontender, Nondistended, Normal Bowel Sounds, left lower quadrant wound noted
: +pratt w/ CBI with red-colored urine
Extremities: No Clubbing, Cyanosis, or Edema
Neuro: Pleasantly confused
Psych: Calm, Cooperative
Anticipated Discharge: Within 24 hours
Subjective/Interval History
-
Date of Service: April 30, 2025
Having hematuria on CBI. No fever, no vomiting.
Objective Data
-
Labs:
Laboratory Results
04/30/25
06:00
WBC Cancelled
Hgb Cancelled
Hct Cancelled
Plt Count Cancelled
Sodium Cancelled
Potassium Cancelled
Chloride Cancelled
Carbon Dioxide Cancelled
BUN Cancelled
Creatinine Cancelled
Glucose Cancelled
Calcium Cancelled
Vital Signs:
Vital Signs
Temp Pulse Resp BP Pulse Ox
97.6 F 67 14 100/69 97
04/30/25 03:08 04/30/25 06:00 04/30/25 06:00 04/30/25 08:09 04/29/25 20:30
I&O
04/29/25 04/30/25 05/01/25
06:59 06:59 06:59
Intake Total 360 / 360
Output Total 3550 / 3550 3925 / 3925
Balance -3550 / -3550 -3565 / -3565
--- NOTE | 2025-04-30 10:13 | W.PN.NEPH.PH ---
Today's Communication / Plan
-
Patient for hospice care
No further dialysis indication
We will sign off
Assessment/Plan
-
IMP:
Gross hematuria
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
h/o Complicated Diverticulitis
ESRD - HD [facility]. [facility]
History of diverticulitis with left lower abdominal wound patch
Mild Hyponatremia
Chronic Hypotension
Anemia of Chronic Disease
Anemia of CKD
Left UE AVF
Atrial fibrillation
Aortic stenosis not a TAVR candidate
Plan:
A/w gross hematuria on CBI - follows
metabolic parameters and vol status seem stable
resume midodrine for chr hypotension
Due to his severe he is at risk failing HD with poor hemodynamics
Patient for hospice course
No further hemodialysis
We will sign off
-
-
Date of Service: April 30, 2025
CC / HPI / ROS
-
Chief Complaint:
ESRD
History of Present Illness:
ESRD Thursday
Remains on CBI
Hemodynamically stable
Anemia worsening
Review of Systems:
CBI with Calvin
No reported chest pain or shortness of breath
Labs
-
Labs:
WBC Cancelled 04/30/25 06:00
RBC Cancelled 04/30/25 06:00
Hgb Cancelled 04/30/25 06:00
Hct Cancelled 04/30/25 06:00
Plt Count Cancelled 04/30/25 06:00
Sodium Cancelled 04/30/25 06:00
Potassium Cancelled 04/30/25 06:00
Chloride Cancelled 04/30/25 06:00
Carbon Dioxide Cancelled 04/30/25 06:00
BUN Cancelled 04/30/25 06:00
Creatinine Cancelled 04/30/25 06:00
eGFR Cancelled 04/30/25 06:00
Glucose Cancelled 04/30/25 06:00
Calcium Cancelled 04/30/25 06:00
Euc-B-Diiijzcldee Pept Cancelled 04/26/25 23:48
Physical Exam
-
Vital Signs:
Vital Signs
Temp Pulse Resp BP Pulse Ox
97.6 F 67 14 100/69 97
04/30/25 03:08 04/30/25 06:00 04/30/25 06:00 04/30/25 08:09 04/29/25 20:30
Cardiovascular:: Regular rate and rhythm (murmur)
Respiratory:: Bilateral: CTA
Lung Excursion:: Normal (decreased)
Abdomen:: Nontender and Soft
Extremity Edema:: None: Bilateral:
Calvin Catheter: Yes
--- NOTE | 2025-04-30 11:04 | CM ---
Chart reviewed plan is for patient to return to [facility] on hospice, referral was sent to [facility], who relayed that they are not the preferred hospice for [facility], registered nurse hh case manager reached out to nursing team supervisor Jackie at
[facility] regarding patient returning to them, call placed to Stephen [phone] at [facility] admissions, cell [phone], left message.
Plan; Waiting on a respone from [facility] admissions with preferred hospice choices. Patient will need CBI stopped and discontinue HD.
--- NOTE | 2025-04-30 16:08 | W.PN.UPDATE ---
Update Note
Progress Note Update
Discharge diagnosis:
Gross Hematuria
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
Catheter associated urinary tract infection
Acute blood loss anemia due to hematuria superimposed on anemia of chronic kidney disease
Dementia, unknown type
End-stage renal failure on dialysis
History of complicated diverticulitis with colocutaneous fistula
Chronic hypotension
Anxiety/depression
Sacral stage I pressure injury
Severe aortic stenosis
Consults: Urology
Procedures:
04/28/2025ystoscopy with prostate fulguration
Hospital course:
85-year-old male with a past medical history of dementia, complicated diverticulitis with colocutaneous fistula, chronic Calvin, and end-stage renal failure on dialysis was admitted for acute hematuria. Patient was seen in conjunction with urology,
he was treated with CBI. His hematuria worsened. He underwent cystoscopy with prostate fulguration.
Patient has a chronic Calvin, his urine culture grew out MRSA, Pseudomonas, gram-negative bacilli. He did receive Rocephin and doxycycline.
Urology discussed with patient's brother/POA that patient's prognosis is poor given his multiple comorbidities, and recommends hospice. Patient's brother/POA agreed to transition the patient to hospice. Hemodialysis was discontinued. Patient's
antibiotics were discontinued, his medications were minimized. He is discharged back to [facility] on hospice.
Disposition: [place]
Discharge planning: Required 41 minutes
--- NOTE | 2025-04-30 18:02 | PTCARENOTE ---
pt transferred from IMU AOx3, forgetful, med surg level of care, murmur. clear on RA. abd soft NT CBI running draining punch red. pt denies pain. preventative foam on sacrum. weak PP b/l CB in reach instructed to use.
[2025-04-30] MEDS: MUCINEX 600 MG PO (22:02)
[2025-05-01 07:35] VITALS: BP 112/64
[2025-05-01] MEDS: STERILE WATER FOR INJECTION IV (07:39)
[2025-05-01] MEDS: MUCINEX PO (08:16)
[2025-05-01] MEDS: RENVELA PO ×2 (08:19→11:12)
[2025-05-01] MEDS: PROSCAR 5 MG PO (08:20)
[2025-05-01] MEDS: ROCALTROL 0.25 MCG PO (08:20)
--- NOTE | 2025-05-01 09:07 | W.PN.HOSP.TC ---
Addendum entered and electronically signed by Orlando Dsouza MD 05/01/25 11:51:
Severe protein calorie malnutrition
Addendum entered and electronically signed by Orlando Dsouza MD 05/01/25 10:29:
Total time spent on d/c = 31 min. This included today's physical exam, progress note, review of laboratory and diagnostic data, preparation of discharge documents and prescriptions, and discussions about the pt's hospital course and discharge plan
with the patient and other medical office assistant instructor involved in the patient's care.
Original Note:
Today's Communication/Plan
-
see bold
Assessment / Plan
Assessment / Plan
85y M with PMH significant for ESRD on HD and complicated diverticulitis who presents to ED complaining of gross hematuria. Patient has a chronic indwelling Calvin catheter. He produced urine despite being HD dependent. Patient states that he
has had bleeding from the catheter for the past 2 days or so. Staff has been flushing the catheter at the [place], but today had difficulty doing so and patient was sent to the ED for further evaluation. Patient reports some mild lower abdominal
pressure intermittently. He has a chronic, loose, 'hacking' cough. He denies any chest pain or dyspnea.
Gen: NAD, Awake and alert, appears chronically ill
Eyes: EOMI, PERRLA, no scleral icterus.
Neck: supple.
CV: RRR, +S1/S2, 3/6 systolic murmur
Resp: CTAB anteriorly, no rales, wheezes, or rhonchi.
Abd: +BS, soft, NT, ND
Skin: No rashes.
Neuro: CN 2-12 intact, non-focal.
Psych: Normal mood and affect.
Gross Hematuria due to CAUTI:
-chronic Urinary Retention with chronic Indwelling Calvin
-Recent ct 01/03- BPH/contracted bladder/massive impaction/bilateral hydro- no obvious tumor or mass
-Appreciate urology input, status post cystoscopy with left prostate fulguration 04/28
-Hold aspirin 81 mg daily, and hold heparin with dialysis
-Urine cultures growing MRSA, Pseudomonas, gram-negative bacilli
-Continue CBI while in the hospital, can stop upon discharge
-antibiotics stopped as patient will be discharged on hospice
Dementia, unknown type
- Bedbound with no quality of life, from [facility]
- Discussed with brother, who agrees to hospice
- Discharge on hospice
Acute blood loss anemia due to hematuria superimposed on anemia of chronic kidney disease
- Will not check further blood work since patient will be signing onto hospice
ESRD on HD
Secondary hyperparathyroidism
-Patient receives HD
-Continue calcitriol, Renvela
-dialysis stopped as patient will be signing onto hospice
Chronic hypotension
-Continue midodrine 10 mg 3 times daily
Complicated Diverticulitis
Chronic LLQ Fistula / Wound
- Stable. Continue local care.
- Continue wound care
Anxiety / Depression
- Continue mirtazapine
sacral red stage 1 pressure injury
- Wound care, offloading
Severe
DNR/SCDs due to hematuria
Pt is cleared for d/c to hospice, discussed with [facility] Yary Durán and Christen Contreras.
Anticipated Discharge: Today
Subjective/Interval History
-
Date of Service: May 01, 2025
Objective Data
-
Vital Signs:
Vital Signs
Temp Pulse Resp BP Pulse Ox
97.6 F 81 16 112/64 100
05/01/25 07:35 05/01/25 07:35 05/01/25 07:35 05/01/25 08:25 05/01/25 07:35
I&O
04/30/25 05/01/25 05/02/25
06:59 06:59 06:59
Intake Total 360 / 360 480 / 480
Output Total 3925 / 3925 1500 / 1500 8675 / 8675
Balance -3565 / -3565 -1020 / -1020 -8675 / -8675
--- NOTE | 2025-05-01 09:23 | CM ---
Addendum entered by Leila Durán RN 05/01/25 10:23:
Fax report to [facility] [phone]
Addendum entered by Leila Durán RN 05/01/25 09:49:
Per [facility], facility utilizes [facility]. Referral sent via [facility].
Original Note:
Reviewed the chart notes and spoke with the patient at the bedside. IMM reviewed. Patient to be discharged back to [facility] on hospice. CM spoke with [facility] liaison with facility to inquire about their preferred hospice provider. Await name
of agency to sent referral via [facility].
Plan: Discharge back to [facility].
Call report to: [phone]
Fax report to: [phone]
Medical necessity and transport forms on chart.
--- NOTE | 2025-05-01 10:52 | PN.CDI ---
CDI
- -
CDI:
Physician Documentation Request
Admit Date: 04/27/25 03:02
Dear Doctor Meet,
04/28 notes and assessment 'Subcutaneous loss over orbital-severe, Muscle loss over clavicle - severe. Patient meets AND and ASPEN criteria for severe protein calorie malnutrition of chronic disease due to fat loss in his orbital area and muscle
loss in the area of his clavicle'
Based on the above information and your assessment, which of the following most accurately represents the patient's nutritional status?
Severe protein calorie malnutrition
No nutritional deficiency
Other (please specify)
Jerome Criteria ([facility] Hospitalist 2017)
2 or more criteria must be present for either
non severe or severe malnutrition
Note that the criteria differs related to the
presence of an acute or chronic illness
Acute Illness Chronic Illness
Energy Intake Non Severe: <75% for >7 days Non Severe: <75% for >1 month
Severe: <50% for >5 days Severe: <75% for >1 month
Weight Loss Non Severe: 1-2% over 1 week Non Severe: 5% over 1 month
5% over 1 month 7.5% over 3 months
7.5% over 3 months 10% over 6 months
1 year N/A 20% over 1 year
Severe: >2% over 1 week Severe: >5% over 1 month
>5% over 1 month >7.5% over 3 months
>7.5% over 3 months >10% over 6 months
1 year N/A >20% over 1 year
Body Fat Non Severe: Mild Decrease Non Severe: Mild Loss
Severe: Moderate Decrease Severe: Severe Loss
Muscle Mass Non Severe: Mild Decrease Non Severe: Mild Loss
Severe: Moderate Decrease Severe: Severe Loss
Fluid Accumulation Non Severe: Mild Accumulation Non Severe: Mild Accumulation
Severe: Moderate to severe Severe: Moderate to severe
accumulation accumulation
Reduced Bottling Machine Operator Strength Non Severe: N/A Non Severe: N/A
Severe: Measurably reduced Severe: Measurably reduced
Use of terms such as suspected, likely, concern for, or probable (associated with a specific diagnosis that is being evaluated, monitored, or treated as if it exists) are acceptable and can be coded in the inpatient setting, when documented at the
time of discharge.
Thank you,
Julissa Alba RN, BSN
CDI Specialist
tiger text
Please use your independent medical judgment in providing your response.
--- NOTE | 2025-05-01 11:25 | PTCARENOTE ---
attempted to call kirit mejia to give report- unable to get through to nursing staff at this time
[2025-05-01 13:16] VITALS: BP 110/59
--- NOTE | 2025-05-01 15:23 | W.DCSUMMARY ---
Discharge Summary
Discharge Data
Date of Admission: 04/27/25
Date of Discharge: 05/01/25
-
Pending Results: No
Hospital Course
Primary diagnoses:
Acute blood loss anemia due to gross hematuria due to catheter associated urinary tract infection
Acute blood loss anemia due to hematuria superimposed on anemia of chronic kidney disease
Secondary diagnoses:
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
Dementia, unknown type
End-stage renal failure on dialysis
History of complicated diverticulitis with colocutaneous fistula
Chronic hypotension
Anxiety/depression
Sacral stage I pressure injury
Severe aortic stenosis
Severe protein calorie malnutrition
Consultants:
Urology
Imaging:
None
Procedures:
04/28/25: cystoscopy with prostate fulguration
Hospital course: 85-year-old male with a past medical history of dementia, complicated diverticulitis with colocutaneous fistula, chronic Calvin, and end-stage renal failure on dialysis was admitted for acute hematuria. Patient was seen in
conjunction with urology, he was treated with CBI. His hematuria worsened. He underwent cystoscopy with prostate fulguration. Patient has a chronic Calvin, his urine culture grew out MRSA, Pseudomonas, gram-negative bacilli. He did receive
Rocephin and doxycycline. Urology discussed with patient's brother/POA that patient's prognosis is poor given his multiple comorbidities, and recommends hospice. Patient's brother/POA agreed to transition the patient to hospice. Hemodialysis was
discontinued. Patient's antibiotics were discontinued, his medications were minimized. He is discharged back to [facility] on hospice.
Discharge Plan
-
Patient Disposition: Group Home/SNF
Discharge Diagnosis/Procedures: Acute hematuria, dementia, renal failure, left lower quadrant colocutaneous fistula
Condition: Fair
Diet: Regular
Activity: As tolerated
Other Services: Hospice
Activity Restrictions/Additional Instructions:
Patient is discharged on hospice.
Medications have been minimized.
LLQ old drain site-clean with saline or soap and water, dry gauze pads, cover with abd pad or silicone border foam, change bid and prn drainage.
Air mattress
Turning schedule
Pressure redistributing chair cushion (i.e. Air cushion).
Elevate heels off bed with pillows/air chair cushion.
Referrals:
Babar Bruner MD [Family Provider] - in one week
Prescriptions:
New
morphine concentrate 10 mg/0.5 mL Syringe
5 mg PO Q4HPRN PRN (Reason: pain or dyspnea) Qty: 3 0RF
Continued
mirtazapine 7.5 mg Tablet
7.5 mg PO HS
acetaminophen [Tylenol] 325 mg Tablet
650 mg PO Q6HPRN PRN (Reason: mild pain/temp>100)
levalbuterol HCl 0.63 mg/3 mL Solution For Nebulization
0.63 mg INHALATION R Q6HPRN PRN (Reason: wheezing)
bisacodyl 10 mg Suppository
10 mg NC DAILYPRN PRN (Reason: if no bm after mom)
ondansetron 4 mg Tablet,Disintegrating
4 mg PO Q8HPRN PRN (Reason: nausea)
mupirocin 2 % Ointment
1 applic TOPICAL BID
polyethylene glycol 3350 [Miralax] 17 gram powder in packet
17 g PO DAILYPRN PRN (Reason: constipation)
hydrocortisone 1 % Cream
1 applic TOPICAL Q6HPRN PRN (Reason: fistula)
Discontinued
vitamin B complex Tablet
1 tab PO SUTUTHSA@1900 Qty: 0
sevelamer HCl 800 mg Tablet
800 mg PO AC
calcitriol 0.25 mcg Capsule
0.25 mcg PO MOWEFR
sodium chloride 1 gram Tablet
2,000 mg PO BID
midodrine 5 mg Tablet
5 mg PO SUTUTHSA@08,12,20
midodrine 5 mg Tablet
5 mg PO MOWEFR@
midodrine 5 mg Tablet
5 mg PO DAILY
midodrine 5 mg Tablet
5 mg PO DAILYPRN PRN (Reason: sbp greater then 160)
aspirin 81 mg Tablet,Delayed Release (Dr/Ec)
81 mg PO MOWEFR
Discharge Orders:
Discharge Patient (As Directed); Ordered 05/01/25
Ordered By: Orlando Dsouza
Discharge Date and Time
Discharge Date/Time: 05/01/25 13:31
Print Language: CITIZEN OF [place]
== END 2025-05-01 13:31 | DRG 665 ==
LOC: 2 NORTH 03:02
PROVIDERS: Family Medicine; Specialist; ADMITTING PHYSICIAN Hospitalist; ATTENDING PHYSICIAN Internal Medicine; CONSULT PHYSICIAN Internal Medicine; CONSULT PHYSICIAN Specialist; EMERGENCY PHYSICIAN Emergency Medicine; FAMILY PHYSICIAN Internal Medicine
PROC: 5A1D70Z Performance of Urinary Filtration, Intermittent, Less than 6 Hours Per Day (ICD-10-PCS; 2025-04-28)
PROC: 0TCB8ZZ Extirpation of Matter from Bladder, Via Natural or Artificial Opening Endoscopic (ICD-10-PCS; 2025-04-28)
PROC: 0V508ZZ Destruction of Prostate, Via Natural or Artificial Opening Endoscopic (ICD-10-PCS; 2025-04-28)
DX: T83.511A Infection and inflammatory reaction due to indwelling urethral catheter, initial encounter (principal); E43 Unspecified severe protein-calorie malnutrition; N18.6 End stage renal disease; D62 Acute posthemorrhagic anemia; J84.9 Interstitial pulmonary disease, unspecified; F03.94 Unspecified dementia, unspecified severity, with anxiety; F03.93 Unspecified dementia, unspecified severity, with mood disturbance; E87.1 Hypo-osmolality and hyponatremia; N25.81 Secondary hyperparathyroidism of renal origin; N42.1 Congestion and hemorrhage of prostate; N39.0 Urinary tract infection, site not specified; R33.9 Retention of urine, unspecified; I48.91 Unspecified atrial fibrillation; E27.9 Disorder of adrenal gland, unspecified; I35.0 Nonrheumatic aortic (valve) stenosis; I95.89 Other hypotension; K21.9 Gastro-esophageal reflux disease without esophagitis; D63.1 Anemia in chronic kidney disease; F32.A Depression, unspecified; R05.3 Chronic cough; K59.09 Other constipation; I25.10 Atherosclerotic heart disease of native coronary artery without angina pectoris; L89.151 Pressure ulcer of sacral region, stage 1; B95.62 Methicillin resistant Staphylococcus aureus infection as the cause of diseases classified elsewhere; B96.5 Pseudomonas (aeruginosa) (mallei) (pseudomallei) as the cause of diseases classified elsewhere; B96.89 Other specified bacterial agents as the cause of diseases classified elsewhere; Y84.6 Urinary catheterization as the cause of abnormal reaction of the patient, or of later complication, without mention of misadventure at the time of the procedure; Y73.2 Prosthetic and other implants, materials and accessory gastroenterology and urology devices associated with adverse incidents; Y92.129 Unspecified place in nursing home as the place of occurrence of the external cause; Z66 Do not resuscitate; Z99.2 Dependence on renal dialysis; Z87.19 Personal history of other diseases of the digestive system; Z79.82 Long term (current) use of aspirin; Z86.14 Personal history of Methicillin resistant Staphylococcus aureus infection; Z87.440 Personal history of urinary (tract) infections; Z74.01 Bed confinement status
CPT/HCPCS: 80048; 81003; 81015; 85025; 85027; 85610; 85730; 86850; 86900; 86901; 87077; 87086; 87147; 87186; 99285; G0257; P9047; Q5106

== ENCOUNTER 2025-05-17 22:03 | Inpatient (IN) | payer MEDICARE, OTHER, SELFPAY ==
[2025-05-17] VITALS (12 sets, daily range): BP systolic 107–138; BP diastolic 48–67; BMI 19.5
--- NOTE | 2025-05-17 19:53 | PHANOTE ---
med rec note- called [facility] [phone] for missing paperwork, asked for it be faxed over
[2025-05-17 20:20] LABS: Hematocrit 18.7 % (39.0-52.0); Hemoglobin 6.1 g/dL (13.0-18.0); Mean Corp Hgb Conc. 32.6 g/dL (33.0-37.0); Mean Corpuscular Volume 98.9 fL (80.0-94.0); Nucleated Red Blood Cells % 0 % (-); Platelet Count 324 10^3/uL (130-400); Red Cell Dist. Width 15.5 % (11.5-14.5)
[2025-05-17 20:25] LABS: Blood Urea Nitrogen 45 mg/dl (9-20); Calcium 9.6 mg/dl (8.4-10.2); Carbon Dioxide 23 mmol/L (22-30); Chloride 100 mmol/L (98-107); Glucose 107 mg/dl (70-99); Sodium 135 mmol/L (135-145); eGFR 14.95
--- NOTE | 2025-05-17 20:41 | ED.GENMED ---
History of Present Illness
General
Chief Complaint: Abnormal Lab Value
Source: patient
Exam Limitations: none
Time Seen by Provider: 05/17/25 20:26
Nursing documentation reviewed up to this point in time: agreed with
History of Present Illness
History of Present Illness:
Patient with history of end-stage renal disease on hemodialysis (Thursday, Thursday, Thursday), presents to ED from dialysis center, where he was found to be hypotensive with acute on chronic anemia. Patient did not receive his dialysis today.
Patient reports chronic weakness and fatigue sensation But not any worse today. Denies shortness of breath. Denies fever or chills. Denies previous history of blood transfusion. Denies recent change in medications or diet.
Review of Systems
Review of Systems
Allergies reviewed?: Yes
Constitutional: Reports no symptoms; Denies fever
Respiratory: Reports no symptoms; Denies trouble breathing
Cardiac: Reports no symptoms
ABD/GI: Reports no symptoms; Denies vomiting or diarrhea
Musculoskeletal: Reports no symptoms
Skin: Reports no symptoms
Neurological: Reports no symptoms
Phy Exam
Physical Exam
Physical Exam:
Physical Exam
General: no apparent distress, not acutely ill. afebrile. weak appearing.
Head: nc/at. eomi
Neck: supple. no meningeal signs.
Heart: s1/s2 regular rate and rhythm
Lungs: no acute respiratory distress. clear bilaterally
Abdomen: normal bowel sounds. not tender. rectal exam (KAMILAH Patino, at bedside): brown stool, trace heme positive
Neuro: alert and oriented x 3. no focal neurological deficits
Skin: no rash
Psychiatric: well kept. interactive and cooperative
Extremities: no edema. no calf tenderness.
Course
Orders/Labs/Results
Orders:
Orders
05/17/25 19:37
Basic Metabolic Panel Urgent
Complete Blood Count/With Diff Urgent
05/17/25 20:30
Type And Crossmatch [Type+Screen] Urgent
05/17/25 20:48
* Blood Bank Products Urgent
Blood Bank Products: *Packed RBC Leuko(PRBC's)
Quantity: 1
Transfuse Today: Yes
Reason: Anemia
IV Insert/Care/Rem.- Treatment PRN
05/17/25 20:55
Ferritin Urgent
Comment: ADDON
Folate Urgent
Comment: ADDON
Iron Urgent
Comment: ADDON
Potassium Urgent
Total Iron Binding Urgent
Comment: ADDON
Vitamin B12 Urgent
Comment: ADDON
05/17/25 21:23
Add On- LAB Urgent
Tests Added?: iron tibc ferritin, folate b12
Admit/Transfer Patient As Directed
Co-Sign Provider:
Level of Care: Inpatient admission
Assign to:: Telemetry
Physician / Group: cynthia teran
Diagnosis: symptomatic anemia, esrd
Reason for Telemetry: Arrhythmia
Date to Stop Telemetry: 05/20/25
Time to Stop Telemetry: 11:00
Reason for Hospitalization: symptomatic anemia, esrd
Expected length of stay greater than two midnights?: Yes
ELOS- Estimated Length of Stay in days: 3
I certify the patient meets the requirements for IP care: Yes
Code Status As Directed
Resuscitation Status: Do not resuscitate
Based on pt advanced directive or healthcare POA form: Yes
Decision communicated with: Per care home records
05/17/25 21:24
DNR Bracelet Application ONCE
05/17/25 21:27
PRN Pain Medication Management As Directed
May give lesser potent ordered pain med per pt: Yes
preference::
Protocol:: Medication orders for pain may be administered in a
manner that supports deferring to patient preference
when the pt is:
- Requesting an ordered lesser potent pain medication.
Least to most potent pain medications are defined
as: acetaminophen < NSAID < tramadol < opioids
(morphine, oxycodone, hydromorphone).
- Requesting a lesser dose of the same medication IF
ORDERED.
- Requesting a less intrusive route of administration
if both routes are prescribed by the provider (PO <
IV).
05/17/25 21:37
0.9% Sodium Chloride [Nss (Preservative Free)] 10 ml IV NOW STA
Pantoprazole [Protonix IV] 40 mg IV NOW STA
05/17/25 21:44
Urinalysis Reflex To Culture Urgent
05/17/25 21:49
Electrocardiogram (*1) Urgent
Reason for Study: QTc Monitoring
EKG- Treatment ONCE
05/17/25 21:59
NEPHROLOGY CONSULT Routine
Consulting Provider: Gerri Lakhani
Was physician already notified: Yes
Reason for consult: esrd missed dailysis
05/18/25 08:00
0.9% Sodium Chloride [Nss (Preservative Free)] 10 ml IV DAILY
Pantoprazole [Protonix IV] 40 mg IV DAILY
05/20/25 11:00
DC Protocol for Telemetry ONCE
Abnormal Lab Results
05/17/25 05/17/25 05/17/25
19:37 20:30 20:55
RBC 1.89 L 10^6/uL
(4.70-6.10)
Hgb 6.1 L* g/dL
(13.0-18.0)
Hct 18.7 L* %
(39.0-52.0)
MCV 98.9 H fL
(80.0-94.0)
MCH 32.3 H pg
(27.0-31.0)
MCHC 32.6 L g/dL
(33.0-37.0)
RDW 15.5 H %
(11.5-14.5)
Eosinophils % 6.9 H %
(0-6)
BUN 45 H mg/dl
(9-20)
Creatinine 3.8 H mg/dL
(0.7-1.3)
Glucose 107 H mg/dl
(70-99)
TIBC 201 L ug/dl
(261-462)
Crossmatch IS Only See Detail
05/17/25 19:37
05/17/25 20:55
Vital Signs
Initial and Last Documented VS:
Initial Vital Signs
Temp Pulse Resp BP Pulse Ox
98.4 F 82 20 114/61 99
05/17/25 19:30 05/17/25 19:30 05/17/25 19:30 05/17/25 19:30 05/17/25 19:30
Last Documented Vital Signs
Temp Pulse Resp BP Pulse Ox
97.9 F 81 24 115/61 99
05/17/25 22:12 05/17/25 22:15 05/17/25 22:15 05/17/25 22:15 05/17/25 20:41
MDM/Problems Addressed
MDM/Problems Addressed:
H/H noted. Will transfuse one unit of PRBC.
Blood transfusion consent on the chart.
Will admit for further evaluation and treatment, including dialysis.
Nephrology () notified via [employer]
*Pulse Oximetry
SaO2: 99
Oxygen Mode of Delivery: Room air
Patient hypoxic: no
*Critical Care Note
Total Time (30-74mins, 75-104mins- exclusive of procedures): Not Applicable
ED Attending Note
-
Portions of this chart may have been created with voice recognition software.� Occasional wrong word or��sound alike� substitutions may have occurred due to the inherent limitations of voice recognition software.
Discharge Plan
Departure
Patient Disposition: Admit
Date of Disposition: 05/17/25
Time of Disposition: 20:50
Presentation/result/management discussed w/ accepting MD/DO: Hospitalist
Discharge Problem:
Anemia
Interventions
Interventions:
*Risk Screen - Suicide Last Done: 05/17/25 19:30
*General Assessment Last Done: 05/17/25 19:30
*Neglect/Abuse Screening Last Done: 05/17/25 19:30
--- NOTE | 2025-05-17 20:59 | HPS.HSE ---
Family Physician
-
Family Physician: Babar Bruner MD
Chief Complaint
-
Anemia reported hypotension at dialysis
History of Present Illness
85-year-old male from dialysis center where he was noted to be hypotensive with anemia hemoglobin 6.1. His dialysis was held he was sent to ER for evaluation of the above in addition to chronic weakness and fatigue. The patient reports to me that
he believes his stool was dark today possibly black. He is on aspirin 81 mg daily. He is oriented to name, day of the week, place of living [facility] president but thinks is 1981. He denies headache, fever, chills, chest pain, palpitations,
cough, shortness of breath, abdominal pain, nausea, vomiting, diarrhea. He has a Calvin catheter draining yellow in color.
The patient had a recent admission 04/27 - 05/01/2025 due to blood loss anemia from gross hematuria catheter associated UTI urine culture growing MRSA, Pseudomonas and gram-negative bacilli treated with Rocephin and doxycycline. He underwent
cystoscopy due to prostatic hemorrhage with prostate fulguration. He has history of end-stage renal failure is on dialysis. On discharge he was discharged back to [facility] on hospice.
Medical History
Past Medical History
Past Medical History: Reports Other
Additional Past Medical History:
04/27 - 05/01/2025 Blood loss anemia from gross hematuria (cauti)
catheter associated UTI urine culture growing MRSA, Pseudomonas and gram-negative bacilli treated with Rocephin and doxycycline 04/27 - 05/01/25
S/P cystoscopy due to prostatic hemorrhage with prostate fulguration 04/29/2025
Complicated Diverticular Disease
Chronic Urinary Retention / Chronic Calvin
ESRD on HD Thursday
Severe
Anemia of CKD
Anxiety / Depression
Skin Breakdown
Pelvic Fracture
Chronic Constipation
Past Surgical History: Reports Other
Additional Past Surgical History:
Diverticular Abscess Drainage (04/2024)
S/P cystoscopy due to prostatic hemorrhage with prostate fulguration 04/29/2025
Social History
Tobacco: Non-smoker
Alcohol: None
Drug: None
Living: [facility]
Family History
Family History: Not pertinent
Allergies / Home Medications
Allergies reflects when Allergies were last updated in [employer].
Home Medications with original date entered in [employer]
Allergy/Medication List:
Allergies
Allergy/AdvReac Type Severity Reaction Status Date / Time
No Known Allergies Allergy Verified 04/26/25 15:48
Home Medications
mirtazapine 7.5 mg tablet 7.5 mg PO HS depression/sleep 09/07/24
acetaminophen 325 mg tablet (Tylenol) 650 mg PO Q6HPRN PRN mild pain/temp>100 12/08/24
bisacodyl 10 mg rectal suppository 10 mg NC DAILYPRN PRN if no bm after mom 12/08/24
ondansetron 4 mg disintegrating tablet 4 mg PO Q8HPRN PRN nausea 12/08/24
hydrocortisone 1 % topical cream 1 applic topical Q6HPRN PRN fistula 04/27/25
mupirocin 2 % topical ointment 1 applic topical BID abd area 04/27/25
polyethylene glycol 3350 17 gram oral powder packet (Miralax) 17 g PO DAILYPRN PRN constipation 04/27/25
albuterol sulfate 1.25 mg/3 mL solution for nebulization 1.25 mg inhalation R DAILYPRN PRN SOB 05/17/25
aspirin 81 mg tablet,delayed release 81 mg PO MOWEFR 05/17/25
calcitriol 0.25 mcg capsule 0.25 mcg PO MOWEFR 05/17/25
midodrine 5 mg tablet 5 mg PO MOWEFR@0800,2000 05/17/25
midodrine 5 mg tablet 5 mg PO [id number] PRN BEFORE DIALYSIS 05/17/25
midodrine 5 mg tablet 5 mg PO SuTuThSa@08,12,20 05/17/25
morphine concentrate 10 mg/0.5 mL oral syringe (FOR ORAL USE ONLY) 5 mg PO Q4HPRN PRN SEVERE pain or dyspnea 05/17/25
sevelamer carbonate 800 mg tablet 800 mg PO AC 05/17/25
sodium chloride 1 gram tablet 2,000 mg PO BID 05/17/25
vitamin B complex 1 tab PO SUTUTHSA 05/17/25
Review of Systems
-
History Source: Patient and Physician
A 12 point ROS was completed and negative except as noted: Yes
Constitutional: Denies Fever or Fatigue
EENT: Denies Sore Throat or Runny Nose
Respiratory: Denies Cough or Trouble Breathing
Cardiac: Denies Chest Pain, Diaphoresis, Palpitations or Syncope
Abdomen/GI: Reports Black Stools; Denies Abdominal Pain, Nausea, Vomiting, Diarrhea or Constipated
: Reports Calvin (Present on admission draining yellow in color)
Musculoskeletal: Denies Joint Pain or Edema
Skin: Denies Itching or Rash
Neurological: Reports Dizzy and Weakness (Generalized); Denies Headache
Endocrine: Reports No Symptoms
Hematologic/Lymphatic: Reports No Symptoms
Psych: Reports Calm
Physical Exam
Vital Signs
Vital Signs
Temp Pulse Resp BP Pulse Ox
98.4 F 79 22 118/65 99
05/17/25 19:30 05/17/25 20:45 05/17/25 20:45 05/17/25 20:00 05/17/25 20:41
Physical Exam
General: Comfortable and Conversant; No Pain, Fever or Chills
HEENT: NormoCephalic, Anicteric, Moist mucous membranes, PERRLA and No Ptosis
Respiratory: Clear; No Wheezes, Rales or Rhonchi
Cardiac: S1/S2 and Murmur (4/6 systolic murmur with known aortic stenosis); No Rub, Gallop or Peripheral Edema
Breast: Deferred by me
GI: Soft, Non Tender, Non Distended and Normal Bowel Sounds
Rectal: Hem Positive (Trace brown per ER)
Genito-urinary: Calvin (Draining yellow in color)
Musculoskeletal: No Clubbing, No Cyanosis and No Edema
Skin: Warm and Dry; No Rash or Jaundice
Neuro: AO x 3 (oriented to name, day of the week, place of living [place] [facility] president but thinks is 1982.), No Motor Deficits (While in bed), Nonfocal/grossly intact, Cranial Nerves Intact and No Sensory Deficits; No Slurred Speech, Facial
Droop, Tremors or Sedated
Psych: Calm
Laboratory Results
-
05/17/25 19:37
Laboratory Results
Total Bilirubin Cancelled 05/17/25 19:37
AST Cancelled 05/17/25 19:37
ALT Cancelled 05/17/25 19:37
Alkaline Phosphatase Cancelled 05/17/25 19:37
Impression/Plan
-
Impression/plan:
Admit to telemetry
#Acute anemia likely of CKD
Hgb 6.1 <8.4 on 04/29/2025
Brown stool trace heme positive in ER
Type and screen
Transfuse 1 unit PRBC
Monitor for any hematuria
Follow CBC check iron panel, B12, folate
- Check stool occult
- Hold aspirin Thursday
- Start Protonix 40 mg daily while monitoring stool occult and hemoglobin
#Reported hypotension in setting of anemia/chronic hypotension
BP 114/61
Patient on midodrine 5 mg before dialysis and midodrine 5 mg Thursday 3 times daily, midodrine 5 mg Thursday 08,20
#Recent acute blood loss anemia due to gross hematuria due to catheter associated urinary tract infection 04/27/2021
#Urine culture growing MRSA, Pseudomonas and gram-negative bacilli treated with Rocephin and doxycycline.
#cystoscopy with prostate fulguration
#Chronic Urinary Retention / Chronic Indwelling Calvin
#Recent blood loss anemia due to hematuria superimposed on anemia of chronic kidney disease
ESRD on dialysis Thursday
- Consult Nephrology
- Continue calcitriol 0.25 mcg p.o. Thursday, midodrine 5 mg before dialysis
- Continue sevelamer 800 mg before meals
#Dementia, unknown type
oriented to name, day of the week, place of living [facility] president but thinks is 1981.
#History of complicated diverticulitis with colocutaneous fistula
#Anxiety/depression
- Continue mirtazapine 7.5 mg at bedtime
#Sacral stage I pressure injury
#Severe aortic stenosis
#Severe protein calorie malnutrition
DVT prophylaxis
SCDs
DNR patient was DC'd to hospice on 05/01/2025
[2025-05-17 21:21] LABS: Potassium 4.9 mmol/L (3.5-5.1)
--- NOTE | 2025-05-17 21:36 | W.PN.UPDATE ---
Update Note
Progress Note Update
I saw and examined the patient.
The [employer] EXPORT CLERK Carlota note was reviewed and I agree with the note.
Comment: 85 y/o M, ESRD on HD presents from dialysis with hypotension - precluding an HD session today. Patient also noted to have Hb of 6.1. Patient reports possibly seeing black stool today (on ASA 81mg daily). No other complaints. Has a Calvin
cathter - no bleeding observed. Recently admitted 04/27 to 05/01 with hematuria/blood loss anemia and CAUTI - completed antibiotics. He had a cystoscopy due to prostate hemorrhage. Was on hospice after recent discharge but unclear if truly on hospice
as receiving dialysis.
in ER, stool with trace heme positivity.
Exam:
General: Comfortable and Conversant; No Pain, Fever or Chills
HEENT: NormoCephalic, Anicteric, Moist mucous membranes, PERRLA and No Ptosis
Respiratory: Clear; No Wheezes, Rales or Rhonchi
Cardiac: S1/S2 and Murmur (4/6 systolic murmur with known aortic stenosis); No Rub, Gallop or Peripheral Edema
Breast: Deferred by me
GI: Soft, Non Tender, Non Distended and Normal Bowel Sounds
Rectal: Hem Positive (Trace brown per ER)
Genito-urinary: Calvin (Draining yellow in color)
Musculoskeletal: No Clubbing, No Cyanosis and No Edema
Skin: Warm and Dry; No Rash or Jaundice
Neuro: AO x 3 (oriented to name, day of the week, place of living [place] [employer] president but thinks is 1982.), No Motor Deficits (While in bed), Nonfocal/grossly intact, Cranial Nerves Intact and No Sensory Deficits; No Slurred Speech, Facial
Droop, Tremors or Sedated
Psych: Calm
exam:
General: Comfortable and Conversant; No Pain, Fever or Chills
HEENT: Normocephalic, Anicteric, Moist mucous membranes, PERRLA and No Ptosis
Respiratory: Clear; No Wheezes, Rales or Rhonchi
Cardiac: S1/S2 and Murmur (4/6 systolic murmur with known aortic stenosis); No Rub, Gallop or Peripheral Edema
Breast: Deferred by me
GI: Soft, Non Tender, Non Distended and Normal Bowel Sounds
Rectal: Hem Positive (Trace brown per ER)
Genito-urinary: Calvin (Draining yellow in color)
Musculoskeletal: No Clubbing, No Cyanosis and No Edema
Skin: Warm and Dry; No Rash or Jaundice
Neuro: AO x 3 (oriented to name, day of the week, place of living [place] [employer] president but thinks is 1982.), No Motor Deficits (While in bed), Nonfocal/grossly intact, Cranial Nerves Intact and No Sensory Deficits; No Slurred Speech, Facial
Droop, Tremors or Sedated
Psych: Calm
Assessment:
Acute anemia,
- very weakly heme + in ER. continue serial heme stool tests
- possible blood loss if dark stools; if confirmed GI bleed ddx could include PUD, angioectasias or AVMs in setting of ESRD and aortic stenosis, vs other
- Hb 6.1 - 1 unit PRBC
- monitor for clinical bleeding
- daily CBC
- anemia workup
- hold ASA
- IV PPI daily
Acute on chronic hypotension
- could be related to possible bleed. No evidence of infection
- on scheduled midodrine - continue
Recent CAUTI and prostate hemorrhage requiring cystoscopy
- UA pending. Urine looks clear without blood
ESRD on HD - nephrology for routine HD orders
DVT ppx: SCD
Code: DNR per prior records. Of note patient was discharged to hospice 05/01 - unclear is truly on it. will have CM investigate.
rest of plan per [employer] EXPORT CLERK Carlota note
[2025-05-17 21:45] LABS: Iron 91 ug/dl (49-181)
[2025-05-17 21:50] LABS: Total Iron Binding Capacity 201 ug/dl (261-462)
[2025-05-17] MEDS: PROTONIX IV 40 MG IV (21:53)
[2025-05-17] MEDS: NSS (PRESERVATIVE FREE) 10 ML IV (21:54)
[2025-05-17] MEDS: REMERON 7.5 MG PO (23:53)
[2025-05-17 23:56] LABS: Ferritin 950.0 ng/ml (17.9-464.0)
[2025-05-18] VITALS (8 sets, daily range): BP systolic 88–125; BP diastolic 54–79; BMI 19.5; BMI 19.6
[2025-05-18 00:21] LABS: Urine Character Cloudy (Clear)
[2025-05-18 00:27] LABS: Folate 19.2 ng/ml (2.76-20); Vitamin B12 752 pg/ml (239-931)
[2025-05-18 00:32] LABS: Urine Red Blood Cell 26-30 /HPF (0-2); Urine Squamous Cell None seen /LPF (Few); Urine White Cell >100 /HPF (0-5)
--- NOTE | 2025-05-18 01:20 | PTCARENOTE ---
Pt arrived to unit via stretcher. Pt transferred from stretcher to bed. Pt oriented to room. 1 unit of packed red blood cells were started in ED. Pt AAOx3, VSS. Call liz within reach, plan of care ongoing.
[2025-05-18 07:06] LABS: Hematocrit 22.0 % (39.0-52.0); Hemoglobin 7.3 g/dL (13.0-18.0); Mean Corp Hgb Conc. 33.2 g/dL (33.0-37.0); Mean Corpuscular Volume 96.9 fL (80.0-94.0); Nucleated Red Blood Cells % 0 % (-); Platelet Count 287 10^3/uL (130-400); Red Cell Dist. Width 17.2 % (11.5-14.5)
[2025-05-18 07:42] LABS: ALT (SGPT) < 10 U/L (0-50); AST (SGOT) 15 U/L (17-59); Albumin 3.4 g/dl (3.5-5.0); Alkaline Phosphatase 81 U/L (38-126); Blood Urea Nitrogen 45 mg/dl (9-20); Calcium 9.7 mg/dl (8.4-10.2); Carbon Dioxide 24 mmol/L (22-30); Chloride 103 mmol/L (98-107); Estimated Creatinine Clearance 10 ml/min; Glucose 90 mg/dl (70-99); Magnesium 2.0 mg/dl (1.6-2.3); Potassium 5.0 mmol/L (3.5-5.1); Sodium 135 mmol/L (135-145); Total Protein 5.8 g/dl (6.3-8.2); eGFR 12.89
[2025-05-18] MEDS: NSS (PRESERVATIVE FREE) 10 ML IV (08:04)
[2025-05-18] MEDS: SODIUM CHLORIDE 2 GRAM PO ×2 (08:04→22:35)
[2025-05-18] MEDS: RENVELA 800 MG PO ×2 (08:04→17:42)
[2025-05-18] MEDS: BACTROBAN 2% OINTMENT 1 APPLIC TOPICAL ×2 (08:05→22:29)
[2025-05-18] MEDS: PROTONIX IV 40 MG IV (08:10)
[2025-05-18] MEDS: B COMPLEX w/VITAMIN C 1 CAPLET PO (08:10)
--- NOTE | 2025-05-18 08:41 | CM ---
Pt admitted via ED from [facility] where he is a detention resident. At last discharge plan was for return to [facility] with hospice, however pt refused hospice services and has continued receiving all medical treatment as well as dialysis
per his request. Pt's brother was reportedly the one requesting hospice services; Confirmed with [facility].
Plan: Pt will return to [facility] LT when medically ready.
--- NOTE | 2025-05-18 09:53 | W.PN.HOSP.TC ---
Today's Communication/Plan
-
see A/P
Assessment / Plan
Assessment / Plan
HPI: 85 y/o M, ESRD on HD; p/w hypotension with anemia (hemoglobin 6.1). Patient reports possibly seeing black stool (on ASA 81mg daily). No other complaints. Has a Calvin catheter - no bleeding observed. Recently admitted 04/27 to 05/01 with
hematuria/blood loss anemia and CAUTI - completed antibiotics. He had a cystoscopy due to prostate hemorrhage. Was on hospice after recent discharge but unclear if truly on hospice as receiving dialysis.
In ER, stool with trace heme positivity.
A/P:
# Acute anemia,
very weakly heme + in ER.
Hgb 6.1 on admission, s/p 1 unit PRBC, Hgb improved to 7.3 today, Cont to monitor Hgb
iron panel suggest ACD, B12/folate WNL
hold ASA
IV PPI daily
GI CS
# Acute on chronic hypotension, could be related to possible GI bleed/anemia
No evidence of infection
on scheduled midodrine - continue
# Recent CAUTI and prostate hemorrhage requiring cystoscopy
UA this admission showed improved hematuria
Urine culture sent, follow up
# ESRD on HD
HD MWF
nephrology CS for routine HD orders
# Dementia, unknown type
# severe protein caloric malnutrition
# Bedbound at baseline
from [facility]
Pt is awake and conversant but not orientated. He appears chronically ill
# Anxiety / Depression
Continue mirtazapine
# Severe
DVT ppx: SCD
Code: DNR per prior records.
Of note, there was plan for disposition to hospice but per CM and brother, pt does not want to stop dialysis, so hospice was not signed up.
updated brother on the phone
total time 51 min
Anticipated Discharge: > 48 hours
Subjective/Interval History
-
Date of Service: May 18, 2025
Objective Data
-
Labs:
Laboratory Results
05/18/25
06:29
WBC 6.9
Hgb 7.3 L
Hct 22.0 L
Plt Count 287
Sodium 135
Potassium 5.0
Chloride 103
Carbon Dioxide 24
BUN 45 H
Creatinine 4.3 H*
Glucose 90
Calcium 9.7
Total Bilirubin 0.5
AST 15 L
ALT < 10
Alkaline Phosphatase 81
Vital Signs:
Vital Signs
Temp Pulse Resp BP Pulse Ox
37.2 C 95 16 117/79 95
05/18/25 07:30 05/18/25 07:30 05/18/25 07:30 05/18/25 07:30 05/18/25 07:30
I&O
05/17/25 05/18/25 05/19/25
06:59 06:59 06:59
Intake Total 250 / 250
Output Total 1000 / 1000
Balance -750 / -750
Review of Systems
-
Unable to obtain full review of systems at this time due to: Other (poor historian)
Physical Exam
-
General: Well Developed, No Apparent Distress, Comfortable, Appears Chronically Ill and Cachectic
HEENT: Normocephalic, Atraumatic and Moist Mucous Membranes
Respiratory: Clear to Auscultation and Non Labored Respirations; Negative Accessory Resp Muscle Use
Cardiac: Regular Rhythm, S1/S2 and Murmur (systolic )
GI: Soft, Nontender, Nondistended and Normal Bowel Sounds
Musculoskeletal: No Clubbing, No Cyanosis and No Edema
Neuro: Awake and Alert
Psych: Calm
Data Reviewed
-
Labs: Labs Reviewed by me
--- NOTE | 2025-05-18 10:10 | CON.GI ---
Addendum entered and electronically signed by Lilly West MD 05/18/25 12:47:
I saw and examined the patient.
The EXCHANGE ENGINEER or PA's note was reviewed and I agree with the note.
Comment: 85-year-old male with history of end-stage renal disease on hemodialysis, history of aortic stenosis, atrial fibrillation, history of prostrate fulguration in April 2025 for prostate hemorrhage, history of stercoral colitis presenting from
dialysis for hypotension and hemoglobin of 6.1. Reviewing previous labs, his hemoglobin is between 7.5-9 since August 2024. Initial heme test in the ER was brown stool in trace guaiac positive but repeat heme test was negative. Patient
currently denies any complaints. No abdominal pain, nausea or vomiting. No heartburn or trouble swallowing. He does report history of coughing up sputum at night. He has soft stool almost on a daily basis, reports he does not look at his stool
to see if there is any blood or black stool. Never had upper endoscopy or colonoscopy. No history of GI bleeding that he is aware of. Iron levels do not show iron deficiency, he did receive 1 unit of packed red blood cells in the emergency room.
Discussed with patient regarding endoscopy procedures, patient at this time is not interested. Given there is some component of forgetfulness, I called his brother Hubert and discussed with him regarding endoscopy evaluation. Since there is no
active bleeding and Hemoccult negative stool, Hubert wants to hold off on endoscopy evaluation at this time since he is followed regularly at [facility] and during dialysis with CBC. if there is overt active bleeding, Hubert will reconsider at that
time.
- Normocytic anemia without any evidence of iron deficiency
No evidence of occult or overt GI bleeding
Multifactorial with underlying chronic renal insufficiency on hemodialysis and also recent prostrate fulguration for prostate hemorrhage.
Okay to stop Protonix 20 mg daily as outpatient.
Monitor H&H, transfuse as needed if there is any overt active bleeding, please call GI back.
Should have CBC monitored during dialysis regularly
-Constipation, continue MiraLAX as outpatient
Will sign off, please call back if needed
Original Note:
Consultation
-
Date/Time Consultation Requested: 05/18/25727
Date/Time Consultation Performed: 05/18/25 1010
Requesting Provider: Dr. Lopez
Performing Provider: Dr. West/Rashmi POMPA
Reason for Consultation: anemia, OB pos stool
Medical History
Chief Complaint / HPI
Chief Complaint: anemia/hypotnsion
History of Present Illness:
85-year-old male with past medical history of end-stage renal disease on hemodialysis Thursday, severe aortic stenosis, A-fib, anemia of chronic disease, anxiety, depression, pelvic fracture, chronic constipation, UTI, history of
prostatic hemorrhage with recent prostate fulguration 04/29/2025, complicated diverticular disease, sacral wounds, history of stercoral colitis, pneumonia who presents to the emergency room from dialysis center where he was noted to be hypotensive
with a hemoglobin of 6.1. Dialysis was held and he was sent to the emergency room for further evaluation. We are asked to evaluate for trace OB positive brown stool in the ER. The patient is chronically on aspirin 81 mg daily. He denies any
history of colonoscopy or endoscopy that he is aware of. He is a poor historian however. I did speak to his brother Hubert Matos his power of civil attorney. He confirms the fact that the patient has never had an endoscopy or colonoscopy that he is aware
of. They have wanted conservative measures in the past including no surgery. The patient is a DNR. At the present time the patient just finished breakfast. The patient states to me that in the evening after his evening meal he has 'bloating'.
He has some nausea at times after his evening meal. He denies any fevers, chills, vomiting, melena, hematochezia. He does have some 'red blood with wiping on occasion'. The patient has had 2 brown soft formed bowel movements. Stool OB negative
on second stool.
Past Medical History
Past Medical History: Other (End-stage renal disease on hemodialysis Thursday, severe aortic stenosis, A-fib, anemia chronic disease, anxiety, depression, pelvic fracture, chronic constipation, UTI, prostatic hemorrhage, complicated
diverticular disease, sacral wounds, stercoral colitis, pneumonia)
Past Surgical History: Other (Diverticular abscess drainage 04/2024, cystoscopy with prostate fulguration 04/29/2025)
Social History
Tobacco: Non-Smoker
Alcohol: None
Personal: Single
Living: Correction
Family History
Family History: Other (No family history of gastrointestinal malignancy or IBD)
Allergies / Home Medications
Allergy/AdvReac Type Severity Reaction Status Date / Time
No Known Allergies Allergy Verified 04/26/25 15:48
�Medication �Instructions �Recorded
mirtazapine 7.5 mg tablet 7.5 mg PO HS depression/sleep 09/07/24
acetaminophen 325 mg tablet 650 mg PO Q6HPRN PRN mild 12/08/24
(Tylenol) pain/temp>100
bisacodyl 10 mg rectal suppository 10 mg NM DAILYPRN PRN if no bm 12/08/24
after mom
ondansetron 4 mg disintegrating 4 mg PO Q8HPRN PRN nausea 12/08/24
tablet
hydrocortisone 1 % topical cream 1 applic topical Q6HPRN PRN fistula 04/27/25
mupirocin 2 % topical ointment 1 applic topical BID abd area 04/27/25
polyethylene glycol 3350 17 gram 17 g PO DAILYPRN PRN constipation 04/27/25
oral powder packet (Miralax)
albuterol sulfate 1.25 mg/3 mL 1.25 mg inhalation R DAILYPRN PRN 05/17/25
solution for nebulization SOB
aspirin 81 mg tablet,delayed 81 mg PO MOWEFR 05/17/25
release
calcitriol 0.25 mcg capsule 0.25 mcg PO MOWEFR 05/17/25
midodrine 5 mg tablet 5 mg PO MOWEFR@0800,2000 05/17/25
midodrine 5 mg tablet 5 mg PO [id number] PRN BEFORE DIALYSIS 05/17/25
midodrine 5 mg tablet 5 mg PO SuTuThSa@08,12,20 05/17/25
morphine concentrate 10 mg/0.5 mL 5 mg PO Q4HPRN PRN SEVERE pain or 05/17/25
oral syringe (FOR ORAL USE ONLY) dyspnea
sevelamer carbonate 800 mg tablet 800 mg PO AC 05/17/25
sodium chloride 1 gram tablet 2,000 mg PO BID 05/17/25
vitamin B complex 1 tab PO SUTUTHSA 05/17/25
Review of Systems
-
All other systems: A 12 pt ROS was Negative except as stated above in HPI
Vital Signs
Temp Pulse Resp BP Pulse Ox
99.0 F 95 16 117/79 95
05/18/25 07:30 05/18/25 07:30 05/18/25 07:30 05/18/25 07:30 05/18/25 07:30
Physical Exam
Exam
General: No Apparent Distress
HEENT: Anicteric
Respiratory: Clear (Anterior)
Cardiac: Regular Rhythm and Murmur
GI: Soft, Non Tender, Non Distended and Normal Bowel Sounds
Skin: Warm and Dry
Neuro: Awake, Alert and Oriented (Oriented to person, place, states it is 1985)
Psych: Calm
Results
WBC 6.9 10^3/uL (4.8-10.8) 05/18/25 06:29
Hgb 7.3 g/dL (13.0-18.0) L 05/18/25 06:29
Hct 22.0 % (39.0-52.0) L 05/18/25 06:29
MCV 96.9 fL (80.0-94.0) H 05/18/25 06:29
Plt Count 287 10^3/uL (130-400) 05/18/25 06:29
Absolute Neuts (auto) 4.5 10^3/uL (1.4-6.5) 05/18/25 06:
Sodium 135 mmol/L (135-145) 05/18/25:
Potassium 5.0 mmol/L (3.5-5.1) 05/18/25:
Chloride 103 mmol/L (98-107) 05/18/25:
Carbon Dioxide 24 mmol/L (22-30) 05/18/25:
BUN 45 mg/dl (9-20) H 05/18/25:
Creatinine 4.3 mg/dL (0.7-1.3) H* 05/18/25
Calcium 9.7 mg/dl (8.4-10.2) 05/18/25
Total Bilirubin 0.5 mg/dl (0.2-1.3) 05/18/25
AST 15 U/L (17-59) L 05/18/25:
ALT < 10 U/L (0-50) 05/18/25:
Alkaline Phosphatase 81 U/L (38-126) 05/18/25:
Diagnostic Image Results:
Prior GI Procedures:
EGD: Denies
Colonoscopy: Denies
Assessment / Plan
-
85-year-old male with past medical history of end-stage renal disease on hemodialysis Thursday, severe aortic stenosis, A-fib, anemia of chronic disease, anxiety, depression, pelvic fracture, chronic constipation, UTI, history of
prostatic hemorrhage with recent prostate fulguration 04/29/2025, complicated diverticular disease, sacral wounds, history of stercoral colitis, pneumonia who presents to the emergency room from dialysis center where he was noted to be hypotensive
with a hemoglobin of 6.1. Dialysis was held and he was sent to the emergency room for further evaluation. We are asked to evaluate for trace OB positive brown stool in the ER. The patient is chronically on aspirin 81 mg daily. He denies any
history of colonoscopy or endoscopy that he is aware of. He is a poor historian however. I did speak to his brother Hubert Matos his power of civil attorney. He confirms the fact that the patient has never had an endoscopy or colonoscopy that he is aware
of. They have wanted conservative measures in the past including no surgery. The patient has had 2 soft, formed, brown bowel movements. Second bowel movement he had was negative for occult blood. Hemoglobin on arrival 6.1 down from most recent
hemoglobin 8.4 on 04/29/2025. Transfuse 1 unit of packed red blood cells with improvement up to 7.3. UA with +4 occult blood with 26-30 RBCs. Recent prostatic hemorrhage with prostate fulguration on 04/29/2025. Patient is on aspirin 81 mg 3 times
a week. Not on PPI therapy in the setting of severe aortic stenosis. Discussed with patient's brother Hubert who is his power of civil attorney. In the past they were considering hospice however they want to continue with hemodialysis.
Impression:
Anemia-> multifactorial
1 episode trace OB positive stool
History of severe aortic stenosis
Recent prostatic hemorrhage with prostate fulguration 04/29/2025
UA with RBCs
Plan:
-Add pantoprazole 40 mg daily
- Patient tolerating solid diet currently
- Patient's brother Hubert who is his POA wants to be conservative. Still trying to think what he would like to do. Discussed options such as PPI therapy, watching hemoglobin. No signs of active bleeding at present time. To consider endoscopy and
colonoscopy.
- Will discuss with Dr. West and discussed with patient's brother later.
- Discussed with medicine attending.
-
-
Thank you for consultation and allowing me to participate in the patient's care. Please call the store loss prevention manager GI physician during the after hours with any questions or concerns.
--- NOTE | 2025-05-18 10:43 | W.CON.NEPH ---
Consultation
-
Date/Time Consultation Requested: 05/17/25 2159
Date/Time Consultation Performed: 05/18/25 1038
Requesting Provider: Micheline Avila
Performing Provider: Gerri Hobson
Reason for Consultation: ESRD
Medical History
-
Chief Complaint: Anemia, hypotension
History of Present Illness:
85-year-old who has end-stage renal disease on hemodialysis Thursday at [facility] since 2023 (previously at [facility] for last 8yrs through left UE AVF), chronic urinary retention with chr pratt, anemia, oropharyngeal
dysphagia, diverticulitis with h/o perforation and abscess, atrial fibrillation on ASA, severe not surgical candidate, chr hypotension on midodrine who sent to ER for anemia hb 6.1 and hypotension. His dialysis was held he was sent to ER for
evaluation on 05/17. He received 1 unit of PRBC so far with improving hb to 7.3. He was here in in April for gross hematuria and catheter associated UTI MRSA, Pseudomonas treated with Rocephin and doxycycline. He underwent cystoscopy due to
prostatic hemorrhage with prostate fulguration. On discharge he was discharged back to [facility] on hospice. However it appears that pt did npt want hospice hence resumed HD (CM notes). He currently offers no complaints. Nephrology consulted
for HD needs.
Past Medical History
Complicated Diverticular Disease
Chronic Urinary Retention / Chronic Pratt
ESRD on HD
Severe
Anemia of CKD
Anxiety / Depression
Skin Breakdown
Pelvic Fracture
Chronic Constipation
Past Surgical History: Other (Diverticular Abscess Drainage (04/2024), AVF)
Social History
Tobacco: Non-Smoker
Alcohol: None
Drug: None
Living: Care Home
Employment: Retired
Family History
Family History: Not Pertinent
Allergies / Home Medications
Allergy/AdvReac Type Severity Reaction Status Date / Time
No Known Allergies Allergy Verified 04/26/25 15:48
�Medication �Instructions �Recorded �Confirmed �Type
mirtazapine 7.5 mg tablet 7.5 mg PO HS depression/sleep 09/07/24 05/17/25 History
acetaminophen 325 mg tablet 650 mg PO Q6HPRN PRN mild 12/08/24 05/17/25 History
(Tylenol) pain/temp>100
bisacodyl 10 mg rectal suppository 10 mg WA DAILYPRN PRN if no bm 12/08/24 05/17/25 History
after mom
ondansetron 4 mg disintegrating 4 mg PO Q8HPRN PRN nausea 12/08/24 05/17/25 History
tablet
hydrocortisone 1 % topical cream 1 applic topical Q6HPRN PRN fistula 04/27/25 05/17/25 History
mupirocin 2 % topical ointment 1 applic topical BID abd area 04/27/25 05/17/25 History
polyethylene glycol 3350 17 gram 17 g PO DAILYPRN PRN constipation 04/27/25 05/17/25 History
oral powder packet (Miralax)
albuterol sulfate 1.25 mg/3 mL 1.25 mg inhalation R DAILYPRN PRN 05/17/25 05/17/25 History
solution for nebulization SOB
aspirin 81 mg tablet,delayed 81 mg PO MOWEFR 05/17/25 05/17/25 History
release
calcitriol 0.25 mcg capsule 0.25 mcg PO MOWEFR 05/17/25 05/17/25 History
midodrine 5 mg tablet 5 mg PO MOWEFR@0800,2000 05/17/25 05/17/25 History
midodrine 5 mg tablet 5 mg PO [id number] PRN BEFORE DIALYSIS 05/17/25 05/17/25 History
midodrine 5 mg tablet 5 mg PO SuTuThSa@08,12,20 05/17/25 05/17/25 History
morphine concentrate 10 mg/0.5 mL 5 mg PO Q4HPRN PRN SEVERE pain or 05/17/25 05/17/25 History
oral syringe (FOR ORAL USE ONLY) dyspnea
sevelamer carbonate 800 mg tablet 800 mg PO AC 05/17/25 05/17/25 History
sodium chloride 1 gram tablet 2,000 mg PO BID 05/17/25 05/17/25 History
vitamin B complex 1 tab PO SUTUTHSA 05/17/25 05/17/25 History
Review of Systems
-
Unable to obtain full review of systems at this time due to: Dementia
Physical Exam
Vital Signs
Vital Signs
Temp Pulse Resp BP Pulse Ox
96.5 F L 70 16 99/69 99
05/18/25 12:25 05/18/25 12:43 05/18/25 12:25 05/18/25 12:43 05/18/25 12:25
Lab Results
WBC 6.9 10^3/uL (4.8-10.8) 05/18/25 06:29
RBC 2.27 10^6/uL (4.70-6.10) L 05/18/25 06:29
Hgb 7.3 g/dL (13.0-18.0) L 05/18/25 06:29
Hct 22.0 % (39.0-52.0) L 05/18/25 06:29
Plt Count 287 10^3/uL (130-400) 05/18/25 06:29
Sodium 135 mmol/L (135-145) 05/18/25 06:29
Potassium 5.0 mmol/L (3.5-5.1) 05/18/25 06:29
Chloride 103 mmol/L (98-107) 05/18/25 06:
Carbon Dioxide 24 mmol/L (22-30) 05/18/25 06:29
BUN 45 mg/dl (9-20) H 05/18/25 06:29
Creatinine 4.3 mg/dL (0.7-1.3) H* 05/18/25 06:29
eGFR 12.89 05/18/25 06:29
Glucose 90 mg/dl (70-99) 05/18/25 06:29
Calcium 9.7 mg/dl (8.4-10.2) 05/18/25 06:29
Phosphorus 3.8 mg/dl (2.5-4.5) 05/18/25 06:29
Albumin 3.4 g/dl (3.5-5.0) L 05/18/25 06:29
Physical Exam
General: Awake, Alert, No Distress and Nontoxic
HEENT: Anicteric, Conjunctivae Clear and Facial Symmetry
Respiratory: Clear, Normal Excursion and Nonlabored Respirations
Cardiac: S1/S2, Regular Rate/Rhythm, Murmur and No Edema
Breast: Deferred by me
Abdomen: Soft, Nontender and Nondistended
Musculoskeletal: No Cyanosis and No Edema
Skin: No Rash
Neuro: Nonfocal/Grossly Intact
Psych: Appropriate
Data Reviewed
-
Labs: Labs Reviewed by me, Discussed with Nurse and Discussed with Patient
Assessment/Plan
-
IMP:
Acute anemia, very weakly heme + in ER.
Acute on chronic hypotension
Recent CAUTI and prostate hemorrhage requiring cystoscopy
Chronic Urinary Retention / Chronic Indwelling Pratt
h/o Complicated Diverticulitis
ESRD - HD M/W/F. kirit mejia
History of diverticulitis with left lower abdominal wound patch
Mild Hyponatremia
Chronic Hypotension
Anemia of Chronic Disease
Anemia of CKD
Left UE AVF
Atrial fibrillation
Aortic stenosis not a TAVR candidate
Plan:
A/w anemia and hypotension
will arrange hD today since missing yesterday
metabolic parameters and vol status seem stable
BP stbale cont midodrine for chr hypotension
Due to his severe he is at risk failing HD with poor hemodynamics
should revisit hospice discussion as do not think pt can make decision
[2025-05-18] MEDS: RENVELA PO (12:39)
--- NOTE | 2025-05-18 12:47 | CON.MD ---
Addendum entered and electronically signed by Lilly West MD 05/18/25 16:14:
Please see full consultation report below under Rashmi Dunne
Original Note:
[2025-05-18] MEDS: MANNITOL 25% 12.5 GRAMS IV ×2 (13:04→15:04)
[2025-05-18] MEDS: RETACRIT 10000 UNITS IV (14:04)
--- NOTE | 2025-05-18 14:40 | W.PN.NEPH.HD ---
Assessment
-
pt seen during HD
BP are soft, extra midodrine with HD
AVF functions fine
high dose of JO
GI follows no intervention
need GOC again
reviewed with pt that poor hemodynamics are challenging to continue HD and recommend hospice
hope he remembers this conversation
Progress Note - Hemodialysis
-
Date of Service: May 18, 2025
Duration: 3 hours
Potassium Bath: 3
Calcium Bath: 2.5
Opti-Dialyzer: 160
Ultrafiltration: Other (0)
Blood Flow: 400
Dialysate Flow: 600
Heparin: no
EPO: 47440
[2025-05-18] MEDS: FLEXBUMIN 25% FOR HEMODIALYSIS 12.5 GRAMS IV (15:18)
[2025-05-18 19:19] LABS: Hepatitis B Surface Antigen Negative (Negative)
[2025-05-18] MEDS: REMERON 7.5 MG PO (22:35)
[2025-05-19] VITALS (9 sets, daily range): BP systolic 93–128; BP diastolic 51–66; BMI 19.6
[2025-05-19 07:16] LABS: Hematocrit 23.5 % (39.0-52.0); Hemoglobin 7.5 g/dL (13.0-18.0); Mean Corp Hgb Conc. 31.9 g/dL (33.0-37.0); Mean Corpuscular Volume 98.3 fL (80.0-94.0); Platelet Count 264 10^3/uL (130-400); Red Cell Dist. Width 16.9 % (11.5-14.5)
[2025-05-19 07:31] LABS: Blood Urea Nitrogen 24 mg/dl (9-20); Calcium 9.9 mg/dl (8.4-10.2); Carbon Dioxide 30 mmol/L (22-30); Chloride 103 mmol/L (98-107); Estimated Creatinine Clearance 14 ml/min; Glucose 90 mg/dl (70-99); Magnesium 2.0 mg/dl (1.6-2.3); Potassium 4.3 mmol/L (3.5-5.1); Sodium 140 mmol/L (135-145); eGFR 20.68
--- NOTE | 2025-05-19 07:55 | PN.CDI ---
CDI
- -
CDI:
Physician Documentation Request
Admit Date: 05/17/25 22:03
Dear Doctor Reji,
Please review the following and provide your response in the progress notes.
Clinical Indicators:
Selected Entries
05/18/25
16:40
Pressure injury stage [Middle Back] Stage 1
Selected Entries
05/18/25
16:40
Pressure injury stage [Sacrum] Stage 1
Physician documentation of the type and location of wounds is required for compliant documentation. Based on the above clinical findings and your assessment, please provide the following in your progress note:
Yes, stage 1 pressure injury(middle back) and stage 1 pressure injury(sacrum), POA
Stage 1 pressure injury middle back, only
Stage 1 pressure injury sacrum, only
No, Pressure injuries
Other (please specify)
1. Location of the ulcer/wound, including laterality.
2. Type (etiology) of ulcer/wound:
- Diabetic ulcer
- Arterial (ischemic) ulcer
- Traumatic wound
- Venous stasis ulcer
- Pressure (decubitus) ulcer
3. For a pressure ulcer, please also include the stage* of the ulcer:
- Stage 1 - Skin intact, non-blanchable redness
- Stage 2 - Partial thickness loss of dermis, includes intact or open blister
- Stage 3 - Full thickness tissue not including bone, tendon or muscle
- Stage 4 - Full thickness tissue loss, including exposed bone, tendon or muscle
- Unstageable - Full thickness loss in which the base of the ulcer is covered by slough (yellow, valenzuela, zamarripa, green or brown) and/or eschar (valenzuela, brown or black) in the wound bed.
- Unable to determine
Use of terms such as suspected, likely, concern for, or probable (associated with a specific diagnosis that is being evaluated, monitored, or treated as if it exists) are acceptable and can be coded in the inpatient setting, when documented at the
time of discharge.
Thank you,
Stephanie Dia RN BSN CCDS
CDI Specialist
Please contact via tiger text
Please use your independent medical judgment in providing your response.
*Source: National Pressure Ulcer Advisory Panel (NPUAP)
[2025-05-19] MEDS: NSS (PRESERVATIVE FREE) 10 ML IV (07:59)
[2025-05-19] MEDS: SODIUM CHLORIDE 2 GRAM PO ×2 (07:59→20:11)
[2025-05-19] MEDS: ROCALTROL 0.25 MCG PO (07:59)
[2025-05-19] MEDS: RENVELA 800 MG PO ×3 (07:59→17:39)
[2025-05-19] MEDS: PROTONIX IV 40 MG IV (08:00)
--- NOTE | 2025-05-19 08:00 | PN.CDI ---
CDI
- -
CDI:
Physician Documentation Request
Admit Date: 05/17/25 22:03
Dear Doctor John,
Please review the following and provide your response in the progress notes.
Clinical Indicators:
05/23 Discharge Summary
# ESRD on HD, MWF
# Dementia, unknown type
# severe protein caloric malnutrition
# Bedbound at baseline
# Chronic indwelling pratt catheter
Selected Entries
05/17/25
23:15
Patient living with Caregiver
Selected Entries
05/17/25
23:15
Previous Functional Ability: Dependent
Selected Entries
05/17/25
23:15 05/18/25
00:05
Ambulatory aid: Bedrest/WC/None
/Nurse Bedrest/WC/None
/Nurse
Gait/transferring: Normal/bedrest/
immobile Normal/bedrest/
immobile
Per Nurses Notes, 05/21 and 05/22
#Feeding Assist
Please provide further specificity associated with the patient's functional status:
Functional Quadriplegia - complete immobility due to severe physical disability or frailty
Weakness only
Other (please specify)
Quadriparesis/Quadriplegia
Type
Complete
Incomplete
Unable to determine
Etiology
CVA, cerebral palsy,
injury, etc.
Functional quadriplegia
complete immobility due
severe physical
disability or frailty
Use of terms such as suspected, likely, concern for, or probable (associated with a specific diagnosis that is being evaluated, monitored, or treated as if it exists) are acceptable and can be coded in the inpatient setting, when documented at the
time of discharge.
Thank you,
Stephanie Dia RN BSN CCDS
CDI Specialist
Please contact via tiger text
Please use your independent medical judgment in providing your response.
[2025-05-19] MEDS: BACTROBAN 2% OINTMENT 1 APPLIC TOPICAL ×2 (08:01→20:12)
--- NOTE | 2025-05-19 11:28 | CM ---
Patient seen at beside
Resident of [facility] [address]
ESRD on HD
Referral placed in [facility]
PLAN: Return to [facility] when stable
Report #: [phone]
Fax #: [phone]
--- NOTE | 2025-05-19 11:29 | W.PN.HOSP.TC ---
Addendum entered and electronically signed by Stephanie Mendoza MD 05/19/25 11:52:
stage 1 pressure injury back and sacrum (POA)--bedbound at baseline
Original Note:
Today's Communication/Plan
-
replace chronic prtat catheter
transfuse 1 more unit pRBC on HD today
Assessment / Plan
Assessment / Plan
HPI: 85 y/o M, ESRD on HD; p/w hypotension with anemia (hemoglobin 6.1). Patient reports possibly seeing black stool (on ASA 81mg daily). No other complaints. Has a Pratt catheter - no bleeding observed. Recently admitted 04/27 to 05/01 with
hematuria/blood loss anemia and CAUTI - completed antibiotics. He had a cystoscopy due to prostate hemorrhage. Was on hospice after recent discharge but unclear if truly on hospice as receiving dialysis.
In ER, stool with trace heme positivity.
Acute blood loss anemia presumably from prostate hemorrhage requiring cystoscopy on anemia of chronic disease--HGB 6.1--s/p 1 unit pRBC with HGB rise to 7.5--may need another unit--iron panel suggest ACD, B12/folate WNL--holding ASA--apprec GI
Acute on chronic hypotension, could be related to possible GI bleed/anemia --No evidence of infection--on scheduled midodrine - continue
Recent CAUTI and prostate hemorrhage requiring cystoscopy--UA this admission showed improved hematuria--Urine culture sent, follow up
Chronic indwelling pratt cath--was removed yesterday for unknown reason?--will replace--bladder scan showed 500mls--1200mls actually out
ESRD on HD--HD MWF--nephrology CS for routine HD orders
Dementia, unknown type--seems like a good historian to me
severe protein caloric malnutrition
Bedbound at baseline
Anxiety / Depression--Continue mirtazapine
Severe
DVT proph--SCD
Code status-- DNR per prior records.
Of note, there was plan for disposition to hospice but per CM and brother, pt does not want to stop dialysis, so hospice was not signed up.
Anticipated Discharge: 24 - 48 hours
Subjective/Interval History
-
Date of Service: May 19, 2025
pt tells me he has had a chronic pratt for years and went to urology monthly for cath exchange
Objective Data
-
Labs:
Laboratory Results
05/19/25
06:27
WBC 6.5
Hgb 7.5 L
Hct 23.5 L
Plt Count 264
Sodium 140
Potassium 4.3
Chloride 103
Carbon Dioxide 30
BUN 24 H
Creatinine 2.9 H
Glucose 90
Calcium 9.9
Vital Signs:
max temp for 24 hours
05/19/25
03:09
Temp 98.4 F
Vital Signs
Temp Pulse Resp BP Pulse Ox
98.1 F 85 18 128/66 99
05/19/25 07:00 05/19/25 07:00 05/19/25 07:00 05/19/25 07:00 05/19/25 07:00
I&O
05/18/25 05/19/25 05/20/25
06:59 06:59 06:59
Intake Total 250 / 250 1240 / 1240
Output Total 1000 / 1000 600 / 600
Balance -750 / -750 640 / 640
Review of Systems
-
History Source: Patient
All other systems: Reviewed and negative
Physical Exam
-
General: Appears Chronically Ill
HEENT: Normocephalic and Atraumatic
Respiratory: Clear to Auscultation; Negative Wheezes or Rhonchi
Cardiac: Regular Rhythm and S1/S2; Negative Murmur
GI: Soft, Normal Bowel Sounds, Tender (suprapubic region) and Distended
Musculoskeletal: No Clubbing, No Cyanosis and No Edema
Skin: Warm
Neuro: Awake
--- NOTE | 2025-05-19 11:41 | PTCARENOTE ---
bladder scan >506. reviewed orders with attending, chronic pratt re-ordered. x1 attempt with 16 3 pratt- 1200 clear yellow out
[2025-05-19] MEDS: RETACRIT 10000 UNITS IV (14:31)
--- NOTE | 2025-05-19 14:49 | W.PN.NEPH.HD ---
Assessment
-
Seen on HD no complaints. VSS, access ok
transfuse on HD
Progress Note - Hemodialysis
-
Date of Service: May 19, 2025
Duration: 3 hours
Potassium Bath: 3
Calcium Bath: 2.5
Opti-Dialyzer: 160
Ultrafiltration: Other (.5kg)
Blood Flow: 400
Dialysate Flow: 600
EPO: 72473 units
[2025-05-19] MEDS: REMERON 7.5 MG PO (20:11)
[2025-05-20 00:21] VITALS: BP 104/52
[2025-05-20 06:00] VITALS: BMI 19.2
[2025-05-20 08:04] VITALS: BP 113/65
[2025-05-20 08:05] LABS: Hematocrit 27.7 % (39.0-52.0); Hemoglobin 9.1 g/dL (13.0-18.0); Mean Corp Hgb Conc. 32.9 g/dL (33.0-37.0); Mean Corpuscular Volume 94.9 fL (80.0-94.0); Platelet Count 250 10^3/uL (130-400); Red Cell Dist. Width 18.0 % (11.5-14.5)
[2025-05-20] MEDS: SODIUM CHLORIDE 2 GRAM PO ×2 (08:09→20:31)
[2025-05-20] MEDS: RENVELA 800 MG PO ×3 (08:09→16:24)
[2025-05-20] MEDS: B COMPLEX w/VITAMIN C 1 CAPLET PO (08:12)
[2025-05-20] MEDS: BACTROBAN 2% OINTMENT 1 APPLIC TOPICAL ×2 (08:13→20:31)
[2025-05-20 08:29] LABS: Blood Urea Nitrogen 19 mg/dl (9-20); Calcium 9.8 mg/dl (8.4-10.2); Carbon Dioxide 31 mmol/L (22-30); Chloride 102 mmol/L (98-107); Estimated Creatinine Clearance 16 ml/min; Glucose 90 mg/dl (70-99); Potassium 3.7 mmol/L (3.5-5.1); Sodium 139 mmol/L (135-145); eGFR 24.72
--- NOTE | 2025-05-20 11:01 | W.PN.NEPH.PH ---
Today's Communication / Plan
-
Next HD Thursday
Assessment/Plan
-
IMP:
Acute anemia, very weakly heme + in ER.
Acute on chronic hypotension
Recent CAUTI and prostate hemorrhage requiring cystoscopy
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
h/o Complicated Diverticulitis
ESRD - HD M/W/F. [facility]
History of diverticulitis with left lower abdominal wound patch
Mild Hyponatremia
Chronic Hypotension
Anemia of Chronic Disease
Anemia of CKD
Left UE AVF
Atrial fibrillation
Aortic stenosis not a TAVR candidate
Plan:
Next HD Thursday
DC planning
-
-
Date of Service: May 20, 2025
CC / HPI / ROS
-
Chief Complaint:
ESRD
History of Present Illness:
BP stable
Tolerated dialysis yesterday
Hemoglobin up to 9.1 after transfusion on dialysis
Review of Systems:
No chest pain or shortness of breath
P.o. intake good
Labs
-
Labs:
WBC 6.8 10^3/uL (4.8-10.8) 05/20/25 07:42
RBC 2.92 10^6/uL (4.70-6.10) L 05/20/25 07:42
Hgb 9.1 g/dL (13.0-18.0) L D 05/20/25 07:42
Hct 27.7 % (39.0-52.0) L 05/20/25 07:42
Plt Count 250 10^3/uL (130-400) 05/20/25 07:42
Sodium 139 mmol/L (135-145) 05/20/25 07:42
Potassium 3.7 mmol/L (3.5-5.1) 05/20/25 07:42
Chloride 102 mmol/L (98-107) 05/20/25 07:42
Carbon Dioxide 31 mmol/L (22-30) H 05/20/25 07:42
BUN 19 mg/dl (9-20) 05/20/25 07:42
Creatinine 2.5 mg/dL (0.7-1.3) H 05/20/25 07:42
eGFR 24.72 05/20/25 07:42
Glucose 90 mg/dl (70-99) 05/20/25 07:42
Calcium 9.8 mg/dl (8.4-10.2) 05/20/25 07:42
Phosphorus 3.8 mg/dl (2.5-4.5) 05/18/25 06:29
Albumin 3.4 g/dl (3.5-5.0) L 05/18/25 06:29
Physical Exam
-
Vital Signs:
Vital Signs
Temp Pulse Resp BP Pulse Ox
97.5 F 80 16 113/65 94
05/20/25 08:04 05/20/25 08:04 05/20/25 08:04 05/20/25 08:10 05/20/25 08:04
Cardiovascular:: Regular rate and rhythm
Respiratory:: Bilateral: CTA
Lung Excursion:: Normal
Abdomen:: Nontender and Soft
Bowel Sounds:: Normal
Extremity Edema:: None: Bilateral:
[2025-05-20 11:23] VITALS: BP 112/54
--- NOTE | 2025-05-20 11:33 | W.PN.HOSP.TC ---
Today's Communication/Plan
-
Continue current plan. GI to help decide next steps.
Assessment / Plan
Assessment / Plan
85 y/o M, ESRD on HD; p/w hypotension with anemia (hemoglobin 6.1). Patient reported possibly seeing black stool (on ASA 81mg daily). No other complaints. Had a Pratt catheter - no bleeding observed. Recently admitted 04/27 to 05/01 with
hematuria/blood loss anemia and CAUTI - completed antibiotics. He had a cystoscopy due to prostate hemorrhage. Was on hospice after recent discharge but unclear if truly on hospice as receiving dialysis. In ER, stool had trace heme positivity.
1. Acute blood loss anemia presumably from prostate hemorrhage requiring cystoscopy on anemia of chronic disease
HGB 6.1--s/p 1 unit pRBC with HGB rise to 7.5--now 9.1
iron panel suggest ACD, B12/folate WNL
holding ASA
appreciate GI advice
'-Add pantoprazole 40 mg daily
- Patient tolerating solid diet currently
- Patient's brother Hubert who is his POA wants to be conservative.
Still trying to think what he would like to do.
Discussed options such as PPI therapy, watching hemoglobin.
No signs of active bleeding at present time.
To consider endoscopy and colonoscopy.'
2. Acute on chronic hypotension, could be related to possible GI bleed/anemia
No evidence of infection
on scheduled midodrine
continue
3. Recent CAUTI and prostate hemorrhage requiring cystoscopy
UA this admission showed improved hematuria
Urine culture sent
follow up
4. Chronic indwelling pratt cath
was removed
bladder scan showed 500mls--1200mls actually out
replace
5. ESRD on HD--HD MWF--nephrology CS for routine HD orders
6. Dementia, unknown type
7. severe protein caloric malnutrition
8. Bedbound at baseline
9. Anxiety / Depression--Continue mirtazapine
10. Severe
DVT proph--SCD
Code status-- DNR per prior records.
Of note, there was plan for disposition to hospice but per CM and brother, pt does not want to stop dialysis, so hospice was not signed up.
Anticipated Discharge: > 48 hours
Subjective/Interval History
-
Date of Service: May 20, 2025
Comfortable, tolerating a diet
Objective Data
-
Labs:
Laboratory Results
05/20/25
07:42
WBC 6.8
Hgb 9.1 L D
Hct 27.7 L
Plt Count 250
Sodium 139
Potassium 3.7
Chloride 102
Carbon Dioxide 31 H
BUN 19
Creatinine 2.5 H
Glucose 90
Calcium 9.8
Vital Signs:
Vital Signs
Temp Pulse Resp BP Pulse Ox
97.5 F 73 17 112/54 100
05/20/25 11:23 05/20/25 11:23 05/20/25 11:23 05/20/25 11:23 05/20/25 11:23
I&O
05/19/25 05/20/25 05/21/25
06:59 06:59 06:59
Intake Total 1240 / 1240 1030 / 1030
Output Total 600 / 600 1700 / 1700
Balance 640 / 640 -670 / -670
Review of Systems
-
History Source: Patient
All other systems: Reviewed and negative
Physical Exam
-
General: Well Developed, Well Nourished, No Apparent Distress and Comfortable
HEENT: Nose Appears Normal and Ears Appear Normal
Respiratory: Clear to Auscultation
Cardiac: Regular Rhythm, S1/S2 and Murmur
GI: Soft, Nontender and Nondistended
Musculoskeletal: No Clubbing, No Cyanosis and No Edema
Skin: Warm and Dry
Neuro: Awake and Alert
Psych: Calm
Data Reviewed
-
Labs: Labs Reviewed by me
--- NOTE | 2025-05-20 11:45 | W.PN.HOSP.TC ---
Today's Communication/Plan
-
Continue current plan.
Assessment / Plan
Assessment / Plan
85 y/o M, ESRD on HD; p/w hypotension with anemia (hemoglobin 6.1). Patient reported possibly seeing black stool (on ASA 81mg daily). No other complaints. Had a Pratt catheter - no bleeding observed. Recently admitted 04/27 to 05/01 with
hematuria/blood loss anemia and CAUTI - completed antibiotics. He had a cystoscopy due to prostate hemorrhage. Was on hospice after recent discharge but unclear if truly on hospice as receiving dialysis. In ER, stool had trace heme positivity.
1. Acute blood loss anemia presumably from prostate hemorrhage requiring cystoscopy on anemia of chronic disease
HGB 6.1--s/p 1 unit pRBC with HGB rise to 7.5--now 9.1
iron panel suggest ACD, B12/folate WNL
holding ASA
appreciate GI advice
'-Add pantoprazole 40 mg daily
- Patient tolerating solid diet currently
- Patient's brother Hubert who is his POA wants to be conservative.
Still trying to think what he would like to do.
Discussed options such as PPI therapy, watching hemoglobin.
No signs of active bleeding at present time.
To consider endoscopy and colonoscopy.'
2. Acute on chronic hypotension, could be related to possible GI bleed/anemia
No evidence of infection
on scheduled midodrine
continue
3. Recent CAUTI and prostate hemorrhage requiring cystoscopy
UA this admission showed improved hematuria
Urine culture sent
follow up
4. Chronic indwelling pratt cath
was removed
bladder scan showed 500mls--1200mls actually out
replace
5. ESRD on HD--HD MWF--nephrology CS for routine HD orders
6. Dementia, unknown type
7. severe protein caloric malnutrition
8. Bedbound at baseline
9. Anxiety / Depression--Continue mirtazapine
10. Severe
DVT proph--SCD
Code status-- DNR per prior records.
Of note, there was plan for disposition to hospice but per CM and brother, pt does not want to stop dialysis, so hospice was not signed up.
Anticipated Discharge: 24 - 48 hours
Subjective/Interval History
-
Date of Service: May 20, 2025
Objective Data
-
Labs:
Laboratory Results
05/20/25
07:42
WBC 6.8
Hgb 9.1 L D
Hct 27.7 L
Plt Count 250
Sodium 139
Potassium 3.7
Chloride 102
Carbon Dioxide 31 H
BUN 19
Creatinine 2.5 H
Glucose 90
Calcium 9.8
Vital Signs:
Vital Signs
Temp Pulse Resp BP Pulse Ox
97.5 F 73 17 112/54 100
05/20/25 11:23 05/20/25 11:23 05/20/25 11:23 05/20/25 11:23 05/20/25 11:23
I&O
05/19/25 05/20/25 05/21/25
06:59 06:59 06:59
Intake Total 1240 / 1240 1030 / 1030
Output Total 600 / 600 1700 / 1700
Balance 640 / 640 -670 / -670
[2025-05-20 14:57] VITALS: BP 98/54
[2025-05-20] MEDS: REMERON 7.5 MG PO (20:31)
[2025-05-20 23:00] VITALS: BP 110/64
[2025-05-21 05:41] LABS: Hematocrit 26.6 % (39.0-52.0); Hemoglobin 8.6 g/dL (13.0-18.0); Mean Corp Hgb Conc. 32.3 g/dL (33.0-37.0); Mean Corpuscular Volume 96.0 fL (80.0-94.0); Platelet Count 250 10^3/uL (130-400); Red Cell Dist. Width 17.5 % (11.5-14.5)
[2025-05-21 06:00] VITALS: BMI 18.8
[2025-05-21 06:03] LABS: Blood Urea Nitrogen 35 mg/dl (9-20); Calcium 10.0 mg/dl (8.4-10.2); Carbon Dioxide 29 mmol/L (22-30); Chloride 104 mmol/L (98-107); Estimated Creatinine Clearance 11 ml/min; Glucose 98 mg/dl (70-99); Potassium 4.1 mmol/L (3.5-5.1); Sodium 140 mmol/L (135-145); eGFR 15.44
[2025-05-21 07:00] VITALS: BP 92/46
[2025-05-21] MEDS: SODIUM CHLORIDE 2 GRAM PO ×2 (09:10→20:36)
[2025-05-21] MEDS: RENVELA 800 MG PO ×3 (09:11→17:31)
[2025-05-21] MEDS: B COMPLEX w/VITAMIN C 1 CAPLET PO (09:11)
[2025-05-21] MEDS: BACTROBAN 2% OINTMENT 1 APPLIC TOPICAL ×2 (09:12→20:35)
--- NOTE | 2025-05-21 11:33 | W.PN.HOSP.TC ---
Today's Communication/Plan
-
supportive care as needed.
Assessment / Plan
Assessment / Plan
85 y/o M, ESRD on HD; p/w hypotension with anemia (hemoglobin 6.1). Patient reported possibly seeing black stool (on ASA 81mg daily). No other complaints. Had a Pratt catheter - no bleeding observed. Recently admitted 04/27 to 05/01 with
hematuria/blood loss anemia and CAUTI - completed antibiotics. He had a cystoscopy due to prostate hemorrhage. Was on hospice after recent discharge but unclear if truly on hospice as receiving dialysis. In ER, stool had trace heme positivity.
1. Acute blood loss anemia presumably from prostate hemorrhage requiring cystoscopy on anemia of chronic disease
HGB 6.1--s/p 1 unit pRBC with HGB rise to 7.5, then 9.1 --> today 8.6
iron panel suggest ACD, B12/folate WNL
holding ASA
appreciate GI advice
'-Add pantoprazole 40 mg daily
- Patient tolerating solid diet currently
- Patient's brother Hubert who is his POA wants to be conservative.
Still trying to think what he would like to do.
Discussed options such as PPI therapy, watching hemoglobin.
No signs of active bleeding at present time.
To consider endoscopy and colonoscopy.'
Given that H/H is lower, would ask GI again if scoping would be helpful.
2. Acute on chronic hypotension, could be related to possible GI bleed/anemia
No evidence of infection
on scheduled midodrine
continue
3. Recent CAUTI and prostate hemorrhage requiring cystoscopy
UA this admission showed improved hematuria
Urine culture sent
follow up
4. Chronic indwelling pratt cath
was removed
bladder scan showed 500mls--1200mls actually out
replaced
Current output clear
5. ESRD on HD--HD MWF--nephrology CS for routine HD orders
6. Dementia, unknown type
7. severe protein caloric malnutrition
8. Bedbound at baseline
9. Anxiety / Depression--Continue mirtazapine
10. Severe
DVT proph--SCD
Code status-- DNR per prior records.
Of note, there was plan for disposition to hospice but per CM and brother, pt does not want to stop dialysis, so hospice was not signed up.
Anticipated Discharge: > 48 hours
Subjective/Interval History
-
Date of Service: May 21, 2025
Resting comfortably, blood counts worsening.
Objective Data
-
Labs:
Laboratory Results
05/21/25
05:00
WBC 8.5
Hgb 8.6 L
Hct 26.6 L
Plt Count 250
Sodium 140
Potassium 4.1
Chloride 104
Carbon Dioxide 29
BUN 35 H
Creatinine 3.7 H
Glucose 98
Calcium 10.0
Vital Signs:
Vital Signs
Temp Pulse Resp BP Pulse Ox
98.3 F 77 17 92/46 99
05/21/25 07:00 05/21/25 09:11 05/21/25 07:00 05/21/25 09:11 05/21/25 09:51
I&O
05/20/25 05/21/25 05/22/25
06:59 06:59 06:59
Intake Total 1030 / 1030 1020 / 1020
Output Total 1700 / 1700 500 / 500
Balance -670 / -670 520 / 520
Review of Systems
-
History Source: Patient
All other systems: Reviewed and negative
Physical Exam
-
General: Well Developed, No Apparent Distress and Comfortable
HEENT: Normocephalic, Nose Appears Normal and Ears Appear Normal
Respiratory: Clear to Auscultation
Cardiac: Regular Rhythm and S1/S2
GI: Soft, Nontender and Nondistended
Musculoskeletal: No Clubbing, No Cyanosis and No Edema
Skin: Warm and Dry
Neuro: Awake
Psych: Calm
Data Reviewed
-
Labs: Labs Reviewed by me
--- NOTE | 2025-05-21 12:02 | W.PN.NEPH.PH ---
Today's Communication / Plan
-
HD tomorrow
Assessment/Plan
-
IMP:
Acute anemia, very weakly heme + in ER.
Acute on chronic hypotension
Recent CAUTI and prostate hemorrhage requiring cystoscopy
Chronic Urinary Retention / Chronic Indwelling Pratt
h/o Complicated Diverticulitis
ESRD - HD M/W/F. [facility]
History of diverticulitis with left lower abdominal wound patch
Mild Hyponatremia
Chronic Hypotension
Anemia of Chronic Disease
Anemia of CKD
Left UE AVF
Atrial fibrillation
Aortic stenosis not a TAVR candidate
Plan:
Next HD tomorrow
maintain pratt
DC planning
-
-
Date of Service: May 21, 2025
CC / HPI / ROS
-
Chief Complaint:
ESRD
History of Present Illness:
BP stable
Tolerated dialysis thursday
Hemoglobin down to 8.[address] for retention
Review of Systems:
No chest pain or shortness of breath
P.o. intake good
Labs
-
Labs:
WBC 8.5 10^3/uL (4.8-10.8) 05/21/25 05:00
RBC 2.77 10^6/uL (4.70-6.10) L 05/21/25 05:00
Hgb 8.6 g/dL (13.0-18.0) L 05/21/25 05:00
Hct 26.6 % (39.0-52.0) L 05/21/25 05:00
Plt Count 250 10^3/uL (130-400) 05/21/25 05:00
Sodium 140 mmol/L (135-145) 05/21/25 05:00
Potassium 4.1 mmol/L (3.5-5.1) 05/21/25 05:00
Chloride 104 mmol/L (98-107) 05/21/25 05:00
Carbon Dioxide 29 mmol/L (22-30) 05/21/25 05:00
BUN 35 mg/dl (9-20) H 05/21/25 05:00
Creatinine 3.7 mg/dL (0.7-1.3) H 05/21/25 05:00
eGFR 15.44 05/21/25 05:00
Glucose 98 mg/dl (70-99) 05/21/25 05:00
Calcium 10.0 mg/dl (8.4-10.2) 05/21/25 05:00
Phosphorus 3.8 mg/dl (2.5-4.5) 05/18/25 06:29
Albumin 3.4 g/dl (3.5-5.0) L 05/18/25 06:29
Physical Exam
-
Vital Signs:
Vital Signs
Temp Pulse Resp BP Pulse Ox
98.3 F 77 17 92/46 99
05/21/25 07:00 05/21/25 09:11 05/21/25 07:00 05/21/25 09:11 05/21/25 09:51
Cardiovascular:: Regular rate and rhythm
Respiratory:: Bilateral: CTA
Lung Excursion:: Normal
Abdomen:: Nontender and Soft
Bowel Sounds:: Normal
Extremity Edema:: None: Bilateral:
[2025-05-21 15:00] VITALS: BP 123/71
[2025-05-21 20:34] VITALS: BP 114/63
[2025-05-21] MEDS: REMERON 7.5 MG PO (22:33)
[2025-05-21 23:00] VITALS: BP 127/71
[2025-05-22 06:00] VITALS: BMI 19.3
[2025-05-22 06:43] LABS: Hematocrit 28.4 % (39.0-52.0); Hemoglobin 9.1 g/dL (13.0-18.0); Mean Corp Hgb Conc. 32.0 g/dL (33.0-37.0); Mean Corpuscular Volume 97.6 fL (80.0-94.0); Platelet Count 271 10^3/uL (130-400); Red Cell Dist. Width 17.0 % (11.5-14.5)
[2025-05-22 07:00] VITALS: BP 118/58
[2025-05-22 07:20] LABS: Blood Urea Nitrogen 50 mg/dl (9-20); Calcium 10.4 mg/dl (8.4-10.2); Carbon Dioxide 26 mmol/L (22-30); Chloride 106 mmol/L (98-107); Estimated Creatinine Clearance 9 ml/min; Glucose 95 mg/dl (70-99); Potassium 4.7 mmol/L (3.5-5.1); Sodium 142 mmol/L (135-145); eGFR 11.59
[2025-05-22] MEDS: SODIUM CHLORIDE 2 GRAM PO ×2 (07:52→20:52)
[2025-05-22] MEDS: RENVELA 800 MG PO ×2 (07:52→12:05)
[2025-05-22] MEDS: ROCALTROL 0.25 MCG PO (08:16)
--- NOTE | 2025-05-22 10:24 | W.PN.HOSP.TC ---
Today's Communication/Plan
-
resume CTO ASA
HD today
if Hgb remain stable tmr, OK for discharge back to [place]
Assessment / Plan
Assessment / Plan
85 y/o M, ESRD on HD; p/w hypotension with anemia (hemoglobin 6.1). Patient reported possibly seeing black stool (on ASA 81mg daily). No other complaints. Had a Pratt catheter - no bleeding observed. Recently admitted 04/27 to 05/01 with
hematuria/blood loss anemia and CAUTI - completed antibiotics. He had a cystoscopy due to prostate hemorrhage. In ER, stool had trace heme positivity.
A/P:
# Acute blood loss anemia presumably from prostate hemorrhage requiring cystoscopy on anemia of chronic disease
s/p 2 units pRBC
Hgb today 9.1, cont to monitor
iron panel suggest ACD, B12/folate WNL
resume CTO ASA
appreciate GI advice, Add pantoprazole 40 mg daily, Patient's brother Hubert who is his POA wants to be conservative.
# Acute on chronic hypotension, could be related to possible GI bleed/anemia
No evidence of infection
on scheduled midodrine, continue
# Recent CAUTI and prostate hemorrhage requiring cystoscopy
UA this admission showed improved hematuria
Urine culture this admission showed Mixed wiley present, Probable contamination
# Chronic indwelling pratt catheter
failed voiding trial, pt still makes urine despite on HD
pratt replaced 05/19, next pratt change in 4 weeks
# ESRD on HD--HD MWF--nephrology on board for routine HD orders
# Dementia, unknown type
# severe protein caloric malnutrition
# Bedbound at baseline
# Anxiety / Depression--Continue mirtazapine
# Severe
DVT proph--SCD
Code status-- DNR per prior records.
Of note, there was plan for disposition to hospice but per CM and brother, pt does not want to stop dialysis, so hospice was not signed up.
Anticipated Discharge: Within 24 hours
Subjective/Interval History
-
Date of Service: May 22, 2025
Objective Data
-
Labs:
Laboratory Results
05/22/25
06:14
WBC 8.0
Hgb 9.1 L
Hct 28.4 L
Plt Count 271
Sodium 142
Potassium 4.7
Chloride 106
Carbon Dioxide 26
BUN 50 H
Creatinine 4.7 H*
Glucose 95
Calcium 10.4 H
Vital Signs:
Vital Signs
Temp Pulse Resp BP Pulse Ox
36.5 C 79 18 118/58 99
05/22/25 07:00 05/22/25 07:51 05/22/25 07:00 05/22/25 07:51 05/22/25 09:03
I&O
05/21/25 05/22/25 05/23/25
06:59 06:59 06:59
Intake Total 1020 / 1020 1260 / 1260 480 / 480
Output Total 500 / 500 650 / 650 850 / 850
Balance 520 / 520 610 / 610 -370 / -370
Review of Systems
-
History Source: Patient
All other systems: Reviewed and negative
Physical Exam
-
General: Well Developed, No Apparent Distress, Comfortable and Appears Chronically Ill
HEENT: Normocephalic, Nose Appears Normal and Ears Appear Normal
Respiratory: Clear to Auscultation
Cardiac: Regular Rhythm and S1/S2
GI: Soft, Nontender and Nondistended
Musculoskeletal: No Clubbing, No Cyanosis and No Edema
Skin: Warm and Dry
Neuro: Awake
Psych: Calm; Negative Intact Judgement/Insight
Data Reviewed
-
Labs: Labs Reviewed by me
--- NOTE | 2025-05-22 11:03 | CM ---
chart reviewed
per hospitalist tt if hgb stable tomorrow tentative dc
notified [facility] liaison
IMM explained & signed. In chart
PLAN: Return to [facility] when stable
Report #: [id number]
Fax #: [phone]
[2025-05-22] MEDS: ASPIR LOW (ENTERIC COATED) 81 MG PO (12:06)
[2025-05-22 15:00] VITALS: BP 126/65
[2025-05-22] MEDS: RENVELA PO (17:24)
--- NOTE | 2025-05-22 18:13 | W.PN.NEPH.HD ---
Assessment
-
Patient seen on HD
sbp 92 at small u/f of .5kg
no complaints
Progress Note - Hemodialysis
-
Date of Service: May 22, 2025
Duration: 30 minutes and 3 hours
Potassium Bath: 3
Calcium Bath: 2.5
Opti-Dialyzer: 160
Ultrafiltration: Other (0.5kg as hemodynamically tolerated)
Blood Flow: 400
Dialysate Flow: 600
Heparin: none
EPO: 10K
[2025-05-22] MEDS: RETACRIT 10000 UNITS IV (18:46)
[2025-05-22] MEDS: BACTROBAN 2% OINTMENT 1 APPLIC TOPICAL (20:53)
[2025-05-22] MEDS: REMERON 7.5 MG PO (20:53)
[2025-05-22 23:31] VITALS: BP 109/65
[2025-05-23 05:54] LABS: Hematocrit 28.3 % (39.0-52.0); Hemoglobin 9.1 g/dL (13.0-18.0); Mean Corp Hgb Conc. 32.2 g/dL (33.0-37.0); Mean Corpuscular Volume 97.9 fL (80.0-94.0); Platelet Count 247 10^3/uL (130-400); Red Cell Dist. Width 16.9 % (11.5-14.5)
[2025-05-23 06:00] VITALS: BMI 19.1
[2025-05-23 06:23] LABS: Blood Urea Nitrogen 25 mg/dl (9-20); Calcium 9.5 mg/dl (8.4-10.2); Carbon Dioxide 28 mmol/L (22-30); Chloride 103 mmol/L (98-107); Estimated Creatinine Clearance 15 ml/min; Glucose 88 mg/dl (70-99); Potassium 4.3 mmol/L (3.5-5.1); Sodium 140 mmol/L (135-145); eGFR 22.53
[2025-05-23 07:44] VITALS: BP 93/52
[2025-05-23] MEDS: SODIUM CHLORIDE 2 GRAM PO (08:41)
[2025-05-23] MEDS: RENVELA 800 MG PO ×2 (08:42→11:48)
[2025-05-23] MEDS: B COMPLEX w/VITAMIN C 1 CAPLET PO (08:46)
[2025-05-23] MEDS: BACTROBAN 2% OINTMENT 1 APPLIC TOPICAL (08:48)
--- NOTE | 2025-05-23 11:00 | W.PN.HOSP.TC ---
Addendum entered and electronically signed by Carol Lopez MD 05/23/25 15:35:
# Functional Quadriplegia - complete immobility due to severe physical disability or frailty
Original Note:
Today's Communication/Plan
-
see A/P
Assessment / Plan
Assessment / Plan
85 y/o M, ESRD on HD; p/w hypotension with anemia (hemoglobin 6.1). Patient reported possibly seeing black stool (on ASA 81mg daily). No other complaints. Had a Pratt catheter - no bleeding observed. Recently admitted 04/27 to 05/01 with
hematuria/blood loss anemia and CAUTI - completed antibiotics. He had a cystoscopy due to prostate hemorrhage. In ER, stool had trace heme positivity.
A/P:
# Acute blood loss anemia presumably from prostate hemorrhage requiring cystoscopy on anemia of chronic disease
s/p 2 units pRBC
Hgb today 9.1, cont to monitor
iron panel suggest ACD, B12/folate WNL
resumed [employer] ASA
appreciate GI advice, Added pantoprazole 40 mg daily, can cont going forward
Patient's brother Hubert who is his POA wants to be conservative.
# Acute on chronic hypotension, could be related to possible GI bleed/anemia
No evidence of infection
on scheduled midodrine, continue
# Recent CAUTI and prostate hemorrhage requiring cystoscopy
UA this admission showed improved hematuria
Urine culture this admission showed Mixed wiley present, Probable contamination
# Chronic indwelling pratt catheter
failed voiding trial, pt still makes urine despite on HD
pratt replaced 05/19, next pratt change in 4 weeks
# ESRD on HD--HD MWF--nephrology on board for routine HD orders
# Dementia, unknown type
# severe protein caloric malnutrition
# Bedbound at baseline
# Anxiety / Depression--Continue mirtazapine
# Severe
DVT proph--SCD
Code status-- DNR per prior records.
Of note, there was plan for disposition to hospice but per CM and brother, pt does not want to stop dialysis, so hospice was not signed up.
updated brother Hubert on the phone
Anticipated Discharge: Today
Subjective/Interval History
-
Date of Service: May 23, 2025
Objective Data
-
Labs:
Laboratory Results
05/23/25
05:29
WBC 8.4
Hgb 9.1 L
Hct 28.3 L
Plt Count 247
Sodium 140
Potassium 4.3
Chloride 103
Carbon Dioxide 28
BUN 25 H
Creatinine 2.7 H
Glucose 88
Calcium 9.5
Vital Signs:
Vital Signs
Temp Pulse Resp BP Pulse Ox
36.8 C 81 18 93/52 98
05/23/25 07:44 05/23/25 07:44 05/23/25 07:44 05/23/25 07:44 05/23/25 07:44
I&O
05/22/25 05/23/25 05/24/25
06:59 06:59 06:59
Intake Total 1260 / 1260 1500 / 1500
Output Total 650 / 650 1850 / 1850
Balance 610 / 610 -350 / -350
Review of Systems
-
History Source: Patient
All other systems: Reviewed and negative
Physical Exam
-
General: Well Developed, No Apparent Distress, Comfortable and Appears Chronically Ill
HEENT: Normocephalic, Nose Appears Normal and Ears Appear Normal
Respiratory: Clear to Auscultation and Non Labored Respirations; Negative Accessory Resp Muscle Use
Cardiac: Regular Rhythm and S1/S2
GI: Soft, Nontender and Nondistended
Musculoskeletal: No Clubbing, No Cyanosis and No Edema
Skin: Warm and Dry
Neuro: Awake
Psych: Calm; Negative Intact Judgement/Insight
Data Reviewed
-
Labs: Labs Reviewed by me
--- NOTE | 2025-05-23 11:51 | CM ---
Addendum entered by Shanta Felipe 05/23/25 12:12:
1500 transport time set - [facility] Notified
Left message with Hubert davey
Addendum entered by Shanta Felipe 05/23/25 11:58:
Updated [facility] referral
Addendum entered by Shanta Felipe 05/23/25 11:56:
transportation forms on chart
Original Note:
Patient seen at bedside
IMM signed yesterday, in chart
discharge back to [facility] today
notified [facility] liaison
PLAN: Return to [facility]
Report #: [phone]
Fax #: [phone]
--- NOTE | 2025-05-23 14:17 | W.PN.NEPH.PH ---
Today's Communication / Plan
-
Stable for discharge
Dialysis tomorrow at home you
Assessment/Plan
-
IMP:
Acute anemia, very weakly heme + in ER.
Acute on chronic hypotension
Recent CAUTI and prostate hemorrhage requiring cystoscopy
Chronic Urinary Retention / Chronic Indwelling Pratt
h/o Complicated Diverticulitis
ESRD - HD M/W/F. [facility]
History of diverticulitis with left lower abdominal wound patch
Mild Hyponatremia
Chronic Hypotension
Anemia of Chronic Disease
Anemia of CKD
Left UE AVF
Atrial fibrillation
Aortic stenosis not a TAVR candidate
Plan:
Cleared for discharge
Next HD tomorrow at home unit
maintain pratt
-
-
Date of Service: May 23, 2025
CC / HPI / ROS
-
Chief Complaint:
ESRD
History of Present Illness:
BP low but stable
Tolerated dialysis yesterday
Hemoglobin at [address] for retention
Review of Systems:
No chest pain or shortness of breath
P.o. intake good
Labs
-
Labs:
WBC 8.4 10^3/uL (4.8-10.8) 05/23/25 05:29
RBC 2.89 10^6/uL (4.70-6.10) L 05/23/25 05:29
Hgb 9.1 g/dL (13.0-18.0) L 05/23/25 05:29
Hct 28.3 % (39.0-52.0) L 05/23/25 05:29
Plt Count 247 10^3/uL (130-400) 05/23/25 05:29
Sodium 140 mmol/L (135-145) 05/23/25 05:29
Potassium 4.3 mmol/L (3.5-5.1) 05/23/25 05:29
Chloride 103 mmol/L (98-107) 05/23/25 05:29
Carbon Dioxide 28 mmol/L (22-30) 05/23/25 05:29
BUN 25 mg/dl (9-20) H 05/23/25 05:29
Creatinine 2.7 mg/dL (0.7-1.3) H 05/23/25 05:29
eGFR 22.53 05/23/25 05:29
Glucose 88 mg/dl (70-99) 05/23/25 05:29
Calcium 9.5 mg/dl (8.4-10.2) 05/23/25 05:29
Phosphorus 3.8 mg/dl (2.5-4.5) 05/18/25 06:29
Albumin 3.4 g/dl (3.5-5.0) L 05/18/25 06:29
Physical Exam
-
Vital Signs:
Vital Signs
Temp Pulse Resp BP Pulse Ox
98.2 F 81 18 93/52 98
05/23/25 07:44 05/23/25 07:44 05/23/25 07:44 05/23/25 07:44 05/23/25 07:44
Cardiovascular:: Regular rate and rhythm
Respiratory:: Bilateral: CTA
Lung Excursion:: Normal
Abdomen:: Nontender and Soft
Bowel Sounds:: Normal
Extremity Edema:: None: Bilateral:
--- NOTE | 2025-05-23 14:38 | W.DCSUMMARY ---
Discharge Summary
Discharge Data
Date of Admission: 05/17/25
Date of Discharge: 05/23/25
Total time spent discharging patient (in min): 40
-
Pending Results: No
Hospital Course
Principal Diagnosis:
Acute blood loss anemia, unclear cause, likely due to anemia of chronic disease.
Chronic Diagnoses:�
# Recent CAUTI and prostate hemorrhage requiring cystoscopy
# ESRD on HD, MWF
# Dementia, unknown type
# severe protein caloric malnutrition
# Bedbound at baseline
# Anxiety / Depression, on mirtazapine
# Severe aortic stenosis
# Chronic indwelling pratt catheter
# chronic hypotension, stable, on chronic midodrine.
Consultations:�
Gastroenterology
Nephrology
Procedures:�
None
Clinical course:�
This is a 85-year-old male with past medical history as stated above, who presented with anemia (outpatient hemoglobin noted at 6.1).
Problem 1:
Acute blood loss anemia, unclear cause, likely due to anemia of chronic disease.
He received 2 units PRBC transfusion this admission.
His hemoglobin has been stable for several days, and was at 9.1 on the day of discharge.
His iron panel obtained suggest ACD; B12/folate were WNL.
He was seen by GI, but no invasive endoscopic evaluation was pursued as his brother would like to be conservative with his management.
His prior to admission aspirin was resumed without further evidence of blood loss.
He can continue with empiric Protonix 40 mg daily for 1 month.
As for the rest of his medical problems, they were stable during his hospital stay.
Discharge Plan
-
Patient Disposition: Custodial/SNF
Discharge Diagnosis/Procedures: Acute blood loss anemia (resolved);
Anemia of chronic disease;
Chronic urinary retention with Pratt catheter
Condition: Fair
Diet: As tolerated, Low Fat, Low Cholesterol and Low Sodium
Activity: As tolerated
Driving Restrictions: No driving
Blood Work: CBC in 1 week, result to PCP
Activity Restrictions/Additional Instructions:
Chronic pratt exchanged on 05/19/2025, next pratt exchange in 4 weeks (06/16/2025) and every 4 weeks after that
Referrals:
Babar Bruner MD [Family Provider] - in less than 1 week
Additional Discharge Medication Instructions: Continue protonix for 30 days
Prescriptions:
New
pantoprazole [Protonix] 40 mg tablet,delayed release (DR/EC)
40 mg PO DAILY 30 Days Qty: 30 0RF
Continued
mirtazapine 7.5 mg Tablet
7.5 mg PO HS
acetaminophen [Tylenol] 325 mg Tablet
650 mg PO Q6HPRN PRN (Reason: mild pain/temp>100)
bisacodyl 10 mg Suppository
10 mg RI DAILYPRN PRN (Reason: if no bm after mom)
ondansetron 4 mg Tablet,Disintegrating
4 mg PO Q8HPRN PRN (Reason: nausea)
mupirocin 2 % Ointment
1 applic TOPICAL BID
polyethylene glycol 3350 [Miralax] 17 gram powder in packet
17 g PO DAILYPRN PRN (Reason: constipation)
hydrocortisone 1 % Cream
1 applic TOPICAL Q6HPRN PRN (Reason: fistula)
albuterol sulfate 1.25 mg/3 mL Solution For Nebulization
1.25 mg INHALATION R DAILYPRN PRN (Reason: SOB)
sodium chloride 1 gram Tablet
2,000 mg PO BID
midodrine 5 mg Tablet
5 mg PO SuTuThSa@08,,
midodrine 5 mg Tablet
5 mg PO MOWEFR@0800,1999
midodrine 5 mg Tablet
5 mg PO [id number] PRN (Reason: BEFORE DIALYSIS)
aspirin 81 mg Tablet,Delayed Release (Dr/Ec)
81 mg PO MOWEFR
vitamin B complex Tablet
1 tab PO SUTUTHSA
calcitriol 0.25 mcg Capsule
0.25 mcg PO MOWEFR
sevelamer carbonate 800 mg Tablet
800 mg PO AC
morphine concentrate 10 mg/0.5 mL syringe
5 mg PO Q4HPRN PRN (Reason: SEVERE pain or dyspnea)
Discharge Orders:
Discharge Patient (As Directed); Ordered 05/23/25
Ordered By: Carol Lopez
Discharge Date and Time
Print Language: POLISH
[2025-05-23 15:06] VITALS: BP 118/58
--- NOTE | 2025-05-23 15:28 | PTCARENOTE ---
pt denies complaints, tolerating diet, no active bleeding, vss, discharged to [facility].
== END 2025-05-23 15:59 | DRG 811 ==
LOC: 3 WEST ACU 22:03
PROVIDERS: Clinical Nurse Specialist Family Health; Specialist; ADMITTING PHYSICIAN Internal Medicine; ATTENDING PHYSICIAN Internal Medicine; CONSULT PHYSICIAN Internal Medicine; CONSULT PHYSICIAN Internal Medicine Gastroenterology; EMERGENCY PHYSICIAN Emergency Medicine; FAMILY PHYSICIAN Internal Medicine
PROC: 30233N1 Transfusion of Nonautologous Red Blood Cells into Peripheral Vein, Percutaneous Approach (ICD-10-PCS; 2025-05-17)
PROC: 5A1D70Z Performance of Urinary Filtration, Intermittent, Less than 6 Hours Per Day (ICD-10-PCS; 2025-05-18)
DX: D62 Acute posthemorrhagic anemia (principal); E43 Unspecified severe protein-calorie malnutrition; N18.6 End stage renal disease; R53.2 Functional quadriplegia; F03.94 Unspecified dementia, unspecified severity, with anxiety; F03.93 Unspecified dementia, unspecified severity, with mood disturbance; Z68.1 Body mass index [BMI] 19.9 or less, adult; D63.1 Anemia in chronic kidney disease; Z99.2 Dependence on renal dialysis; F32.A Depression, unspecified; Z74.01 Bed confinement status; I95.89 Other hypotension; I35.0 Nonrheumatic aortic (valve) stenosis; Z86.14 Personal history of Methicillin resistant Staphylococcus aureus infection; K59.09 Other constipation; Z79.82 Long term (current) use of aspirin; Z79.899 Other long term (current) drug therapy; Z66 Do not resuscitate; I48.91 Unspecified atrial fibrillation; I95.3 Hypotension of hemodialysis; L89.151 Pressure ulcer of sacral region, stage 1; R13.12 Dysphagia, oropharyngeal phase
CPT/HCPCS: 80048; 80053; 81003; 81015; 82607; 82728; 82746; 83540; 83550; 83735; 84100; 84132; 85025; 85027; 86850; 86900; 86901; 86920; 87070; 87086; 87340; 93005; 99285; G0257; P9016; P9047; Q5106